=== PATIENT | male | born 1965 | race Caucasian/White ===

== ENCOUNTER 2021-01-17 17:21 | Inpatient (IN) | payer MEDICARE, MEDICAID, SELFPAY ==
[2021-01-17] VITALS (7 sets, daily range): BP systolic 121–146; BP diastolic 64–72; PULSE 90–121; RESP 14–19; TEMP 36.3–38.4; O2SAT 94–97; BMI 28.1; BMI 28.3
--- NOTE | 2021-01-17 17:27 | ED.RN ---
PT PARKED HIS CAR IN THE ER PARKING LOT AND THEN CALLED 911, [facility] WENT LOOKING FOR PT WHICH WAS MADE MORE DIFFICULT BECAUSE HE HAD HUNG UP WITH DISPATCH. PT WAS FOUND AND PUSHED UP TO THE ENTRANCE IN A WC. WHEN ASKED WHY PT CALLED 911 HE STATED HE COULDN'T WALK UP THE RAMP. IT WAS THEN EXPLAINED TO THE PT THAT SECURITY CAN MOVE HIS VEHICLE IF HE STOPS AT THE ENTRANCE NEXT TIME. USE OF 911 WAS ALSO EXPLAINED TO THE PT.
--- NOTE | 2021-01-17 17:35 | EKG12_ITS ---
Test Reason : Blood Pressure : / mmHG Vent. Rate : 114 BPM Atrial Rate : 114 BPM P-R Int : 158 ms QRS Dur : 098 ms QT Int : 344 ms P-R-T Axes : 047 027 056 degrees QTc Int : 474 ms Sinus tachycardia Cannot rule out Inferior infarct , age undetermined Abnormal ECG Confirmed by RIVKA JACQUES, MICHAEL ([id number]), assistant production editor ANABELA VALDES ([id number]) on 01/22/2021 10:05:36 A M Referred By: DAVINA/WILLIAM Confirmed By:ELISABET TINEO MD
--- NOTE | 2021-01-17 17:38 | EDS_ITS ---
HPI History of Present Illness Chief Complaint: Abn Labs Informant: patient Onset/Context/Timing Onset: Days Context: Gradual Onset Timing: Continuous Current Severity: Moderate Maximum Severity: Moderate Narrative Narrative: The patient is a 56-year-old male with medical history significant for diabetes, coronary vascular disease, prior TIA, history of GI bleed who presents to the emergency department with right foot and ankle pain. The patient has been following with podiatry. Initially, he has been treated as a Charcot foot. About a month ago, he had labs done which showed that he was anemic. He was scheduled follow-up with his primary care but never did. He states he has been taking his omeprazole. He followed up again today with podiatry. He had significant redness and erythema of the ankle. There was concern for osteomyelitis. The patient was sent in for further evaluation. He has been on amoxicillin. He does admit to some mild chills but denies any fevers. Prior similar symptoms: Yes Recent Illness/Hospitalization: No PFSH PFSH Medical History (Updated 01/17/21 @ 19:56 by Mera Torres) Anemia Chronic pain Coronary artery disease Diabetes Former smoker GERD (gastroesophageal reflux disease) GI bleed Myocardial infarct Osteoarthritis Sleep apnea TIA (transient ischemic attack) Home Medications aspirin 325 mg PO DAILY@0800 tab 07/14/17 [Rx Last Taken 01/16/21] alprazolam 0.5 mg PO TID PRN 01/17/21 [History Last Taken Unknown] amoxicillin 500 mg PO TID 01/17/21 [History Last Taken 01/17/21] famotidine 40 mg PO DAILY 01/17/21 [History Last Taken 01/16/21] ferrous sulfate 65 mg PO TIDCM 01/17/21 [History Last Taken 01/16/21] gabapentin 100 mg PO TID 01/17/21 [History Last Taken 01/17/21] insulin aspart U-100 [Novolog Flexpen U-100 Insulin] unit SUBCUT TIDCM 01/17/21 [History Last Taken 01/17/21 12:00 7 units] insulin detemir U-100 [Levemir FlexTouch U-100 Insuln] 60 unit SUBCUT BID 01/17/21 [History Last Taken 01/17/21 12:00 60 units] meloxicam 15 mg PO DAILY PRN 01/17/21 [History Last Taken Unknown] metoprolol succinate 50 mg PO DAILY 01/17/21 [History Last Taken 01/16/21] nitroglycerin 0.4 mg SUBLINGUAL PRN PRN 01/17/21 [History Last Taken Unknown] pantoprazole 40 mg PO BID 01/17/21 [History Last Taken 01/16/21] rosuvastatin 40 mg PO QHS 01/17/21 [History Last Taken Unknown] sildenafil 100 mg PO PRN PRN 01/17/21 [History Last Taken Unknown] tamsulosin 0.4 mg PO QHS 01/17/21 [History Last Taken 01/16/21] tramadol 50 mg PO Q8H PRN 01/17/21 [History Last Taken Unknown] Allergy/AdvReac Type Severity Reaction Status Date / Time No Known Allergies Allergy Verified 01/17/21 17:25 Surgical History (Updated 01/17/21 @ 19:47 by Mera Torres) Hx of CABG (~2013) Social History Smoking Status: Former smoker ROS ROS ED Constitutional Constitutional ED: Reports chills Eyes Eyes: Denies blurry vision or change in vision ENT ENT ED: Denies ear pain or sore throat Cardiovascular Cardiovascular: Denies chest pain or palpitations Respiratory/Chest Respiratory/Chest: Denies cough, dyspnea or dyspnea on exertion Gastrointestinal Gastrointestinal: Reports nausea Genitourinary Genitourinary ED: Denies dysuria or urinary frequency Musculoskeletal Musculoskeletal: Denies arthralgias or myalgias Integumentary Denies rash Neurologic Neurologic: Denies headache(s) or paresthesias Psychiatric Psychiatric: Denies anxiety or depression Endocrine Endocrinology: Denies polydipsia or polyuria Allergic/Immunologic Allergic/Immunologic ED: Denies urticaria EXAM Physical Exam Const Vital Signs: 01/17/21 17:23 01/17/21 18:11 01/17/21 18:13 Temperature 99 F 97.3 F L Temperature Source Temporal Temporal Pulse Rate 114 H 120 H Respiratory Rate 16 19 H Respiratory Effort Normal Non-Labored Blood Pressure 137/72 H 143/64 H Blood Pressure Mean 93 90 Pulse Ox 97 94 Oxygen Delivery Method Room Air Room Air 01/17/21 19:09 Temperature 100.0 F H Temperature Source Oral Pulse Rate 121 H Respiratory Rate 14 Respiratory Effort Blood Pressure 144/68 H Blood Pressure Mean 93 Pulse Ox 95 Oxygen Delivery Method Room Air Positive well nourished and well developed General Appearance ED: well developed HEENT Reports normocephalic, head/scalp atraumatic and moist mucous membranes Eyes PERRL and EOMs intact bilaterally Neck no lymphadenopathy and supple General: Negative for tenderness Chest Wall inspection of chest normal Resp normal respiratory effort and clear to auscultation bilaterally Cardio regular rate, regular rhythm and no murmurs GI normal to inspection, nondistended, normoactive bowel sounds Palpation: Negative for tender, guarding or rebound tenderness present Back/Spine no CVA tenderness Cervical Spine: Negative for cervical spine tenderness Thoracic Spine / Upper Back: Negative for thoracic spinal tenderness Extremity normal to inspection Extremity Narrative: Patient has what appears to be abscess over the medial malleolus. There is significant cellulitis. His pulses are normal. General Extremety ED: Yes tenderness Neuro oriented x3 and CN's II-XII intact bilaterally Neuro Narrative: No focal deficits appreciated. Sensorium / Orientation: alert Psych mental status grossly normal Skin no rashes or lesions noted, no wounds and skin turgor normal MDM MDM MDM Narrative Medical decision making narrative: The patient is a 56-year-old male who presents to the emergency department with infectious symptoms. He has a nonhealing wound of his right lower extremity and was sent in by podiatry. It is erythematous but there is no active drainage. Patient underwent metabolic work-up. He does have leukocytosis. His x-ray is consistent with osteomyelitis that is erosive through the joint. The patient is anemic. His inflammatory ma rkers are markedly elevated. I did discuss his case with podiatry who will see the patient in consultation. He is started on broad-spectrum antibiotics. At this point, the patient will be admitted to hospitalist service for medical stabilization and podiatry consult. Impression 1. Osteomyelitis right ankle 2. Anemia 3. Sepsis Lab Data Attestation: I reviewed the patient's lab results. Labs: Laboratory Results - last 24 hr 01/17/21 01/17/21 01/17/21 18:00 18:00 18:00 WBC 13.5 H RBC 3.28 L Hgb 7.5 L Hct 25.0 L MCV 76.2 L MCH 22.9 L MCHC 30.0 L RDW Std Deviation 48.1 H RDW Coeff of Cl 17.2 H Plt Count 720 H MPV 8.5 Immature Gran % (Auto) 2.000 H Neut % (Auto) 85.4 H Lymph % (Auto) 4.5 L [place] % (Auto) 6.8 Eos % (Auto) 0.7 Baso % (Auto) 0.6 Absolute Neuts (auto) 11.5 H Absolute Lymphs (auto) 0.60 L Nucleated RBC % 0 Differential Comment SEE COMMENT Platelet Estimate MKD INC RBC Morphology N CHROM Hypochromasia 1+ Anisocytosis 1+ Microcytosis 1+ Ovalocytes RARE ESR 116 H PT 14.4 INR 1.2 APTT 31.4 Sodium 131 L Potassium 4.3 Chloride 98 Carbon Dioxide 23.0 Anion Gap 10 BUN 20 H Creatinine 1.33 H Estim Creat Clear Calc 56.60 Est GFR (MDRD) Af Amer 71 Est GFR (MDRD) Non-Af 59 L BUN/Creatinine Ratio 15.0 Glucose 225 H Lactic Acid Calcium 9.5 Total Bilirubin 0.50 AST 12 L ALT 17 Alkaline Phosphatase 296 H C-React Prot Ext Range 187.00 H Total Protein 8.8 H Albumin 2.2 L Globulin 6.6 H Albumin/Globulin Ratio 0.3 L Blood Type Antibody Screen 01/17/21 01/17/21 18:00 18:00 WBC RBC Hgb Hct MCV MCH MCHC RDW Std Deviation RDW Coeff of Cl Plt Count MPV Immature Gran % (Auto) Neut % (Auto) Lymph % (Auto) [place] % (Auto) Eos % (Auto) Baso % (Auto) Absolute Neuts (auto) Absolute Lymphs (auto) Nucleated RBC % Differential Comment Platelet Estimate RBC Morphology Hypochromasia Anisocytosis Microcytosis Ovalocytes ESR PT INR APTT Sodium Potassium Chloride Carbon Dioxide Anion Gap BUN Creatinine Estim Creat Clear Calc Est GFR (MDRD) Af Amer Est GFR (MDRD) Non-Af BUN/Creatinine Ratio Glucose Lactic Acid 1.6 Calcium Total Bilirubin AST ALT Alkaline Phosphatase C-React Prot Ext Range Total Protein Albumin Globulin Albumin/Globulin Ratio Blood Type A POSITIVE Antibody Screen NEGATIVE Radiography Chest X-Ray - ED: 1 View, Read by ED Physician, Read by Radiologist, Heart, Lungs, Mediastinum and Bony Structures Diagnostic Testing: Radiology Impression Ankle X-Ray 01/17/21 18:12 IMPRESSION: Post surgical changes of the ankle and foot with findings suspicious for osteomyelitis and septic arthritis Electronically Signed: Doug Dyer MD at 18:55 EDT , Service support , Chest X-Ray 01/17/21 18:12 IMPRESSION: Streaky opacities in the left lung base could represent atelectasis versus infection. Electronically Signed: Brian Marquez MD at 19:21 EDT Tel , Service support , Discharge Plan Triage Chief Complaint: Abn Labs ED Provider: Russell Virgen Dx/Rx/DC Orders Primary Care Provider: Aaliyah Russ
--- NOTE | 2021-01-17 17:40 | NURSING ---
NO OLD EKGS
[2021-01-17 18:12] LABS: Absolute Neutrophil Count 11.5 X10^3/uL (2.0-7.7); Basophil# 0.08 X10^3/uL; Basophil% 0.6 % (0-1); Eosinophils% 0.7 % (0-5); Hemoglobin 7.5 g/dL (13.0-16.5); Lymphocyte % 4.5 % (19-41); Mean Corpuscular Hgb 22.9 pg (27.0-32.0); Mean Corpuscular Volume 76.2 fL (80-94); Mean Platelet Vol. 8.5 fl (6.2-12.0); Monocyte# 0.91 X10^3/uL; Monocyte% 6.8 % (0-10); NRBC Flagged by Analyzer 0 % (0-5); Neutrophil % 85.4 % (47-70); POSITIVE DIFFERENTIAL YES; Platelet Count 720 K/mm3 (150-450); RBC Distribution Width CV 17.2 % (11.6-14.6); RBC Distribution Width SD 48.1 fl (35.1-43.9); Red Blood Count 3.28 M/mm3 (4.6-6.2); White Blood Count 13.5 K/mm3 (4.4-11.0)
--- NOTE | 2021-01-17 18:12 | RAD_ITS ---
STUDY: X-RAY - RIGHT ANKLE REASON FOR EXAM: Male, 56 years old. pain TECHNIQUE: 3 view(s) of the ankle. COMPARISON: None. FINDINGS: There are old fractures of the distal tibial and fibular shafts. There are postsurgical changes with indwelling orthopedic hardware in the distal tibia calcaneus and talus. There is extensive lytic bony destructive change of the distal tibia and fibula as well as talus and possibly calcaneus with extensive soft tissue swelling suggesting acute osteomyelitis and septic arthritis. Clinical correlation recommended RAD/Ankle min 3 Views IMPRESSION: Post surgical changes of the ankle and foot with findings suspicious for osteomyelitis and septic arthritis Electronically Signed: Doug Dyer MD at 18:55 EDT , Service support ,
--- NOTE | 2021-01-17 18:12 | RAD_ITS ---
INDICATION: sob EXAMINATION/TECHNIQUE: X-RAY - XR Chest 1 View COMPARISON: None. FINDINGS: Streaky opacities in the left lung base. The cardiomediastinal silhouette is unremarkable. Median sternotomy wires and mediastinal clips are present. No pleural effusion or pneumothorax. Degenerative changes of the thoracic spine and shoulders. RAD/Chest 1 View (Portable) IMPRESSION: Streaky opacities in the left lung base could represent atelectasis versus infection. Electronically Signed: Brian Marquez MD at 19:21 EDT Tel , Service support ,
[2021-01-17 18:18] LABS: Differential Indicated SCAN CRITERIA MET
[2021-01-17 18:20] LABS: Erythrocyte Sedimentation Rate 116 mm/hr (0-20)
[2021-01-17 18:23] LABS: International Normalized Ratio 1.2; Prothrombin Time (Protime)PT. 14.4 SECONDS (11.7-14.9)
[2021-01-17 18:24] LABS: Partial Thromboplast Time 31.4 Seconds (24.1-36.2)
[2021-01-17 18:29] LABS: ALB/GLOB Ratio 0.3 RATIO (0.9-2.4); AST(SGOT) 12 U/L (15-37); Alanine Aminotransfer ALT/SGPT 17 U/L (16-61); Albumin, Serum 2.2 g/dL (3.2-5.0); Alkaline Phosphatase 296 U/L (45-117); Anion Gap 10 (5-15); BUN 20 mg/dL (7-18); Calcium,Total 9.5 mg/dL (8.5-10.1); Chloride 98 mmol/L (98-107); Creatinine, Serum 1.33 mg/dL (0.70-1.30); EST Glomerular Filtration Rate 59 mL/min (>60); Est Glom Filt Rate - Afr Amer 71 mL/min (>60); Globulin 6.6 g/dL (2.2-4.2); Glucose 225 mg/dL (74-106); Potassium 4.3 mmol/L (3.5-5.1); Protein, Total 8.8 g/dL (6.4-8.2); Sodium Level 131 mmol/L (136-145)
[2021-01-17 18:38] LABS: Lactic Acid 1.6 mmol/L (0.4-1.9)
[2021-01-17 18:40] LABS: Platelet Estimate MKD INC (ADEQ); Red Cell Morphology N CHROM NORMAL (NORM C&C)
[2021-01-17 18:41] LABS: Anisocytosis 1+; Hypochromasia 1+; Microcytosis 1+; Ovalocyte RARE
--- NOTE | 2021-01-17 19:12 | PCM.HP.STD ---
HPI - General General Date of Admission: 01/17/21 Chief Complaint: R ankle redness, swelling, pain. HPI Narrative The patient is a 56 y/o M w/ PMHx: CAD s/p CABG, Hx TIA, HTN, HLD, GE, Diabetes mellitus type II, Hx GI bleed, R Charcot foot following with Podiatry outpatient who presents to the [facility] ED on 01/17/21 with history of Charcot foot with ongoing outpatient podiatry evaluation and treatment with onset redness and erythema of the ankle over the last several days, worsening with podiatry evaluation today with referral to the ED for evaluation for osteomyelitis for which she has been on amoxicillin with some mild chills but no recent fevers but no improvement in worsening status. He notes that he has had ongoing issues since October. He follows w/ Podiatry in [facility] but was referred to Dr. Salas per his discussion secondary to his physician being out of town. Patient does chronically use iron therefore stools are always darker in appearance and unchanged. Work-up in the ED included T100, heart rate 121, BP 144/68, respiratory rate 14, 94 to 97% on room air, CBC with WBC 13.5, hemoglobin 7.5, MCV 76.2, platelets 720 with notable left shift and lymphopenia, ESR 116, unremarkable coags, CMP with sodium 131, BUN/creatinine 20/1.33, glucose 225, lactic acid 1.6, total bilirubin 0.50, AST/ALT 12/17, alk phos 296, CRP 187, blood type a positive antibody screen negative, right ankle with postsurgical changes of the ankle and foot with findings suspicious for osteomyelitis and septic arthritis, chest x-ray with streaky opacites L lung base possibly atelectasis with no recent cough or dyspnea complaints. In the ED patient administered vanc and zosyn. Discussed case with Dr. Salas upon presentation, agreed with imaging MRI, BSA, planned OR and she requested 1 u PRBC given possible OR blood loss and anemia presentation. [facility] Medical History (Updated 01/17/21 @ 21:[address] Lyndsey Salas, DPM) Anemia Chronic pain Coronary artery disease Diabetes Former smoker GERD (gastroesophageal reflux disease) GI bleed Myocardial infarct Osteoarthritis Sleep apnea TIA (transient ischemic attack) Home Medications aspirin 325 mg PO DAILY@0800 tab 07/14/17 [Rx Last Taken 01/16/21] alprazolam 0.5 mg PO TID PRN 01/17/21 [History Last Taken Unknown] amoxicillin 500 mg PO TID 01/17/21 [History Last Taken 01/17/21] famotidine 40 mg PO DAILY 01/17/21 [History Last Taken 01/16/21] ferrous sulfate 65 mg PO TIDCM 01/17/21 [History Last Taken 01/16/21] gabapentin 100 mg PO TID 01/17/21 [History Last Taken 01/17/21] insulin aspart U-100 [Novolog Flexpen U-100 Insulin] unit SUBCUT TIDCM 01/17/21 [History Last Taken 01/17/21 12:00 7 units] insulin detemir U-100 [Levemir FlexTouch U-100 Insuln] 60 unit SUBCUT BID 01/17/21 [History Last Taken 01/17/21 12:00 60 units] meloxicam 15 mg PO DAILY PRN 01/17/21 [History Last Taken Unknown] metoprolol succinate 50 mg PO DAILY 01/17/21 [History Last Taken 01/16/21] nitroglycerin 0.4 mg SUBLINGUAL PRN PRN 01/17/21 [History Last Taken Unknown] pantoprazole 40 mg PO BID 01/17/21 [History Last Taken 01/16/21] rosuvastatin 40 mg PO QHS 01/17/21 [History Last Taken Unknown] sildenafil 100 mg PO PRN PRN 01/17/21 [History Last Taken Unknown] tamsulosin 0.4 mg PO QHS 01/17/21 [History Last Taken 01/16/21] tramadol 50 mg PO Q8H PRN 01/17/21 [History Last Taken Unknown] Allergy/AdvReac Type Severity Reaction Status Date / Time No Known Allergies Allergy Verified 01/17/21 17:25 Family History (Updated 01/17/21 @ 21:[address] Monica Swenson MD) Mother Cancer Mother w/ Lung CA, tobacco use concurrent history. Father Heart disease Surgical History (Updated 01/17/21 @ 21:[address] Monica Swenson MD) Hx of CABG (~2013) Social History (Updated 01/17/21 @ 21:[address] Monica Swenson MD) household members: none Smoking Status: Never smoker alcohol intake: never ROS ROS Narrative Admission Review of Systems: CONSTITUTIONAL: No weight loss, fever, + chills, weakness or fatigue. HEENT: Eyes: No visual loss, blurred vision, double vision or yellow sclerae. Ears, Nose, Throat: No hearing loss, sneezing, congestion, runny nose or sore throat. SKIN: + wounds, redness. CARDIOVASCULAR: No chest pain, chest pressure or chest discomfort, palpitations, edema, orthopnea, syncopal events. RESPIRATORY: No shortness of breath, cough or sputum, wheezing, hemoptysis. GASTROINTESTINAL: No anorexia, nausea, vomiting, diarrhea, abdominal pain, melena, BRBPR. GENITOURINARY: No dysuria, frequency, urgency or retention. NEUROLOGICAL: No headache, dizziness, syncope, paralysis, ataxia, numbness or tingling in the extremities, focal weakness, change in bowel or bladder control, seizure. MUSCULOSKELETAL: + muscle, back pain, joint pain or stiffness. HEMATOLOGIC: + anemia, bleeding or bruising. LYMPHATICS: No enlarged nodes. No history of splenectomy. PSYCHIATRIC: No history of depression or anxiety. ENDOCRINOLOGIC: No reports of sweating, cold or heat intolerance. No polyuria or polydipsia. ALLERGIES: No history of asthma, hives, eczema or rhinitis. Vital Signs Vital Signs Vital Signs: 01/17/21 17:23 01/17/21 18:11 01/17/21 18:13 Temperature 99 F 97.3 F L Temperature Source Temporal Temporal Pulse Rate 114 H 120 H Respiratory Rate 16 19 H Respiratory Effort Normal Non-Labored Blood Pressure 137/72 H 143/64 H Blood Pressure Mean 93 90 Pulse Ox 97 94 Oxygen Delivery Method Room Air Room Air 01/17/21 19:09 Temperature 100.0 F H Temperature Source Oral Pulse Rate 121 H Respiratory Rate 14 Respiratory Effort Blood Pressure 144/68 H Blood Pressure Mean 93 Pulse Ox 95 Oxygen Delivery Method Room Air Physical Exam Narrative Physical Examination: General: awake, alert, oriented x 3 and cooperative, seated upright in the ED bed in no apparent distress. Skin: normal color, normal turgor, no icterus, no cyanosis except R ankle w/ notable edema, fluctuance especially to the R medial malleous region, TTP, erythematous, warm to touch. HEENT: AT/NC, EOMI, PERRLA, mildly dry MM, no carotid bruits or JVD noted. Lungs: Diminished bases, appropriate effort, no rales, ronchi or wheezing. Heart: Mildly tachycardic with regular rhythm; no gallop, rub audible. Abdomen: soft, overweight, NTTP, ND, normal BS, no HSM. Extremities: no cyanosis, see skin, R charcot foot. Neurological: patient awake, alert, oriented x 3, cognitive function intact; pupils equally reactive to light and accommodation, cranial nerves II-XII grossly normal, moving all 4 extremities, no focal deficits, strength moderately globally decreased secondary to acute presentation and complaints. Psychiatric: affect appears fatigued, no acute evidence of depressive or anxiety feelings. Lab / Micro Data Result Diagrams: 01/17/21 18:00 01/17/21 18:00 Labs: Laboratory Results - last 24 hr 01/17/21 01/17/21 01/17/21 18:00 18:00 18:00 WBC 13.5 H RBC 3.28 L Hgb 7.5 L Hct 25.0 L MCV 76.2 L MCH 22.9 L MCHC 30.0 L RDW Std Deviation 48.1 H RDW Coeff of Cl 17.2 H Plt Count 720 H MPV 8.5 Immature Gran % (Auto) 2.000 H Neut % (Auto) 85.4 H Lymph % (Auto) 4.5 L [place] % (Auto) 6.8 Eos % (Auto) 0.7 Baso % (Auto) 0.6 Absolute Neuts (auto) 11.5 H Absolute Lymphs (auto) 0.60 L Nucleated RBC % 0 Differential Comment SEE COMMENT Platelet Estimate MKD INC RBC Morphology N CHROM Hypochromasia 1+ Anisocytosis 1+ Microcytosis 1+ Ovalocytes RARE ESR 116 H PT 14.4 INR 1.2 APTT 31.4 Sodium 131 L Potassium 4.3 Chloride 98 Carbon Dioxide 23.0 Anion Gap 10 BUN 20 H Creatinine 1.33 H Estim Creat Clear Calc 56.60 Est GFR (MDRD) Af Amer 71 Est GFR (MDRD) Non-Af 59 L BUN/Creatinine Ratio 15.0 Glucose 225 H Lactic Acid Calcium 9.5 Total Bilirubin 0.50 AST 12 L ALT 17 Alkaline Phosphatase 296 H C-React Prot Ext Range 187.00 H Total Protein 8.8 H Albumin 2.2 L Globulin 6.6 H Albumin/Globulin Ratio 0.3 L Blood Type Antibody Screen 01/17/21 01/17/21 18:00 18:00 WBC RBC Hgb Hct MCV MCH MCHC RDW Std Deviation RDW Coeff of Cl Plt Count MPV Immature Gran % (Auto) Neut % (Auto) Lymph % (Auto) [place] % (Auto) Eos % (Auto) Baso % (Auto) Absolute Neuts (auto) Absolute Lymphs (auto) Nucleated RBC % Differential Comment Platelet Estimate RBC Morphology Hypochromasia Anisocytosis Microcytosis Ovalocytes ESR PT INR APTT Sodium Potassium Chloride Carbon Dioxide Anion Gap BUN Creatinine Estim Creat Clear Calc Est GFR (MDRD) Af Amer Est GFR (MDRD) Non-Af BUN/Creatinine Ratio Glucose Lactic Acid 1.6 Calcium Total Bilirubin AST ALT Alkaline Phosphatase C-React Prot Ext Range Total Protein Albumin Globulin Albumin/Globulin Ratio Blood Type A POSITIVE Antibody Screen NEGATIVE Micro: Microbiology 01/17/21 18:00 SARS-CoV-2 Antigen (Rapid) - Final Interface Orders Radiology Impression Ankle X-Ray 01/17/21 18:12 IMPRESSION: Post surgical changes of the ankle and foot with findings suspicious for osteomyelitis and septic arthritis Electronically Signed: Doug Dyer MD at 18:55 EDT , Service support , Assessment & Plan Assessment/Plan (1) Osteomyelitis, ankle and foot: PLAN: The patient is a 56 y/o M w/ PMHx: CAD s/p CABG, Hx TIA, HTN, HLD, GE, Diabetes mellitus type II, Hx GI bleed, R Charcot foot following with Podiatry outpatient who presents to the [facility] ED on 01/17/21 with history of Charcot foot with ongoing outpatient podiatry evaluation and treatment with onset redness and erythema of the ankle over the last several days, worsening with podiatry evaluation today with referral to the ED for evaluation for osteomyelitis for which she has been on amoxicillin with some mild chills but no recent fevers but no improvement in worsening status. 1. Acute sepsis secondary to acute right ankle medial malleolus abscess, cellulitis and septic arthritis: We will admit to medical surgical floor, maintain on fall precautions, will continue broad-spectrum antibiotic therapy with IV Zosyn and vancomycin pending cultures, will obtain wound culture as well as wound MRSA PCR per Dr. Salas on who is evaluating patient with plan to unroofed a small section if able, as needed oral and IV pain regimen, as needed antiemetics, weight parameters per podiatry, requested MRI of the ankle/foot. Infectious disease as well as wound RN consultation is also requested. Blood culture x2 pending per ED. 2. ? Acute on Chronic anemia, iron deficiency w/ Hx GI bleed: Admission hemoglobin 7.5, prior last lab noted 06/30/2017 9.3, will request stool guaiac/Fe panel/vitamin B12/Folic acid and hold oral omeprazole with Protonix high-dose transition. Given planned OR per discussion with podiatry will administer 1 unit PRBC. 3. Hypertension: Continue home regimen including metoprolol with hold parameters, PRN hydralazine. 4. Hyperlipidemia: Not on statin therapy. 5. CAD: Status post CABG x 5 2013, we will continue aspirin, not on statin, continue metoprolol, not on TRES inhibitor. 6. Chronic Kidney Disease Stage III w/ suspected mild insufficiency: Admission BUN/Cr 20/1.33, baseline renal function 0.8 prior however last value 2017, repeat BMP in AM. 7. Diabetes mellitus type II: Will continue home insulin regimen, ADA diet until NPO status, HgbA1c requested, nutrition for education and teaching, accu checks w/ ISS. 8. BPH: We will continue patient home Flomax regimen. 9. GE: CPAP q HS if amenable but states not using. 10. DVT prophylaxis: SCDs, hold chemoprophylaxis given planned OR. 11. CODE status: Patient does not have healthcare per senior attorney nor living will set up. Encourage discussions with case management/social work for more information. Discussed CODE status at length including difference between FULL code, DNR-CCA and DNR-CC status. Following discussions about the differences in these status, requested Full Code statu. Advanced Care Planning Face to Face Time: 16 minutes. Visit Charges Inpatient E&M: 66909 Init Hosp L3 Procedures Hospitalists Procedures: [id number] Advncd Care Plan 30 Min
--- NOTE | 2021-01-17 19:54 | NURSING ---
Dr Swenson aware that home med list updated.
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
[2021-01-17 20:20] LABS: Ferritin 300 ng/mL (26-388); Iron 15 ug/dL (65-175); Iron Binding Capacity,Total 220 ug/dL (250-450); PERCENT IRON SATURATION 6.8 % (15.0-55.0)
[2021-01-17] MEDS: 0.9% Normal Saline 1,000 ML 100 ML IV (21:22)
[2021-01-17] MEDS: Morphine 2 MG/ML Syringe IV (21:30)
[2021-01-17 21:32] LABS: Vitamin B12 653 pg/mL (211-911)
[2021-01-17] MEDS: 0.9% Saline Lock 10 ML Syringe IV (21:38)
[2021-01-17] MEDS: Acetaminophen 325 MG Tablet 650 MG PO (21:38)
[2021-01-17] MEDS: Pregabalin 75 MG Capsule 150 MG PO (22:34)
[2021-01-17] MEDS: Pantoprazole Sodium 40 MG Tablet PO (22:34)
[2021-01-17] MEDS: Atorvastatin Calcium 80 MG Tablet PO (22:35)
[2021-01-17] MEDS: Insulin Lispro 100 UNIT/ML INSULN.PEN SC (22:35)
[2021-01-17 22:41] LABS: Bedside Glucose 179 mg/dL (70-110)
--- NOTE | 2021-01-17 23:18 | PCM.RX.CS ---
Consult Pharmacy has been consulted to manage selected antiobiotic: Vancomycin Type of Consult: New start Suspected Infection: Sepsis Labs: Sodium 131 mmol/L (136-145) L 01/17/21 18:00 Potassium 4.3 mmol/L (3.5-5.1) 01/17/21 18:00 Chloride 98 mmol/L (98-107) 01/17/21 18:00 Carbon Dioxide 23.0 mmol/L (21.0-32.0) 01/17/21 18:00 Anion Gap 10 (5-15) 01/17/21 18:00 BUN 20 mg/dL (7-18) H 01/17/21 18:00 Creatinine 1.33 mg/dL (0.70-1.30) H 01/17/21 18:00 Est GFR (MDRD) Af Amer 71 mL/min (>60) 01/17/21 18:00 Est GFR (MDRD) Non-Af 59 mL/min (>60) L 01/17/21 18:00 BUN/Creatinine Ratio 15.0 RATIO (10-20) 01/17/21 18:00 Glucose 225 mg/dL (74-106) H 01/17/21 18:00 Microbiology: Microbiology 01/17/21 18:00 Interface Orders SARS-CoV-2 Antigen (Rapid) - Final Weight used for dosin kg Estimated Creatinine Clearance: 61.9 Goal Trough: 15-20 mcg/mL Pharmacy Plan for Drug Dosing: Pharmacy Service will continue to monitor and adjust dosing as required. Medications Vancomycin HCl (Vancomycin) 1,000 mg in 200 mls @ 200 mls/hr IV Q12H KEYSHA Discontinued Medications Vancomycin HCl 1,250 mg/ (Dextrose) 275 mls @ 250 mls/hr IV X1 ONE Stop: 01/17/21 19:37 Last Admin: 01/17/21 22:30 Dose: Infused Documented by: Follow-Up Labs: Trough Vancomycin Labs to be done on [date and time ordered]: 01/19 @ 0900
[2021-01-18] VITALS (23 sets, daily range): BP systolic 86–126; BP diastolic 36–69; PULSE 73–94; RESP 13–18; TEMP 36.4–37.3; O2SAT 93–99; BMI 28.3
--- NOTE | 2021-01-18 | BON_PTH ---
PATIENT: CARLOS EDUARDO JULES LOC: MS3 U#:[id number] AGE/SX: 56/M ROOM: [facility] [place]17/[address]: Dr. Tod Judge MD : [id number] BED: 1 DIS: 01/21/2021 SPEC #: [id number] RECD: 01/21/21 07:03 STATUS: ELISE REQ #: [id number] JOEL: 01/18/21 00:[address]: Lyndsey Salas DEPT: SURGICAL PATHOLOGY RECD BY: Rufino Silva ENTERED: 01/21/21 08:01 SP TYPE: Bone OTHR DR: MD Dr. Aaliyah Phillips MD Dr. Jeanna Fascione, DPM MD Dr. Festus Carter MD Tissues: A - Bone of foot, NOS B - Bone of lower extremity, NOS Procedures: Decalcification bone/plaque Surgery Specimen Level V Comments: @ Ordering doctor for DEC edited from to @ cathy CRAIG at 01/21/21906 @ Ordering doctor for SUIII edited from to @ cathy CRAIG at 01/21/21 09 @ Submitting doctor edited from to DR.[email or web address] Krissy CRAIG at 01/21/21906 HEADER OPERATION: I & D ankle with bone biopsies PRE-OP DIAGNOSIS: Osteomyelitis ankle and foot TISSUE SUBMITTED: A ? Talus right foot, B ? Right tibia MICROSCOPIC DIAGNOSIS A. Talus right foot, biopsy: A piece of bone with acute osteomyelitis. See comment. B. Right tibia bone, biopsy: A piece of bone with acute osteomyelitis. See comment. SJ:rg 01/24/2021 COMMENT A & B. Both specimens also show reactive changes, chronic inflammation and fibrosis. Case has been reviewed in consultation with Dr. Bangura who concurs with the above diagnosis. IDC:AM MICROSCOPIC DESCRIPTION Slides are reviewed. GROSS DESCRIPTION A - Received in fixative is one container labeled with the patient's name and designated talus right foot. The specimen consists of a piece of brownish-black measuring 0.5 x 0.5 x 0.1 cm. The entire specimen is submitted in one cassette after decalcification. B - Received in fixative is one container labeled with the patient's name and designated right tibia. The specimen consists of one irregular fragment of light pineda soft tissue that measures 0.8 x 0.2 x 0.2 cm. The specimen is totally submitted in one cassette after decalcification. / VIKTOR:dandre 01/21/21 TC:2 CPT: 94116 x2, 20397 x2
[2021-01-18 01:25] LABS: M R Staph aureus DNA By PCR Negative (Negative); Probe Check PASS; Specimen Processing Control PASS; Staph aureus DNA By PCR NEGATIVE (Negative)
[2021-01-18 05:41] LABS: Absolute Lymphocyte Count 1.64 X10^3/uL (0.83-4.51); Basophil# 0.06 X10^3/uL; Basophil% 0.6 % (0-1); Eosinophil# 0.15 X10^3/uL; Eosinophils% 1.5 % (0-5); Hematocrit 25.8 % (40-54); Hemoglobin 7.7 g/dL (13.0-16.5); Lymphocyte # 1.64 X10^3/ul (0.83-4.51); Lymphocyte % 16.2 % (19-41); Mean Corp Hgb Conc 29.8 g/dL (32-36); Mean Corpuscular Hgb 23.4 pg (27.0-32.0); Mean Corpuscular Volume 78.4 fL (80-94); Mean Platelet Vol. 8.4 fl (6.2-12.0); Monocyte# 1.15 X10^3/uL; Monocyte% 11.3 % (0-10); NRBC Flagged by Analyzer 0 % (0-5); Neutrophil # 7.01 X10^3/uL (2.7-7.7); Platelet Count 634 K/mm3 (150-450); RBC Distribution Width CV 17.1 % (11.6-14.6); RBC Distribution Width SD 49.1 fl (35.1-43.9); Red Blood Count 3.29 M/mm3 (4.6-6.2); White Blood Count 10.2 K/mm3 (4.4-11.0)
[2021-01-18] MEDS: Morphine 2 MG/ML Syringe IV (06:04)
[2021-01-18 06:14] LABS: ALB/GLOB Ratio 0.3 RATIO (0.9-2.4); AST(SGOT) 12 U/L (15-37); Alanine Aminotransfer ALT/SGPT 13 U/L (16-61); Albumin, Serum 1.9 g/dL (3.2-5.0); Alkaline Phosphatase 254 U/L (45-117); Anion Gap 8 (5-15); BUN 20 mg/dL (7-18); BUN/Creat Ratio 16.7 RATIO (10-20); Chloride 103 mmol/L (98-107); EST Glomerular Filtration Rate 66 mL/min (>60); Est Glom Filt Rate - Afr Amer 80 mL/min (>60); Estimated Creatinine Clearance 60.55 ml/min; Globulin 5.8 g/dL (2.2-4.2); Glucose 86 mg/dL (74-106); Potassium 3.9 mmol/L (3.5-5.1); Protein, Total 7.7 g/dL (6.4-8.2); Sodium Level 137 mmol/L (136-145)
[2021-01-18 07:05] LABS: Bedside Glucose 72 mg/dL (70-110)
--- NOTE | 2021-01-18 08:11 | NURSING ---
Wound photo: right medial ankle
--- NOTE | 2021-01-18 08:12 | NURSING ---
skin photo: right lateral ankle
[2021-01-18] MEDS: 0.9% Saline Lock 10 ML Syringe IV ×5 (08:43→21:41)
[2021-01-18] MEDS: Dextrose 50%-Water 25 GM/50 ML DISP.SYRIN IV (08:53)
[2021-01-18 08:54] LABS: Hemoglobin A1c 8.4 % (3.8-5.6)
[2021-01-18] MEDS: Vancomycin IV 1,000 MG/200 ML BAG 200 MG IV ×2 (09:07→21:07)
[2021-01-18 09:26] LABS: Bedside Glucose 116 mg/dL (70-110)
[2021-01-18 09:26] LABS: Bedside Glucose 56 mg/dL (70-110)
--- NOTE | 2021-01-18 10:00 | CASEMGMT ---
RN CM attempted to complete assessment at this time. Patient is out of room at this time. RN CM will attempt to complete assessment at later time.
--- NOTE | 2021-01-18 10:05 | CASEMGMT ---
RN CM Face to Face with patient for initial transition planning/care coordination assessment. RN CM introduced self and role at [facility]. Patient lying in bed, alert and oriented. Patient willing to participate in assessment and is able to answer all questions appropriately. Care providers, pharmacy, and demographics verified. Patient wishes to discharge home, denies need for home health at this time. Patient states he has no further needs or concerns at this time. CM to follow for discharge planning needs that may arise. 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 Patient is independent at home. Transportation: self/son DME/HHC: [place] states he has glucometer and testing supplies at home. Patient denies further DME or HHC. Disposition Plan: Patient to discharge home with family support and follow-up plans in place. Mera LAGUNAS, RN, CM
[2021-01-18 11:00] LABS: Bedside Glucose 110 mg/dL (70-110)
[2021-01-18] MEDS: Dext 5%-0.45% NS 1,000 ML 75 ML IV ×2 (12:16→18:54)
[2021-01-18 13:11] LABS: Bedside Glucose 110 mg/dL (70-110)
--- NOTE | 2021-01-18 13:29 | CON.PCM.ID_ITS ---
Assessment & Plan Assessment/Plan (1) Osteomyelitis, ankle and foot: PLAN: R ankle osteo. OR today. On empiric vanc/zosyn. Recommended he get covid shot after discharge. Will follow, thank you (2) Diabetes mellitus with neuropathy: HPI Consult Data Date of Consult: 01/18/21 HPI Narrative HPI Narrative: CARLOS EDUARDO JULES, is a 56 M with h/o COPD, DM, CAD. Presented with about 2 months of progressive lower RLE pain. Minimal swelling/redness/drainage. Was on amoxicillin for past week due to dental infection. Came to ED due to worsening pain. Started on vanc/zosyn, seen by Dr. Salas, OR planned for today. No fever, no n/v/d. Has not gotten covid vaccine. Full ROS performed and neg except as noted above. [facility] Medical History Anemia Anxiety Chronic pain COPD (chronic obstructive pulmonary disease) Coronary artery disease Current use of insulin Depression Diabetes Former smoker GERD (gastroesophageal reflux disease) GI bleed High cholesterol History of stress test Myocardial infarct Osteoarthritis Sleep apnea TIA (transient ischemic attack) Home Medications aspirin 325 mg PO DAILY@0800 tab 07/14/17 [Rx Last Taken 01/16/21] alprazolam 0.5 mg PO TID PRN 01/17/21 [History Last Taken Unknown] amoxicillin 500 mg PO TID 01/17/21 [History Last Taken 01/17/21] famotidine 40 mg PO DAILY 01/17/21 [History Last Taken 01/16/21] ferrous sulfate 65 mg PO TIDCM 01/17/21 [History Last Taken 01/16/21] gabapentin 100 mg PO TID 01/17/21 [History Last Taken 01/17/21] insulin aspart U-100 [Novolog Flexpen U-100 Insulin] unit SUBCUT TIDCM 01/17/21 [History Last Taken 01/17/21 12:00 7 units] insulin detemir U-100 [Levemir FlexTouch U-100 Insuln] 60 unit SUBCUT BID 01/17/21 [History Last Taken 01/17/21 12:00 60 units] meloxicam 15 mg PO DAILY PRN 01/17/21 [History Last Taken Unknown] metoprolol succinate 50 mg PO DAILY 01/17/21 [History Last Taken 01/16/21] nitroglycerin 0.4 mg SUBLINGUAL PRN PRN 01/17/21 [History Last Taken Unknown] pantoprazole 40 mg PO BID 01/17/21 [History Last Taken 01/16/21] rosuvastatin 40 mg PO QHS 01/17/21 [History Last Taken Unknown] sildenafil 100 mg PO PRN PRN 01/17/21 [History Last Taken Unknown] tamsulosin 0.4 mg PO QHS 01/17/21 [History Last Taken 01/16/21] tramadol 50 mg PO Q8H PRN 01/17/21 [History Last Taken Unknown] Allergy/AdvReac Type Severity Reaction Status Date / Time No Known Allergies Allergy Verified 01/17/21 17:25 Family History (Updated 01/17/21 @ 21:[address] Monica Swenson MD) Mother Cancer Mother w/ Lung CA, tobacco use concurrent history. Father Heart disease Surgical History H/O cardiac catheterization Hx of CABG (~2013) Social History (Updated 01/17/21 @ 21:[address] Monica Swenson MD) household members: none Smoking Status: Never smoker alcohol intake: never Physical Exam Const alert and no apparent distress General Appearance: cooperative Exam Limitations: no limitations HEENT normocephalic and head/scalp atraumatic Eyes PERRL and EOMs intact bilaterally Neck supple and No nodes Resp normal air movement and clear to auscultation bilaterally Cardio regular rate and regular rhythm GI normal to inspection, nondistended, normoactive bowel sounds Extremity General Extremity: edema Skin Skin Narrative: reviewed photos R ankle Neuro CN's II-XII intact bilaterally Lab / Micro Data Result Diagrams: 01/18/21 05:20 01/18/21 05:20 Labs: Laboratory Results - last 24 hr 01/17/21 01/17/21 01/17/21 18:00 18:00 18:00 WBC 13.5 H RBC 3.28 L Hgb 7.5 L Hct 25.0 L MCV 76.2 L MCH 22.9 L MCHC 30.0 L RDW Std Deviation 48.1 H RDW Coeff of Cl 17.2 H Plt Count 720 H MPV 8.5 Immature Gran % (Auto) 2.000 H Neut % (Auto) 85.4 H Lymph % (Auto) 4.5 L Henderson % (Auto) 6.8 Eos % (Auto) 0.7 Baso % (Auto) 0.6 Absolute Neuts (auto) 11.5 H Absolute Lymphs (auto) 0.60 L Nucleated RBC % 0 Differential Comment SEE COMMENT Platelet Estimate MKD INC RBC Morphology N CHROM Hypochromasia 1+ Anisocytosis 1+ Microcytosis 1+ Ovalocytes RARE ESR 116 H PT 14.4 INR 1.2 APTT 31.4 Sodium 131 L Potassium 4.3 Chloride 98 Carbon Dioxide 23.0 Anion Gap 10 BUN 20 H Creatinine 1.33 H Estim Creat Clear Calc 56.60 Est GFR (MDRD) Af Amer 71 Est GFR (MDRD) Non-Af 59 L BUN/Creatinine Ratio 15.0 Glucose 225 H Hemoglobin A1c Lactic Acid Calcium 9.5 Magnesium Iron TIBC Iron Saturation Ferritin Total Bilirubin 0.50 AST 12 L ALT 17 Alkaline Phosphatase 296 H C-React Prot Ext Range 187.00 H Total Protein 8.8 H Albumin 2.2 L Globulin 6.6 H Albumin/Globulin Ratio 0.3 L Vitamin B12 Folate S.aureus Protein A PCR MRSA (PCR) POC Glucose Blood Type Antibody Screen Crossmatch 01/17/21 01/17/21 01/17/21 18:00 18:00 18:00 WBC RBC Hgb Hct MCV MCH MCHC RDW Std Deviation RDW Coeff of Cl Plt Count MPV Immature Gran % (Auto) Neut % (Auto) Lymph % (Auto) Henderson % (Auto) Eos % (Auto) Baso % (Auto) Absolute Neuts (auto) Absolute Lymphs (auto) Nucleated RBC % Differential Comment Platelet Estimate RBC Morphology Hypochromasia Anisocytosis Microcytosis Ovalocytes ESR PT INR APTT Sodium Potassium Chloride Carbon Dioxide Anion Gap BUN Creatinine Estim Creat Clear Calc Est GFR (MDRD) Af Amer Est GFR (MDRD) Non-Af BUN/Creatinine Ratio Glucose Hemoglobin A1c Lactic Acid 1.6 Calcium Magnesium 2.0 Iron 15 L TIBC 220 L Iron Saturation 6.8 L Ferritin 300 Total Bilirubin AST ALT Alkaline Phosphatase C-React Prot Ext Range Total Protein Albumin Globulin Albumin/Globulin Ratio Vitamin B12 Folate S.aureus Protein A PCR MRSA (PCR) POC Glucose Blood Type A POSITIVE Antibody Screen NEGATIVE Crossmatch 01/17/21 01/17/21 01/17/21 18:00 18:00 18:00 WBC RBC Hgb Hct MCV MCH MCHC RDW Std Deviation RDW Coeff of Cl Plt Count MPV Immature Gran % (Auto) Neut % (Auto) Lymph % (Auto) Henderson % (Auto) Eos % (Auto) Baso % (Auto) Absolute Neuts (auto) Absolute Lymphs (auto) Nucleated RBC % Differential Comment Platelet Estimate RBC Morphology Hypochromasia Anisocytosis Microcytosis Ovalocytes ESR PT INR APTT Sodium Potassium Chloride Carbon Dioxide Anion Gap BUN Creatinine Estim Creat Clear Calc Est GFR (MDRD) Af Amer Est GFR (MDRD) Non-Af BUN/Creatinine Ratio Glucose Hemoglobin A1c Lactic Acid Calcium Magnesium Iron TIBC Iron Saturation Ferritin Total Bilirubin AST ALT Alkaline Phosphatase C-React Prot Ext Range Total Protein Albumin Globulin Albumin/Globulin Ratio Vitamin B12 653 Folate 23.30 S.aureus Protein A PCR MRSA (PCR) POC Glucose Blood Type Antibody Screen Crossmatch See Detail 01/17/21 01/17/21 01/17/21 18:00 21:15 22:31 WBC RBC Hgb Hct MCV MCH MCHC RDW Std Deviation RDW Coeff of Cl Plt Count MPV Immature Gran % (Auto) Neut % (Auto) Lymph % (Auto) Henderson % (Auto) Eos % (Auto) Baso % (Auto) Absolute Neuts (auto) Absolute Lymphs (auto) Nucleated RBC % Differential Comment Platelet Estimate RBC Morphology Hypochromasia Anisocytosis Microcytosis Ovalocytes ESR PT INR APTT Sodium Potassium Chloride Carbon Dioxide Anion Gap BUN Creatinine Estim Creat Clear Calc Est GFR (MDRD) Af Amer Est GFR (MDRD) Non-Af BUN/Creatinine Ratio Glucose Hemoglobin A1c Lactic Acid Calcium Magnesium Iron TIBC Iron Saturation Ferritin Total Bilirubin AST ALT Alkaline Phosphatase C-React Prot Ext Range Total Protein Albumin Globulin Albumin/Globulin Ratio Vitamin B12 Folate S.aureus Protein A PCR NEGATIVE MRSA (PCR) Negative POC Glucose 179 H Blood Type Antibody Screen Crossmatch See Detail 01/18/21 01/18/21 01/18/21 05:20 05:20 05:20 WBC 10.2 RBC 3.29 L Hgb 7.7 L Hct 25.8 L MCV 78.4 L MCH 23.4 L MCHC 29.8 L RDW Std Deviation 49.1 H RDW Coeff of Cl 17.1 H Plt Count 634 H MPV 8.4 Immature Gran % (Auto) 1.400 H Neut % (Auto) 69.0 Lymph % (Auto) 16.2 L Henderson % (Auto) 11.3 H Eos % (Auto) 1.5 Baso % (Auto) 0.6 Absolute Neuts (auto) 7.0 Absolute Lymphs (auto) 1.64 Nucleated RBC % 0 Differential Comment Platelet Estimate RBC Morphology Hypochromasia Anisocytosis Microcytosis Ovalocytes ESR PT INR APTT Sodium 137 Potassium 3.9 Chloride 103 Carbon Dioxide 26.0 Anion Gap 8 BUN 20 H Creatinine 1.20 Estim Creat Clear Calc 60.55 Est GFR (MDRD) Af Amer 80 Est GFR (MDRD) Non-Af 66 BUN/Creatinine Ratio 16.7 Glucose 86 Hemoglobin A1c 8.4 H Lactic Acid Calcium 9.0 Magnesium Iron TIBC Iron Saturation Ferritin Total Bilirubin 0.40 AST 12 L ALT 13 L Alkaline Phosphatase 254 H C-React Prot Ext Range Total Protein 7.7 Albumin 1.9 L Globulin 5.8 H Albumin/Globulin Ratio 0.3 L Vitamin B12 Folate S.aureus Protein A PCR MRSA (PCR) POC Glucose Blood Type Antibody Screen Crossmatch 01/18/21 01/18/21 01/18/21 06:53 08:45 09:13 WBC RBC Hgb Hct MCV MCH MCHC RDW Std Deviation RDW Coeff of Cl Plt Count MPV Immature Gran % (Auto) Neut % (Auto) Lymph % (Auto) Henderson % (Auto) Eos % (Auto) Baso % (Auto) Absolute Neuts (auto) Absolute Lymphs (auto) Nucleated RBC % Differential Comment Platelet Estimate RBC Morphology Hypochromasia Anisocytosis Microcytosis Ovalocytes ESR PT INR APTT Sodium Potassium Chloride Carbon Dioxide Anion Gap BUN Creatinine Estim Creat Clear Calc Est GFR (MDRD) Af Amer Est GFR (MDRD) Non-Af BUN/Creatinine Ratio Glucose Hemoglobin A1c Lactic Acid Calcium Magnesium Iron TIBC Iron Saturation Ferritin Total Bilirubin AST ALT Alkaline Phosphatase C-React Prot Ext Range Total Protein Albumin Globulin Albumin/Globulin Ratio Vitamin B12 Folate S.aureus Protein A PCR MRSA (PCR) POC Glucose 72 56 L 116 H Blood Type Antibody Screen Crossmatch 01/18/21 01/18/21 10:53 13:02 WBC RBC Hgb Hct MCV MCH MCHC RDW Std Deviation RDW Coeff of Cl Plt Count MPV Immature Gran % (Auto) Neut % (Auto) Lymph % (Auto) Henderson % (Auto) Eos % (Auto) Baso % (Auto) Absolute Neuts (auto) Absolute Lymphs (auto) Nucleated RBC % Differential Comment Platelet Estimate RBC Morphology Hypochromasia Anisocytosis Microcytosis Ovalocytes ESR PT INR APTT Sodium Potassium Chloride Carbon Dioxide Anion Gap BUN Creatinine Estim Creat Clear Calc Est GFR (MDRD) Af Amer Est GFR (MDRD) Non-Af BUN/Creatinine Ratio Glucose Hemoglobin A1c Lactic Acid Calcium Magnesium Iron TIBC Iron Saturation Ferritin Total Bilirubin AST ALT Alkaline Phosphatase C-React Prot Ext Range Total Protein Albumin Globulin Albumin/Globulin Ratio Vitamin B12 Folate S.aureus Protein A PCR MRSA (PCR) POC Glucose 110 110 Blood Type Antibody Screen Crossmatch Micro: Microbiology 01/17/21 21:15 Gram Stain - Final Wound - Ankle Wound Culture - Preliminary No growth-Final to follow 01/18/21 06:10 Stool Occult Blood (KRISTAN) - Final Stool 01/17/21 18:00 SARS-CoV-2 Antigen (Rapid) - Final Interface Orders Radiology Impression Ankle X-Ray 01/17/21 18:12 IMPRESSION: Post surgical changes of the ankle and foot with findings suspicious for osteomyelitis and septic arthritis Electronically Signed: Doug Dyer MD at 18:55 EDT , Service support , Chest X-Ray 01/17/21 18:12 IMPRESSION: Streaky opacities in the left lung base could represent atelectasis versus infection. 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
--- NOTE | 2021-01-18 13:53 | CASEMGMT ---
RN NILSA Face to Face with patient for initial transition planning/care coordination assessment. RN NILSA introduced self and role at [facility]. Patient lying in bed, alert and oriented. Patient willing to participate in assessment and is able to answer all questions appropriately. Care providers, pharmacy, and demographics verified. Patient unsure of disposition at discharge. Patient states he has no further needs or concerns at this time. CM to follow for discharge planning needs that may arise. PCP: Petrona Specialists: none Preferred [facility]acy: [facility]: [facility] Prescription Benefit: yes Living Will/HPOA: none LNOK: daughter Living Arrangements: Patient lives alone in a second floor apartment with flight of stairs and railing to enter the apartment. Patient states he was independent at home. Transportation: self/daughter DME/HHC: Patient states he has cane, walker, shower chair, at home. No previous HHC or SNF. Disposition Plan: TBD by course of treatment and progress with therapy. Mera LAGUNAS, RN, CM
--- NOTE | 2021-01-18 13:56 | PN.HOSP_ITS ---
Subjective Subjective Patient has a hypoglycemic episode, glucose 56. 25 of D50 was given. Patient is n.p.o. therefore started on D5 half NS. Glucose is 110. Patient admitted with right ankle chronic bone pain, erythema and redness for several days suggestive of sepsis. Patient also complained of chills at home. Objective Data Objective Data Vital Signs: Vital Signs Temp Pulse Resp BP Pulse Ox 98.5 F 87 18 126/67 H 97 01/18/21 13:03 01/18/21 13:48 01/18/21 13:48 01/18/21 13:48 01/18/21 13:48 Oxygen Delivery Method Room Air Weight: 180 lb 12.465 oz Body Mass Index (BMI) 28.3 Intake & Output: Intake and Output for Last 24 Hours 01/16/21 01/17/21 01/18/21 23:59 23:59 23:59 Intake Total 875 / 875 1950.00 / 1950.00 Output Total 100 / 100 Balance 875 / 875 1850.00 / 1850.00 Lab / Micro Data Result Diagrams: 01/18/21 05:20 01/18/21 05:20 Labs: Laboratory Results - last 24 hr 01/17/21 01/17/21 01/17/21 18:00 18:00 18:00 WBC 13.5 H RBC 3.28 L Hgb 7.5 L Hct 25.0 L MCV 76.2 L MCH 22.9 L MCHC 30.0 L RDW Std Deviation 48.1 H RDW Coeff of Cl 17.2 H Plt Count 720 H MPV 8.5 Immature Gran % (Auto) 2.000 H Neut % (Auto) 85.4 H Lymph % (Auto) 4.5 L Anderson % (Auto) 6.8 Eos % (Auto) 0.7 Baso % (Auto) 0.6 Absolute Neuts (auto) 11.5 H Absolute Lymphs (auto) 0.60 L Nucleated RBC % 0 Differential Comment SEE COMMENT Platelet Estimate MKD INC RBC Morphology N CHROM Hypochromasia 1+ Anisocytosis 1+ Microcytosis 1+ Ovalocytes RARE ESR 116 H PT 14.4 INR 1.2 APTT 31.4 Sodium 131 L Potassium 4.3 Chloride 98 Carbon Dioxide 23.0 Anion Gap 10 BUN 20 H Creatinine 1.33 H Estim Creat Clear Calc 56.60 Est GFR (MDRD) Af Amer 71 Est GFR (MDRD) Non-Af 59 L BUN/Creatinine Ratio 15.0 Glucose 225 H Hemoglobin A1c Lactic Acid Calcium 9.5 Magnesium Iron TIBC Iron Saturation Ferritin Total Bilirubin 0.50 AST 12 L ALT 17 Alkaline Phosphatase 296 H C-React Prot Ext Range 187.00 H Total Protein 8.8 H Albumin 2.2 L Globulin 6.6 H Albumin/Globulin Ratio 0.3 L Vitamin B12 Folate S.aureus Protein A PCR MRSA (PCR) POC Glucose Blood Type Antibody Screen Crossmatch 01/17/21 01/17/21 01/17/21 18:00 18:00 18:00 WBC RBC Hgb Hct MCV MCH MCHC RDW Std Deviation RDW Coeff of Cl Plt Count MPV Immature Gran % (Auto) Neut % (Auto) Lymph % (Auto) Anderson % (Auto) Eos % (Auto) Baso % (Auto) Absolute Neuts (auto) Absolute Lymphs (auto) Nucleated RBC % Differential Comment Platelet Estimate RBC Morphology Hypochromasia Anisocytosis Microcytosis Ovalocytes ESR PT INR APTT Sodium Potassium Chloride Carbon Dioxide Anion Gap BUN Creatinine Estim Creat Clear Calc Est GFR (MDRD) Af Amer Est GFR (MDRD) Non-Af BUN/Creatinine Ratio Glucose Hemoglobin A1c Lactic Acid 1.6 Calcium Magnesium 2.0 Iron 15 L TIBC 220 L Iron Saturation 6.8 L Ferritin 300 Total Bilirubin AST ALT Alkaline Phosphatase C-React Prot Ext Range Total Protein Albumin Globulin Albumin/Globulin Ratio Vitamin B12 Folate S.aureus Protein A PCR MRSA (PCR) POC Glucose Blood Type A POSITIVE Antibody Screen NEGATIVE Crossmatch 01/17/21 01/17/21 01/17/21 18:00 18:00 18:00 WBC RBC Hgb Hct MCV MCH MCHC RDW Std Deviation RDW Coeff of Cl Plt Count MPV Immature Gran % (Auto) Neut % (Auto) Lymph % (Auto) Anderson % (Auto) Eos % (Auto) Baso % (Auto) Absolute Neuts (auto) Absolute Lymphs (auto) Nucleated RBC % Differential Comment Platelet Estimate RBC Morphology Hypochromasia Anisocytosis Microcytosis Ovalocytes ESR PT INR APTT Sodium Potassium Chloride Carbon Dioxide Anion Gap BUN Creatinine Estim Creat Clear Calc Est GFR (MDRD) Af Amer Est GFR (MDRD) Non-Af BUN/Creatinine Ratio Glucose Hemoglobin A1c Lactic Acid Calcium Magnesium Iron TIBC Iron Saturation Ferritin Total Bilirubin AST ALT Alkaline Phosphatase C-React Prot Ext Range Total Protein Albumin Globulin Albumin/Globulin Ratio Vitamin B12 653 Folate 23.30 S.aureus Protein A PCR MRSA (PCR) POC Glucose Blood Type Antibody Screen Crossmatch See Detail 01/17/21 01/17/21 01/17/21 18:00 21:15 22:31 WBC RBC Hgb Hct MCV MCH MCHC RDW Std Deviation RDW Coeff of Cl Plt Count MPV Immature Gran % (Auto) Neut % (Auto) Lymph % (Auto) Anderson % (Auto) Eos % (Auto) Baso % (Auto) Absolute Neuts (auto) Absolute Lymphs (auto) Nucleated RBC % Differential Comment Platelet Estimate RBC Morphology Hypochromasia Anisocytosis Microcytosis Ovalocytes ESR PT INR APTT Sodium Potassium Chloride Carbon Dioxide Anion Gap BUN Creatinine Estim Creat Clear Calc Est GFR (MDRD) Af Amer Est GFR (MDRD) Non-Af BUN/Creatinine Ratio Glucose Hemoglobin A1c Lactic Acid Calcium Magnesium Iron TIBC Iron Saturation Ferritin Total Bilirubin AST ALT Alkaline Phosphatase C-React Prot Ext Range Total Protein Albumin Globulin Albumin/Globulin Ratio Vitamin B12 Folate S.aureus Protein A PCR NEGATIVE MRSA (PCR) Negative POC Glucose 179 H Blood Type Antibody Screen Crossmatch See Detail 01/18/21 01/18/21 01/18/21 05:20 05:20 05:20 WBC 10.2 RBC 3.29 L Hgb 7.7 L Hct 25.8 L MCV 78.4 L MCH 23.4 L MCHC 29.8 L RDW Std Deviation 49.1 H RDW Coeff of Cl 17.1 H Plt Count 634 H MPV 8.4 Immature Gran % (Auto) 1.400 H Neut % (Auto) 69.0 Lymph % (Auto) 16.2 L Anderson % (Auto) 11.3 H Eos % (Auto) 1.5 Baso % (Auto) 0.6 Absolute Neuts (auto) 7.0 Absolute Lymphs (auto) 1.64 Nucleated RBC % 0 Differential Comment Platelet Estimate RBC Morphology Hypochromasia Anisocytosis Microcytosis Ovalocytes ESR PT INR APTT Sodium 137 Potassium 3.9 Chloride 103 Carbon Dioxide 26.0 Anion Gap 8 BUN 20 H Creatinine 1.20 Estim Creat Clear Calc 60.55 Est GFR (MDRD) Af Amer 80 Est GFR (MDRD) Non-Af 66 BUN/Creatinine Ratio 16.7 Glucose 86 Hemoglobin A1c 8.4 H Lactic Acid Calcium 9.0 Magnesium Iron TIBC Iron Saturation Ferritin Total Bilirubin 0.40 AST 12 L ALT 13 L Alkaline Phosphatase 254 H C-React Prot Ext Range Total Protein 7.7 Albumin 1.9 L Globulin 5.8 H Albumin/Globulin Ratio 0.3 L Vitamin B12 Folate S.aureus Protein A PCR MRSA (PCR) POC Glucose Blood Type Antibody Screen Crossmatch 01/18/21 01/18/21 01/18/21 06:53 08:45 09:13 WBC RBC Hgb Hct MCV MCH MCHC RDW Std Deviation RDW Coeff of Cl Plt Count MPV Immature Gran % (Auto) Neut % (Auto) Lymph % (Auto) Anderson % (Auto) Eos % (Auto) Baso % (Auto) Absolute Neuts (auto) Absolute Lymphs (auto) Nucleated RBC % Differential Comment Platelet Estimate RBC Morphology Hypochromasia Anisocytosis Microcytosis Ovalocytes ESR PT INR APTT Sodium Potassium Chloride Carbon Dioxide Anion Gap BUN Creatinine Estim Creat Clear Calc Est GFR (MDRD) Af Amer Est GFR (MDRD) Non-Af BUN/Creatinine Ratio Glucose Hemoglobin A1c Lactic Acid Calcium Magnesium Iron TIBC Iron Saturation Ferritin Total Bilirubin AST ALT Alkaline Phosphatase C-React Prot Ext Range Total Protein Albumin Globulin Albumin/Globulin Ratio Vitamin B12 Folate S.aureus Protein A PCR MRSA (PCR) POC Glucose 72 56 L 116 H Blood Type Antibody Screen Crossmatch 01/18/21 01/18/21 10:53 13:02 WBC RBC Hgb Hct MCV MCH MCHC RDW Std Deviation RDW Coeff of Cl Plt Count MPV Immature Gran % (Auto) Neut % (Auto) Lymph % (Auto) Anderson % (Auto) Eos % (Auto) Baso % (Auto) Absolute Neuts (auto) Absolute Lymphs (auto) Nucleated RBC % Differential Comment Platelet Estimate RBC Morphology Hypochromasia Anisocytosis Microcytosis Ovalocytes ESR PT INR APTT Sodium Potassium Chloride Carbon Dioxide Anion Gap BUN Creatinine Estim Creat Clear Calc Est GFR (MDRD) Af Amer Est GFR (MDRD) Non-Af BUN/Creatinine Ratio Glucose Hemoglobin A1c Lactic Acid Calcium Magnesium Iron TIBC Iron Saturation Ferritin Total Bilirubin AST ALT Alkaline Phosphatase C-React Prot Ext Range Total Protein Albumin Globulin Albumin/Globulin Ratio Vitamin B12 Folate S.aureus Protein A PCR MRSA (PCR) POC Glucose 110 110 Blood Type Antibody Screen Crossmatch Micro: Microbiology 01/17/21 21:15 Wound - Ankle Gram Stain - Final 01/17/21 21:15 Wound - Ankle Wound Culture - Preliminary No growth-Final to follow 01/18/21 06:10 Stool Stool Occult Blood (KRISTAN) - Final 01/17/21 18:00 Interface Orders SARS-CoV-2 Antigen (Rapid) - Final Radiography Diagnostic Testing: Radiology Impression Ankle X-Ray 01/17/21 18:12 IMPRESSION: Post surgical changes of the ankle and foot with findings suspicious for osteomyelitis and septic arthritis Electronically Signed: Doug Dyer MD at 18:55 EDT , Service support , Chest X-Ray 01/17/21 18:12 IMPRESSION: Streaky opacities in the left lung base could represent atelectasis versus infection. 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 No crepitation/rhonchi Cardiovascular: Regular rate, Regular Rhythm, Normal S1, Normal S2, No murmurs Abdomen: Bowel Sounds Present, Soft, Non Tender, Non-Distended : No renal angle tenderness. No suprapubic tenderness. Extremities: Bilateral ankle edema, Capillary Refill Less than 3 Seconds Skin: No rashes, No breakdown Musculoskeletal: Tenderness present on the right ankle with swelling and redness. Neurological: Cranial nerves II-XII grossly intact, Deep Tendon Reflexes 2+/4 and Symmetrical, Neuro grossly intact Psych/Mental Status: Normal Affect, Appropriate. Assessment & Plan Assessment/Plan (1) Diabetes mellitus type 1: QUALIFIERS: Diabetes mellitus complication status: with neurologic complications Diabetes mellitus complication detail: with polyneuropathy Qualified Code(s): E10.42 - Type 1 diabetes mellitus with diabetic yusuf yneuropathy (2) Charcot's joint of right ankle: (3) Cellulitis of right lower extremity: PLAN: This 56-year-old patient with multiple comorbidities admitted with right ankle cellulitis and pain for few weeks. 1.? Sepsis secondary to acute right ankle medial malleolus abscess, cellulitis and septic arthritis: Patient is admitted on Med[facility] floor on IV vancomycin and Zosyn. Seen by ID. Scheduled for bone biopsy by compressor mechanic bus. MRSA PCR negative. Follow-up blood cultures. 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 Individually x-ray reviewed and shows tarsal bones destruction, osteomyelitis and septic arthritis. Wound nurse consulted. 2. Acute on Chronic anemia, anemia of chronic disease: Admission hemoglobin 7.5, with baseline 9.3 in May 2017. Stool for occult blood negative. RDW elevated. Thrombocythemia. Iron study shows low iron, TIBC with low iron saturation. Ferritin 300 suggestive of anemia of chronic disease. CRP elevated. B12 and folate normal. 1 unit of PRBC transfused. 3.? Hypertension: Continue home regimen including metoprolol with hold parameters, PRN hydralazine. 4.? Hyperlipidemia: Not on statin therapy. 5.? CAD: Status post CABG x 5 2013, we will continue aspirin, not on statin, continue metoprolol, not on TRES inhibitor. 6.? Chronic Kidney Disease Stage IIIa probably diabetic nephropathy.: Admission BUN/Cr 20/1.33, baseline renal function 0.8 prior however last value 2016, repeat BMP in AM. 7.? Diabetes mellitus type II: Will continue home insulin regimen, ADA diet until NPO status, HgbA1c requested, nutrition for education and teaching, accu checks w/ ISS. 8.? BPH: We will continue patient home Flomax regimen. 9.? GE: CPAP q HS if amenable but states not using. 10.? DVT prophylaxis: SCDs, hold chemoprophylaxis given planned OR. 11.? CODE status full code. Visit Charges Inpatient E&M: 42429 Subs Hosp L2
--- NOTE | 2021-01-18 15:20 | RAD_ITS ---
STUDY: X-RAY - RIGHT ANKLE REASON FOR EXAM: Male, 56 years old. I and amp;D ANKLE W/BONE BX TECHNIQUE: 2 view(s) of the ankle. COMPARISON: None. FINDINGS: 2 fluoroscopic guided views were obtained during bone biopsy as per clinical history. For more complete information recommend correlation with surgical notes. RAD/Ankle min 3 Views IMPRESSION: Fluoroscopic guided bone biopsy. Electronically Signed: Doug Dyer MD at 16:12 EDT , Service support ,
--- NOTE | 2021-01-18 15:55 | PCM.OPRPT ---
Problems Associated Problem List Diagnoses (1) Cellulitis of right lower extremity: (2) Charcot's joint of right ankle: (3) Osteomyelitis, ankle and foot: Report of Operation Date of Procedure: 01/18/21 Pre-Operative Diagnosis: 1. Right ankle Charcot suspected 2. Osteomyelitis suspected right ankle 3. Right ankle pain Post-Operative Diagnosis: 1. Right ankle Charcot suspected 2. Osteomyelitis suspected right ankle 3. Right ankle pain Surgery/Procedure Performed:: 1. incision and drainage right ankle 2. bone biopsy of tibia and talus Description of Surgical Findings:: Hemostasis: Well-padded pneumatic right mid the leg tourniquet 250 mmHg was inflated for 4 minutes. It was deflated due to apparent venous tourniquet affect in which hemostasis was much better controlled after deactivation of the tourniquet. Anatomic dissection was performed with minimal electrocauterization. Materials: 4-0 nylon Findings: no purulence or odor. very soft bone. Surgeon: Maritza,Lyndsey workers compensation coordinator: None (Rea Good DPM, PGY1) Type of Anesthesia: General (LMA) Specimen's removed: 1. right talus bone sent to microbiology for aerobic, anaerobic, acid-fast, fungal 2. right talus bone sent to pathology 3. right tibia bone sent to microbiology for aerobic, anaerobic, acid-fast, fungal 4. right tibia bone sent to pathology Drains: none Estimated Blood Loss (mL): <50 mL Description of Procedure: Indications: This is a 56-year-old male with significant past medical history of diabetes with neuropathy (hemoglobin A1c 8.4%), coronary artery disease, sleep apnea, anemia, history of transient ischemic attack, hyperlipidemia had prior ankle fractures and was also previously diagnosed with Charcot. He was referred from the [facility] in [place] where Dr. Bassett has been managing his case recently. The patient was unable to maintain a compliant status and place weight on his foot excessively this past week. He fell recently and reports his ankle became loose and collapsed. He had increased pain the past 2 to 3 weeks. He suffers from severe fatigue and reports he did not follow up for his GI bleed work up as advised in the outpatient setting. He presented to the clinical setting with increased redness and swelling. He has also not been feeling well and was advised to go to the hospital for further work-up and treatment. Preoperative x-rays demonstrate osseous destruction with fragmentation of the tibiotalar and hindfoot. There is also retained hardware including 2 screws and a staple. There is no soft tissue emphysema or other foreign bodies. MRI also demonstrate increased bone edema in the tibia, talus, calcaneus and fibula with fragmentation destruction of these adjacent articular surfaces. The aforementioned hardware was noted. There is fluid collection to the tibiotalar joint extends anteriorly and also localized medially. This is consistent with potential osteomyelitis, Charcot, or both. He was started on IV antibiotics, broad-spectrum, and was also seen by infectious disease physician, Dr. Gandara. His noninvasive vascular studies will be requested from outside facility. Preoperative H&P were reviewed including his diagnostic data. There is no gross abnormalities noted with labs. Medical management and preoperative optimization per hospitalist service is greatly appreciated. He had a preoperative blood transfusion. Preoperative indications, planned procedure, benefits, risk, anticipated healing time and management were reviewed. The patient understands and elects proceed with surgery at this time. No guarantees were made. The patient understands risk and complications include but are not limited to following: pain, swelling, scarring, need for further surgery, tendon contracture, transfer lesion, hardware failure, arthritis, need for further surgery, delayed or nonhealing, infection, blood clot, allergic reaction, loss of limb, function, or life. The informed surgical limb and consent were signed. I answered all the patient's questions. Procedure in detail: The patient was transported to the operating room via cart and placed on the operating room table in supine position. Final verification of the patient, limb, and designated surgery was performed. LMA was initiated by the anesthesia team. I did not apply preoperative local anesthetic due to the concern of concurrent cellulitis and streaking at this ankle site. The patient is already receiving IV antibiotics on the floor that are broad-spectrum. Final verification of the patient, surgery, designated limb was confirmed via the timeout procedure. A well-padded pneumatic mid leg tourniquet was placed. The right lower extremity was prepped and draped in the usual aseptic manner. An Esmarch bandage was used to exsanguinate the limb and surgery began the following manner. A 1 cm incision was made to the medial aspect of the ankle slightly anteriorly positioned over the palpable area of bogginess just proximal to the prior eschar site. This was made through the skin and blunt dissection was performed down to the tibiotalar joint that has extreme laxity. Proper positioning was confirmed with intraoperative fluoroscopy and it was noted the hemostat was advanced directly to the lateral ankle without any resistance. Copious hematogenous drainage was noted at this time the decision was made to deflate the tourniquet because it was acting more as a venous tourniquet. After deflation, there was no pulsatile bleeding noted. Capillary fill time remain brisk to all digits at this time and at the completion of the procedure. Instrumentation was extended through the tibiotalar joint centrally and anteriorly and there was no noted purulence, odor, or necrosis. This is consistent with Charcot neuroarthropathy. Copious saline irrigation was performed. Next, a Toney needle biopsy trocar was entered into the talus and the bone was very soft. This was sent to both microbiology and pathology for osteomyelitis work-up. Next the bone biopsy was obtained from the distal tibia and proper placement was confirmed with intraoperative fluoroscopy also. Saline irrigation was performed. Horizontal mattress technique was used to suture the skin with nylon. Postoperative dressing was applied with Betadine soaked gauze, abdominal pad, Kerlix and David wrap. Additional well-padded posterior mold splint was applied with the lower extremity in a rectus position. After procedure: The patient tolerated the procedure and anesthesia well. The patient was transported to the PACU with vital signs stable and vascular status intact to the surgical limb. To ice and elevate for pain and inflammation management. Postoperative x-rays were reviewed prior to leaving the operating room as noted. He was advised to maintain a nonweightbearing status and to keep dressing and splint clean, dry, and intact. Medical management per hospitalist service is appreciated. Infectious disease physician is also on consultation and appreciated. The prior wound culture and intraoperative bone biopsy cultures, and blood cultures are all still pending without any bacterial growth so far. So far his case seems most consistent with Charcot neuroarthropathy. His multiple comorbidities including anemia and poorly managed glucose levels makes him currently an inappropriate candidate for Charcot reconstructive surgery which would consist of debridement and application of an compressive external fixation device with potential additional internal fixation. At this time I recommend completion of infection work-up. Upon stabilization reconstructive surgery will be considered or a below-knee amputation may be more functional and appropriate for this candidate. Postoperative orders were entered electronically. Lyndsey Salas DPM, [facility] [place] Grafts/Implants Used: none Complications none Admit VTE Documentation VTE Present on Admission: No VTE Mechan Device Prophylaxis: SCD's VTE Pharm Prophylaxis ordered?: Yes
[2021-01-18 16:16] LABS: Bedside Glucose 110 mg/dL (70-110)
[2021-01-18 17:31] LABS: Bedside Glucose 99 mg/dL (70-110)
[2021-01-18] MEDS: Ferrous Sulfate 325 MG Tablet PO (17:32)
[2021-01-18] MEDS: Gabapentin 100 MG Capsule PO (17:32)
[2021-01-18] MEDS: Tamsulosin HCl 0.4 MG Capsule PO (17:32)
--- NOTE | 2021-01-18 20:49 | MRI_ITS ---
STUDY: MRI RIGHT ANKLE WITHOUT CONTRAST REASON FOR EXAM: Male, 56 years old. R septic ankle, abscess TECHNIQUE: Standardized fat and water weighted pulse sequences were obtained in all 3 orthogonal planes. COMPARISON: None. FINDINGS: Normal subcutis adipose space. Normal posterior tibialis tendon. Normal flexor digitorum longus tendon. Normal flexor hallucis longus tendon. There is a tenosynovitis of the peroneal tendons without a demonstrated tendon tear. Normal tibialis anterior tendon. Normal extensor hallucis longus tendon. Normal extensor digitorum longus tendons. Normal Achilles tendon and teno-osseous insertion. Normal plantar fascia. Normal plantar calcaneal tubercles. Normal intrinsic muscles of the rearfoot. The patient is status post surgery about the ankle joint with the 2 screws and a staple as seen on radiographs. Healed fractures of the distal tibia and fibula are noted. At the expected location of the tibiotalar joint there is fluid and inflammation with destruction of the distal tibia, distal fibula, talus, most of the navicular bone and the superior aspect of the calcaneus consistent with septic arthritis and osteomyelitis. The remainder the calcaneus demonstrates severe marrow edema consistent with cortical osteitis. The cuboid, cuneiforms and proximal metatarsals appear spared.. 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
[2021-01-18] MEDS: Glucerna Shake 120 ML LIQUID PO (21:41)
[2021-01-18] MEDS: Pantoprazole Sodium 40 MG Tablet PO (21:54)
[2021-01-18] MEDS: Atorvastatin Calcium 80 MG Tablet PO (21:54)
[2021-01-18] MEDS: Insulin Lispro 100 UNIT/ML INSULN.PEN SC (21:54)
[2021-01-18] MEDS: Pregabalin 75 MG Capsule 150 MG PO (21:57)
[2021-01-18 22:10] LABS: Bedside Glucose 240 mg/dL (70-110)
[2021-01-18] MEDS: Acetaminophen 325 MG Tablet 650 MG PO (23:37)
[2021-01-18] MEDS: oxyCODONE 5 MG Tablet PO (23:38)
[2021-01-18] MEDS: Senna/Docusate Sodium 1 Tablet 2 TABLET PO (23:38)
[2021-01-18] MEDS: Temazepam 15 MG Capsule PO (23:43)
[2021-01-19] VITALS (8 sets, daily range): BP systolic 110–124; BP diastolic 48–65; PULSE 70–93; RESP 16–24; TEMP 36.6–36.7; O2SAT 93–98
[2021-01-19] MEDS: Insulin Lispro 100 UNIT/ML INSULN.PEN SC ×4 (06:30→21:45)
[2021-01-19 06:45] LABS: Bedside Glucose 370 mg/dL (70-110)
[2021-01-19] MEDS: Ferrous Sulfate 325 MG Tablet PO ×3 (09:29→17:11)
[2021-01-19] MEDS: Vancomycin IV 1,000 MG/200 ML BAG 200 MG IV (09:29)
[2021-01-19] MEDS: Gabapentin 100 MG Capsule PO ×3 (09:29→17:13)
[2021-01-19] MEDS: Aspirin 81 MG TAB.CHEW PO (09:29)
[2021-01-19 09:30] LABS: Vancomycin, Trough Level 22.2 ug/mL (5.0-15.0)
[2021-01-19] MEDS: Pantoprazole Sodium 40 MG Tablet PO ×2 (09:31→21:43)
[2021-01-19] MEDS: Metoprolol(XL)Succ 50 MG Tablet PO (09:32)
[2021-01-19] MEDS: Pregabalin 75 MG Capsule 150 MG PO ×2 (09:36→21:45)
--- NOTE | 2021-01-19 09:40 | PN_ITS ---
Subjective Subjective This 56-year-old male was seen bedside postoperative day #1 right ankle bone biopsy and drainage. He relates his lower extremity pain has resolved. He feels more energized today. He denies fever, chill, nausea, vomiting. Objective Data Objective Data Vital Signs: Vital Signs Temp Pulse Resp BP Pulse Ox 98.0 F 70 18 112/54 L 98 01/19/21 08:45 01/19/21 09:32 01/19/21 08:45 01/19/21 08:45 01/19/21 08:45 Oxygen Flow Rate (L/min) 6 Oxygen Delivery Method Room Air Weight: 85 kg Body Mass Index (BMI) 28.3 Intake & Output: Intake and Output for Last 24 Hours 01/17/21 01/18/21 01/19/21 23:59 23:59 23:59 Intake Total 875 / 875 3048.00 / 3048.00 1150 / 1150 Output Total 850 / 850 1200 / 1200 Balance 875 / 875 2198.00 / 2198.00 -50 / -50 Lab / Micro Data Result Diagrams: 01/18/21 05:20 01/18/21 05:20 Labs: Laboratory Results - last 24 hr 01/17/21 01/17/21 01/18/21 18:00 18:00 10:53 Vancomycin Trough POC Glucose 110 Crossmatch See Detail See Detail 01/18/21 01/18/21 01/18/21 13:02 16:08 17:22 Vancomycin Trough POC Glucose 110 110 99 Crossmatch 01/18/21 01/19/21 01/19/21 21:40 06:29 08:50 Vancomycin Trough 22.2 H POC Glucose 240 H 370 H Crossmatch Micro: Microbiology 01/17/21 21:15 Wound - Ankle Gram Stain - Final 01/17/21 21:15 Wound - Ankle Wound Culture - Preliminary No growth-Final to follow 01/18/21 06:10 Stool Stool Occult Blood (KRISTAN) - Final 01/17/21 18:00 Interface Orders SARS-CoV-2 Antigen (Rapid) - Final Radiography Diagnostic Testing: Radiology Impression Ankle X-Ray 01/18/21 15:20 IMPRESSION: Fluoroscopic guided bone biopsy. 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 and destruction of the distal tibia, distal fibula, talus, navicular bone, and superior aspect of the calcaneus Electronically Signed: Billy Meadows MD at 12:19 EDT Tel , Service support , Physical Exam Const alert and oriented x3 General Appearance: cooperative HEENT normocephalic Extremity Extremity Narrative: No calf tenderness Diminished pulses Muscle wasting noted Compartments right lower extremity remain soft Laxity at ankle joint in sagittal and frontal plane with reduced pain no midfoot laxity General Extremity: edema; Negative for cyanosis Skin Skin Narrative: no purulence, no streaking, no odor. There is resolved erythema to the medial and lateral ankle; no warmth noted with palpation. Incision to medial ankle is well aligned with nylon suture and there is minimal with hematogenous drainage noted on inner dressing. There is no necrosis. There is an open skin discontinuity distal to the incision site that has a healthy granular base. General Skin Exam: Negative for erythema Neuro Neuro Narrative: lack of normal epicritic sensation via light touch is consistent with neuropathy status Psych cooperative and affect normal Assessment & Plan Assessment/Plan (1) Cellulitis of right lower extremity: (2) Charcot's joint of right ankle: (3) Osteomyelitis, ankle and foot: PLAN: I reviewed and discussed his care plan including his diagnostic data. He is postoperative day #1. He is afebrile and his vital signs are stable. His CBC results this morning are pending. Hemoglobin A1c was 8.4. There was not any purulence or odor noted in surgery yesterday when the incision and drainage including arthrotomy was performed. The bone of the talus and distal tibia were extremely soft. Bone biopsies were obtained and sent to both microbiology and pathology in which these results are pending. There is no ba cterial growth so far from the prior wound culture, blood culture, or intraoperative bone cultures. He was admitted and placed on empiric antibiotics. Infectious disease is on consultation. MRI preoperative was reviewed with destruction of the tibia talus and hindfoot with widespread edema. This is consistent with osteomyelitis, Charcot, or both. There is also maintained hardware. Betadine gauze dressing was reapplied and his well-padded posterior mold splint was also applied with the extremity in a rectus position. To maintain a nonweightbearing status to the right lower extremity. To work with physical and occupational therapy. To use assistive device. We discussed his potential diagnoses and recommended work-up. I recommend focusing on his infection work-up at this time. If his work-up does not support the diagnosis of osteomyelitis, his options include Charcot ankle reconstruction likely with application of a compressive external fixation device or a below-knee amputation. The patient understands if he is not able to regain better control over his anemia and diabetes status a limb salvage surgery will not be completed. He relates that he did not follow- up with his prior medical appointments earlier this year and will need to get back on track with this. Medical management per hospitalist services is appreciated. I will continue to follow closely while in house. Please do not hesitate to call if you have any questions. Lyndsey Salas DPM, FACF[facility] [phone]
[2021-01-19 10:33] LABS: Absolute Lymphocyte Count 1.16 X10^3/uL (0.83-4.51); Basophil% 1.2 % (0-1); Eosinophil# 0.35 X10^3/uL; Eosinophils% 4.1 % (0-5); Hematocrit 27.7 % (40-54); Hemoglobin 8.4 g/dL (13.0-16.5); Lymphocyte # 1.16 X10^3/ul (0.83-4.51); Lymphocyte % 13.7 % (19-41); Mean Corp Hgb Conc 30.3 g/dL (32-36); Mean Corpuscular Hgb 24.3 pg (27.0-32.0); Mean Corpuscular Volume 80.3 fL (80-94); Mean Platelet Vol. 8.7 fl (6.2-12.0); Monocyte# 0.83 X10^3/uL; Monocyte% 9.8 % (0-10); NRBC Flagged by Analyzer 0 % (0-5); Neutrophil # 5.95 X10^3/uL (2.7-7.7); Neutrophil % 70.1 % (47-70); Platelet Count 626 K/mm3 (150-450); RBC Distribution Width CV 17.2 % (11.6-14.6); Red Blood Count 3.45 M/mm3 (4.6-6.2); White Blood Count 8.5 K/mm3 (4.4-11.0)
--- NOTE | 2021-01-19 11:50 | CASEMGMT ---
Addendum entered by Cj Tapia 01/19/21 18:12: Pt made aware, if he would not need IV atb's and is insistent on going home prior to HHC being set up by [facility] [place], that he would need to contact his PCP to discuss HHC. He states he feels it may be difficult to reach his PCP to do this and states, I think it would be better to wait until at least Thursday to get help with that. Original Note: ERIN ASH NOTE: Vicki KHAN, states pt is insistent on wanting to d/c home on Thursday, if IV atb's are not needed @ discharge. Blood cx's are pending. NWB status. ERIN ASH to room to talk w/pt. Pt states he is getting anxious/antsy about going home and states he wants to go home as soon as possible. He is aware cx's are pending and course of tx is dependent upon the results. He states, even if he does need IV atb's he feels he can manage those @ home. Also discussed NWB status and possible need of dressing changes/wound care. Pt states he feels he can manage those as well. Pt lives in a 2nd-floor apt and states, I learned how to slide up and down them in the past and I can do that again. Pt made aware that further discussion about discharge plans and possible HHC can occur, once course of tx is determined. Pt was provided with list of? HHC providers including quality and resource use data and consistent with the patient's preferred geographic region, medical needs, and insurance network for pt to review. Ramakrishna LAGUNAS RN, CM ?
[2021-01-19 11:51] LABS: Bedside Glucose 377 mg/dL (70-110)
--- NOTE | 2021-01-19 11:54 | PCM.RX.CS ---
Consult Pharmacy has been consulted to manage selected antiobiotic: Vancomycin Type of Consult: Follow-up Suspected Infection: Skin/Soft tissue, Osteomyelitis Labs: Sodium 137 mmol/L (136-145) 01/18/21 05:20 Potassium 3.9 mmol/L (3.5-5.1) 01/18/21 05:20 Chloride 103 mmol/L (98-107) 01/18/21 05:20 Carbon Dioxide 26.0 mmol/L (21.0-32.0) 01/18/21 05:20 Anion Gap 8 (5-15) 01/18/21 05:20 BUN 20 mg/dL (7-18) H 01/18/21 05:20 Creatinine 1.20 mg/dL (0.70-1.30) 01/18/21 05:20 Est GFR (MDRD) Af Amer 80 mL/min (>60) 01/18/21 05:20 Est GFR (MDRD) Non-Af 66 mL/min (>60) 01/18/21 05:20 BUN/Creatinine Ratio 16.7 RATIO (10-20) 01/18/21 05:20 Glucose 86 mg/dL (74-106) 01/18/21 05:20 Vancomycin Trough 22.2 ug/mL (5.0-15.0) H 01/19/21 08:50 Microbiology: Microbiology 01/18/21 Unknown Bone - Right Foot Gram Stain - Final 01/18/21 Unknown Bone - Right Foot Gram Stain - Final 01/17/21 21:15 Wound - Ankle Gram Stain - Final 01/17/21 21:15 Wound - Ankle Wound Culture - Preliminary No growth-Final to follow 01/18/21 06:10 Stool Stool Occult Blood (KRISTAN) - Final 01/17/21 18:00 Interface Orders SARS-CoV-2 Antigen (Rapid) - Final Goal Trough: 15-20 mcg/mL Pharmacy Plan for Drug Dosing: VANCOMYCIN LEVEL RECEIVED Current Vancomycin Dose: 1000MG IV Q12HR Number of Doses Received: 4 (3 prior to trough draw) Vancomycin Level: 22.2 Hours Since Last Dose: ~11.5hr Renal Function: 1.2 Renal Function Trend: stable Lab/Micro: Bone/Wound Cx pending Vancomycin Plan/Comments: Trough elevated, goal 15-20. Will DISCONTINUE current vancomycin order and get a random trough draw tomorrow morning, as pt already had 0930 dose this morning. Will re-dose vancomycin based on trough at that time. Pending Level: 01/20/21 @0900 *RANDOM level* Pharmacy Service will continue to monitor and adjust dosing as required.
[2021-01-19] MEDS: Insulin Lispro 100 UNIT/ML INSULN.PEN 10 UNIT SC ×2 (12:53→17:12)
[2021-01-19 15:31] LABS: Bedside Glucose 203 mg/dL (70-110)
[2021-01-19] MEDS: ALPRAZolam 0.5 MG Tablet PO (15:34)
[2021-01-19] MEDS: Tamsulosin HCl 0.4 MG Capsule PO (17:13)
[2021-01-19] MEDS: oxyCODONE 5 MG Tablet PO (19:58)
[2021-01-19] MEDS: Glucerna Shake 120 ML LIQUID PO (21:42)
[2021-01-19] MEDS: Atorvastatin Calcium 80 MG Tablet PO (21:43)
[2021-01-19] MEDS: Temazepam 15 MG Capsule PO (21:43)
[2021-01-19 21:56] LABS: Bedside Glucose 155 mg/dL (70-110)
[2021-01-20] VITALS (10 sets, daily range): BP systolic 112–141; BP diastolic 56–76; PULSE 73–96; RESP 11–22; TEMP 36.6–37.2; O2SAT 94–97
--- NOTE | 2021-01-20 08:44 | PCM.PROGNOTE ---
Subjective Subjective This 56-year-old male was seen bedside postoperative day #2 right ankle bone biopsy and drainage. He relates his lower extremity pain has resolved. He feels more energized today. He denies fever, chill, nausea, vomiting. Objective Data Objective Data Vital Signs: Vital Signs Temp Pulse Resp BP Pulse Ox 97.9 F 79 21 H 112/56 L 94 01/20/21 02:00 01/20/21 04:41 01/20/21 04:41 01/20/21 02:00 01/20/21 04:41 Oxygen Flow Rate (L/min) 6 Oxygen Delivery Method CPAP Weight: 83.7 kg Body Mass Index (BMI) 28.3 Intake & Output: Intake and Output for Last 24 Hours 01/18/21 01/19/21 01/20/21 23:59 23:59 23:59 Intake Total 3048.00 / 3048.00 4003 / 4003 50 / 50 Output Total 850 / 850 1200 / 1400 450 / 450 Balance 2198.00 / 2198.00 2803 / 2603 -400 / -400 Lab / Micro Data Result Diagrams: 01/19/21 09:40 01/18/21 05:20 Labs: Laboratory Results - last 24 hr 01/19/21 01/19/21 01/19/21 08:50 09:40 11:33 WBC 8.5 RBC 3.45 L Hgb 8.4 L Hct 27.7 L MCV 80.3 MCH 24.3 L MCHC 30.3 L RDW Std Deviation 51.0 H RDW Coeff of Cl 17.2 H Plt Count 626 H MPV 8.7 Immature Gran % (Auto) 1.100 H Neut % (Auto) 70.1 H Lymph % (Auto) 13.7 L Dickey % (Auto) 9.8 Eos % (Auto) 4.1 Baso % (Auto) 1.2 H Absolute Neuts (auto) 6.0 Absolute Lymphs (auto) 1.16 Nucleated RBC % 0 Vancomycin Trough 22.2 H POC Glucose 377 H 01/19/21 01/19/21 15:25 21:42 WBC RBC Hgb Hct MCV MCH MCHC RDW Std Deviation RDW Coeff of Cl Plt Count MPV Immature Gran % (Auto) Neut % (Auto) Lymph % (Auto) Dickey % (Auto) Eos % (Auto) Baso % (Auto) Absolute Neuts (auto) Absolute Lymphs (auto) Nucleated RBC % Vancomycin Trough POC Glucose 203 H 155 H Micro: Microbiology 01/17/21 18:45 Blood Culture (Wb) - Anticubital Left Blood Culture - Preliminary No growth in 48 hours. 01/17/21 18:00 Blood Culture (Wb) - Right Wrist Blood Culture - Preliminary No growth in 48 hours. 01/17/21 21:15 Wound - Ankle Gram Stain - Final 01/17/21 21:15 Wound - Ankle Wound Culture - Preliminary No growth-Final to follow 01/17/21 21:15 Wound - Ankle Anaerobic Culture - Preliminary No growth in 48 hours. 01/18/21 Unknown Bone - Right Foot Gram Stain - Final 01/18/21 Unknown Bone - Right Foot Wound Culture - Preliminary No growth-Final to follow 01/18/21 Unknown Bone - Right Foot Gram Stain - Final 01/18/21 Unknown Bone - Right Foot Wound Culture - Preliminary No growth-Final to follow 01/18/21 06:10 Stool Stool Occult Blood (KRISTAN) - Final 01/17/21 18:00 Interface Orders SARS-CoV-2 Antigen (Rapid) - Final Physical Exam Const alert and oriented x3 General Appearance: cooperative HEENT normocephalic Extremity Extremity Narrative: No calf tenderness Diminished pulses Muscle wasting noted Compartments right lower extremity remain soft Laxity at ankle joint in sagittal and frontal plane with reduced pain no midfoot laxity General Extremity: edema; Negative for cyanosis Skin Skin Narrative: no purulence, no streaking, no odor. There is resolved erythema to the medial and lateral ankle; no warmth noted with palpation. Incision to medial ankle is well aligned with nylon suture and there is minimal with hematogenous drainage noted on inner dressing. There is no necrosis. There is an open skin discontinuity distal to the incision site that has a healthy granular base and peripheral epithelialization noted. General Skin Exam: Negative for erythema Neuro Neuro Narrative: lack of normal epicritic sensation via light touch is consistent with neuropathy status Psych cooperative and affect normal Assessment & Plan Assessment/Plan (1) Cellulitis of right lower extremity: (2) Charcot's joint of right ankle: (3) Osteomyelitis, ankle and foot: PLAN: I reviewed and discussed his care plan including his diagnostic data. He is postoperative day #2. He is afebrile and his vital signs are stable. His CBC results yesterday morning was 8.5. Hemoglobin A1c was 8.4. There was not any purulence or odor noted in surgery when the incision and drainage including arthrotomy was performed. The bone of the talus and distal tibia were extremely soft. Bone biopsies were obtained and sent to both microbiology and pathology in which these results are pending. There is no bacterial growth so far from the prior wound culture, blood culture, or intraoperative bone cultures. He was admitted and placed on empiric antibiotics; vanc/zosyn. Infectious disease is on consultation. MRI preoperative was reviewed with destruction of the tibia talus and hindfoot with widespread edema. This is consistent with osteomyelitis, Charcot, or both. There is also maintained hardware. Betadine gauze dressing was reapplied to incision and hydrogel to open ulcer site. Then his well-padded posterior mold splint was also applied with the extremity in a rectus position. To maintain a nonweightbearing status to the right lower extremity. To work with physical and occupational therapy. To use assistive device. We discussed his potential diagnoses and recommended work-up. I recommend focusing on his infection work-up at this time. If his work-up does not support the diagnosis of osteomyelitis, his options include Charcot ankle reconstruction likely with application of a compressive external fixation device or a below-knee amputation. The patient understands if he is not able to regain better control over his anemia and diabetes status a limb salvage surgery will not be completed. He relates that he did not follow-up with his prior medical appointments earlier this year and will need to get back on track with this. He requests a referral for the outpatient setting for anemia work up and treatment here in [place]. To follow up w/ Dr. Salas within one week of discharge. Non invasive vascular studies ordered for completion if he is still in house for tomorrow. Otherwise, he can also get these completed on an outpatient basis. Medical management per hospitalist services is appreciated. The podiatry team will continue to follow closely while in house. Please do not hesitate to call if you have any questions. Lyndsey Salas DPM, [facility] [phone]
[2021-01-20] MEDS: Aspirin 81 MG TAB.CHEW PO (09:19)
[2021-01-20 09:20] LABS: Bedside Glucose 48 mg/dL (70-110)
[2021-01-20] MEDS: Gabapentin 100 MG Capsule PO ×3 (09:20→17:28)
[2021-01-20] MEDS: Ferrous Sulfate 325 MG Tablet PO (09:20)
[2021-01-20] MEDS: Metoprolol(XL)Succ 50 MG Tablet PO (09:21)
[2021-01-20] MEDS: Pantoprazole Sodium 40 MG Tablet PO ×2 (09:21→21:42)
[2021-01-20] MEDS: Pregabalin 75 MG Capsule 150 MG PO ×2 (09:23→21:40)
[2021-01-20 09:31] LABS: Bedside Glucose 46 mg/dL (70-110)
[2021-01-20 10:03] LABS: Glucose 76 mg/dL (74-106)
--- NOTE | 2021-01-20 10:55 | PN.HOSP_ITS ---
Subjective Subjective Late entry note for 01/19 Seen and examined on 01/19/2021. Problem wound cultures shows no organism. Objective Data Objective Data Vital Signs: Vital Signs Temp Pulse Resp BP Pulse Ox 98.4 F 80 18 127/65 H 97 01/20/21 09:00 01/20/21 09:21 01/20/21 09:00 01/20/21 09:00 01/20/21 09:00 Oxygen Flow Rate (L/min) 6 Oxygen Delivery Method Room Air Weight: 184 lb 8.43 oz Body Mass Index (BMI) 28.3 Intake & Output: Intake and Output for Last 24 Hours 01/18/21 01/19/21 01/20/21 23:59 23:59 23:59 Intake Total 3048.00 / 3048.00 4003 / 4003 100 / 100 Output Total 850 / 850 1200 / 1400 450 / 450 Balance 2198.00 / 2198.00 2803 / 2603 -350 / -350 Lab / Micro Data Result Diagrams: 01/19/21 09:40 01/20/21 09:47 Labs: Laboratory Results - last 24 hr 01/19/21 01/19/21 01/19/21 11:33 15:25 21:42 Glucose POC Glucose 377 H 203 H 155 H 01/20/21 01/20/21 01/20/21 09:14 09:24 09:47 Glucose 76 POC Glucose 48 L 46 L Micro: Microbiology 01/17/21 21:15 Wound - Ankle Gram Stain - Final 01/17/21 21:15 Wound - Ankle Wound Culture - Final No growth aerobically. 01/17/21 21:15 Wound - Ankle Anaerobic Culture - Preliminary No growth in 48 hours. 01/17/21 18:45 Blood Culture (Wb) - Anticubital Left Blood Culture - Preliminary No growth in 48 hours. 01/17/21 18:00 Blood Culture (Wb) - Right Wrist Blood Culture - Preliminary No growth in 48 hours. 01/18/21 Unknown Bone - Right Foot Gram Stain - Final 01/18/21 Unknown Bone - Right Foot Wound Culture - Preliminary No growth-Final to follow 01/18/21 Unknown Bone - Right Foot Gram Stain - Final 01/18/21 Unknown Bone - Right Foot Wound Culture - Preliminary No growth-Final to follow 01/18/21 06:10 Stool Stool Occult Blood (KRISTAN) - Final 01/17/21 18:00 Interface Orders SARS-CoV-2 Antigen (Rapid) - Final Physical Exam Narrative General: Alert, Oriented x3, Cooperative HEENT: Atraumatic, PERRLA, EOMI, Normocephalic Oral: No Gingival or Mucosal Lesions/ Ulcerations Neck: Supple, No JVD, Negative Carotid Bruits Lungs: Air entry diminished in bilateral lung bases. No crepitation/rhonchi Cardiovascular: Regular rate, Regular Rhythm, Normal S1, Normal S2, No murmurs Abdomen: Bowel Sounds Present, Soft, Non Tender, Non-Distended : No renal angle tenderness. No suprapubic tenderness. Extremities: Bilateral ankle edema, Capillary Refill Less than 3 Seconds Skin: Warm dressing on right foot. Had bone biopsy Musculoskeletal: Tenderness present on the right ankle with swelling and redness. Neurological: Cranial nerves II-XII grossly intact, Deep Tendon Reflexes 2+/4 and Symmetrical, Neuro grossly intact Psych/Mental Status: Normal Affect, Appropriate. Assessment & Plan Assessment/Plan (1) Diabetes mellitus type 1: QUALIFIERS: Diabetes mellitus complication detail: with polyneuropathy Diabetes mellitus complication status: with neurologic complications Qualified Code(s): E10.42 - Type 1 diabetes mellitus with diabetic polyneuropathy (2) Charcot's joint of right ankle: (3) Cellulitis of right lower extremity: PLAN: This 56-year-old patient with multiple comorbidities admitted with right ankle cellulitis and pain for few weeks. 1.? Sepsis secondary to acute right ankle medial malleolus abscess, cellulitis and septic arthritis: Patient is admitted on MedSur floor on IV vancomycin and Zosyn. Seen by ID. Scheduled for bone biopsy by honey producer. MRSA PCR negative. Follow-up blood cultures. 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 Individually x-ray reviewed and shows tarsal bones destruction, osteomyelitis and septic arthritis. Wound nurse consulted. 01/19: On empiric antibiotic vancomycin and Zosyn. Follow-up wound/bone biopsy. 2. Acute on Chronic anemia, anemia of chronic disease: Admission hemoglobin 7.5, with baseline 9.3 in May 2017. Stool for occult blood negative. RDW elevated. Thrombocythemia. Iron study shows low iron, TIBC with low iron saturation. Ferritin 300 suggestive of anemia of chronic disease. CRP elevated. B12 and folate normal. 1 unit of PRBC transfused. 3.? Hypertension: Continue home regimen including metoprolol with hold parameters, PRN hydralazine. 4.? Hyperlipidemia: Not on statin therapy. 5.? CAD: Status post CABG x 5 2013, we will continue aspirin, not on statin, continue metoprolol, not on TRES inhibitor. 6.? Chronic Kidney Disease Stage IIIa probably diabetic nephropathy.: Admission BUN/Cr 20/1.33, baseline renal function 0.8 prior however last value 2016, repeat BMP in AM. 7.? Diabetes mellitus type II with hypoglycemia: Will continue home insulin regimen, ADA diet until NPO status, HgbA1c requested, nutrition for education and teaching, accu checks w/ ISS. Patient blood sugar has recovered. Higher side 370, 377. Insulin dose titrated up. 8.? BPH: We will continue patient home Flomax regimen. 9.? GE: CPAP q HS if amenable but states not using. 10.? DVT prophylaxis: SCDs, hold chemoprophylaxis given planned OR. 11.? CODE status full code. Addendum Addendum: Billing note for 01/19/2021. Visit Charges Inpatient E&M: 65696 Subs Hosp L2
--- NOTE | 2021-01-20 11:00 | PN.HOSP_ITS ---
Subjective Subjective Seen and examined on 01/20 Patient wants to go home but wound culture is still pending. Patient also has other needs of dressing and durable medical equipment. Agreed to stay. On BiPAP at night. Objective Data Objective Data Vital Signs: Vital Signs Temp Pulse Resp BP Pulse Ox 98.4 F 80 18 127/65 H 97 01/20/21 09:00 01/20/21 09:21 01/20/21 09:00 01/20/21 09:00 01/20/21 09:00 Oxygen Flow Rate (L/min) 6 Oxygen Delivery Method Room Air Weight: 184 lb 8.43 oz Body Mass Index (BMI) 28.3 Intake & Output: Intake and Output for Last 24 Hours 01/18/21 01/19/21 01/20/21 23:59 23:59 23:59 Intake Total 3048.00 / 3048.00 4003 / 4003 100 / 100 Output Total 850 / 850 1200 / 1400 450 / 450 Balance 2198.00 / 2198.00 2803 / 2603 -350 / -350 Lab / Micro Data Result Diagrams: 01/19/21 09:40 01/20/21 09:47 Labs: Laboratory Results - last 24 hr 01/19/21 01/19/21 01/19/21 11:33 15:25 21:42 Glucose POC Glucose 377 H 203 H 155 H 01/20/21 01/20/21 01/20/21 09:14 09:24 09:47 Glucose 76 POC Glucose 48 L 46 L Micro: Microbiology 01/17/21 21:15 Wound - Ankle Gram Stain - Final 01/17/21 21:15 Wound - Ankle Wound Culture - Final No growth aerobically. 01/17/21 21:15 Wound - Ankle Anaerobic Culture - Preliminary No growth in 48 hours. 01/17/21 18:45 Blood Culture (Wb) - Anticubital Left Blood Culture - Preliminary No growth in 48 hours. 01/17/21 18:00 Blood Culture (Wb) - Right Wrist Blood Culture - Preliminary No growth in 48 hours. 01/18/21 Unknown Bone - Right Foot Gram Stain - Final 01/18/21 Unknown Bone - Right Foot Wound Culture - Preliminary No growth-Final to follow 01/18/21 Unknown Bone - Right Foot Gram Stain - Final 01/18/21 Unknown Bone - Right Foot Wound Culture - Preliminary No growth-Final to follow 01/18/21 06:10 Stool Stool Occult Blood (KRISTAN) - Final 01/17/21 18:00 Interface Orders SARS-CoV-2 Antigen (Rapid) - Final Physical Exam Narrative General: Alert, Oriented x3, Cooperative on BiPAP HEENT: Atraumatic, PERRLA, EOMI, Normocephalic Oral: No Gingival or Mucosal Lesions/ Ulcerations Neck: Supple, No JVD, Negative Carotid Bruits Lungs: Air entry diminished in bilateral lung bases. No crepitation/rhonchi Cardiovascular: Regular rate, Regular Rhythm, Normal S1, Normal S2, No murmurs Abdomen: Bowel Sounds Present, Soft, Non Tender, Non-Distended : No renal angle tenderness. No suprapubic tenderness. Extremities: Bilateral ankle improved, Capillary Refill Less than 3 Seconds Skin: Dressing is dry. Had bone biopsy Musculoskeletal: Tenderness present on the right ankle with swelling and redness. Neurological: Cranial nerves II-XII grossly intact, Deep Tendon Reflexes 2+/4 and Symmetrical, Neuro grossly intact Psych/Mental Status: Normal Affect, Appropriate. Assessment & Plan Assessment/Plan (1) Diabetes mellitus type 1: QUALIFIERS: Diabetes mellitus complication status: with neurologic complications Diabetes mellitus complication detail: with polyneuropathy Qualified Code(s): E10.42 - Type 1 diabetes mellitus with diabetic polyneuropathy (2) Charcot's joint of right ankle: (3) Cellulitis of right lower extremity: PLAN: This 56-year-old patient with multiple comorbidities admitted with right ankle cellulitis and pain for few weeks. 1.? Sepsis secondary to acute right ankle medial malleolus abscess, cellulitis and septic arthritis: [facility]osyn. Seen by ID. Scheduled for bone biopsy by beaver trapper. MRSA PCR negative. Follow-up blood cultures. 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 Individually x-ray reviewed and shows tarsal bones destruction, osteomyelitis and septic arthritis. Wound nurse consulted. 01/19: On empiric antibiotic vancomycin and Zosyn. Follow-up wound/bone biopsy. 01/20: Preliminary tissue culture shows no organisms. Follow full culture report. 2. Acute on Chronic anemia, anemia of chronic disease: Admission hemoglobin 7.5, with baseline 9.3 in May 2017. Stool for occult blood negative. RDW el evated. Thrombocythemia. Iron study shows low iron, TIBC with low iron saturation. Ferritin 300 suggestive of anemia of chronic disease. CRP elevated. B12 and folate normal. 1 unit of PRBC transfused. 3.? Hypertension: Continue home regimen including metoprolol with hold parameters, PRN hydralazine. 4.? Hyperlipidemia: Not on statin therapy. 5.? CAD: Status post CABG x 5 2013, we will continue aspirin, not on statin, continue metoprolol, not on TRES inhibitor. 6.? Chronic Kidney Disease Stage IIIa probably diabetic nephropathy.: Admission BUN/Cr 20/1.33, baseline renal function 0.8 prior however last value 2016, repeat BMP in AM. 7.? Diabetes mellitus type II with hypoglycemia: Will continue home insulin regimen, ADA diet until NPO status, HgbA1c requested, nutrition for education and teaching, accu checks w/ ISS. Patient blood sugar has recovered. Higher side 370, 377. Insulin dose titrated up. 01/20: Blood sugar is low. Hold scheduled insulin. Hypoglycemia protocol with D50. 8.? BPH: We will continue patient home Flomax regimen. 9.? GE: Patient never had sleep study done. BiPAP at night while in the hospital. 10.? DVT prophylaxis: SCDs, severe anemia. 11.? CODE status full code. Visit Charges Inpatient E&M: 94249 Subs Hosp L2
[2021-01-20 11:11] LABS: Bedside Glucose 131 mg/dL (70-110)
[2021-01-20 12:21] LABS: Bedside Glucose 162 mg/dL (70-110)
[2021-01-20] MEDS: Tamsulosin HCl 0.4 MG Capsule PO (13:30)
[2021-01-20 13:44] LABS: Vancomycin, Random Level 14.8 ug/mL (0.0-15.0)
[2021-01-20 13:55] LABS: Anion Gap 8 (5-15); BUN 16 mg/dL (7-18); BUN/Creat Ratio 10.3 RATIO (10-20); Calcium,Total 8.3 mg/dL (8.5-10.1); Chloride 107 mmol/L (98-107); Creatinine, Serum 1.55 mg/dL (0.70-1.30); EST Glomerular Filtration Rate 49 mL/min (>60); Est Glom Filt Rate - Afr Amer 60 mL/min (>60); Estimated Creatinine Clearance 46.88 ml/min; Glucose 157 mg/dL (74-106); Magnesium 2.1 mg/dL (1.6-2.6); Potassium 4.7 mmol/L (3.5-5.1); Sodium Level 139 mmol/L (136-145)
--- NOTE | 2021-01-20 14:18 | PCM.RX.CS ---
Consult Pharmacy has been consulted to manage selected antiobiotic: Vancomycin Type of Consult: Follow-up Suspected Infection: Skin/Soft tissue Labs: Sodium 139 mmol/L (136-145) 01/20/21 12:40 Potassium 4.7 mmol/L (3.5-5.1) 01/20/21 12:40 Chloride 107 mmol/L (98-107) 01/20/21 12:40 Carbon Dioxide 24.0 mmol/L (21.0-32.0) 01/20/21 12:40 Anion Gap 8 (5-15) 01/20/21 12:40 BUN 16 mg/dL (7-18) 01/20/21 12:40 Creatinine 1.55 mg/dL (0.70-1.30) H 01/20/21 12:40 Est GFR (MDRD) Af Amer 60 mL/min (>60) 01/20/21 12:40 Est GFR (MDRD) Non-Af 49 mL/min (>60) L 01/20/21 12:40 BUN/Creatinine Ratio 10.3 RATIO (10-20) 01/20/21 12:40 Glucose 157 mg/dL (74-106) H 01/20/21 12:40 Vancomycin Trough 22.2 ug/mL (5.0-15.0) H 01/19/21 08:50 Random Vancomycin 14.8 ug/mL (0.0-15.0) 01/20/21 12:40 Microbiology: Microbiology 01/17/21 21:15 Wound - Ankle Gram Stain - Final 01/17/21 21:15 Wound - Ankle Wound Culture - Final No growth aerobically. 01/17/21 21:15 Wound - Ankle Anaerobic Culture - Preliminary No growth in 48 hours. 01/17/21 18:45 Blood Culture (Wb) - Anticubital Left Blood Culture - Preliminary No growth in 48 hours. 01/17/21 18:00 Blood Culture (Wb) - Right Wrist Blood Culture - Preliminary No growth in 48 hours. 01/18/21 Unknown Bone - Right Foot Gram Stain - Final 01/18/21 Unknown Bone - Right Foot Wound Culture - Preliminary No growth-Final to follow 01/18/21 Unknown Bone - Right Foot Gram Stain - Final 01/18/21 Unknown Bone - Right Foot Wound Culture - Preliminary No growth-Final to follow 01/18/21 06:10 Stool Stool Occult Blood (KRISTAN) - Final 01/17/21 18:00 Interface Orders SARS-CoV-2 Antigen (Rapid) - Final Goal Trough: 15-20 mcg/mL Pharmacy Plan for Drug Dosing: VANCOMYCIN LEVEL RECEIVED Current Vancomycin Dose: ON HOLD - LAST DOSE OF 1G VANCO ADMIN 01/19 @0929 Number of Doses Received: ON HOLD (PREVIOUSLY 4 GIVEN) Vancomycin Level: 14.8 Hours Since Last Dose: 27HR Renal Function: 1.55 Renal Function Trend: SLIGHT INCREASE FROM BASELINE 1.33 Lab/Micro: BCx/WCx pending Vancomycin Plan/Comments: Vancomycin trough now back within normal limits. Will resume vancomycin at a dose of 1g IV Q24hr to start 01/20/21 @1500 Pending Level: 01/22/21 @1430 (prior to 3rd dose of new regimen) Service will continue to monitor and adjust dosing as required.
[2021-01-20] MEDS: Vancomycin IV 1,000 MG/200 ML BAG 200 MG IV (14:53)
[2021-01-20] MEDS: 0.9% Saline Lock 10 ML Syringe IV (14:53)
[2021-01-20 16:20] LABS: Bedside Glucose 288 mg/dL (70-110)
[2021-01-20] MEDS: Insulin Lispro 100 UNIT/ML INSULN.PEN SC ×2 (17:28→21:41)
[2021-01-20] MEDS: Temazepam 15 MG Capsule PO (21:40)
[2021-01-20] MEDS: Glucerna Shake 120 ML LIQUID PO (21:40)
[2021-01-20] MEDS: Atorvastatin Calcium 80 MG Tablet PO (21:42)
[2021-01-20 22:15] LABS: Bedside Glucose 305 mg/dL (70-110)
[2021-01-21] VITALS (9 sets, daily range): BP systolic 132–141; BP diastolic 58–78; PULSE 86–94; RESP 11–18; TEMP 36.6–37.3; O2SAT 93–98
--- NOTE | 2021-01-21 05:46 | CPS ---
SHREDDED FILLER CUTTER OPERATOR observed patient waking up gasping for air while on CPAP of 5. For this reason, CPAP was increased to 8. RN aware of change.
[2021-01-21 05:48] LABS: Absolute Lymphocyte Count 1.28 X10^3/uL (0.83-4.51); Absolute Neutrophil Count 5.3 X10^3/uL (2.0-7.7); Basophil# 0.06 X10^3/uL; Basophil% 0.8 % (0-1); Eosinophil# 0.47 X10^3/uL; Hematocrit 26.7 % (40-54); Lymphocyte # 1.28 X10^3/ul (0.83-4.51); Lymphocyte % 16.4 % (19-41); Mean Corpuscular Volume 80.2 fL (80-94); Mean Platelet Vol. 8.7 fl (6.2-12.0); Monocyte# 0.63 X10^3/uL; Monocyte% 8.1 % (0-10); NRBC Flagged by Analyzer 0 % (0-5); Neutrophil # 5.31 X10^3/uL (2.7-7.7); Neutrophil % 67.8 % (47-70); Platelet Count 570 K/mm3 (150-450); RBC Distribution Width CV 17.6 % (11.6-14.6); RBC Distribution Width SD 51.8 fl (35.1-43.9); Red Blood Count 3.33 M/mm3 (4.6-6.2); White Blood Count 7.8 K/mm3 (4.4-11.0)
[2021-01-21 06:02] LABS: Anion Gap 7 (5-15); BUN 16 mg/dL (7-18); BUN/Creat Ratio 10.5 RATIO (10-20); Calcium,Total 8.5 mg/dL (8.5-10.1); Chloride 104 mmol/L (98-107); Creatinine, Serum 1.53 mg/dL (0.70-1.30); EST Glomerular Filtration Rate 50 mL/min (>60); Est Glom Filt Rate - Afr Amer 60 mL/min (>60); Estimated Creatinine Clearance 47.49 ml/min; Glucose 240 mg/dL (74-106); Potassium 4.3 mmol/L (3.5-5.1); Sodium Level 138 mmol/L (136-145)
[2021-01-21] MEDS: Insulin Lispro 100 UNIT/ML INSULN.PEN SC (06:55)
[2021-01-21 07:05] LABS: Bedside Glucose 215 mg/dL (70-110)
[2021-01-21] MEDS: Gabapentin 100 MG Capsule PO ×2 (07:51→11:07)
[2021-01-21] MEDS: Aspirin 81 MG TAB.CHEW PO (07:51)
[2021-01-21] MEDS: Pantoprazole Sodium 40 MG Tablet PO (07:51)
[2021-01-21] MEDS: Metoprolol(XL)Succ 50 MG Tablet PO (07:51)
--- NOTE | 2021-01-21 07:58 | PN_ITS ---
Subjective Subjective Patient seen resting comfortably in bed. Patient denies any new pedal complaints. He relates pain is well controlled. Patient denies n/v/f/c/cp/SOB/calf pain. Objective Data Objective Data Vital Signs: Vital Signs Temp Pulse Resp BP Pulse Ox 99.1 F 92 18 141/78 H 93 01/21/21 07:42 01/21/21 07:51 01/21/21 07:42 01/21/21 07:42 01/21/21 07:42 Oxygen Flow Rate (L/min) 6 Oxygen Delivery Method Room Air Weight: 83.3 kg Body Mass Index (BMI) 28.3 Intake & Output: Intake and Output for Last 24 Hours 01/19/21 01/20/21 01/21/21 23:59 23:59 23:59 Intake Total 4003 / 4003 1200 / 1200 130 / 130 Output Total 1200 / 1400 450 / 450 Balance 2803 / 2603 750 / 750 130 / 130 Lab / Micro Data Result Diagrams: 01/21/21 05:32 01/21/21 05:32 Labs: Laboratory Results - last 24 hr 01/20/21 01/20/21 01/20/21 09:14 09:24 09:47 WBC RBC Hgb Hct MCV MCH MCHC RDW Std Deviation RDW Coeff of Cl Plt Count MPV Immature Gran % (Auto) Neut % (Auto) Lymph % (Auto) [place] % (Auto) Eos % (Auto) Baso % (Auto) Absolute Neuts (auto) Absolute Lymphs (auto) Nucleated RBC % Sodium Potassium Chloride Carbon Dioxide Anion Gap BUN Creatinine Estim Creat Clear Calc Est GFR (MDRD) Af Amer Est GFR (MDRD) Non-Af BUN/Creatinine Ratio Glucose 76 Calcium Magnesium Random Vancomycin POC Glucose 48 L 46 L 01/20/21 01/20/21 01/20/21 11:03 12:17 12:40 WBC RBC Hgb Hct MCV MCH MCHC RDW Std Deviation RDW Coeff of Cl Plt Count MPV Immature Gran % (Auto) Neut % (Auto) Lymph % (Auto) [place] % (Auto) Eos % (Auto) Baso % (Auto) Absolute Neuts (auto) Absolute Lymphs (auto) Nucleated RBC % Sodium Potassium Chloride Carbon Dioxide Anion Gap BUN Creatinine Estim Creat Clear Calc Est GFR (MDRD) Af Amer Est GFR (MDRD) Non-Af BUN/Creatinine Ratio Glucose Calcium Magnesium Random Vancomycin 14.8 POC Glucose 131 H 162 H 01/20/21 01/20/21 01/20/21 12:40 16:15 21:37 WBC RBC Hgb Hct MCV MCH MCHC RDW Std Deviation RDW Coeff of Cl Plt Count MPV Immature Gran % (Auto) Neut % (Auto) Lymph % (Auto) [place] % (Auto) Eos % (Auto) Baso % (Auto) Absolute Neuts (auto) Absolute Lymphs (auto) Nucleated RBC % Sodium 139 Potassium 4.7 Chloride 107 Carbon Dioxide 24.0 Anion Gap 8 BUN 16 Creatinine 1.55 H Estim Creat Clear Calc 46.88 Est GFR (MDRD) Af Amer 60 Est GFR (MDRD) Non-Af 49 L BUN/Creatinine Ratio 10.3 Glucose 157 H Calcium 8.3 L Magnesium 2.1 Random Vancomycin POC Glucose 288 H 305 H 01/21/21 01/21/21 01/21/21 05:32 05:32 06:54 WBC 7.8 RBC 3.33 L Hgb 8.0 L Hct 26.7 L MCV 80.2 MCH 24.0 L MCHC 30.0 L RDW Std Deviation 51.8 H RDW Coeff of Cl 17.6 H Plt Count 570 H MPV 8.7 Immature Gran % (Auto) 0.900 Neut % (Auto) 67.8 Lymph % (Auto) 16.4 L [place] % (Auto) 8.1 Eos % (Auto) 6.0 H Baso % (Auto) 0.8 Absolute Neuts (auto) 5.3 Absolute Lymphs (auto) 1.28 Nucleated RBC % 0 Sodium 138 Potassium 4.3 Chloride 104 Carbon Dioxide 27.0 Anion Gap 7 BUN 16 Creatinine 1.53 H Estim Creat Clear Calc 47.49 Est GFR (MDRD) Af Amer 60 Est GFR (MDRD) Non-Af 50 L BUN/Creatinine Ratio 10.5 Glucose 240 H Calcium 8.5 Magnesium Random Vancomycin POC Glucose 215 H Micro: Microbiology 01/18/21 Unknown Bone - Right Foot Gram Stain - Final 01/18/21 Unknown Bone - Right Foot Wound Culture - Preliminary No growth-Final to follow 01/18/21 Unknown Bone - Right Foot Anaerobic Culture - Preliminary No growth in 48 hours. 01/18/21 Unknown Bone - Right Foot Gram Stain - Final 01/18/21 Unknown Bone - Right Foot Wound Culture - Preliminary No growth-Final to follow 01/18/21 Unknown Bone - Right Foot Anaerobic Culture - Preliminary No growth in 48 hours. 01/17/21 21:15 Wound - Ankle Gram Stain - Final 01/17/21 21:15 Wound - Ankle Wound Culture - Final No growth aerobically. 01/17/21 21:15 Wound - Ankle Anaerobic Culture - Preliminary No growth in 48 hours. 01/17/21 18:45 Blood Culture (Wb) - Anticubital Left Blood Culture - Preliminary No growth in 48 hours. 01/17/21 18:00 Blood Culture (Wb) - Right Wrist Blood Culture - Preliminary No growth in 48 hours. 01/18/21 06:10 Stool Stool Occult Blood (KRISTAN) - Final 01/17/21 18:00 Interface Orders SARS-CoV-2 Antigen (Rapid) - Final Physical Exam Const alert and oriented x3 General Appearance: cooperative HEENT normocephalic Extremity Extremity Narrative: No calf tenderness Diminished pulses Muscle wasting noted Compartments right lower extremity remain soft Laxity at ankle joint in sagittal and frontal plane with reduced pain no midfoot laxity General Extremity: edema; Negative for cyanosis Skin Skin Narrative: no purulence, no streaking, no odor. There is resolved erythema to the medial and lateral ankle; no warmth noted with palpation. Incision to me dial ankle is well aligned with nylon suture and there is minimal with hematogenous drainage noted on inner dressing. There is no necrosis. There is an open skin discontinuity to medial ankle distal to the incision site that has a healthy granular base and peripheral epithelialization noted. General Skin Exam: Negative for erythema Neuro Neuro Narrative: lack of normal epicritic sensation via light touch is consistent with neuropathy status Psych cooperative and affect normal Assessment & Plan Assessment/Plan (1) Cellulitis of right lower extremity: (2) Charcot's joint of right ankle: (3) Osteomyelitis, ankle and foot: PLAN: Patient seen and examined. I reviewed and discussed his care plan including his diagnostic data. He is postoperative day #3. He is afebrile and his vital signs are stable. There was not any purulence or odor noted in surgery when the incision and drainage including arthrotomy was performed. The bone of the talus and distal tibia were extremely soft. Bone biopsies were obtained and sent to both microbiology and pathology in which these results are pending. There is no bacterial growth so far from the prior wound culture, blood culture, or intraoperative bone cultures. He was admitted and placed on empiric antibiotics; vanc/zosyn. Infectious disease is on consultation. MRI preoperative was reviewed with destruction of the tibia talus and hindfoot with widespread edema. This is consistent with osteomyelitis, Charcot, or both. There is also maintained hardware. Betadine gauze dressing was reapplied to incision and hydrogel to open ulcer site. Then his well-padded posterior mold splint was also applied with the extremity in a rectus position. To maintain a nonweightbearing status to the right lower extremity. To work with physical and occupational therapy. To use assistive device. We discussed his potential diagnoses and recommended work-up. I recommend focusing on his infection work-up at this time. If his work-up does not support the diagnosis of osteomyelitis, his options include Charcot ankle reconstruction likely with application of a compressive external fixation device or a below-knee amputation. The patient understands if he is not able to regain better control over his anemia and diabetes status a limb salvage surgery will not be completed. He relates that he did not follow- up with his prior medical appointments earlier this year and will need to get back on track with this. He requests a referral for the outpatient setting for anemia work up and treatment here in [place]. To follow up w/ Dr. Salas within one week of discharge. Non invasive vascular studies ordered for completion today. If this can not be completed today he can also get these completed on an outpatient basis to avoid holding up discharge. Medical management per hospitalist services is appreciated. The podiatry team will continue to follow closely while in house. Please do not hesitate to call if you have any questions.
--- NOTE | 2021-01-21 07:58 | NURSING ---
wound photo: right foot/ankle
--- NOTE | 2021-01-21 07:58 | NURSING ---
skin photo: right lateral ankle
[2021-01-21] MEDS: Glucerna Shake 120 ML LIQUID PO (08:34)
[2021-01-21] MEDS: Pregabalin 75 MG Capsule 150 MG PO (08:35)
[2021-01-21] MEDS: Insulin Lispro 100 UNIT/ML INSULN.PEN 15 UNIT SC (08:49)
[2021-01-21 08:56] LABS: Bedside Glucose 189 mg/dL (70-110)
--- NOTE | 2021-01-21 10:44 | PCM.DC ---
Discharge Instructions Diet Discharge Diet: Low fat / Low cholesterol and 1800 Calorie Control Diet Activity Discharge Activity: May Not Drive and - Weight Bearing Status: No weight bearing and - Dressing / Incision Call your doctor if you observe: Fever of 101 or Higher, Coldness, Increased Pain, Numbness or Tingling, Change in Color, Inability to urinate, Inability to have a bowel movement, Shortness of breath, Dizziness, Fainting spells, Swelling in the ankles, Chest pain, Prolonged hiccupping, Increased palpitations (irregular heartbeat), Calf discomfort and Uncontrolled pain Follow Up Care Test Results: Test results from this visit will be discussed in further detail at your follow-up appointment, if applicable. Discharge Plan Admission Admit Date/Time: 01/17/21 19:29 Primary Reason for Your Visit: Charcot joint of right ankle Attending Provider: Tod Judge Primary Care Provider: Aaliyah Russ Consulting Providers: Lyndsey Salas ; Festus Gandara Instructions Patient Instructions: Diabetes: Inspecting Your Feet, What Is Charcot Foot?, Treating Charcot Foot Additional Instructions / Restrictions: Maintain a non weightbearing status to right lower extremity with assistive device. Change dressing daily with betadine gauze to incision site and hydrogel to small ulcer site. Do not soak. Wash with soap and water. Elevate limb at rest. Discharge Orders/Prescriptions Prescriptions: New sennosides-docusate sodium [Stool Softener-Stimulant Laxat] 8.6-50 mg Tablet 2 tab PO BID PRN PRN (Reason: Constipation) Qty: 0 RF: 0 Continued aspirin 325 MG tablet 325 mg PO DAILY@0800 RF: 0 famotidine 20 mg tablet 40 mg PO DAILY RF: 0 gabapentin 100 mg capsule 100 mg PO TID RF: 0 metoprolol succinate 50 mg tablet extended release 24 hr 50 mg PO DAILY RF: 0 tramadol 50 mg tablet 50 mg PO Q8H PRN (Reason: Pain) RF: 0 alprazolam 0.5 mg tablet 0.5 mg PO TID PRN (Reason: Anxiety) RF: 0 nitroglycerin 0.4 mg tablet, sublingual 0.4 mg sublingual PRN PRN (Reason: Chest Pain) RF: 0 insulin aspart U-100 [Novolog Flexpen U-100 Insulin] 100 unit/mL (3 mL) insulin pen SUBCUT TIDCM RF: 0 rosuvastatin 40 mg tablet 40 mg PO QHS RF: 0 tamsulosin 0.4 mg capsule 0.4 mg PO QHS RF: 0 sildenafil 100 mg tablet 100 mg PO PRN PRN (Reason: Erectile Dysfunction) RF: 0 ferrous sulfate 325 mg (65 mg iron) tablet 65 mg PO TIDCM RF: 0 pantoprazole 40 mg tablet,delayed release (DR/EC) 40 mg PO BID RF: 0 Changed Levemir FlexTouch U-100 Insuln 100 unit/mL (3 mL) insulin pen 50 unit SUBCUT BID Qty: 0 RF: 0 Discontinued amoxicillin 500 mg capsule 500 mg PO TID RF: 0 meloxicam 15 mg tablet 15 mg PO DAILY PRN (Reason: Pain) RF: 0 Referrals / Follow Up: Aaliyah Russ MD [Primary Care Provider] - Lyndsey Salas DPM [STAFF PHYSICIAN] - In 1 Week Festus Gandara MD [STAFF PHYSICIAN] - Within 2 Weeks Disposition Disposition (needs filled in before D/C Order can be placed): Home, self care
--- NOTE | 2021-01-21 10:45 | DS.PCM_ITS ---
Providers Date of Admission: 01/17/21 Primary Care Physician: Dr. Aaliyah Russ MD Consultations 01/17/21 19:37 Consult: Podiatry Routine Consulting Provider: Lyndsey Salas Reason for Consult: Osteomyelitis EMERGENT Consult: No Notified: Yes Date Notified:: 01/17/21 Time Notified: 19:38 Method of Notification: Verbal 01/17/21 20:49 Consult: Infectious Disease Routine Consulting Provider: Festus Gandara Reason for Consult: Septic R ankle EMERGENT Consult: No Notified: Yes Date Notified:: 01/18/21 Time Notified: 04:36 Method of Notification: Answering Service Consult: Onc/Wound/content manager Routine Comment: Consult: Podiatry Routine Consulting Provider: Lyndsey Salas Reason for Consult: R septic ankle EMERGENT Consult: No Notified: Yes Date Notified:: 01/17/21 Time Notified: 19:33 Method of Notification: Verbal Reason For Visit: SEPSIS, SEPTIC R ANKLE Diagnosis Discharge Diagnosis (1) Cellulitis of right lower extremity: Status: Acute Code(s): L03.115 - Cellulitis of right lower limb (2) Charcot's joint of right ankle: Status: Acute Code(s): M14.671 - Charcot's joint, right ankle and foot (3) Osteomyelitis, ankle and foot: Status: Acute Code(s): M86.9 - Osteomyelitis, unspecified Medications at Discharge Home Medications aspirin 325 mg PO DAILY@0800 tab 07/14/17 alprazolam 0.5 mg PO TID PRN 01/17/21 famotidine 40 mg PO DAILY 01/17/21 ferrous sulfate 65 mg PO TIDCM 01/17/21 gabapentin 100 mg PO TID 01/17/21 insulin aspart U-100 [Novolog Flexpen U-100 Insulin] unit SUBCUT TIDCM 01/17/21 metoprolol succinate 50 mg PO DAILY 01/17/21 nitroglycerin 0.4 mg SUBLINGUAL PRN PRN 01/17/21 pantoprazole 40 mg PO BID 01/17/21 rosuvastatin 40 mg PO QHS 01/17/21 sildenafil 100 mg PO PRN PRN 01/17/21 tamsulosin 0.4 mg PO QHS 01/17/21 tramadol 50 mg PO Q8H PRN 01/17/21 Levemir FlexTouch U-100 Insuln 50 unit SUBCUT BID #0 ml 01/21/21 amoxicillin-pot clavulanate [Augmentin] 1 tab PO Q12H #76 tab 01/21/21 doxycycline monohydrate 100 mg PO BID #76 capsule 01/21/21 sennosides-docusate sodium [Stool Softener-Stimulant Laxat] 2 tab PO BID PRN PRN #0 tab 01/21/21 Hospital Course Summary of Care Provided Hospital Course: ?This 56-year-old patient with multiple comorbidities admitted with right ankle cellulitis and pain for few weeks. 1.? Sepsis secondary to acute right ankle medial malleolus abscess, cellulitis and septic arthritis: [facility]com[facility] and Zosyn.? Seen by ID.? Scheduled for bone biopsy by excavation laborer.? MRSA PCR negative.? Follow-up blood cultures.? 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 Individually x-ray reviewed and shows tarsal bones destruction, osteomyelitis and septic arthritis.? Wound nurse consulted. Patient empirically on vancomycin and Zosyn while inpatient. Preliminary wound culture/tissue bone biopsy negative for more than 48 hours. Discussed with ID and he sent the prescription of Augmentin for 6 weeks. 2. Acute on Chronic anemia, anemia of chronic disease: Admission hemoglobin 7.5, with baseline 9.3 in May 2017.? Stool for occult blood negative.? RDW elevated.? Thrombocythemia.? Iron study shows low iron, TIBC with low iron saturation.? Ferritin 300 suggestive of anemia of chronic disease.? CRP elevated.? B12 and folate normal.? 1 unit of PRBC transfused. H&H is stable about 04/25. Continue iron. 3.? Hypertension: Continue home regimen including metoprolol with hold parameters, PRN hydralazine. 4.? Hyperlipidemia: Not on statin therapy. 5.? CAD: Status post CABG x 5 2013, we will continue aspirin, not on statin, continue metoprolol, not on TRES inhibitor. 6.? Chronic Kidney Disease Stage IIIa probably diabetic nephropathy.: Admission BUN/Cr 20/1.33, baseline renal function 0.8 prior however last value 2017, creatinine is stable at 1.53. Meloxicam discontinued. 7.? Diabetes mellitus type II with hypoglycemia: Will continue home insulin regimen, ADA diet until NPO status, HgbA1c requested, nutrition for education and teaching, accu checks w/ ISS. Patient had fluctuating blood sugar with hyperglycemia and hypoglycemia. Insulin dose was accordingly titrated. Patient Lantus dose was decreased to 50 units twice daily and short-acting insulin as per sliding scale prior to meals. 8.? BPH: continue patient home Flomax regimen. 9.? GE: Patient never had sleep study done.? BiPAP at night while in the hospital. 10.? DVT prophylaxis: SCDs, 11.? CODE status full code. Physical Exam Narrative Seen and examined. Patient blood sugar is controlled. Patient takes insulin just before meals as per sliding scale. General: Alert, Oriented x3, Cooperative on BiPAP HEENT: Atraumatic, PERRLA, EOMI, Normocephalic Oral: No Gingival or Mucosal Lesions/ Ulcerations Neck: Supple, No JVD, Negative Carotid Bruits Lungs: Air entry diminished in bilateral lung bases. No crepitation/rhonchi Cardiovascular: Regular rate, Regular Rhythm, Normal S1, Normal S2, No murmurs Abdomen: Bowel Sounds Present, Soft, Non Tender, Non-Distended : No renal angle tenderness. No suprapubic tenderness. Extremities: Bilateral ankle edema improved, Capillary Refill Less than 3 Seconds Skin: Dressing is dry. Had bone biopsy Musculoskeletal: Improvement in tenderness present on the right ankle with swelling and redness. Neurological: Cranial nerves II-XII grossly intact, Deep Tendon Reflexes 2+/4 and Symmetrical, Neuro grossly intact Psych/Mental Status: Normal Affect, Appropriate. ABG / Lab / Microbiology Data Result Diagrams: 01/21/21 05:32 01/21/21 05:32 Laboratory: Laboratory Results - last 24 hr 01/20/21 01/20/21 01/20/21 11:03 12:17 12:40 WBC RBC Hgb Hct MCV MCH MCHC RDW Std Deviation RDW Coeff of Cl Plt Count MPV Immature Gran % (Auto) Neut % (Auto) Lymph % (Auto) [place] % (Auto) Eos % (Auto) Baso % (Auto) Absolute Neuts (auto) Absolute Lymphs (auto) Nucleated RBC % Sodium Potassium Chloride Carbon Dioxide Anion Gap BUN Creatinine Estim Creat Clear Calc Est GFR (MDRD) Af Amer Est GFR (MDRD) Non-Af BUN/Creatinine Ratio Glucose Calcium Magnesium Random Vancomycin 14.8 POC Glucose 131 H 162 H 01/20/21 01/20/21 01/20/21 12:40 16:15 21:37 WBC RBC Hgb Hct MCV MCH MCHC RDW Std Deviation RDW Coeff of Cl Plt Count MPV Immature Gran % (Auto) Neut % (Auto) Lymph % (Auto) [place] % (Auto) Eos % (Auto) Baso % (Auto) Absolute Neuts (auto) Absolute Lymphs (auto) Nucleated RBC % Sodium 139 Potassium 4.7 Chloride 107 Carbon Dioxide 24.0 Anion Gap 8 BUN 16 Creatinine 1.55 H Estim Creat Clear Calc 46.88 Est GFR (MDRD) Af Amer 60 Est GFR (MDRD) Non-Af 49 L BUN/Creatinine Ratio 10.3 Glucose 157 H Calcium 8.3 L Magnesium 2.1 Random Vancomycin POC Glucose 288 H 305 H 01/21/21 01/21/21 01/21/21 05:32 05:32 06:54 WBC 7.8 RBC 3.33 L Hgb 8.0 L Hct 26.7 L MCV 80.2 MCH 24.0 L MCHC 30.0 L RDW Std Deviation 51.8 H RDW Coeff of Cl 17.6 H Plt Count 570 H MPV 8.7 Immature Gran % (Auto) 0.900 Neut % (Auto) 67.8 Lymph % (Auto) 16.4 L [place] % (Auto) 8.1 Eos % (Auto) 6.0 H Baso % (Auto) 0.8 Absolute Neuts (auto) 5.3 Absolute Lymphs (auto) 1.28 Nucleated RBC % 0 Sodium 138 Potassium 4.3 Chloride 104 Carbon Dioxide 27.0 Anion Gap 7 BUN 16 Creatinine 1.53 H Estim Creat Clear Calc 47.49 Est GFR (MDRD) Af Amer 60 Est GFR (MDRD) Non-Af 50 L BUN/Creatinine Ratio 10.5 Glucose 240 H Calcium 8.5 Magnesium Random Vancomycin POC Glucose 215 H 01/21/21 08:43 WBC RBC Hgb Hct MCV MCH MCHC RDW Std Deviation RDW Coeff of Cl Plt Count MPV Immature Gran % (Auto) Neut % (Auto) Lymph % (Auto) [place] % (Auto) Eos % (Auto) Baso % (Auto) Absolute Neuts (auto) Absolute Lymphs (auto) Nucleated RBC % Sodium Potassium Chloride Carbon Dioxide Anion Gap BUN Creatinine Estim Creat Clear Calc Est GFR (MDRD) Af Amer Est GFR (MDRD) Non-Af BUN/Creatinine Ratio Glucose Calcium Magnesium Random Vancomycin POC Glucose 189 H Microbiology: Microbiology 01/18/21 Unknown Gram Stain - Final Bone - Right Foot Wound Culture - Preliminary No growth-Final to follow Anaerobic Culture - Preliminary No growth in 48 hours. 01/18/21 Unknown Gram Stain - Final Bone - Right Foot Wound Culture - Final No growth aerobically. Anaerobic Culture - Preliminary No growth in 48 hours. 01/17/21 21:15 Gram Stain - Final Wound - Ankle Wound Culture - Final No growth aerobically. Anaerobic Culture - Preliminary No growth in 48 hours. 01/17/21 18:45 Blood Culture - Preliminary Blood Culture (Wb) - Anticubital Left No growth in 48 hours. 01/17/21 18:00 Blood Culture - Preliminary Blood Culture (Wb) - Right Wrist No growth in 48 hours. Microbiology 01/18/21 Unknown Bone - Right Foot Gram Stain - Final 01/18/21 Unknown Bone - Right Foot Wound Culture - Preliminary No growth-Final to follow 01/18/21 Unknown Bone - Right Foot Anaerobic Culture - Preliminary No growth in 48 hours. 01/18/21 Unknown Bone - Right Foot Gram Stain - Final 01/18/21 Unknown Bone - Right Foot Wound Culture - Final No growth aerobically. 01/18/21 Unknown Bone - Right Foot Anaerobic Culture - Preliminary No growth in 48 hours. 01/17/21 21:15 Wound - Ankle Gram Stain - Final 01/17/21 21:15 Wound - Ankle Wound Culture - Final No growth aerobically. 01/17/21 21:15 Wound - Ankle Anaerobic Culture - Preliminary No growth in 48 hours. 01/17/21 18:45 Blood Culture (Wb) - Anticubital Left Blood Culture - Preliminary No growth in 48 hours. 01/17/21 18:00 Blood Culture (Wb) - Right Wrist Blood Culture - Preliminary No growth in 48 hours. 01/18/21 06:10 Stool Stool Occult Blood (KRISTAN) - Final 01/17/21 18:00 Interface Orders SARS-CoV-2 Antigen (Rapid) - Final Meaningful Use Info Meaningful Use Diagnoses (Choose all that apply): None applicable Discharge Plan Admission Admit Date/Time: 01/17/21 19:29 Primary Reason for Your Visit: Acute on chronic osteomyelitis Charcot joint of right ankle Attending Provider: Tod Judge Primary Care Provider: Aaliyah Russ Consulting Providers: Lyndsey Salas ; Festus Gandara Instructions Patient Instructions: Diabetes: Inspecting Your Feet, What Is Charcot Foot?, Treating Charcot Foot Additional Instructions / Restrictions: Maintain a non weightbearing status to right lower extremity with assistive device. Change dressing daily with betadine gauze to incision site and hydrogel to small ulcer site. Do not soak. Wash with soap and water. Elevate limb at rest. Discharge Orders/Prescriptions Prescriptions: New sennosides-docusate sodium [Stool Softener-Stimulant Laxat] 8.6-50 mg Tablet 2 tab PO BID PRN PRN (Reason: Constipation) Qty: 0 RF: 0 doxycycline monohydrate 100 mg capsule 100 mg PO BID Qty: 76 RF: 0 amoxicillin-pot clavulanate [Augmentin] 875-125 mg tablet 1 tab PO Q12H Qty: 76 RF: 0 Continued aspirin 325 MG tablet 325 mg PO DAILY@0800 RF: 0 famotidine 20 mg tablet 40 mg PO DAILY RF: 0 gabapentin 100 mg capsule 100 mg PO TID RF: 0 metoprolol succinate 50 mg tablet extended release 24 hr 50 mg PO DAILY RF: 0 tramadol 50 mg tablet 50 mg PO Q8H PRN (Reason: Pain) RF: 0 alprazolam 0.5 mg tablet 0.5 mg PO TID PRN (Reason: Anxiety) RF: 0 nitroglycerin 0.4 mg tablet, sublingual 0.4 mg sublingual PRN PRN (Reason: Chest Pain) RF: 0 insulin aspart U-100 [Novolog Flexpen U-100 Insulin] 100 unit/mL (3 mL) in sulin pen SUBCUT TIDCM RF: 0 rosuvastatin 40 mg tablet 40 mg PO QHS RF: 0 tamsulosin 0.4 mg capsule 0.4 mg PO QHS RF: 0 sildenafil 100 mg tablet 100 mg PO PRN PRN (Reason: Erectile Dysfunction) RF: 0 ferrous sulfate 325 mg (65 mg iron) tablet 65 mg PO TIDCM RF: 0 pantoprazole 40 mg tablet,delayed release (DR/EC) 40 mg PO BID RF: 0 Changed Levemir FlexTouch U-100 Insuln 100 unit/mL (3 mL) insulin pen 50 unit SUBCUT BID Qty: 0 RF: 0 Discontinued amoxicillin 500 mg capsule 500 mg PO TID RF: 0 meloxicam 15 mg tablet 15 mg PO DAILY PRN (Reason: Pain) RF: 0 Referrals / Follow Up: Aaliyah Russ MD [Primary Care Provider] - Lyndsey Salas DPM [STAFF PHYSICIAN] - In 1 Week Festus Gandara MD [STAFF PHYSICIAN] - Within 2 Weeks Disposition Disposition (needs filled in before D/C Order can be placed): Home Health Service Visit Charges Inpatient E&M: 35257 Disch Hosp
--- NOTE | 2021-01-21 10:50 | CASEMGMT ---
ERIN ASH in to discuss discharge planning. Patient states he would like to go home with [facility]. Patient has reviewed list and would like [facility]. Patient states he would like nursing only, as he has done therapy in the past and knows how to navigate with his walker. Patient states his friend and daughter can assist with dressing changes. Patient asked regarding housing resources for handicap accessible apartments or jail. ERIN ASH told patient that we may be able to provided resources for alternative housing. ERIN ASH will add [place] to [facility]. [place] Morrissey updated regarding housing resources. ERIN ASH made referral to [facility] and awaiting call back.
[2021-01-21] MEDS: Ferrous Sulfate 325 MG Tablet PO (11:07)
[2021-01-21 11:15] LABS: Bedside Glucose 118 mg/dL (70-110)
--- NOTE | 2021-01-21 11:30 | CASEMGMT ---
Palliative screening tool completed for [facility]. Patient does not meet criteria for palliative referral.
--- NOTE | 2021-01-21 11:46 | CASEMGMT ---
Social Work Note SW received referral for housing resources. Pt was informed that this worker could help him find a new apartment. SW in to speak with pt. SW introduced self and role at [facility]. SW provided pt with housing resources for both [place] and [facility] as pt is listed as currently living in [place], [place]. [facility] and application process for both [place] and [facility] and also provided pt with shelter and Handicapped accessible apartments. Pt denied additional needs or concerns at this time. Mera Morrissey INTERIOR DESIGN PROFESSOR, AUTOMATIC WASHER MECHANIC
--- NOTE | 2021-01-21 13:46 | CASEMGMT ---
ERIN ASH received call from [facility] and they are able to accept the patient. ERIN ASH updated the patient regarding acceptance, patient states that [facility] as been in touch with him. Patient inquired about information regarding transfortation to appts. ERIN ASH provided patient information regarding [facility] Transport Van and [place]. Patient had no further questions or concerns at this time.
--- NOTE | 2021-01-21 15:04 | PCM.PN.ID ---
Physical Exam Narrative Feeling well, happy to be leaving, no fever Const alert General Appearance: cooperative Resp normal air movement and clear to auscultation bilaterally Cardio regular rate and regular rhythm GI normal to inspection, nondistended, normoactive bowel sounds Skin Skin Narrative: leg wrapped ID ID: Route of nutrition/ use of supplements: [] Nutritional Intake: [] IV Site: [] Chiang Catheter: [] Assessment & Plan Assessment/Plan (1) Osteomyelitis, ankle and foot: PLAN: R ankle suspected osteo. OR 01/18, but all wound cx and surg cx neg so far. Path pending. On empiric vanc/zosyn. Recommended he get covid shot after discharge. Ok for discharge on 6 weeks total, empiric doxy/augmentin with podiatry followup. Will follow (2) Diabetes mellitus with neuropathy:
[2021-01-21] MEDS: 0.9% Saline Lock 10 ML Syringe IV (15:26)
--- NOTE | 2021-01-22 13:59 | CASEMGMT ---
RN CM Discharge Follow-up Phone Call: [place]: [facility]in [facility]: 3 Call Date: 01/22/21 Discharge Date: 01/21/21 Time of Call: 1357 Duration: 1 min Admitting Diagnosis: Septic right ankle RN CM attempted to complete follow-up phone call after recent hospitalization. No answer, voice message left with return contact information. Patient was setup with [facility] at discharge.
== END 2021-01-21 15:47 | disposition home health service (06) | DRG 854 ==
LOC: ED 19:36 → MS3 19:45
PROVIDERS: Podiatrist; Admitting Provider Family Medicine; Emergency Provider Emergency Medicine; PCP Internal Medicine; Visit Provider Internal Medicine
PROC: 0QBL0ZX Excision of Right Tarsal, Open Approach, Diagnostic (ICD-10-PCS; principal; 2021-01-18 14:45)
DX: A41.9 Sepsis, unspecified organism (principal); L03.115 Cellulitis of right lower limb; M86.9 Osteomyelitis, unspecified; L02.415 Cutaneous abscess of right lower limb; M00.9 Pyogenic arthritis, unspecified; M14.671 Charcot's joint, right ankle and foot; E10.42 Type 1 diabetes mellitus with diabetic polyneuropathy; E78.00 Pure hypercholesterolemia, unspecified; D63.8 Anemia in other chronic diseases classified elsewhere; E10.649 Type 1 diabetes mellitus with hypoglycemia without coma; E78.5 Hyperlipidemia, unspecified; F32.9 Major depressive disorder, single episode, unspecified; D47.3 Essential (hemorrhagic) thrombocythemia; F41.9 Anxiety disorder, unspecified; G47.33 Obstructive sleep apnea (adult) (pediatric); G89.29 Other chronic pain; I12.9 Hypertensive chronic kidney disease with stage 1 through stage 4 chronic kidney disease, or unspecified chronic kidney disease; E10.22 Type 1 diabetes mellitus with diabetic chronic kidney disease; N18.31 Chronic kidney disease, stage 3a; I25.10 Atherosclerotic heart disease of native coronary artery without angina pectoris; J44.9 Chronic obstructive pulmonary disease, unspecified; K21.9 Gastro-esophageal reflux disease without esophagitis; I25.2 Old myocardial infarction; M19.90 Unspecified osteoarthritis, unspecified site; N40.0 Benign prostatic hyperplasia without lower urinary tract symptoms; Z79.4 Long term (current) use of insulin; Z86.73 Personal history of transient ischemic attack (TIA), and cerebral infarction without residual deficits; Z95.1 Presence of aortocoronary bypass graft; Z87.19 Personal history of other diseases of the digestive system; Z79.82 Long term (current) use of aspirin; Z79.899 Other long term (current) drug therapy; Z87.891 Personal history of nicotine dependence
CPT/HCPCS: 36415; 71045; 73610; 73721; 76000; 80048; 80053; 80202; 82274; 82607; 82728; 82746; 82947; 82962; 83036; 83540; 83550; 83605; 83735; 85025; 85610; 85652; 85730; 86140; 86850; 86900; 86901; 86920; 86922; 87015; 87040; 87070; 87075; 87077; 87102; 87116; 87176; 87186; 87205; 87206; 87426; 87640; 88304; 88307; 88311; 93005; 94660; 97110; 97162; 97166; 97530; 97802; 99251; 99285; J7030; J7040; J7050; P9016; A4216; G0463; J2405; J7799

== ENCOUNTER 2021-09-05 07:53 | Outpatient (CLI) | payer MEDICARE, MEDICAID, SELFPAY ==
[2021-09-05 21:03] LABS: M R Staph aureus DNA By PCR Negative (Negative); Probe Check PASS; Specimen Processing Control PASS; Staph aureus DNA By PCR NEGATIVE (Negative)
== END 2021-09-05 23:59 | disposition short-term general hospital (02) ==
LOC: LABSPEC 09-06 07:53
PROVIDERS: PCP Internal Medicine; Referring Provider Podiatrist; Visit Provider Podiatrist
DX: L02.91 Cutaneous abscess, unspecified (principal)
CPT/HCPCS: 87070; 87075; 87186; 87205; 87640

== ENCOUNTER 2021-09-05 09:01 | Outpatient (CLI) | payer MEDICARE, MEDICAID, SELFPAY ==
[2021-09-05 09:16] LABS: Absolute Lymphocyte Count 1.89 X10^3/uL (0.83-4.51); Absolute Neutrophil Count 6.9 X10^3/uL (2.0-7.7); Basophil# 0.08 X10^3/uL; Basophil% 0.8 % (0-1); Eosinophil# 0.13 X10^3/uL; Eosinophils% 1.3 % (0-5); Hematocrit 33.9 % (40-54); Hemoglobin 10.6 g/dL (13.0-16.5); Lymphocyte # 1.89 X10^3/ul (0.83-4.51); Lymphocyte % 18.6 % (19-41); Mean Corp Hgb Conc 31.3 g/dL (32-36); Mean Platelet Vol. 9.1 fl (6.2-12.0); Monocyte# 1.03 X10^3/uL; Monocyte% 10.1 % (0-10); NRBC Flagged by Analyzer 0 % (0-5); Neutrophil # 6.93 X10^3/uL (2.7-7.7); Neutrophil % 68.3 % (47-70); Platelet Count 472 K/mm3 (150-450); RBC Distribution Width CV 15.5 % (11.6-14.6); RBC Distribution Width SD 44.6 fl (35.1-43.9); Red Blood Count 4.24 M/mm3 (4.6-6.2); White Blood Count 10.2 K/mm3 (4.4-11.0)
[2021-09-05 09:39] LABS: ALB/GLOB Ratio 0.3 RATIO (0.9-2.4); AST(SGOT) 14 U/L (15-37); Alanine Aminotransfer ALT/SGPT 15 U/L (16-61); Albumin, Serum 2.3 g/dL (3.2-5.0); Alkaline Phosphatase 204 U/L (45-117); Anion Gap 9 (5-15); BUN 26 mg/dL (7-18); BUN/Creat Ratio 20.8 RATIO (10-20); Calcium,Total 9.3 mg/dL (8.5-10.1); Chloride 101 mmol/L (98-107); Creatinine, Serum 1.25 mg/dL (0.70-1.30); EST Glomerular Filtration Rate 63 mL/min (>60); Est Glom Filt Rate - Afr Amer 76 mL/min (>60); Globulin 6.6 g/dL (2.2-4.2); Glucose 309 mg/dL (74-106); Potassium 4.5 mmol/L (3.5-5.1); Protein, Total 8.9 g/dL (6.4-8.2); Sodium Level 134 mmol/L (136-145)
[2021-09-05 09:40] LABS: Erythrocyte Sedimentation Rate 91 mm/hr (0-20)
== END 2021-09-05 23:59 | disposition short-term general hospital (02) ==
LOC: LAB 09:04
PROVIDERS: PCP Internal Medicine; Referring Provider Podiatrist; Visit Provider Podiatrist
DX: L02.91 Cutaneous abscess, unspecified (principal)
CPT/HCPCS: 36415; 80053; 85025; 85652; 86140; 87070; 87075; 87186; 87205; 87640

== ENCOUNTER 2022-10-30 08:44 | Inpatient (IN) | payer MEDICARE, MEDICAID, SELFPAY ==
[2022-10-29 20:53] VITALS: BMI 29.9
[2022-10-29 20:55] VITALS: BP 129/64; PULSE 104; RESP 18; TEMP 37.1; O2SAT 95
--- NOTE | 2022-10-29 22:54 | HP.PCM.HOS_ITS ---
HPI - General General Date of Admission: 10/29/22 Date of Service: 10/29/22 Chief Complaint: heartburn HPI Narrative CARLOS EDUARDO JULES, is a 57 M with a significant history of CAD status post 5 vessel CABG about 10 years ago; CKD; type 1 diabetes with right Charcot foot; and who had a cardiac cath about 10 days ago at [facility] who presented to [facility] with heartburn that started few hours before presentation. Associated with symptoms is nausea and vomiting. Because of nausea and vomiting patient is unable to eat. CT done at outside hospital showed esophageal fluid to the T3 level. Of note in 2019 the patient had an esophagram that showed slowing of motility. The patient was transferred to the hospital because of need for EGD. Patient complains of chronic lower back pain for which he takes tramadol at home. [facility] Medical History Anemia Anxiety Chronic pain COPD (chronic obstructive pulmonary disease) Coronary artery disease Current use of insulin Depression Diabetes Former smoker GERD (gastroesophageal reflux disease) GI bleed High cholesterol History of stress test Myocardial infarct Osteoarthritis Sleep apnea TIA (transient ischemic attack) Home Medications aspirin 325 mg tablet 325 mg PO DAILY@0800 07/14/17 [Rx Last Taken 01/16/21] alprazolam 0.5 mg tablet 0.5 mg PO TID PRN Anxiety 01/17/21 [History Last Taken Unknown] ferrous sulfate 325 mg (65 mg iron) tablet 65 mg PO TIDCM anemia 01/17/21 [History Last Taken 01/16/21] gabapentin 100 mg capsule 100 mg PO DAILY nerve pain 01/17/21 [History Last Taken 01/17/21] insulin aspart U-100 100 unit/mL (3 mL) subcutaneous pen (Novolog FlexPen U-100 Insulin aspart) See Rx Instructions .Route .COMPLEX 01/17/21 [History Last Taken 01/17/21 12:00 7 units] metoprolol succinate 50 mg tablet,extended release 24 hr 50 mg PO DAILY heart 01/17/21 [History Last Taken 01/16/21] nitroglycerin 0.4 mg sublingual tablet 0.4 mg sublingual PRN PRN Chest Pain 01/17/21 [History Last Taken Unknown] pantoprazole 40 mg tablet,delayed release 40 mg PO BID gerd 01/17/21 [History Last Taken 01/16/21] rosuvastatin 40 mg tablet 40 mg PO QHS cholesterol 01/17/21 [History Last Taken Unknown] tamsulosin 0.4 mg capsule 0.4 mg PO QHS urine flow 01/17/21 [History Last Taken 01/16/21] tramadol 50 mg tablet 50 mg PO Q8H PRN PRN Pain 01/17/21 [History Last Taken Unknown] gabapentin 300 mg capsule 300 mg PO QHS 10/29/22 [History Last Taken Unknown] insulin detemir U-100 100 unit/mL (3 mL) subcutaneous pen (Levemir FlexTouch U- 100 Insulin) See Rx Instructions .Route .COMPLEX diabetes 10/29/22 [History Last Taken Unknown] losartan 25 mg tablet 25 mg PO QHS 10/29/22 [History Last Taken Unknown] Allergy/AdvReac Type Severity Reaction Status Date / Time No Known Allergies Allergy Verified 01/17/21 17:25 Family History Mother Cancer Mother w/ Lung CA, tobacco use concurrent history. Father Heart disease Surgical History H/O cardiac catheterization Hx of CABG (~2013) Social History household members: none Smoking Status: Never smoker alcohol intake: never ROS ROS Narrative Pertinent positives and pertinent negatives as noted in HPI. All other systems were reviewed and are negative Vital Signs Vital Signs Vital Signs: 10/29/22 21:16 10/29/22 20:55 Temperature 98.8 F Temperature Source Oral Pulse Rate 104 H Respiratory Rate 18 Respiratory Effort Normal Non-Labored Respiratory Depth Normal Respiratory Pattern Normal Blood Pressure 129/64 H Blood Pressure Mean 85 Blood Pressure Source Monitor Blood Pressure Position Semi-Fowlers Blood Pressure Location Left Arm Pulse Ox 95 Oxygen Delivery Method Room Air Room Air Weight Weight: 86.6 kg Body Mass Index (BMI) 29.9 Physical Exam Narrative Physical exam: General: Well-nourished, well-developed. Head: Normocephalic, atraumatic, no tenderness Eyes: Vision is grossly intact. EOMI ENT, no trauma, moist mucous membranes, no rhinorrhea Neck: Nontender, No thyromegaly. CVS: Regular rate and rhythm. S1-S2 present. No murmur, gallop or rub. Respiratory : clear to auscultation bilaterally, chest wall nontender, no wheezing Abdomen: Soft, nontender, nondistended, normal bowel sounds, no masses : Deferred Back: Nontender, no CVA tenderness, no midline spinal tenderness, deformities, step-offs Extremities: Right foot deformation. Nontender full range of motion, no trauma Skin: Normal color, no trauma, abrasions Neuro: Alert, oriented, cranial nerves II through XII grossly intact. Psychiatry: Normal mood. Normal affect. Not depressed. Not anxious. Results Lab / Micro Data Result Diagrams: 10/30/22 05:32 10/30/22 05:32 Assessment & Plan Assessment/Plan (1) Esophageal disease: (2) Diabetes mellitus type 1: QUALIFIERS: Diabetes mellitus complication status: with neurologic complications Diabetes mellitus complication detail: with polyneuropathy Qualified Code(s): E10.42 - Type 1 diabetes mellitus with diabetic polyneuropathy PLAN: Plan Esophageal disease/GERD CT at outside hospital showed sonographically 2-3 level. Of note in 2019 esophagram reportedly showed slow motility. Patient kept NPO. GI consult. Protonix 40 mg IV push twice daily ordered. Diabetes mellitus with hyperglycemia Basal insulin ordered. Accu-Cheks with correction scale insulin ordered. Elevated troponin Likely aftermath effects of heart cath. trend troponin. CKD stage IIIa Cyclic second diabetes Stable. DVT prophylaxis: SCDs ordered. Charges/Coding Visit Charges Inpatient E&M: 65983 Init Hosp L2
--- NOTE | 2022-10-29 23:25 | EX.PCM.CON.G ---
HPI Consult Data Date of Consult: 10/29/22 HPI Narrative Reason for Consultation: Nausea ,vomiting and dysphagia HPI Narrative: CARLOS EDUARDO JULES, is a 57 M who presents from outside hospital with worsening nausea, vomiting and dysphagia. He has a past medical history of CAD status post 5 vessel CABG about 10 years ago; CKD; type 1 diabetes with right Charcot foot; and who had a cardiac cath about 10 days ago at [facility] who presented to [facility] with heartburn that started few hours before presentation.? Associated with symptoms is nausea and vomiting.? Because of nausea and vomiting patient is unable to eat. CT scanning of the chest done at outside hospital showed esophageal fluid to the T3 level.? Of note in 2019 the patient had an esophagram that showed slowing of motility. The patient was transferred to the hospital because of need for EGD. I was consulted for management. FORMERLY [facility], [facility] Medical History Anemia Anxiety Chronic pain COPD (chronic obstructive pulmonary disease) Coronary artery disease Current use of insulin Depression Diabetes Former smoker GERD (gastroesophageal reflux disease) GI bleed High cholesterol History of stress test Myocardial infarct Osteoarthritis Sleep apnea TIA (transient ischemic attack) Home Medications aspirin 325 mg tablet 325 mg PO DAILY@0800 07/14/17 [Rx Last Taken 01/16/21] alprazolam 0.5 mg tablet 0.5 mg PO TID PRN Anxiety 01/17/21 [History Last Taken Unknown] ferrous sulfate 325 mg (65 mg iron) tablet 65 mg PO TIDCM anemia 01/17/21 [History Last Taken 01/16/21] gabapentin 100 mg capsule 100 mg PO DAILY nerve pain 01/17/21 [History Last Taken 01/17/21] insulin aspart U-100 100 unit/mL (3 mL) subcutaneous pen (Novolog FlexPen U-100 Insulin aspart) See Rx Instructions .Route .COMPLEX 01/17/21 [History Last Taken 01/17/21 12:00 7 units] metoprolol succinate 50 mg tablet,extended release 24 hr 50 mg PO DAILY heart 01/17/21 [History Last Taken 01/16/21] nitroglycerin 0.4 mg sublingual tablet 0.4 mg sublingual PRN PRN Chest Pain 01/17/21 [History Last Taken Unknown] pantoprazole 40 mg tablet,delayed release 40 mg PO BID gerd 01/17/21 [History Last Taken 01/16/21] rosuvastatin 40 mg tablet 40 mg PO QHS cholesterol 01/17/21 [History Last Taken Unknown] tamsulosin 0.4 mg capsule 0.4 mg PO QHS urine flow 01/17/21 [History Last Taken 01/16/21] tramadol 50 mg tablet 50 mg PO Q8H PRN PRN Pain 01/17/21 [History Last Taken Unknown] gabapentin 300 mg capsule 300 mg PO QHS 10/29/22 [History Last Taken Unknown] insulin detemir U-100 100 unit/mL (3 mL) subcutaneous pen (Levemir FlexTouch U-100 Insulin) See Rx Instructions .Route .COMPLEX diabetes 10/29/22 [History Last Taken Unknown] losartan 25 mg tablet 25 mg PO QHS 10/29/22 [History Last Taken Unknown] Allergy/AdvReac Type Severity Reaction Status Date / Time No Known Allergies Allergy Verified 01/17/21 17:25 Family History Mother Cancer Mother w/ Lung CA, tobacco use concurrent history. Father Heart disease Surgical History H/O cardiac catheterization Hx of CABG (~2013) Social History household members: none Smoking Status: Never smoker alcohol intake: never ROS ROS Narrative Pertinent positives and pertinent negatives as noted in HPI. All other systems were reviewed and are negative Physical Exam Narrative Physical exam: General: Well-nourished, well-developed. Head: Normocephalic, atraumatic, no tenderness Eyes: Vision is grossly intact. EOMI ENT, no trauma, moist mucous membranes, no rhinorrhea Neck: Nontender, No thyromegaly. CVS: Regular rate and rhythm. S1-S2 present. No murmur, gallop or rub. Respiratory : clear to auscultation bilaterally, chest wall nontender, no wheezing Abdomen: Soft, nontender, nondistended, normal bowel sounds, no masses : Deferred Back: Nontender, no CVA tenderness, no midline spinal tenderness, deformities, step-offs Extremities: Right foot deformation. Nontender full range of motion, no trauma Skin: Normal color, no trauma, abrasions Neuro: Alert, oriented, cranial nerves II through XII grossly intact. Psychiatry: Normal mood. Normal affect. Not depressed. Not anxious. Lab / Micro Data Result Diagrams: 10/30/22 05:32 10/30/22 08:03 Labs: Laboratory Results - last 24 hr 10/29/22 23:12: POC Glucose 367 H 10/29/22 23:51: Troponin I High Sens 121 H* 10/30/22 01:38: Troponin I High Sens 134 H* 10/30/22 05:32: WBC 10.7, RBC 3.86 L, Hgb 10.9 L, Hct 35.4 L, MCV 91.7, MCH 28.2, MCHC 30.8 L, RDW Std Deviation 47.0 H, RDW Coeff of Cl 13.9, Plt Count 293, MPV 10.1, Immature Gran % (Auto) 0.800, Neut % (Auto) 74.2 H, Lymph % (Auto) 15.2 L, Atkinson % (Auto) 8.8, Eos % (Auto) 0.2, Baso % (Auto) 0.8, Absolute Neuts (auto) 7.9 H, Absolute Lymphs (auto) 1.62, Nucleated RBC % 0 10/30/22 05:32: Sodium 137, Potassium 4.9, Chloride 103, Carbon Dioxide 16.0 L, Anion Gap 18 H, BUN 24 H, Creatinine 1.38 H, Estim Creat Clear Calc 53.89, Est GFR (MDRD) Af Amer 68, Est GFR (MDRD) Non-Af 56 L, BUN/Creatinine Ratio 17.4, Glucose 471 H*, Calcium 9.0, Troponin I High Sens 116 H 10/30/22 05:58: POC Glucose 431 H 10/30/22 06:00: POC Glucose 477 H* 10/30/22 06:23: Glucose 526 H* 10/30/22 08:03: Sodium 139, Potassium 4.3, Chloride 107, Carbon Dioxide 14.0 L, Anion Gap 18 H, BUN 24 H, Creatinine 1.43 H, Estim Creat Clear Calc 52.00, Est GFR (MDRD) Af Amer 65, Est GFR (MDRD) Non-Af 54 L, BUN/Creatinine Ratio 16.8, Glucose 389 H, Calcium 8.2 L 10/30/22 08:03: Acetone Level MODERATE H 10/30/22 08:03: Lactic Acid 1.2 10/30/22 09:29: POC Glucose 248 H 10/30/22 09:48: Urine Color Yellow, Urine Clarity Clear, Urine pH 5.0, Ur Specific [place] 1.020, Urine Protein 15 H, Urine Glucose (UA) 1000 H, Urine Ketones 150 A*, Urine Occult Blood Negative, Urine Nitrite Negative, Urine Bilirubin Negative, Urine Urobilinogen Normal, Ur Leukocyte Esterase Negative, Urine RBC 0 SEEN, Urine WBC 0 SEEN, Ur Squamous Epith Cells 0 SEEN, Urine Bacteria 0 SEEN, Urine Mucus 0 SEEN ABG Data ABG results: ABG 10/30/22 08:17 Specimen Type RACH VBG pH 7.26 L VBG pO2 136 H VBG HCO3 13 L VBG Total CO2 14 L VBG O2 Sat (Calc) 99 H VBG Base Excess -14 L POC Mix VBG pCO2 Pt Tmp 28.2 L O2 Delivery Device Room Air Assessment & Plan Assessment/Plan (1) Esophageal disease: (2) Diabetes mellitus type 1: QUALIFIERS: Diabetes mellitus complication status: with neurologic complications Diabetes mellitus complication detail: with polyneuropathy Qualified Code(s): E10.42 - Type 1 diabetes mellitus with diabetic polyneuropathy PLAN: Plan Esophageal disease/GERD CT at outside hospital showed sonographically 2-3 level. Of note in 2019 esophagram reportedly showed slow motility. Patient kept NPO. EGD in the a.m. Protonix 40 mg IV push twice daily ordered. Charges/Coding Visit Charges Inpatient E&M: 90253 Init Hosp L2
[2022-10-29] MEDS: Insulin Lispro 100 UNIT/ML INSULN.PEN SC (23:34)
[2022-10-29 23:37] LABS: Bedside Glucose 367 mg/dL (74-106)
[2022-10-30] VITALS (12 sets, daily range): BP systolic 97–134; BP diastolic 39–64; PULSE 81–106; RESP 15–18; TEMP 36.4–37.2; O2SAT 93–98
[2022-10-30] MEDS: Gabapentin 300 MG Capsule PO ×2 (00:05→21:53)
[2022-10-30] MEDS: Losartan Potassium 25 MG Tablet PO (00:06)
[2022-10-30 00:22] LABS: Troponin-I HS 121 pg/mL (3.0-78.0)
[2022-10-30] MEDS: 0.9% Saline Lock 10 ML Syringe IV (01:13)
[2022-10-30] MEDS: Ondansetron 4 MG/2 ML Vial IV (01:13)
[2022-10-30 02:34] LABS: Troponin-I HS 134 pg/mL (3.0-78.0)
[2022-10-30 05:40] LABS: Absolute Lymphocyte Count 1.62 X10^3/uL (0.83-4.51); Absolute Neutrophil Count 7.9 X10^3/uL (2.0-7.7); Basophil# 0.08 X10^3/uL; Basophil% 0.8 % (0-1); Eosinophil# 0.02 X10^3/uL; Eosinophils% 0.2 % (0-5); Hematocrit 35.4 % (40-54); Hemoglobin 10.9 g/dL (13.0-16.5); Lymphocyte # 1.62 X10^3/ul (0.83-4.51); Lymphocyte % 15.2 % (19-41); Mean Corp Hgb Conc 30.8 g/dL (32-36); Mean Corpuscular Hgb 28.2 pg (27.0-32.0); Mean Corpuscular Volume 91.7 fL (80-94); Mean Platelet Vol. 10.1 fl (6.2-12.0); Monocyte# 0.94 X10^3/uL; Monocyte% 8.8 % (0-10); NRBC Flagged by Analyzer 0 % (0-5); Neutrophil # 7.91 X10^3/uL (2.7-7.7); Neutrophil % 74.2 % (47-70); Platelet Count 293 K/mm3 (150-450); RBC Distribution Width CV 13.9 % (11.6-14.6); Red Blood Count 3.86 M/mm3 (4.6-6.2); White Blood Count 10.7 K/mm3 (4.4-11.0)
[2022-10-30] MEDS: 0.9% Normal Saline 1,000 ML 150 ML IV ×4 (06:38→18:34)
[2022-10-30] MEDS: Insulin Lispro 100 UNIT/ML INSULN.PEN 10 UNIT SC (06:41)
[2022-10-30 06:48] LABS: Anion Gap 18 (5-15); BUN 24 mg/dL (7-18); BUN/Creat Ratio 17.4 RATIO (10-20); Chloride 103 mmol/L (98-107); Creatinine, Serum 1.38 mg/dL (0.70-1.30); EST Glomerular Filtration Rate 56 mL/min (>60); Est Glom Filt Rate - Afr Amer 68 mL/min (>60); Estimated Creatinine Clearance 53.89 ml/min; Glucose 471 mg/dL (74-106); Potassium 4.9 mmol/L (3.5-5.1); Sodium Level 137 mmol/L (136-145); Troponin-I HS 116 pg/mL (3.0-78.0)
[2022-10-30 06:50] LABS: Glucose 526 mg/dL (74-106)
[2022-10-30] MEDS: Insulin Glargine-YFGN 100 UNIT/ML Pen 30 UNIT SC ×2 (07:26→22:00)
[2022-10-30 08:20] LABS: Blood Gas Specimen Type VEN; O2 Delivery Device Room Air; VBG BASE EXCESS -14 mmol/L (-1.0-3.5); VBG Bicarbonate 13 mmol/L (22-26); VBG PO2 136 mmHg (25-40); VBG SO2 99 % (50-70); VBG TCO2 14 mmol/L (23-33); VBG pCO2 28.2 mmHg (41-51); VBG pH 7.26 (7.32-7.42)
[2022-10-30 08:35] LABS: Bedside Glucose 477 mg/dL (74-106)
[2022-10-30 08:35] LABS: Bedside Glucose 431 mg/dL (74-106)
[2022-10-30 08:40] LABS: Lactic Acid 1.2 mmol/L (0.4-1.9)
[2022-10-30 08:49] LABS: Anion Gap 18 (5-15); BUN 24 mg/dL (7-18); BUN/Creat Ratio 16.8 RATIO (10-20); Calcium,Total 8.2 mg/dL (8.5-10.1); Chloride 107 mmol/L (98-107); Creatinine, Serum 1.43 mg/dL (0.70-1.30); EST Glomerular Filtration Rate 54 mL/min (>60); Est Glom Filt Rate - Afr Amer 65 mL/min (>60); Glucose 389 mg/dL (74-106); Potassium 4.3 mmol/L (3.5-5.1); Sodium Level 139 mmol/L (136-145)
--- NOTE | 2022-10-30 09:17 | PN.HOSP_ITS ---
Reason for Visit Reason for Visit: Diagnoses Type 1 diabetes mellitus with diabetic polyneuropathy (10/29/22) Disease of esophagus, unspecified (10/29/22) Subjective Subjective Feeling fair at this time, no chest pain or shortness of breath Objective Data Objective Data Vital Signs: Vital Signs Temp Pulse Resp BP Pulse Ox O2 Del Method 97.9 F 101 H 18 109/59 L 98 Room Air 10/30/22 07:30 10/30/22 07:30 10/30/22 07:30 10/30/22 07:30 10/30/22 07:46 10/30/22 07:46 Oxygen Delivery Method Room Air Weight: 86.6 kg Body Mass Index (BMI) 29.9 Intake & Output: Intake and Output for Last 24 Hours 10/28/22 10/29/22 10/30/22 23:59 23:59 23:59 Intake Total 1570 / 1570 Output Total 475 / 475 Balance 1095 / 1095 Lab / Micro Data Result Diagrams: 10/30/22 05:32 10/30/22 15:01 Labs: Laboratory Results - last 24 hr 10/29/22 23:12: POC Glucose 367 H 10/29/22 23:51: Troponin I High Sens 121 H* 10/30/22 01:38: Troponin I High Sens 134 H* 10/30/22 05:32: WBC 10.7, RBC 3.86 L, Hgb 10.9 L, Hct 35.4 L, MCV 91.7, MCH 28.2, MCHC 30.8 L, RDW Std Deviation 47.0 H, RDW Coeff of Cl 13.9, Plt Count 293, MPV 10.1, Immature Gran % (Auto) 0.800, Neut % (Auto) 74.2 H, Lymph % (Auto) 15.2 L, Garfield % (Auto) 8.8, Eos % (Auto) 0.2, Baso % (Auto) 0.8, Absolute Neuts (auto) 7.9 H, Absolute Lymphs (auto) 1.62, Nucleated RBC % 0 10/30/22 05:32: Sodium 137, Potassium 4.9, Chloride 103, Carbon Dioxide 16.0 L, Anion Gap 18 H, BUN 24 H, Creatinine 1.38 H, Estim Creat Clear Calc 53.89, Est GFR (MDRD) Af Amer 68, Est GFR (MDRD) Non-Af 56 L, BUN/Creatinine Ratio 17.4, Glucose 471 H*, Calcium 9.0, Troponin I High Sens 116 H 10/30/22 05:58: POC Glucose 431 H 10/30/22 06:00: POC Glucose 477 H* 10/30/22 06:23: Glucose 526 H* 10/30/22 08:03: Sodium 139, Potassium 4.3, Chloride 107, Carbon Dioxide 14.0 L, Anion Gap 18 H, BUN 24 H, Creatinine 1.43 H, Estim Creat Clear Calc 52.00, Est GFR (MDRD) Af Amer 65, Est GFR (MDRD) Non-Af 54 L, BUN/Creatinine Ratio 16.8, Glucose 389 H, Calcium 8.2 L 10/30/22 08:03: Acetone Level MODERATE H 10/30/22 08:03: Lactic Acid 1.2 ABG Data ABG results: ABG 10/30/22 08:17 Specimen Type RACH VBG pH 7.26 L VBG pO2 136 H VBG HCO3 13 L VBG Total CO2 14 L VBG O2 Sat (Calc) 99 H VBG Base Excess -14 L POC Mix VBG pCO2 Pt Tmp 28.2 L O2 Delivery Device Room Air Physical Exam Narrative General: Alert, oriented, no apparent distress HEENT: Atraumatic, normocephalic Eyes: Anicteric, normal conjunctiva, extraocular movements grossly intact Neck: Supple Respiratory: Clear to auscultation bilaterally, normal respiratory effort Cardiovascular: Regular rate and rhythm GI: Soft, nontender, nondistended Extremities: No edema Musculoskeletal: Moving all extremities Neuro: No overt focal neurological deficits Skin: No rashes appreciated Psych: Cooperative Assessment & Plan Assessment/Plan (1) Esophageal disease: (2) Diabetes mellitus type 1: QUALIFIERS: Diabetes mellitus complication detail: with polyneuropathy Diabetes mellitus complication status: with neurologic complications Qualified Code(s): E10.42 - Type 1 diabetes mellitus with diabetic polyneuropathy PLAN: Plan #Severe esophagitis -CT at outside hospital showed sonographically 2-3 level.? Of note in 2019 esophagram reportedly showed slow motility -Had EGD 10/30 that showed severe reflux esophagitis was what was biopsied but there is also concern for pill induced esophagitis secondary to tramadol -Tramadol held -Protonix 40 mg twice daily for 8 weeks -Sucralfate 1 g p.o. 4 times daily for 6 weeks -Full liquid diet today #DKA in the setting of type 1 diabetes mellitus -This a.m. did have a gap of 18 with acetone in blood and ketones in urine, he was treated quickly with long-acting and subcu insulin x2 with fluids and serial BMPs and gap closed, patient was never symptomatic. Was acidotic during that time but was compensating well -Continue to trend BMP -Continue long-acting 30 units twice daily as well and sliding scale #Coronary artery disease status post 5 vessel CABG 10 years ago with elevated troponin -Cardiac cath 10 days ago at [place] which recommended medical management -aspirin, statin -Elevated troponin suspected to be type II, no chest pain or suspicion for acute coronary event #DVT ppx: SCD Sharmin Baker MD Time spent in the patient's overall evaluation,decision-making process, review of diagnostic data, adjustment of management, discussion with other providers, nursing nursing and ancillary staff involved in patient's care documentation, 30 Minutes Charges/Coding Visit Charges Inpatient E&M: 13947 Subs Hosp L2
[2022-10-30] MEDS: 0.9% Normal Saline 1,000 ML 999 ML IV (09:35)
[2022-10-30 10:06] LABS: Bedside Glucose 248 mg/dL (74-106)
[2022-10-30 10:11] LABS: Bacteria 0 SEEN /hpf (None Seen); Mucous, Urine 0 SEEN /hpf (<or=2+); Red Blood Cells-Urine 0 SEEN /hpf (0-5); Squamous Epithelial Cells - UA 0 SEEN /hpf (0-5); White Blood Cells 0 SEEN /hpf (0-5)
[2022-10-30 10:25] LABS: Color, Urine Yellow (Yellow); Glucose, Dipstick 1000 mg/dl (Normal); Leukocyte Esterase-Dipstick Negative /ul (Negative); Nitrite-Dipstick Negative (Negative); Occult Blood-Urine Negative /ul (Negative); Protein-Dipstick 15 mg/dl (Negative); Urine Bilirubin Dipstick Negative (Negative); Urine Clarity Clear (Clear); Urine Urobilinogen Normal (Normal)
[2022-10-30 10:27] LABS: Ketone-Dipstick 150 mg/dl (Negative)
[2022-10-30] MEDS: Lactated Ringers 1,000 ML 15 ML IV (11:10)
--- NOTE | 2022-10-30 11:45 | EGD_PTH ---
PATIENT: CARLOS EDUARDO JULES LOC: [facility] U#:[id number] AGE/SX: 57/M ROOM: [facility] RE10/30/[address]: Dr. Sharmin Baker MD : 1965 BED: 1 DIS: 10/31/2022 SPEC #: [id number] RECD: 10/30/22 13:47 STATUS: ELISE REQ #: [id number] JOEL: 10/30/22 11:[address]: Martín Lehman DEPT: SURGICAL PATHOLOGY RECD BY: Marcie Cespedes ENTERED: 10/30/22 14:02 SP TYPE: EGD BIOPSY OTHR DR: MD Dr. Jackson Ingram MD Dr. Paige Pierce, MD Dr. Rahsaan Friend, Tissues: Esophagus, NOS Procedures: Special Stain Group II Special Stain Group I Surgery Specimen Level IV GMS Stain (control) Alcian Blue/PAS (control) Comments: @ Ordering doctor for SUIV edited from to @ by RAFA at 10/30/22 1505 @ Submitting doctor edited from to @ by RGOOD at 10/30/22 1504 HEADER OPERATION: EGD ([facility]) PRE-OP DIAGNOSIS: Nausea and vomiting TISSUE SUBMITTED: Distal esophagus MICROSCOPIC DIAGNOSIS Distal esophagus, biopsy: Gastroesophageal junctional mucosa with chronic inflammation. Fibrinopurulent material consistent with ulcer. No evidence of goblet cell metaplasia. No evidence of fungal organisms. See comment. AM:dandre 10/31/2022 COMMENT Alcian blue/PAS stain with matched control supports the above diagnosis. GMS stain with matched control was used in the evaluation of this case. MICROSCOPIC DESCRIPTION Slides are reviewed. GROSS DESCRIPTION Received in fixative is one container labeled with the patient's name and designated distal esophagus. The specimen consists of multiple irregular fragments of light pineda soft tissue that in aggregate measure 1.0 x 0.5 x 0.1 cm. The specimen is totally submitted in one cassette. / SJ:dandre 10/30/2022 TC:2 CPT: 77741, 81511, 37718
--- NOTE | 2022-10-30 12:11 | OP.EGD_ITS ---
Patient Name: Billy Weldon Procedure Date: 10/30/2022 11:45 AM Date of : 1965 Age: 57 Procedure: Upper GI endoscopy Indications: Dysphagia, Heartburn Providers: Martín Lehman DO Medicines: Monitored Anesthesia Care Patient Profile: This is a 57 year old male. Refer to note in patient chart for documentation of history and physical. Patient has symptoms of acute chest pain, dysphagia with both liquids and solids and acute heartburn. Complications: No immediate complications. Procedure: Pre-Anesthesia Assessment: - Prior to the procedure, a History and Physical was performed, and patient medications and allergies were reviewed. The patient is competent. The risks and benefits of the procedure and the sedation options and risks were discussed with the patient. All questions were answered and informed consent was obtained. Patient identification and proposed procedure were verified. Mental Status Examination: alert and oriented. Respiratory Examination: clear to auscultation. CV Examination: normal. Prophylactic Antibiotics: The patient does not require prophylactic antibiotics. Prior Anticoagulants: The patient has taken no previous anticoagulant or antiplatelet agents. After reviewing the risks and benefits, the patient was deemed in satisfactory condition to undergo the procedure. The anesthesia plan was to use monitored anesthesia care (MAC). Immediately prior to administration of medications, the patient was re-assessed for adequacy to receive sedatives. The heart rate, respiratory rate, oxygen saturations, blood pressure, adequacy of pulmonary ventilation, and response to care were monitored throughout the procedure. The physical status of the patient was re-assessed after the procedure. After obtaining informed consent, the endoscope was passed under direct vision. Throughout the procedure, the patient's blood pressure, pulse, and oxygen saturations were monitored continuously. The gastroscope was introduced through the mouth, and advanced to the second part of duodenum. The upper GI endoscopy was accomplished without difficulty. The patient tolerated the procedure well. Scope In: 11:59:09 AM Scope Out: 12:03:00 PM Total Procedure Duration Time 0 hours 3 minutes 51 seconds Findings: Severe esophagitis with bleeding was found 34 to 40 cm from the incisors. Biopsies were taken with a cold forceps for histology. Verification of patient identification for the specimen was done. Estimated blood loss was minimal. A small hiatal hernia was present. No other significant abnormalities were identified in a careful examination of the stomach. The first portion of the duodenum was normal. Impression: - Severe reflux esophagitis. Biopsied. - Small hiatal hernia. - Normal first portion of the duodenum. Recommendation: - Discharge patient to home. - Full liquid diet today. - Use Protonix (pantoprazole) 40 mg PO BID for 8 weeks. - Use sucralfate tablets 1 gram PO QID for 6 weeks. - Continue present medications. - No aspirin, ibuprofen, naproxen, or other non-steroidal anti-inflammatory drugs for 2 days. Procedure Code(s): --- Professional --- 01633, Esophagogastroduodenoscopy, flexible, transoral; with biopsy, single or multiple CPT copyright 2017 [employer]. All rights reserved. The codes documented in this report are preliminary and upon medical biller coder review may be revised to meet current compliance requirements. Martín Lehman DO 10/30/2022 12:11:26 PM This report has been signed electronically. Number of Addenda: 0 Note Initiated On: 10/30/2022 11:45 AM
--- NOTE | 2022-10-30 12:12 | OP.CCLET_ITS ---
10/30/2022 Aaliyah Russ [address] [id number] Re : Upper GI endoscopy procedure for Billy Weldon Dear Dr. Russ This procedure was performed on October. My impressions and recommendations are as follows: Impressions : - Severe reflux esophagitis. Biopsied. - Small hiatal hernia. - Normal first portion of the duodenum. Recommendations : - Discharge patient to home. - Full liquid diet today. - Use Protonix (pantoprazole) 40 mg PO BID for 8 weeks. - Use sucralfate tablets 1 gram PO QID for 6 weeks. - Continue present medications. - No aspirin, ibuprofen, naproxen, or other non-steroidal anti-inflammatory drugs for 2 days. My findings are described in the full procedure note, which is enclosed. If I can be of further assistance, please feel free to contact me at . Sincerely, Martín Friend, 10/30/2022 12:11:26 PM This report has been signed electronically.
[2022-10-30] MEDS: Metoprolol(XL)Succ 50 MG Tablet PO (12:50)
[2022-10-30] MEDS: Ferrous Sulfate 325 MG Tablet PO ×2 (12:50→17:33)
[2022-10-30 13:15] LABS: Bedside Glucose 118 mg/dL (74-106)
[2022-10-30 13:59] LABS: Anion Gap 7 (5-15); BUN 20 mg/dL (7-18); BUN/Creat Ratio 16.3 RATIO (10-20); Calcium,Total 8.1 mg/dL (8.5-10.1); Chloride 114 mmol/L (98-107); Creatinine, Serum 1.23 mg/dL (0.70-1.30); EST Glomerular Filtration Rate 64 mL/min (>60); Est Glom Filt Rate - Afr Amer 77 mL/min (>60); Estimated Creatinine Clearance 60.46 ml/min; Glucose 113 mg/dL (74-106); Potassium 3.9 mmol/L (3.5-5.1); Sodium Level 145 mmol/L (136-145)
--- NOTE | 2022-10-30 15:53 | CASEMGMT ---
RN NILSA Face to Face with patient for initial transition planning/care coordination assessment. RN CM introduced self and role at [facility]. Patient lying in bed, alert and oriented. Patient willing to participate in assessment and is able to answer all questions appropriately. Care providers, pharmacy, and demographics verified. Patient wishes to discharge home, denies need for home health at this time. Patient states he has no further needs or concerns at this time. CM to follow for discharge planning needs that may arise. PCP: Petrona Specialists: none [facility]erred [facility] Prescription Benefit: yes Living Will/HPOA: none LNOK: daughter Living Arrangements: Patient lives alone in a 2nd floor apartment, patient states he is independent and able to ambulate stairs. Transportation: self, daughter DME/HHC: Patient states he has walker at home. Patient denies previous HHC or SNF. Disposition Plan: Patient to discharge home with family support and follow-up plans in place. Mera LAGUNAS, RN, CM
[2022-10-30 16:07] LABS: Anion Gap 8 (5-15); BUN 17 mg/dL (7-18); BUN/Creat Ratio 15.5 RATIO (10-20); Calcium,Total 8.4 mg/dL (8.5-10.1); Chloride 113 mmol/L (98-107); EST Glomerular Filtration Rate 73 mL/min (>60); Est Glom Filt Rate - Afr Amer 88 mL/min (>60); Glucose 87 mg/dL (74-106); Potassium 3.8 mmol/L (3.5-5.1); Sodium Level 143 mmol/L (136-145)
[2022-10-30] MEDS: Insulin Lispro 100 UNIT/ML INSULN.PEN SC ×2 (17:33→22:01)
[2022-10-30 17:55] LABS: Bedside Glucose 228 mg/dL (74-106)
[2022-10-30] MEDS: Simethicone 40MG/0.6ML Bottle 80 MG PO ×2 (18:35→21:56)
[2022-10-30 19:45] LABS: Anion Gap 7 (5-15); BUN 14 mg/dL (7-18); BUN/Creat Ratio 10.1 RATIO (10-20); Calcium,Total 8.1 mg/dL (8.5-10.1); Chloride 111 mmol/L (98-107); Creatinine, Serum 1.38 mg/dL (0.70-1.30); EST Glomerular Filtration Rate 56 mL/min (>60); Est Glom Filt Rate - Afr Amer 68 mL/min (>60); Estimated Creatinine Clearance 53.89 ml/min; Glucose 347 mg/dL (74-106); Potassium 4.5 mmol/L (3.5-5.1); Sodium Level 138 mmol/L (136-145)
[2022-10-30] MEDS: Tamsulosin HCl 0.4 MG Capsule PO (21:53)
[2022-10-30] MEDS: Atorvastatin Calcium 80 MG Tablet PO (21:54)
[2022-10-30] MEDS: Pantoprazole Sodium 40 MG Tablet PO (21:54)
[2022-10-30] MEDS: Acetaminophen 325 MG Tablet 650 MG PO (21:54)
[2022-10-31] MEDS: 0.9% Normal Saline 1,000 ML 150 ML IV ×2 (01:25→08:18)
[2022-10-31 01:46] LABS: Bedside Glucose 336 mg/dL (74-106)
[2022-10-31 03:21] LABS: Bedside Glucose 132 mg/dL (74-106)
[2022-10-31 03:58] VITALS: BP 110/54; PULSE 61; RESP 18; TEMP 36.6; O2SAT 94
[2022-10-31 05:06] LABS: Absolute Neutrophil Count 3.1 X10^3/uL (2.0-7.7); Basophil# 0.06 X10^3/uL; Basophil% 0.9 % (0-1); Eosinophil# 0.25 X10^3/uL; Eosinophils% 3.9 % (0-5); Hematocrit 29.4 % (40-54); Hemoglobin 9.4 g/dL (13.0-16.5); Lymphocyte % 34.8 % (19-41); Mean Corpuscular Hgb 28.2 pg (27.0-32.0); Mean Corpuscular Volume 88.3 fL (80-94); Mean Platelet Vol. 10.3 fl (6.2-12.0); Monocyte# 0.68 X10^3/uL; Monocyte% 10.7 % (0-10); NRBC Flagged by Analyzer 0 % (0-5); Neutrophil # 3.12 X10^3/uL (2.7-7.7); Neutrophil % 49.4 % (47-70); Platelet Count 255 K/mm3 (150-450); RBC Distribution Width SD 45.1 fl (35.1-43.9); Red Blood Count 3.33 M/mm3 (4.6-6.2); White Blood Count 6.3 K/mm3 (4.4-11.0)
[2022-10-31 05:38] LABS: ALB/GLOB Ratio 0.6 RATIO (0.9-2.4); AST(SGOT) 9 U/L (15-37); Alanine Aminotransfer ALT/SGPT 11 U/L (16-61); Albumin, Serum 2.1 g/dL (3.2-5.0); Alkaline Phosphatase 81 U/L (45-117); Anion Gap 6 (5-15); BUN 10 mg/dL (7-18); BUN/Creat Ratio 10.6 RATIO (10-20); Calcium,Total 8.2 mg/dL (8.5-10.1); Chloride 113 mmol/L (98-107); Creatinine, Serum 0.94 mg/dL (0.70-1.30); EST Glomerular Filtration Rate 87 mL/min (>60); Est Glom Filt Rate - Afr Amer 105 mL/min (>60); Estimated Creatinine Clearance 79.11 ml/min; Globulin 3.3 g/dL (2.2-4.2); Glucose 77 mg/dL (74-106); Magnesium 2.1 mg/dL (1.6-2.6); Potassium 3.4 mmol/L (3.5-5.1); Protein, Total 5.4 g/dL (6.4-8.2); Sodium Level 142 mmol/L (136-145)
[2022-10-31] MEDS: Simethicone 40MG/0.6ML Bottle 80 MG PO ×3 (05:59→14:50)
[2022-10-31] MEDS: Dextrose 50%-Water 25 GM/50 ML DISP.SYRIN IV (06:07)
[2022-10-31 06:50] LABS: Bedside Glucose 130 mg/dL (74-106)
[2022-10-31] MEDS: Sucralfate 1 GM Tablet PO ×3 (07:03→15:57)
[2022-10-31 07:15] LABS: Bedside Glucose 60 mg/dL (74-106)
[2022-10-31 07:38] VITALS: O2SAT 95
[2022-10-31] MEDS: Potassium Chloride Oral Tablet 20 MEQ 60 MEQ PO (08:20)
[2022-10-31] MEDS: Gabapentin 100 MG Capsule PO (08:20)
[2022-10-31] MEDS: Ferrous Sulfate 325 MG Tablet PO ×2 (08:20→13:44)
[2022-10-31 09:43] VITALS: BP 104/56; PULSE 71; RESP 16; TEMP 36.8; O2SAT 96
[2022-10-31 09:48] VITALS: PULSE 71
[2022-10-31] MEDS: Metoprolol(XL)Succ 50 MG Tablet PO (09:48)
[2022-10-31] MEDS: Pantoprazole Sodium 40 MG Tablet PO (09:48)
[2022-10-31] MEDS: Insulin Glargine-YFGN 100 UNIT/ML Pen 30 UNIT SC (09:51)
[2022-10-31 11:30] LABS: Bedside Glucose 251 mg/dL (74-106)
--- NOTE | 2022-10-31 13:38 | DS.PCM_ITS ---
Providers Date of Admission: 10/30/22 Date of Discharge: 10/31/22 Primary Care Physician: Dr. Aaliyah Russ MD Consultations 10/29/22 22:49 Consult: Gastroenterology Routine Consulting Provider: Martín Lehman Reason for Consult: Esophageal fluid EMERGENT Consult: No MD Notified: Yes Date Notified: 10/30/22 Time Notified: 06:23 Method of Notification: Text Reason For Visit: CHEST PAIN Diagnosis Discharge Diagnosis (1) Esophageal disease: Status: Acute Code(s): K22.9 - Disease of esophagus, unspecified (2) Diabetes mellitus type 1: Status: Chronic Qualifiers: Diabetes mellitus complication detail: with polyneuropathy Diabetes mellitus complication status: with neurologic complications Qualified Code(s): E10.42 - Type 1 diabetes mellitus with diabetic polyneuropathy Plan #Severe reflux esophagitis #DKA in the setting of type 1 diabetes mellitus (dka resolved) #Coronary artery disease status post 5 vessel CABG 10 years ago with elevated troponin Medications at Discharge Home Medications aspirin 325 mg tablet 325 mg PO DAILY@0800 07/14/17 alprazolam 0.5 mg tablet 0.5 mg PO TID PRN Anxiety 01/17/21 ferrous sulfate 325 mg (65 mg iron) tablet 65 mg PO TIDCM anemia 01/17/21 gabapentin 100 mg capsule 100 mg PO DAILY nerve pain 01/17/21 insulin aspart U-100 100 unit/mL (3 mL) subcutaneous pen (Novolog FlexPen U-100 Insulin aspart) See Rx Instructions .Route .COMPLEX diabetes 01/17/21 metoprolol succinate 50 mg tablet,extended release 24 hr 50 mg PO DAILY heart 01/17/21 nitroglycerin 0.4 mg sublingual tablet 0.4 mg sublingual PRN PRN Chest Pain 01/17/21 rosuvastatin 40 mg tablet 40 mg PO QHS cholesterol 01/17/21 tamsulosin 0.4 mg capsule 0.4 mg PO QHS urine flow 01/17/21 tramadol 50 mg tablet 50 mg PO Q8H PRN PRN Pain 01/17/21 gabapentin 300 mg capsule 300 mg PO QHS nerve pain 10/29/22 insulin detemir U-100 100 unit/mL (3 mL) subcutaneous pen (Levemir FlexTouch U- 100 Insulin) See Rx Instructions .Route .COMPLEX diabetes 10/29/22 losartan 25 mg tablet 25 mg PO QHS blood pressure 10/29/22 pantoprazole 40 mg tablet,delayed release 40 mg PO BID gerd 60 days #120 tabs 10/31/22 sucralfate 100 mg/mL oral suspension (Carafate) 10 ml PO .QID 30 days #1,000 mL 10/31/22 Hospital Course Procedures - (EGD) Summary of Care Provided Hospital Course: CARLOS EDUARDO JULES, is a 57 M with a significant history of CAD status post 5 vessel CABG about 10 years ago; CKD; type 1 diabetes with right Charcot foot; and who had a cardiac cath about 10 days ago at [facility] who presented to [facility] with heartburn that started few hours before presentation.? Associated with symptoms is nausea and vomiting. CT of the outlying facility showed esophageal fluid to the T3 level. In 2019 he did have esophagram that showed slowing motility. He was transferred to [facility] for an EGD need. The morning after transfer he did have an elevated glucose with a gap that opened and mild ketones in his urine and moderate acetone in his blood and was treated aggressively with fluids and subcu insulin and this resolved. Also had EGD 10/30/2022 which showed severe reflux esophagitis which was biopsied. He was transferred back to the floor and tolerated diet and remained stable. On the day of discharge no new complaints. Spoke with Dr. Lehman and patient was okay for her to with PPI twice daily and sucralfate. Discharge instructions as followed: -You were found to have irritation in your esophagus and you will need to take p antoprazole 40 mg twice daily for 8 weeks followed by once daily -You will take sucralfate 4 times daily for 6 weeks -Would advise taking medications with plenty of water and sitting upright for 90 minutes after taking her medications -Avoid NSAIDs until otherwise instructed by your primary provider or your hospice community liaison -You will need to follow-up with Dr. Lehman with GI in his office upon d ischarge.? Please call his office to schedule your hospital follow-up appointment (ph. [phone]) -Continue home insulin and glucose checks -Your losartan has been held due to your blood pressures being on the low side and you order somewhat dehydrated on admission.? This will likely be restarted but would defer to your outpatient provider after monitoring your blood pressure -Please call your primary care provider's office upon discharge to schedule a hospital follow up within 1 week. -For any concerning signs or symptoms please call 911 or proceed to the nearest emergency department Physical Exam Narrative General: Alert, oriented, no apparent distress HEENT: Atraumatic, normocephalic Eyes: Anicteric, normal conjunctiva, extraocular movements grossly intact Neck: Supple Respiratory: Clear to auscultation bilaterally, normal respiratory effort Cardiovascular: Regular rate and rhythm GI: Soft, nontender, nondistended Extremities: No edema Musculoskeletal: Moving all extremities Neuro: No overt focal neurological deficits Skin: No rashes appreciated Psych: Cooperative Weight / BMI Weight Weight: 86.6 kg Body Mass Index (BMI) 29.9 ABG / Lab / Microbiology Data Result Diagrams: 10/31/22 04:12 10/31/22 04:12 Laboratory: Laboratory Results - last 24 hr 10/30/22 13:00: Sodium 145, Potassium 3.9, Chloride 114 H, Carbon Dioxide 24.0, Anion Gap 7, BUN 20 H, Creatinine 1.23, Estim Creat Clear Calc 60.46, Est GFR (MDRD) Af Amer 77, Est GFR (MDRD) Non-Af 64, BUN/Creatinine Ratio 16.3, Glucose 113 H, Calcium 8.1 L 10/30/22 15:01: Sodium 143, Potassium 3.8, Chloride 113 H, Carbon Dioxide 22.0, Anion Gap 8, BUN 17, Creatinine 1.10, Estim Creat Clear Calc 67.60, Est GFR (MDRD) Af Amer 88, Est GFR (MDRD) Non-Af 73, BUN/Creatinine Ratio 15.5, Glucose 87, Calcium 8.4 L 10/30/22 17:31: POC Glucose 228 H 10/30/22 19:09: Sodium 138, Potassium 4.5, Chloride 111 H, Carbon Dioxide 20.0 L , Anion Gap 7, BUN 14, Creatinine 1.38 H, Estim Creat Clear Calc 53.89, Est GFR (MDRD) Af Amer 68, Est GFR (MDRD) Non-Af 56 L, BUN/Creatinine Ratio 10.1, Glucose 347 H, Calcium 8.1 L 10/30/22 21:46: POC Glucose 336 H 10/31/22 01:31: POC Glucose 132 H 10/31/22 04:12: WBC 6.3, RBC 3.33 L, Hgb 9.4 L, Hct 29.4 L, MCV 88.3, MCH 28.2, MCHC 32.0, RDW Std Deviation 45.1 H, RDW Coeff of Cl 14.0, Plt Count 255, MPV 10.3, Immature Gran % (Auto) 0.300, Neut % (Auto) 49.4, Lymph % (Auto) 34.8, [place] % (Auto) 10.7 H, Eos % (Auto) 3.9, Baso % (Auto) 0.9, Absolute Neuts (auto) 3.1, Absolute Lymphs (auto) 2.20, Nucleated RBC % 0 10/31/22 04:12: Sodium 142, Potassium 3.4 L, Chloride 113 H, Carbon Dioxide 23.0, Anion Gap 6, BUN 10, Creatinine 0.94, Estim Creat Clear Calc 79.11, Est GFR (MDRD) Af Amer 105, Est GFR (MDRD) Non-Af 87, BUN/Creatinine Ratio 10.6, Glucose 77, Calcium 8.2 L, Magnesium 2.1, Total Bilirubin 0.30, AST 9 L, ALT 11 L, Alkaline Phosphatase 81, Total Protein 5.4 L, Albumin 2.1 L, Globulin 3.3, Albumin/Globulin Ratio 0.6 L 10/31/22 05:57: POC Glucose 60 L 10/31/22 06:32: POC Glucose 130 H 10/31/22 11:12: POC Glucose 251 H D/C Instructions Discharge Diet: - (Carb controlled for diabetes) Meaningful Use Info Meaningful Use Diagnoses (Choose all that apply): None applicable Discharge Plan Admission Admit Date/Time: 10/30/22 15:11 Primary Reason for Your Visit: Heartburn Attending Provider: Sharmin Baker Primary Care Provider: Aaliyah Russ Consulting Providers: Martín Lehman ; Jackson eWeks Instructions Patient Instructions: GERD Dc Additional Instructions / Restrictions: DISCHARGE INSTRUCTIONS PLEASE READ *Please take this with you to your next doctors appointment* -You were found to have irritation in your esophagus and you will need to take pantoprazole 40 mg twice daily for 8 weeks followed by once daily -You will take sucralfate 4 times daily for 6 weeks -Would advise taking medications with plenty of water and sitting upright for 90 minutes after taking her medications -Avoid NSAIDs until otherwise instructed by your primary provider or your hospice community liaison -You will need to follow-up with Dr. Lehman with GI in his office upon discharge. Please call his office to schedule your hospital follow-up appointment (ph. [phone]) -Continue home insulin and glucose checks -Your losartan has been held due to your blood pressures being on the low side and you order somewhat dehydrated on admission. This will likely be restarted but would defer to your outpatient provider after monitoring your blood pressure -Please call your primary care provider's office upon discharge to schedule a h ospital follow up within 1 week. -For any concerning signs or symptoms please call 911 or proceed to the nearest emergency department Discharge Orders/Prescriptions Prescriptions: New sucralfate [Carafate] 100 mg/mL suspension 10 ml PO .QID 30 Days Qty: 1000 0RF Continued aspirin 325 MG tablet 325 mg PO DAILY@0800 0RF gabapentin 100 mg capsule 100 mg PO DAILY Label Comments: TAKE 1 CAPSULE BY MOUTH THREE TIMES DAILY metoprolol succinate 50 mg tablet extended release 24 hr 50 mg PO DAILY tramadol 50 mg tablet 50 mg PO Q8H PRN PRN (Reason: Pain) Hold Instructions: Resume on 11/12/22. This may have contributed to the irritation in your esophagus, would recommend avoiding a possible Label Comments: TAKE 1 TABLET BY MOUTH EVERY 8 HOURS NEEDED. (MAX OF 2 TABLETS PER DAY FOR UP TO 90 DAYS) alprazolam 0.5 mg tablet 0.5 mg PO TID PRN (Reason: Anxiety) Label Comments: TAKE 1 TABLET BY MOUTH THREE TIMES DAILY NEEDED FOR UP TO 30 DAYS nitroglycerin 0.4 mg tablet, sublingual 0.4 mg sublingual PRN PRN (Reason: Chest Pain) Label Comments: DISSOLVE ONE TABLET UNDER THE TONGUE EVERY 5 MINUTES NEEDED FOR CHEST PAIN. insulin aspart U-100 [Novolog FlexPen U-100 Insulin] 100 unit/mL (3 mL) ins ulin pen See Rx Instructions .ROUTE .COMPLEX Rx Instructions: Sliding scale rosuvastatin 40 mg tablet 40 mg PO QHS Label Comments: TAKE 1 TABLET BY MOUTH ONCE DAILY tamsulosin 0.4 mg capsule 0.4 mg PO QHS Label Comments: TAKE 1 CAPSULE BY MOUTH ONCE DAILY AT BEDTIME ferrous sulfate 325 mg (65 mg iron) tablet 65 mg PO TIDCM Label Comments: TAKE 1 TABLET BY MOUTH THREE TIMES DAILY WITH MEALS gabapentin 300 mg capsule 300 mg PO QHS Label Comments: TAKE 1 CAPSULE BY MOUTH ONCE DAILY AT NIGHT TIME ALONG WITH GABAPENTIN 100 MG Levemir FlexTouch U-100 Insuln 100 unit/mL (3 mL) insulin pen See Rx Instructions .ROUTE .COMPLEX Rx Instructions: Hold if glucose less than 130 mg/dl pantoprazole 40 mg tablet,delayed release (DR/EC) 40 mg PO BID 60 Days Qty: 120 0RF Held losartan 25 mg tablet 25 mg PO QHS Hold Instructions: Resume on 11/12/22. Your losartan has been held due to your blood pressures being on the low side and you order somewhat dehydrated on admission. This will likely be restarted but would defer to your outpatient provider after monitoring your blood pressure Label Comments: TAKE 1 TABLET BY MOUTH ONCE DAILY Referrals / Follow Up: Aaliyah Russ MD [Primary Care Provider] - Within 1 Week Martín Lehman DO [Med Staff - Active Staff] - See Referral Note (You will need to follow-up with Dr. Lehman with GI in his office upon discharge. Please call his office to schedule your hospital follow-up appointment (ph. [phone])) Disposition Disposition (needs filled in before D/C Order can be placed): Home, Self Care Charges/Coding Visit Charges Inpatient E&M: 54992 Disch Hosp >30min
[2022-10-31] MEDS: Insulin Lispro 100 UNIT/ML INSULN.PEN SC (13:44)
--- NOTE | 2022-10-31 13:58 | CASEMGMT ---
RN CM NOTE: Pt being discharged. RN CM to room. Pt denies wantinbg C and denies having any discharge needs or concerns. Ramakrishna GOYALN RN CM
[2022-10-31 14:55] VITALS: BP 121/68; PULSE 74; RESP 17; TEMP 36.7; O2SAT 97
--- NOTE | 2022-10-31 15:14 | PHA.DC.MC ---
Pharmacy Service has performed discharge medication reconciliation and counseling for this patient. The patient was counseled on the following discharge medications and changes in medications for homegoing were reviewed. 1. CARAFATE The Reason for Use, instructions for use, and potential side effects were reviewed for all new medications. The patient's questions regarding all of their medications were answered. The patient was able to verbally demonstrate an understanding of their discharge medications. Home Medications aspirin 325 mg tablet 325 mg PO DAILY@0800 07/14/17 alprazolam 0.5 mg tablet 0.5 mg PO TID PRN Anxiety 01/17/21 ferrous sulfate 325 mg (65 mg iron) tablet 65 mg PO TIDCM anemia 01/17/21 gabapentin 100 mg capsule 100 mg PO DAILY nerve pain 01/17/21 insulin aspart U-100 100 unit/mL (3 mL) subcutaneous pen (Novolog FlexPen U-100 Insulin aspart) See Rx Instructions .Route .COMPLEX diabetes 01/17/21 metoprolol succinate 50 mg tablet,extended release 24 hr 50 mg PO DAILY heart 01/17/21 nitroglycerin 0.4 mg sublingual tablet 0.4 mg sublingual PRN PRN Chest Pain 01/17/21 rosuvastatin 40 mg tablet 40 mg PO QHS cholesterol 01/17/21 tamsulosin 0.4 mg capsule 0.4 mg PO QHS urine flow 01/17/21 tramadol 50 mg tablet 50 mg PO Q8H PRN PRN Pain 01/17/21 gabapentin 300 mg capsule 300 mg PO QHS nerve pain 10/29/22 insulin detemir U-100 100 unit/mL (3 mL) subcutaneous pen (Levemir FlexTouch U-100 Insulin) See Rx Instructions .Route .COMPLEX diabetes 10/29/22 losartan 25 mg tablet 25 mg PO QHS blood pressure 10/29/22 pantoprazole 40 mg tablet,delayed release 40 mg PO BID gerd 60 days #120 tabs 10/31/22 sucralfate 100 mg/mL oral suspension (Carafate) 10 ml PO .QID 30 days #1,000 mL 10/31/22 The patient's discharge medication list was reviewed for discrepancies and discrepancies were resolved.
== END 2022-10-31 16:46 | disposition home or self-care (01) | DRG 391 ==
PROVIDERS: Internal Medicine Gastroenterology; Admitting Provider Hospitalist; PCP Internal Medicine; Visit Provider Internal Medicine
PROC: 0DJ08ZZ Inspection of Upper Intestinal Tract, Via Natural or Artificial Opening Endoscopic (ICD-10-PCS; CPT 43235; principal; 2022-10-30 11:40)
DX: K21.00 Gastro-esophageal reflux disease with esophagitis, without bleeding (principal); E10.10 Type 1 diabetes mellitus with ketoacidosis without coma; E10.42 Type 1 diabetes mellitus with diabetic polyneuropathy; E10.22 Type 1 diabetes mellitus with diabetic chronic kidney disease; N18.31 Chronic kidney disease, stage 3a; J44.9 Chronic obstructive pulmonary disease, unspecified; K44.9 Diaphragmatic hernia without obstruction or gangrene; E78.00 Pure hypercholesterolemia, unspecified; I25.10 Atherosclerotic heart disease of native coronary artery without angina pectoris; R13.10 Dysphagia, unspecified; Z79.82 Long term (current) use of aspirin; G89.29 Other chronic pain; Z95.1 Presence of aortocoronary bypass graft; M54.50 Low back pain, unspecified
CPT/HCPCS: 36415; 80048; 80053; 81001; 82009; 82803; 82947; 82962; 83605; 83735; 84484; 85025; 88305; 88312; 88313; J7030; J7120; A4216; J2405

== ENCOUNTER 2023-10-19 12:41 | Inpatient (IN) | payer MEDICARE, MEDICAID, SELFPAY ==
[2023-10-19 12:41] VITALS: BP 128/71; PULSE 126; RESP 18; TEMP 36.6; O2SAT 100
--- NOTE | 2023-10-19 12:58 | EDS_ITS ---
HPI History of Present Illness Chief Complaint: Lower Extremity Injury Detail of Chief Complaint: Pain to right foot and ankle Informant: patient Narrative Narrative: Patient presents with pain to the right foot and ankle that started 3 days ago. He denies any injury. He does have a Charcot foot and wears a brace on that ankle. Patient states that last time he had this happen he had an infection and required all the antibiotics that could give him. Patient denies any fevers but has had some chills. He is a diabetic. [facility] Medical History (Updated 10/19/23 @ 14:[address] Patrice Koo, ) Anemia Anxiety Chronic pain COPD (chronic obstructive pulmonary disease) Coronary artery disease Current use of insulin Depression Diabetes Former smoker GERD (gastroesophageal reflux disease) GI bleed High cholesterol History of stress test Myocardial infarct Osteoarthritis Sleep apnea TIA (transient ischemic attack) Home Medications aspirin 325 mg tablet 325 mg PO DAILY@0800 07/14/17 [Rx Last Taken 01/16/21] alprazolam 0.5 mg tablet 0.5 mg PO TID PRN Anxiety 01/17/21 [History Last Taken Unknown] ferrous sulfate 325 mg (65 mg iron) tablet 65 mg PO TIDCM anemia 01/17/21 [History Last Taken 01/16/21] gabapentin 100 mg capsule 100 mg PO DAILY nerve pain 01/17/21 [History Last Taken 01/17/21] insulin aspart U-100 100 unit/mL (3 mL) subcutaneous pen (Novolog FlexPen U-100 Insulin aspart) See Rx Instructions .Route .COMPLEX diabetes 01/17/21 [History Last Taken 01/17/21 12:00 7 units] metoprolol succinate 50 mg tablet,extended release 24 hr 50 mg PO DAILY heart 01/17/21 [History Last Taken 01/16/21] nitroglycerin 0.4 mg sublingual tablet 0.4 mg sublingual PRN PRN Chest Pain 01/17/21 [History Last Taken Unknown] rosuvastatin 40 mg tablet 40 mg PO QHS cholesterol 01/17/21 [History Last Taken Unknown] tamsulosin 0.4 mg capsule 0.4 mg PO QHS urine flow 01/17/21 [History Last Taken 01/16/21] tramadol 50 mg tablet 50 mg PO Q8H PRN PRN Pain 01/17/21 [History Last Taken Unknown] gabapentin 300 mg capsule 300 mg PO QHS nerve pain 10/29/22 [History Last Taken Unknown] insulin detemir U-100 100 unit/mL (3 mL) subcutaneous pen (Levemir FlexTouch U- 100 Insulin) See Rx Instructions .Route .COMPLEX diabetes 10/29/22 [History Last Taken Unknown] losartan 25 mg tablet 25 mg PO QHS blood pressure 10/29/22 [History Last Taken Unknown] pantoprazole 40 mg tablet,delayed release 40 mg PO BID gerd 60 days #120 tabs 10/31/22 [Rx Last Taken Unknown] Allergy/AdvReac Type Severity Reaction Status Date / Time No Known Allergies Allergy Verified 10/19/23 12:41 Family History Mother Cancer Mother w/ Lung CA, tobacco use concurrent history. Father Heart disease Surgical History H/O cardiac catheterization Hx of CABG (~2013) Social History household members: none Smoking Status: Never smoker alcohol intake: never ROS ROS ED Review of Systems ROS Unobtainable: other Constitutional Constitutional ED: Reports lethargy; Denies chills, fever(s), sweats or weight loss Eyes Eyes: Denies blurry vision, change in vision or diplopia ENT ENT ED: Denies rhinorrhea or sore throat Cardiovascular Cardiovascular: Denies chest pain, orthopnea or racing heartbeat Respiratory/Chest Respiratory/Chest: Denies cough, dyspnea, dyspnea on exertion, orthopnea or sputum Gastrointestinal Gastrointestinal: Denies abdominal pain, diarrhea, nausea or vomiting Genitourinary Genitourinary ED: Denies dysuria, hematuria or urinary frequency Musculoskeletal Musculoskeletal: Reports other Details: Right foot and ankle pain ; Denies arthralgias, back pain, myalgias or neck pain Integumentary Denies abscess, Abrasions or rash Neurologic Neurologic: Denies headache(s) or weakness Psychiatric Psychiatric: Denies anxiety, depression or suicidal thoughts Endocrine Endocrinology: Denies polydipsia, polyphagia or polyuria Hematologic/Lymphatic Hematologic/Lymphatic: Denies easy bleeding, easy bruising or lymphadenopathy Allergic/Immunologic Allergic/Immunologic ED: Denies mouth swelling, tongue swelling or urticaria EXAM Physical Exam Const Vital Signs: 10/19/23 12:41 Temperature 98 F Temperature Source Temporal Pulse Rate 126 H Respiratory Rate 18 Blood Pressure 128/71 H Blood Pressure Mean 90 Pulse Ox 100 Positive well nourished and well developed General Appearance ED: well developed and NAD HEENT Reports TM's clear and moist mucous membranes normocephalic and atraumatic; Negative for trauma or tenderness Tympanic Membrane ED: Yes TM's clear Eyes PERRL and EOMs intact bilaterally General Eye ED: Negative for pale conjunctiva or scleral icterus Neck no lymphadenopathy, supple and no JVD General: Negative for tenderness Chest Wall inspection of chest normal and palpation of chest normal Chest: Negative for tenderness Resp normal respiratory effort and clear to auscultation bilaterally Effort and Inspection: Negative for respiratory distress or pain with movement Auscultation: Negative for rhonchi, wheezes or diminished lung sounds Cardio regular rate, regular rhythm, S1 normal heart sound, S2 normal heart sound and no murmurs Peripheral Pulses: pulses 2+ throughout GI normal to inspection, nondistended, normoactive bowel sounds, soft to palpation, non-tender, non-distended and no masses Back/Spine no CVA tenderness and no thoracic nor lumbar tenderness Extremity Extremity Narrative: Right lower extremity-patient has obvious deformity of Charcot foot on the right. The foot and ankle are warm to the touch compared to the left side. Does have some faint erythema to the lateral aspect of the ankle. Neurovascularly intact. Diffuse tenderness to palpation of the midfoot. General Extremety ED: Negative for edema General Extremity: Negative for edema Neuro oriented x3, CN's II-XII intact bilaterally, no sensory deficits noted and gait normal Sensorium / Orientation: awake, alert, oriented to person, oriented to place and oriented to time Motor Exam: strength 5/5 throughout and strength abnormal Psych mental status grossly normal Skin no rashes or lesions noted and no wounds MDM MDM MDM Narrative Medical decision making narrative: Patient presents with pain in his right foot with history of Charcot foot and ankle. Foot warm to the touch and he has had some chills. White count is elevated 11.6 with hemoglobin 9.9 and platelet count of 307. Chemistries unremarkable. BUN was 16 and creatinine was elevated 1.64. Glucose was elevat ed 317. Lactate normal at 1.9. Case discussed with podiatry. Will admit for IV antibiotics and they will consult on the case. Will discuss case with hospitalist to evaluate patient. I did start patient on Zosyn and Vanco. Lab Data Attestation: I reviewed the patient's lab results. Labs: Laboratory Results - last 24 hr 10/19/23 13:10 WBC 11.6 H RBC 3.85 L Hgb 9.9 L Hct 32.3 L MCV 83.9 MCH 25.7 L MCHC 30.7 L RDW Std Deviation 46.8 H RDW Coeff of Cl 15.3 H Plt Count 307 MPV 10.3 Immature Gran % (Auto) 0.600 Neut % (Auto) 82.7 H Lymph % (Auto) 4.0 L [place] % (Auto) 12.2 H Eos % (Auto) 0.1 Baso % (Auto) 0.4 Absolute Neuts (auto) 9.6 H Absolute Lymphs (auto) 0.47 L Nucleated RBC % 0 ESR 78 H Sodium 134 L Potassium 3.8 Chloride 104 Carbon Dioxide 22.0 Anion Gap 8 BUN 16 Creatinine 1.64 H Est GFR (MDRD) Af Amer 55 L Est GFR (MDRD) Non-Af 46 L BUN/Creatinine Ratio 9.8 L Glucose 317 H Lactic Acid 1.9 Calcium 8.9 Radiography Diagnostic Testing: Clinical Impression(s) from Imaging Studies Foot X-Ray 10/19/23 13:18 IMPRESSION: Charcot deformity of the tarsal bones with evidence of postoperative changes and severe osteoarthritis of the hindfoot. Soft tissue swelling. Electronically Signed: Arnie Mays MD at 14:07 EST , Three-view x-rays of the right foot obtained interpreted by myself as degenerative changes related to Charcot foot with evidence of postop screws. No obvious gas in the tissues. There was soft tissue swelling. Radiology in agreement. Discharge Plan Dx/Rx/DC Orders Clinical Impression: MK (acute kidney injury), Acute hyperglycemia, Cellulitis of foot, right Disposition Disposition: [facility]
--- NOTE | 2023-10-19 13:18 | RAD_ITS ---
STUDY: X-RAY - RIGHT FOOT CLINICAL: Male, 58 years old. Chronic foot pain. TECHNIQUE: 3 view(s) of the foot. COMPARISON: Comparison is made with prior study January 17, 2021. FINDINGS: There is evidence of a marked degree of degenerative changes with abnormal appearance of the tibial talar joint with screw fixation and fibular fixation. There is evidence of a Charcot deformity of the tarsal bones. There is fusion of the mid tarsal bones. There is evidence of healed fractures with deformity of the third fourth and fifth metatarsals. Soft tissue swelling. RAD/Foot min 3 Views IMPRESSION: Charcot deformity of the tarsal bones with evidence of postoperative changes and severe osteoarthritis of the hindfoot. Soft tissue swelling. Electronically Signed: Arnie Mays MD at 14:07 EST ,
[2023-10-19 13:22] LABS: Absolute Lymphocyte Count 0.47 X10^3/uL (0.83-4.51); Absolute Neutrophil Count 9.6 X10^3/uL (2.0-7.7); Basophil# 0.05 X10^3/uL; Basophil% 0.4 % (0-1); Eosinophil# 0.01 X10^3/uL; Eosinophils% 0.1 % (0-5); Hematocrit 32.3 % (40-54); Hemoglobin 9.9 g/dL (13.0-16.5); Lymphocyte # 0.47 X10^3/ul (0.83-4.51); Mean Corp Hgb Conc 30.7 g/dL (32-36); Mean Corpuscular Hgb 25.7 pg (27.0-32.0); Mean Corpuscular Volume 83.9 fL (80-94); Mean Platelet Vol. 10.3 fl (6.2-12.0); Monocyte# 1.42 X10^3/uL; Monocyte% 12.2 % (0-10); NRBC Flagged by Analyzer 0 % (0-5); Neutrophil % 82.7 % (47-70); POSITIVE DIFFERENTIAL YES; Platelet Count 307 K/mm3 (150-450); RBC Distribution Width CV 15.3 % (11.6-14.6); RBC Distribution Width SD 46.8 fl (35.1-43.9); Red Blood Count 3.85 M/mm3 (4.6-6.2); White Blood Count 11.6 K/mm3 (4.4-11.0)
[2023-10-19 13:34] LABS: Anion Gap 8 (5-15); BUN 16 mg/dL (7-18); BUN/Creat Ratio 9.8 RATIO (10-20); Calcium,Total 8.9 mg/dL (8.5-10.1); Chloride 104 mmol/L (98-107); Creatinine, Serum 1.64 mg/dL (0.70-1.30); EST Glomerular Filtration Rate 46 mL/min (>60); Est Glom Filt Rate - Afr Amer 55 mL/min (>60); Glucose 317 mg/dL (74-106); Potassium 3.8 mmol/L (3.5-5.1); Sodium Level 134 mmol/L (136-145)
[2023-10-19 13:47] LABS: Lactic Acid 1.9 mmol/L (0.4-1.9)
[2023-10-19 14:24] VITALS: BMI 31.4
[2023-10-19] MEDS: Piperacil/Tazobactam 4.5 GM in 0.9% Normal Saline (100mL MB+) 100 ML IV (14:37)
[2023-10-19 14:43] LABS: Erythrocyte Sedimentation Rate 78 mm/hr (0-20)
[2023-10-19] MEDS: 0.9% Normal Saline (1000mL) 1,000 ML 999 ML IV ×3 (14:54→18:21)
[2023-10-19] MEDS: Vancomycin HCl 1,250 MG in 0.9% Normal Saline (250mL Bag) 250 ML 167 MG IV (14:56)
--- NOTE | 2023-10-19 15:12 | HP.PCM.HOS_ITS ---
HPI - General General Date of Admission: 10/19/23 Date of Service: 10/19/23 Chief Complaint: R ankle pain HPI Narrative CARLOS EDUARDO JULES, is a 58-year-old male history of GERD, diabetes, CAD s/p CABG, BPH, anxiety, COPD presented to [facility] ED 10/19/2023 for increasing right foot and ankle pain for 3 days, denies any injury but does have history of Charcot foot and wears an ankle brace. Reportedly last time he had pain like this he had an infection and required antibiotics. Denies any fevers but does endorse some chills. In the ED heart rate 126 and blood pressure 128/71 with a temp of 98. WBC 11.6 in ED w/ left shift and Cr 1.64 with variable baseline and elevated ESR and CRP. Foot xr with Charcot deformity of tarsal bones with evidence of postop changes and severe OA of hindfoot with soft tissue swelling. Podiatry was contacted in the ED and they advised to admit for IV antibiotics and they will be consulted on the case. Patient started on vancomycin and Zosyn in the ED and hospitalist contacted for admission. Patient seen at bedside and endorses history as above, right ankle pain over the past couple of days with chills but no fever, was supposed to establish with podiatry and clean clinic on Thursday but is yet to do so. Denies any other pain or erythema. Endorses compliance with his insulin. Patient noted that he was supposed to have stress test tomorrow but will cancel this since he is being admitted to the hospital. Denied any cardiac complaints at time of exam and only queried when he could eat if he would get pain medication. [facility] Medical History (Updated 10/19/23 @ 14:[address] Patrice Koo, ) Anemia Anxiety Chronic pain COPD (chronic obstructive pulmonary disease) Coronary artery disease Current use of insulin Depression Diabetes Former smoker GERD (gastroesophageal reflux disease) GI bleed High cholesterol History of stress test Myocardial infarct Osteoarthritis Sleep apnea TIA (transient ischemic attack) Home Medications aspirin 325 mg tablet 325 mg PO DAILY@0800 07/14/17 [Rx Last Taken 01/16/21] alprazolam 0.5 mg tablet 0.5 mg PO TID PRN Anxiety 01/17/21 [History Last Taken Unknown] ferrous sulfate 325 mg (65 mg iron) tablet 65 mg PO TIDCM anemia 01/17/21 [History Last Taken 01/16/21] insulin aspart U-100 100 unit/mL (3 mL) subcutaneous pen (Novolog FlexPen U-100 Insulin aspart) See Rx Instructions .Route .COMPLEX diabetes 01/17/21 [History Last Taken 01/17/21 12:00 7 units] metoprolol succinate 50 mg tablet,extended release 24 hr 50 mg PO DAILY heart 01/17/21 [History Last Taken 01/16/21] nitroglycerin 0.4 mg sublingual tablet 0.4 mg sublingual PRN PRN Chest Pain 01/17/21 [History Last Taken Unknown] rosuvastatin 40 mg tablet 40 mg PO QHS cholesterol 01/17/21 [History Last Taken Unknown] tamsulosin 0.4 mg capsule 0.4 mg PO QHS urine flow 01/17/21 [History Last Taken 01/16/21] insulin detemir U-100 100 unit/mL (3 mL) subcutaneous pen (Levemir FlexTouch U- 100 Insulin) See Rx Instructions .Route .COMPLEX diabetes 10/29/22 [History Last Taken Unknown] losartan 25 mg tablet 25 mg PO QHS blood pressure 10/29/22 [History Last Taken Unknown] famotidine 20 mg tablet 20 mg PO BID GERD 10/19/23 [History Last Taken Unknown] gabapentin 800 mg tablet 800 mg PO TID nerve pain 10/19/23 [History Last Taken Unknown] pantoprazole 40 mg tablet,delayed release 20 mg PO BID gerd 10/19/23 [History Last Taken Unknown] Allergy/AdvReac Type Severity Reaction Status Date / Time No Known Allergies Allergy Verified 10/19/23 12:41 Family History Mother Cancer Mother w/ Lung CA, tobacco use concurrent history. Father Heart disease Surgical History H/O cardiac catheterization Hx of CABG (~2013) Social History household members: none Smoking Status: Never smoker alcohol intake: never ROS ROS Narrative General: Denies fever but has noted some chills HENT: Denies headache, denies stuffy nose, denies sore throat EYES: Denies changes in vision Resp: Denies cough, denies shortness of breath Cardiac: Denies chest pain GI: Denies abdominal pain, denies changes in bowel, denies nausea/vomiting : Denies changes in urination Extremity: R ankle swelling MSK: Denies weakness, r ankle pain Neuro: Denies any numbness/tingling Heme: Denies any bleeding or bruising Skin: Denies rashes Psychiatric: No complaints voiced Vital Signs Vital Signs Vital Signs: 10/19/23 12:41 Temperature 98 F Temperature Source Temporal Pulse Rate 126 H Respiratory Rate 18 Blood Pressure 128/71 H Blood Pressure Mean 90 Pulse Ox 100 Weight Weight: 90.9 kg Body Mass Index (BMI) 31.4 Physical Exam Narrative General: Alert, oriented, no apparent distress HEENT: Atraumatic, normocephalic Eyes: Anicteric, normal conjunctiva, extraocular movements grossly intact Neck: Supple Respiratory: Clear to auscultation bilaterally, normal respiratory effort Cardiovascular: Slightly tachycardic GI: Soft, nontender, nondistended Extremities: Right ankle with what appears to be chronic deformity but also some warmth, little bit of erythema over medial malleolus, tender more so over heel Musculoskeletal: Moving all extremities Neuro: No overt focal neurological deficits Skin: As above Psych: Cooperative Results Lab / Micro Data 10/19/23 13:10 10/19/23 13:10 Labs: Laboratory Results - last 24 hr 10/19/23 13:10: WBC 11.6 H, RBC 3.85 L, Hgb 9.9 L, Hct 32.3 L, MCV 83.9, MCH 25.7 L, MCHC 30.7 L, RDW Std Deviation 46.8 H, RDW Coeff of Cl 15.3 H, Plt Count 307, MPV 10.3, Immature Gran % (Auto) 0.600, Neut % (Auto) 82.7 H, Lymph % (Auto) 4.0 L, [place] % (Auto) 12.2 H, Eos % (Auto) 0.1, Baso % (Auto) 0.4, Abso lute Neuts (auto) 9.6 H, Absolute Lymphs (auto) 0.47 L, Nucleated RBC % 0, ESR 78 H, Sodium 134 L, Potassium 3.8, Chloride 104, Carbon Dioxide 22.0, Anion Gap 8, BUN 16, Creatinine 1.64 H, Est GFR (MDRD) Af Amer 55 L, Est GFR (MDRD) Non-Af 46 L, BUN/Creatinine Ratio 9.8 L, Glucose 317 H, Lactic Acid 1.9, Calcium 8.9, C-React Prot Ext Range 257.00 H Imaging Radiology Impression Foot X-Ray 10/19/23 13:18 IMPRESSION: Charcot deformity of the tarsal bones with evidence of postoperative changes and severe osteoarthritis of the hindfoot. Soft tissue swelling. Electronically Signed: Arnie Mays MD at 14:07 EST , Assessment & Plan Assessment/Plan (1) Charcot's joint of right ankle: (2) Cellulitis of foot, right: (3) CAD (coronary artery disease): QUALIFIERS: Coronary Disease-Associated Artery/Lesion type: bypass graft [place] vs. transplanted heart: [place] heart Associated angina: without angina Qualified Code(s): I25.810 - Atherosclerosis of coronary artery bypass graft(s) without angina pectoris (4) MK (acute kidney injury): (5) Acute hyperglycemia: (6) GERD (gastroesophageal reflux disease): (7) Diabetes mellitus type 1: QUALIFIERS: Diabetes mellitus complication status: with neurologic complications Diabetes mellitus complication detail: with polyneuropathy Qualified Code(s): E10.42 - Type 1 diabetes mellitus with diabetic polyneuropathy PLAN: Plan #R ankle pain in setting of diabetes and charcot foot- concern for diabetic foot infxn -WBC slightly elevated at 11.6 w/ left shift -CRP 257 with ESR 75 -Foot XR Charcot deformity of tarsal bones with evidence of postop changes and severe OA of hindfoot with soft tissue swelling -Blood culture sent -Cont IV antibiotics -Will recheck ESR and CRP in a.m. -IV fluids -Podiatry consult -Pain control w/ scheduled tylenol and prn medications -PT/OT #Suspect MK -Cr 1.64 in ED with variable baseline, last value 0.94 10/31/22 but prior to that was as high as 1.55 and in between -May have MK w/ underlying infection though cannot r/o component of CKD especially given last check was a year ago and pt has diabetes -IVF -If not improving can consider further workup and/or imaging -Hold home losartan #Hx CAD -s/p 5 vessel cabg around 10 years ago -Continue home medications #Type 1 diabetes mellitus -Glucose checks and sliding scale insulin -Continue long acting insulin- advises he uses 50u long acting at bedtime and SSI #Chronic BPH with obstruction -Continue home medications #Chronic normocytic anemia -Likely 2/2 chronic disease -Appears to be at baseline -Continue to monitor #GERD -Continue PPI #DVT ppx: SCDs Sharmin Baker MD Time spent in the patient's overall evaluation,decision-making process, review of diagnostic data, adjustment of management, discussion with other providers, nursing nursing and ancillary staff involved in patient's care documentation, 58 Minutes Charges/Coding Visit Charges Inpatient E&M: 93672 Init Hosp L2
[2023-10-19] MEDS: Morphine 4 MG/ML Syringe IV (15:20)
[2023-10-19] MEDS: Ondansetron 4 MG/2 ML Vial IV (15:20)
[2023-10-19 15:30] VITALS: BP 115/49; PULSE 110; RESP 18; TEMP 39.1; O2SAT 92
[2023-10-19 15:55] VITALS: BMI 30.7
[2023-10-19] MEDS: Acetaminophen 500 MG Tablet 1000 MG PO (16:20)
[2023-10-19] MEDS: 0.9% Normal Saline (1000mL) 1,000 ML 75 ML IV (16:20)
[2023-10-19 16:27] VITALS: BP 112/61; PULSE 105; RESP 20; TEMP 39.4; O2SAT 95
[2023-10-19] MEDS: Vancomycin HCl 750 MG in 0.9% Normal Saline (250mL Bag) 250 ML 250 MG IV (16:59)
[2023-10-19] MEDS: Insulin Lispro 100 UNIT/ML INSULN.PEN SC ×2 (17:06→22:03)
[2023-10-19 17:20] LABS: Bedside Glucose 358 mg/dL (74-106)
--- NOTE | 2023-10-19 17:28 | PCM.HOSP.N ---
Hospitalist Note Patient's med list updated and included Eliquis that was filled 10/08 with instructions for 6 more days of 2 tablets twice daily then 1 twice daily, patient reports diagnosis of PE for which she was started on the Eliquis. Still unclear if patient may need intervention so we will transition to heparin drip, if no intervention planned moving forward can go back on Eliquis but given recent nature of PE hesitant to hold blood thinners entirely
[2023-10-19] MEDS: Insulin Lispro 100 UNIT/ML INSULN.PEN 13 UNIT SC (17:46)
[2023-10-19 18:07] VITALS: TEMP 37.2
--- NOTE | 2023-10-19 18:21 | PCM.RX.CS ---
Consult Antibiotic Management Pharmacy has been consulted to manage selected antibiotic: Vancomycin Type of Intervention Type of Consult: New start Suspected Infection Suspected Infection: Skin/Soft tissue Prior Doses of Antibiotics Prior Doses of Antibiotics Received/Current Regimen: Patient received loading dose of 1250mg 2.19 @1456 and additional dose of 750mg iv @1659 for combined total of 2000mg. Labs Labs: Sodium 134 mmol/L (136-145) L 10/19/23 13:10 Potassium 3.8 mmol/L (3.5-5.1) 10/19/23 13:10 Chloride 104 mmol/L (98-107) 10/19/23 13:10 Carbon Dioxide 22.0 mmol/L (21.0-32.0) 10/19/23 13:10 Anion Gap 8 (5-15) 10/19/23 13:10 BUN 16 mg/dL (7-18) 10/19/23 13:10 Creatinine 1.64 mg/dL (0.70-1.30) H 10/19/23 13:10 Est GFR (MDRD) Af Amer 55 mL/min (>60) L 10/19/23 13:10 Est GFR (MDRD) Non-Af 46 mL/min (>60) L 10/19/23 13:10 BUN/Creatinine Ratio 9.8 RATIO (10-20) L 10/19/23 13:10 Glucose 317 mg/dL (74-106) H 10/19/23 13:10 Dosing Weight Weight used for dosin.1 kg Estimated Creatinine Clearance Estimated Creatinine Clearance: ~52ml/min Goal Trough Goal Trough: 15-20 mcg/mL Pharmacy Plan for Drug Dosing Pharmacy Plan for Drug Dosing: Recommend maintenance dose of 750mg iv q12h with trough level on 10.21.23. Pharmacy Service will continue to monitor and adjust dosing as required. Follow-Up Labs Follow-Up Labs: Trough: Vancomycin (10.21.23 @0630)
[2023-10-19 18:31] LABS: International Normalized Ratio 1.2; Prothrombin Time (Protime)PT. 14.7 SECONDS (11.7-14.9)
[2023-10-19 18:32] LABS: Partial Thromboplast Time 35.2 Seconds (24.1-36.2)
[2023-10-19] MEDS: HEPARIN/D5w 25,000 UNITS 25,000 UNITS/250 ML IV.SOLN. 12 UNITS CONT INF (18:48)
[2023-10-19 19:55] VITALS: BP 95/45; PULSE 73; RESP 18; TEMP 36.6; O2SAT 97
[2023-10-19 21:39] VITALS: BP 98/50; PULSE 70; RESP 18; TEMP 36.6; O2SAT 96
[2023-10-19] MEDS: Atorvastatin Calcium 80 MG Tablet PO (21:41)
[2023-10-19] MEDS: Gabapentin 800 MG Tablet PO (21:41)
[2023-10-19] MEDS: Tamsulosin HCl 0.4 MG Capsule PO (21:41)
[2023-10-19] MEDS: Pantoprazole Sodium 20 MG Tablet PO (21:41)
[2023-10-19] MEDS: traZODone 50 MG Tablet PO (21:41)
[2023-10-19] MEDS: Piperacil/Tazobactam 3.375 GM in 0.9% Normal Saline (50mL MB+) 50 ML IV (21:42)
[2023-10-19] MEDS: Famotidine 20 MG Tablet PO (21:42)
[2023-10-19] MEDS: Insulin Glargine-YFGN 100 UNIT/ML Pen 40 UNIT SC (22:03)
[2023-10-19 22:26] LABS: Bedside Glucose 299 mg/dL (74-106)
[2023-10-20] VITALS (10 sets, daily range): BP systolic 101–130; BP diastolic 43–68; PULSE 85–125; RESP 16–18; TEMP 36.6–39.4; O2SAT 81–97
[2023-10-20] MEDS: oxyCODONE 5 MG Tablet PO ×2 (00:37→16:53)
[2023-10-20] MEDS: Acetaminophen 500 MG Tablet 1000 MG PO ×4 (00:37→23:44)
[2023-10-20 00:55] LABS: Partial Thromboplast Time 88.1 Seconds (24.1-36.2)
[2023-10-20 01:03] LABS: Bedside Glucose 296 mg/dL (74-106)
[2023-10-20] MEDS: Vancomycin HCl 750 MG in 0.9% Normal Saline (250mL Bag) 250 ML 250 MG IV ×2 (05:18→17:01)
[2023-10-20] MEDS: Morphine 2 MG/ML Syringe IV ×3 (05:33→13:40)
[2023-10-20] MEDS: Insulin Lispro 100 UNIT/ML INSULN.PEN SC ×3 (06:27→17:06)
[2023-10-20] MEDS: 0.9% Normal Saline (1000mL) 1,000 ML 75 ML IV (06:28)
[2023-10-20] MEDS: Piperacil/Tazobactam 3.375 GM in 0.9% Normal Saline (50mL MB+) 50 ML IV ×2 (06:28→13:55)
[2023-10-20 06:59] LABS: Bedside Glucose 296 mg/dL (74-106)
--- NOTE | 2023-10-20 07:00 | EKG12_ITS ---
Test Reason : ROUTINE Blood Pressure : / mmHG Vent. Rate : 102 BPM Atrial Rate : 102 BPM P-R Int : 166 ms QRS Dur : 092 ms QT Int : 340 ms P-R-T Axes : 045 014 048 degrees QTc Int : 443 ms Sinus tachycardia Inferior infarct (cited on or before 17-JAN-2021) Abnormal ECG Confirmed by ADAN JACQUES, PAULA ([id number]), news copy editor KRANTHI ADRIAN ([id number]) on 10/21/2023 9:03:10 AM Referred By: EMA Confirmed By:PAULA ARELLANO MD
--- NOTE | 2023-10-20 07:13 | PCM.CONS.GEN ---
Assessment & Plan Assessment/Plan (1) Charcot's joint of right ankle: PLAN: Patient was examined evaluated. All findings were discussed with the patient. All questions were answered to the patient satisfaction. Weightbearing status: No weightbearing to the right lower extremity. Full weightbearing with assistance of walker to left lower extremity. Will plan for right lower extremity CT imaging with 3D rendering for future surgical planning and to rule out osteomyelitis. During this admission we will plan for operative partial excision of bone to the tibia and talus for deep cultures to rule out osteomyelitis, 10/22/23 at 330PM. Please clear the patient medically with all recommendations. If the patient does show evidence of osteomyelitis we will recommend a PICC line for 4 to 6 weeks with infectious disease recommendations. The overall plan for the patient will be to reconstruct his right lower extremity with 3D printing cage and intramedullary valgus nail at a later date. If unable to procure 3D printed cage at the hospital we will plan for possible reconstructed using a Alison spatial frame with intramedullary nail fixation. WBC: 11.6 ESR: 78 CRP:257.00 HbA1c: pending Glu: 296 LA: 1.9 Please continue to provide strict blood sugar control and optimize patient during this visit. Medicine: On board, medical management, IV antibiotics vancomycin, Zosyn Podiatry will continue to follow while patient is in house. Please reach out to Dr. Cabrales with any questions or concerns. Thank you for the consultation! (2) Osteomyelitis, ankle and foot: (3) Diabetes mellitus with neuropathy: HPI Consult Data Date of Consult: 10/20/23 HPI Narrative Reason for Consultation: Right lower extremity Charcot HPI Narrative: CARLOS EDUARDO JULES, is a 58 M who presents past medical history of GERD, diabetes, CAD s/p CABG, BPH, anxiety, COPD presented to [facility] ED 10/19/2023 for increasing right foot and ankle pain for 3 days, denies any injury but does have history of Charcot foot and wears an ankle brace. Reportedly last time he had pain like this he had an infection and required antibiotics. Denies any fevers but does endorse some chills. In the ED heart rate 126 and blood pressure 128/71 with a temp of 98. WBC 11.6 in ED w/ left shift and Cr 1.64 with variable baseline and elevated ESR and CRP. 3 view radiographs show evidence of Charcot foot deformity with coalescence of the ankle area. Radiographs also show that the patient is in a rigid contracture in valgus tilt. Patient states that he noted the increasing pain, swelling and redness after walking on his foot and his [place] walker. Patient is a diabetic and loosely controlled, but endorses compliance with his insulin. Patient was ultimately admitted for increased tachycardia and MK with podiatry consulted for possible surgical intervention to the right lower extremity. Patient [place] trauma. Denies constitutional symptoms. No other pedal complaints at this time. [facility] Medical History (Updated 10/19/23 @ 16:08 by Jolly Thomas) Anemia Anxiety Chronic pain Congestive heart failure (CHF) COPD (chronic obstructive pulmonary disease) Coronary artery disease Current use of insulin Depression Diabetes Former smoker GERD (gastroesophageal reflux disease) GI bleed High cholesterol History of stress test Hypertension Myocardial infarct Osteoarthritis Pulmonary embolism Sleep apnea TIA (transient ischemic attack) Home Medications alprazolam 0.5 mg tablet 0.5 mg PO TID PRN Anxiety 01/17/21 [History Last Taken Unknown] insulin aspart U-100 100 unit/mL (3 mL) subcutaneous pen (Novolog FlexPen U-100 Insulin aspart) See Rx Instructions .Route .COMPLEX diabetes 01/17/21 [History Last Taken 01/17/21 12:00 7 units] nitroglycerin 0.4 mg sublingual tablet 0.4 mg sublingual PRN PRN Chest Pain 01/17/21 [History Last Taken Unknown] rosuvastatin 40 mg tablet 40 mg PO QHS cholesterol 01/17/21 [History Last Taken Unknown] tamsulosin 0.4 mg capsule 0.4 mg PO QHS urine flow 01/17/21 [History Last Taken 01/16/21] insulin detemir U-100 100 unit/mL (3 mL) subcutaneous pen (Levemir FlexTouch U-100 Insulin) See Rx Instructions .Route .COMPLEX diabetes 10/29/22 [History Last Taken Unknown] losartan 25 mg tablet 25 mg PO QHS blood pressure 10/29/22 [History Last Taken Unknown] apixaban 5 mg tablet (Eliquis) 5 mg PO BID blood thinn 10/19/23 [History Last Taken Unknown] famotidine 20 mg tablet 20 mg PO BID GERD 10/19/23 [History Last Taken Unknown] gabapentin 800 mg tablet 800 mg PO TID nerve pain 10/19/23 [History Last Taken Unknown] hydrocodone-acetaminophen 5-325mg 5mg-325mg 1 tab PO TID pain 10/19/23 [History Last Taken Unknown] pantoprazole 40 mg tablet,delayed release 20 mg PO BID gerd 10/19/23 [History Last Taken Unknown] trazodone 50 mg tablet 50 mg PO QHS sleep 10/19/23 [History Last Taken Unknown] Allergy/AdvReac Type Severity Reaction Status Date / Time No Known Allergies Allergy Verified 10/19/23 12:41 Family History Mother Cancer Mother w/ Lung CA, tobacco use concurrent history. Father Heart disease Surgical History H/O cardiac catheterization Hx of CABG (~2013) Social History household members: none Smoking Status: Never smoker alcohol intake: never Physical Exam Narrative Vascular: DP and PT pulses are bounding to the right lower extremity. CFT is within normal limits. Skin temperature is warm to warm from proximal ankle to distal digits with focal increase appreciated to the right ankle. Nonpitting edema appreciated to the right lower extremity. Neurological: Light touch is intact. Protective sensation is absent. Dermatological: No ulcerations or abrasions are appreciated to the right lower extremity. Nonpitting edema appreciated to the right lower extremity. Toenails 1 through 5 are thickened elongated discolored with evidence of subungual debris's. Skin is supple and well-hydrated. Musculoskeletal: Muscle strength deferred. Patient is unable to dorsiflex, plantarflex, invert or britt secondary to rigid contracture and valgus tilt to the right lower extremity ankle. No pain with calf compression. Const alert, oriented x3 and no apparent distress Lab / Micro Data 10/20/23 07:32 10/20/23 07:32 Labs: Laboratory Results - last 24 hr 10/19/23 13:10: WBC 11.6 H, RBC 3.85 L, Hgb 9.9 L, Hct 32.3 L, MCV 83.9, MCH 25.7 L, MCHC 30.7 L, RDW Std Deviation 46.8 H, RDW Coeff of Cl 15.3 H, Plt Count 307, MPV 10.3, Immature Gran % (Auto) 0.600, Neut % (Auto) 82.7 H, Lymph % (Auto) 4.0 L, [place] % (Auto) 12.2 H, Eos % (Auto) 0.1, Baso % (Auto) 0.4, Absolute Neuts (auto) 9.6 H, Absolute Lymphs (auto) 0.47 L, Nucleated RBC % 0, ESR 78 H, Sodium 134 L, Potassium 3.8, Chloride 104, Carbon Dioxide 22.0, Anion Gap 8, BUN 16, Creatinine 1.64 H, Est GFR (MDRD) Af Amer 55 L, Est GFR (MDRD) Non-Af 46 L, BUN/Creatinine Ratio 9.8 L, Glucose 317 H, Lactic Acid 1.9, Calcium 8.9, C-React Prot Ext Range 257.00 H 10/19/23 16:56: POC Glucose 358 H 10/19/23 18:12: PT 14.7, INR 1.2, APTT 35.2 10/19/23 22:01: POC Glucose 299 H 10/20/23 00:36: APTT 88.1 H 10/20/23 00:44: POC Glucose 296 H 10/20/23 06:26: POC Glucose 296 H Imaging Radiology Impression Foot X-Ray 10/19/23 13:18 IMPRESSION: Charcot deformity of the tarsal bones with evidence of postoperative changes and severe osteoarthritis of the hindfoot. Soft tissue swelling. Electronically Signed: Arnie Mays MD at 14:07 EST ,
--- NOTE | 2023-10-20 07:40 | CT_ITS ---
CT RIGHT LOWER EXTREMITY WITH 3-D IMAGING CLINICAL INDICATION: r/o osteomyelitis. History of a Charcot foot. TECHNIQUE: Axial CT images of the RIGHT lower extremity was performed without IV contrast material. Coronal and sagittal reformats were provided. RADIATION DOSAGE (If Supplied By Facility): CTDIvol = ( 15.35 ) mGy, DLP = ( 458.6 ) mGycm COMPARISON: Prior study dated: X-rays of the foot dated October 19, 2023. FINDINGS: Bones: There is evidence of marked deformity of the distal tibia and fibula as well as the calcaneus and the tarsal navicular bone. There is evidence of sclerosis and findings in keeping with a Charcot''s foot. Prior fusion of the hindfoot. There is evidence of irregularities along the superior aspect of the calcaneus and the talar bones. Soft tissue swelling. Osteomyelitis should be ruled out. Screws are seen overlying the distal tibia and fibula as well as metallic clip fusing the first cuneiform and the navicular bones. There is evidence of deformity and healed fractures of the third fourth and fifth metatarsals. Soft Tissues: Soft tissue swelling. CT/Extremity Lower without Contra IMPRESSION: Charcot foot as described with findings suggestive of possible osteomyelitis as described Electronically Signed: Arnie Mays MD at 9:29 EST ,
[2023-10-20 08:05] LABS: Absolute Lymphocyte Count 0.46 X10^3/uL (0.83-4.51); Absolute Neutrophil Count 5.1 X10^3/uL (2.0-7.7); Basophil# 0.05 X10^3/uL; Basophil% 0.8 % (0-1); Eosinophil# 0.03 X10^3/uL; Eosinophils% 0.5 % (0-5); Hematocrit 27.9 % (40-54); Hemoglobin 8.9 g/dL (13.0-16.5); Lymphocyte # 0.46 X10^3/ul (0.83-4.51); Lymphocyte % 7.2 % (19-41); Mean Corp Hgb Conc 31.9 g/dL (32-36); Mean Corpuscular Hgb 27.1 pg (27.0-32.0); Mean Corpuscular Volume 84.8 fL (80-94); Mean Platelet Vol. 10.5 fl (6.2-12.0); Monocyte# 0.64 X10^3/uL; Monocyte% 10.1 % (0-10); NRBC Flagged by Analyzer 0 % (0-5); Neutrophil # 5.14 X10^3/uL (2.7-7.7); Neutrophil % 80.9 % (47-70); POSITIVE DIFFERENTIAL YES; Platelet Count 261 K/mm3 (150-450); RBC Distribution Width CV 15.6 % (11.6-14.6); RBC Distribution Width SD 48.7 fl (35.1-43.9); Red Blood Count 3.29 M/mm3 (4.6-6.2); White Blood Count 6.4 K/mm3 (4.4-11.0)
[2023-10-20 08:16] LABS: Erythrocyte Sedimentation Rate 73 mm/hr (0-20)
[2023-10-20 08:30] LABS: ALB/GLOB Ratio 0.5 RATIO (0.9-2.4); AST(SGOT) 15 U/L (15-37); Alanine Aminotransfer ALT/SGPT 12 U/L (16-61); Alkaline Phosphatase 106 U/L (45-117); Anion Gap 7 (5-15); BUN 19 mg/dL (7-18); BUN/Creat Ratio 13.5 RATIO (10-20); Calcium,Total 7.9 mg/dL (8.5-10.1); Chloride 110 mmol/L (98-107); Creatinine, Serum 1.41 mg/dL (0.70-1.30); EST Glomerular Filtration Rate 54 mL/min (>60); Est Glom Filt Rate - Afr Amer 66 mL/min (>60); Estimated Creatinine Clearance 59.34 ml/min; Globulin 4.3 g/dL (2.2-4.2); Glucose 312 mg/dL (74-106); Potassium 3.8 mmol/L (3.5-5.1); Protein, Total 6.3 g/dL (6.4-8.2); Sodium Level 136 mmol/L (136-145)
[2023-10-20] MEDS: Pantoprazole Sodium 20 MG Tablet PO ×2 (08:46→21:33)
[2023-10-20] MEDS: Famotidine 20 MG Tablet PO ×2 (08:46→21:34)
[2023-10-20] MEDS: Gabapentin 800 MG Tablet PO ×3 (08:47→21:33)
[2023-10-20 08:50] LABS: Hemoglobin A1c 8.9 % (3.8-5.6)
[2023-10-20] MEDS: Insulin Lispro 100 UNIT/ML INSULN.PEN 13 UNIT SC ×3 (09:06→17:06)
[2023-10-20 09:09] LABS: Partial Thromboplast Time 51.9 Seconds (24.1-36.2)
--- NOTE | 2023-10-20 09:50 | PCM.PN.HOSP ---
Reason for Visit Reason for Visit: Diagnoses Type 1 diabetes mellitus with diabetic polyneuropathy (10/19/23) Atherosclerosis of coronary artery bypass graft(s) without angina pectoris (10/19/23) Gastro-esophageal reflux disease without esophagitis (10/19/23) Cellulitis of right lower limb (10/19/23) Charcot's joint, right ankle and foot (10/19/23) Acute kidney failure, unspecified (10/19/23) Hyperglycemia, unspecified (10/19/23) Objective Data Objective Data Vital Signs: Vital Signs Temp Pulse Resp BP Pulse Ox O2 Del Method 99.8 F H 112 H 16 102/54 L 91 Room Air 10/20/23 09:00 10/20/23 09:00 10/20/23 09:00 10/20/23 09:00 10/20/23 09:00 10/20/23 09:00 Oxygen Delivery Method Room Air Weight: 196 lb 6.91 oz Body Mass Index (BMI) 30.7 Intake & Output: Intake and Output for Last 24 Hours 10/18/23 10/19/23 10/20/23 23:59 23:59 23:59 Intake Total 3641.25 / 4491.25 2262.20 / 2262.20 Output Total 1175 / 1175 Balance 3641.25 / 3991.25 1087.20 / 1087.20 Lab / Micro Data 10/20/23 07:32 10/20/23 07:32 Labs: Laboratory Results - last 24 hr 10/19/23 13:10: WBC 11.6 H, RBC 3.85 L, Hgb 9.9 L, Hct 32.3 L, MCV 83.9, MCH 25.7 L, MCHC 30.7 L, RDW Std Deviation 46.8 H, RDW Coeff of Cl 15.3 H, Plt Count 307, MPV 10.3, Immature Gran % (Auto) 0.600, Neut % (Auto) 82.7 H, Lymph % (Auto) 4.0 L, [place] % (Auto) 12.2 H, Eos % (Auto) 0.1, Baso % (Auto) 0.4, Absolute Neuts (auto) 9.6 H, Absolute Lymphs (auto) 0.47 L, Nucleated RBC % 0, ESR 78 H, Sodium 134 L, Potassium 3.8, Chloride 104, Carbon Dioxide 22.0, Anion Gap 8, BUN 16, Creatinine 1.64 H, Est GFR (MDRD) Af Amer 55 L, Est GFR (MDRD) Non-Af 46 L, BUN/Creatinine Ratio 9.8 L, Glucose 317 H, Lactic Acid 1.9, Calcium 8.9, C-React Prot Ext Range 257.00 H 10/19/23 16:56: POC Glucose 358 H 10/19/23 18:12: PT 14.7, INR 1.2, APTT 35.2 10/19/23 22:01: POC Glucose 299 H 10/20/23 00:36: APTT 88.1 H 10/20/23 00:44: POC Glucose 296 H 10/20/23 06:26: POC Glucose 296 H 10/20/23 07:32: WBC 6.4, RBC 3.29 L, Hgb 8.9 L, Hct 27.9 L, MCV 84.8, MCH 27.1, MCHC 31.9 L, RDW Std Deviation 48.7 H, RDW Coeff of Cl 15.6 H, Plt Count 261, MPV 10.5, Immature Gran % (Auto) 0.500, Neut % (Auto) 80.9 H, Lymph % (Auto) 7.2 L, [place] % (Auto) 10.1 H, Eos % (Auto) 0.5, Baso % (Auto) 0.8, Absolute Neuts (auto) 5.1, Absolute Lymphs (auto) 0.46 L, Nucleated RBC % 0, ESR 73 H, APTT 51.9 H, Sodium 136, Potassium 3.8, Chloride 110 H, Carbon Dioxide 19.0 L, Anion Gap 7, BUN 19 H, Creatinine 1.41 H, Estim Creat Clear Calc 59.34, Est GFR (MDRD) Af Amer 66, Est GFR (MDRD) Non-Af 54 L, BUN/Creatinine Ratio 13.5, Glucose 312 H, Hemoglobin A1c 8.9 H, Calcium 7.9 L, Total Bilirubin 0.40, AST 15, ALT 12 L, Alkaline Phosphatase 106, C-React Prot Ext Range 253.00 H, Total Protein 6.3 L, Albumin 2.0 L, Globulin 4.3 H, Albumin/Globulin Ratio 0.5 L Radiography Diagnostic Testing: Radiology Impression Foot X-Ray 10/19/23 13:18 IMPRESSION: Charcot deformity of the tarsal bones with evidence of postoperative changes and severe osteoarthritis of the hindfoot. Soft tissue swelling. Electronically Signed: Arnie Mays MD at 14:07 EST , Lower Extremity CT 10/20/23 07:40 IMPRESSION: Charcot foot as described with findings suggestive of possible osteomyelitis as described Electronically Signed: Arnie Mays MD at 9:29 EST , Physical Exam Narrative Seen and examined. Patient having high-grade fever temperature 101.2 ?F, 102.9 Fahrenheit. Patient on IV vancomycin and Zosyn. Yesterday also he had Tmax 102.9 Fahrenheit. Physical exam General: Alert, Oriented x3, Cooperative HEENT: Atraumatic, PERRLA, EOMI, Normocephalic Oral: No Gingival or Mucosal Lesions/ Ulcerations Neck: Supple, No JVD, Negative Carotid Bruits Chest wall/Lungs: Air entry diminished in bilateral lung bases. No crepitation/rhonchi Cardiovascular: Regular rate, Regular Rhythm, Normal S1, Normal S2, No M/G/R Abdomen: Bowel Sounds Present, Soft, Non Tender, Non-Distended : No dysuria. No renal angle tenderness. No suprapubic tenderness. Extremities: No edema, Capillary Refill Less than 3 Seconds Skin: Mild redness on the medial aspect. Musculoskeletal: Severe tenderness present on the right ankle and foot predominantly on medial aspect. Right ankle and right foot is deformed from previous surgery and Charcot's joint. Neurological: Cranial nerves II-XII grossly intact, DTR 2+/4. No acute focal neurological deficit. Psych/Mental Status: Flat affect. Assessment & Plan Assessment/Plan (1) Charcot's joint of right ankle: (2) Cellulitis of foot, right: (3) CAD (coronary artery disease): QUALIFIERS: Associated angina: without angina Coronary Disease-Associated Artery/Lesion type: bypass graft [place] vs. transplanted heart: [place] heart Qualified Code(s): I25.810 - Atherosclerosis of coronary artery bypass graft(s) without angina pectoris (4) MK (acute kidney injury): (5) Acute hyperglycemia: (6) GERD (gastroesophageal reflux disease): (7) Diabetes mellitus type 1: QUALIFIERS: Diabetes mellitus complication detail: with polyneuropathy Diabetes mellitus complication status: with neurologic complications Qualified Code(s): E10.42 - Type 1 diabetes mellitus with diabetic polyneuropathy PLAN: Plan 58-year-old gentleman is admitted with right foot and ankle pain that started 3 days ago without any obvious injury. Has history of Charcot right foot and wears a brace and had surgery and antibiotics in the past for sepsis secondary to acute right ankle medial malleolus abscess cellulitis and septic arthritis in December 2020. This time, no fever or chills. 1. R ankle pain in setting of diabetes and charcot foot with concern for deep infection/osteomyelitis -WBC slightly elevated at 11.6 w/ left shift, repeat 1 in normal but patient still having fever and chills. -CRP 257 with ESR 75. Repeat CRP also high. -Foot XR Charcot deformity of tarsal bones with evidence of postop changes and severe OA of hindfoot with soft tissue swelling -Blood culture from admission is pending. Repeat blood culture ordered -Cont IV antibiotics, vancomycin and Zosyn. Podiatry was consulted. ID consulted as patient is still having fever on IV vancomycin and Zosyn. -Pain control w/ scheduled tylenol and prn medications -PT/OT #Suspect MK probably CKD stage II from diabetic nephropathy. Patient baseline estimated creatinine 79 mm/min. -Cr 1.64 in ED with variable baseline, last value 0.94 10/31/2210/20: BUNs/creatinine better 19/1.41. -May have MK w/ underlying infection though cannot r/o component of CKD especially given last check was a year ago and pt has diabetes -Continue IV fluid -Hold home losartan #Hx CAD -s/p 5 vessel cabg around 10 years ago -Continue home medications #Type 1 diabetes mellitus -Glucose checks and sliding scale insulin -Continue long acting insulin- advises he uses 50u long acting at bedtime and SSI #Chronic BPH with obstruction -Continue home medications #Chronic normocytic anemia -Likely 2/2 chronic disease -Appears to be at baseline -Continue to monitor #GERD -Continue PPI Recent pulmonary embolism: Eliquis was filled on 10/08 #DVT ppx: SCDs Charges/Coding Visit Charges Inpatient E&M: 49186 Subs Hosp L2
--- NOTE | 2023-10-20 11:05 | CASEMGMT ---
ERIN ASH Assessment: Face to Face with pt for initial transition planning/care coordination assessment. ERIN ASH introduced self and role at [facility], pt voices understanding and consents to assessment. Pt is A&O x4 and answers all questions appropriately at this time. Pt sitting up in bed in no distress with student nurse at bedside. Care providers, pharmacy, and demographics verified/updated. Admitting Dx: cellulitis, foot pain, DM, MK PCP:Petrona Specialists:Holli, pod; Arthur, endo; cardio at [place]- could not recall the name [facility] Pres[facility] Benefit: yes LNOK: Nellie Weldon dtr Living Arrangements: Pt lives alone in a second story apt with approx 13-15 steps to enter with a rail. Pt reports he is typically I in ADL's and denies concerns at home. Transportation: Pt drives self and denies concerns with transportation. DME:shower chair, CGM with sufficient supply of sensors; BGM with sufficient supply of lancets and strips, insulin with needles, walker, w/c HHC/SNF: Pt has had HHC in the past, unsure of the name of the agency. Denies SNF stays. Pt states no concerns with going home at time of dc. Discussed with pt the possibility of IV antibiotics and what this would entail. Pt expressed interest in learning himself if this should be needed. Therapy to eval pt. Pt states no further concerns/needs. CM to follow. Advised pt to ask CM if any further question/concerns/needs arise, voices understanding. Pt Goal: Home Plan: TBD, pending course of hospitalization; surgery and therapy evals
[2023-10-20 11:53] LABS: Bedside Glucose 213 mg/dL (74-106)
[2023-10-20] MEDS: Acetaminophen 500 MG Tablet PO (13:59)
[2023-10-20 15:54] LABS: Bedside Glucose 225 mg/dL (74-106)
[2023-10-20] MEDS: HEPARIN/D5w 25,000 UNITS 25,000 UNITS/250 ML IV.SOLN. 12 UNITS CONT INF (16:21)
[2023-10-20] MEDS: KCL 20MEQ in 0.45%NS 20 MEQ/1,000 ML IV.SOLN. 100 MEQ IV (16:53)
[2023-10-20] MEDS: Meropenem 1 GM in 0.9% Normal Saline (100mL MB+) 100 ML IV (18:20)
[2023-10-20] MEDS: ALPRAZolam 0.25 MG Tablet PO (18:45)
[2023-10-20] MEDS: Atorvastatin Calcium 80 MG Tablet PO (21:33)
[2023-10-20] MEDS: traZODone 50 MG Tablet PO (21:33)
[2023-10-20] MEDS: Tamsulosin HCl 0.4 MG Capsule PO (21:33)
[2023-10-20 21:56] LABS: Bedside Glucose 103 mg/dL (74-106)
[2023-10-20] MEDS: Ketorolac 30 MG/ML Syringe 15 MG IV (22:26)
[2023-10-20] MEDS: Ondansetron 4 MG/2 ML Vial IV (22:34)
[2023-10-20 23:29] LABS: Partial Thromboplast Time 135.4 Seconds (24.1-36.2)
[2023-10-21] VITALS (14 sets, daily range): BP systolic 106–126; BP diastolic 38–74; PULSE 73–116; RESP 18–22; TEMP 36.4–38.4; O2SAT 89–100
[2023-10-21] MEDS: Albuterol 2.5 MG/3 ML VIAL.NEB. INHALATION ×2 (02:26→07:33)
--- NOTE | 2023-10-21 02:32 | NURSING ---
Pt has required an increase in 02 throughout the shift and is now on 4 L NC. Called respiratory for breathing tx and evaluation. will notify
--- NOTE | 2023-10-21 04:05 | PCM.HOSP.N ---
Hospitalist Note Patient with wheezing and oxygen requirement increase. Will add scheduled ATC budeonside, requested the PRN albuterol be administered and will cautiously request AM CXR.
[2023-10-21 04:54] LABS: Absolute Lymphocyte Count 0.61 X10^3/uL (0.83-4.51); Absolute Neutrophil Count 7.3 X10^3/uL (2.0-7.7); Basophil# 0.05 X10^3/uL; Basophil% 0.6 % (0-1); Eosinophil# 0.03 X10^3/uL; Eosinophils% 0.3 % (0-5); Hematocrit 27.1 % (40-54); Hemoglobin 8.1 g/dL (13.0-16.5); Lymphocyte # 0.61 X10^3/ul (0.83-4.51); Lymphocyte % 6.9 % (19-41); Mean Corp Hgb Conc 29.9 g/dL (32-36); Mean Corpuscular Volume 87.1 fL (80-94); Mean Platelet Vol. 10.3 fl (6.2-12.0); Monocyte# 0.78 X10^3/uL; Monocyte% 8.8 % (0-10); NRBC Flagged by Analyzer 0 % (0-5); Neutrophil # 7.31 X10^3/uL (2.7-7.7); Neutrophil % 82.8 % (47-70); Platelet Count 268 K/mm3 (150-450); RBC Distribution Width CV 15.9 % (11.6-14.6); RBC Distribution Width SD 50.6 fl (35.1-43.9); Red Blood Count 3.11 M/mm3 (4.6-6.2); White Blood Count 8.8 K/mm3 (4.4-11.0)
[2023-10-21 04:56] LABS: Differential Indicated SCAN CRITERIA MET
[2023-10-21 05:05] LABS: Bedside Glucose 347 mg/dL (74-106)
[2023-10-21 05:18] LABS: Anion Gap 9 (5-15); BUN 22 mg/dL (7-18); BUN/Creat Ratio 13.8 RATIO (10-20); Calcium,Total 7.7 mg/dL (8.5-10.1); Chloride 103 mmol/L (98-107); Creatinine, Serum 1.59 mg/dL (0.70-1.30); EST Glomerular Filtration Rate 47 mL/min (>60); Est Glom Filt Rate - Afr Amer 57 mL/min (>60); Estimated Creatinine Clearance 52.62 ml/min; Glucose 351 mg/dL (74-106); Potassium 4.7 mmol/L (3.5-5.1); Sodium Level 131 mmol/L (136-145)
--- NOTE | 2023-10-21 05:31 | PCM.RX.CS ---
Consult Antibiotic Management Pharmacy has been consulted to manage selected antibiotic: Vancomycin Type of Intervention Type of Consult: Follow-up Suspected Infection Suspected Infection: Osteomyelitis Labs Labs: Sodium 131 mmol/L (136-145) L 10/21/23 04:32 Potassium 4.7 mmol/L (3.5-5.1) 10/21/23 04:32 Chloride 103 mmol/L (98-107) 10/21/23 04:32 Carbon Dioxide 19.0 mmol/L (21.0-32.0) L 10/21/23 04:32 Anion Gap 9 (5-15) 10/21/23 04:32 BUN 22 mg/dL (7-18) H 10/21/23 04:32 Creatinine 1.59 mg/dL (0.70-1.30) H 10/21/23 04:32 Est GFR (MDRD) Af Amer 57 mL/min (>60) L 10/21/23 04:32 Est GFR (MDRD) Non-Af 47 mL/min (>60) L 10/21/23 04:32 BUN/Creatinine Ratio 13.8 RATIO (10-20) 10/21/23 04:32 Glucose 351 mg/dL (74-106) H 10/21/23 04:32 Vancomycin Trough 15.0 ug/mL (5.0-15.0) 10/21/23 04:32 Goal Trough Goal Trough: 15-20 mcg/mL Pharmacy Plan for Drug Dosing Pharmacy Plan for Drug Dosing: VANCOMYCIN LEVEL RECEIVED Current Vancomycin Dose: 750mg Q12H Number of Doses Received: 750mg x3, 2000mg x1 Vancomycin Level: 15.0 Hours Since Last Dose: 11.75 Renal Function: sCr 1.59 Renal Function Trend: stable Lab/Micro: pending Vancomycin Plan/Comments: Continue Vancomycin 750mg Q12H Pending Level: Vancomycin trough @ 1630 10/22/23 Pharmacy Service will continue to monitor and adjust dosing as required. Follow-Up Labs Follow-Up Labs: Trough: Vancomycin (16:30 10/22/23)
[2023-10-21 05:35] LABS: Differential Comment SCANNED
[2023-10-21] MEDS: KCL 20MEQ in 0.45%NS 20 MEQ/1,000 ML IV.SOLN. 100 MEQ IV (05:35)
[2023-10-21] MEDS: Meropenem 1 GM in 0.9% Normal Saline (100mL MB+) 100 ML IV ×3 (05:35→22:02)
[2023-10-21] MEDS: Vancomycin Trough/Random Due 1 LAB MC (05:39)
[2023-10-21] MEDS: Vancomycin HCl 750 MG in 0.9% Normal Saline (250mL Bag) 250 ML 250 MG IV ×2 (05:41→16:34)
[2023-10-21] MEDS: Morphine 2 MG/ML Syringe IV ×3 (05:48→23:38)
[2023-10-21] MEDS: 0.9% Saline Lock 10 ML Syringe IV (05:48)
--- NOTE | 2023-10-21 05:55 | RAD_ITS ---
INDICATION: Dyspnea EXAMINATION/TECHNIQUE: X-RAY - XR Chest 2 Views COMPARISON: October 29, 2022. FINDINGS: LINES/DEVICES: None. LUNGS: Mild diffuse interstitial edema. Right lower lung airspace consolidation with underlying layering right pleural effusion. Mild left basilar atelectasis. Trace left costophrenic angle effusion. No pneumothorax. MEDIASTINUM AND CARDIOVASCULAR STRUCTURES: Cardiac silhouette not enlarged. BONES AND SOFT TISSUES: Sternotomy wires are midline and intact.. RAD/Chest PA and Lateral IMPRESSION: Large right lower lung consolidation with layering effusion concerning for pneumonia. Mild diffuse interstitial edema. Trace left effusion. Electronically Signed: Sahil Johns MD at 7:44 EST ,
[2023-10-21] MEDS: Gabapentin 800 MG Tablet PO ×3 (06:04→22:02)
[2023-10-21] MEDS: Ketorolac 15 MG/ML Vial IV (06:43)
[2023-10-21] MEDS: Insulin Lispro 100 UNIT/ML INSULN.PEN SC ×4 (06:48→22:01)
[2023-10-21 07:21] LABS: Bedside Glucose 341 mg/dL (74-106)
--- NOTE | 2023-10-21 07:30 | PCM.PN.HOSP ---
Reason for Visit Reason for Visit: Diagnoses Type 1 diabetes mellitus with diabetic polyneuropathy (10/19/23) Type 2 diabetes mellitus with diabetic neuropathy, unspecified (10/19/23) Atherosclerosis of coronary artery bypass graft(s) without angina pectoris (10/19/23) Gastro-esophageal reflux disease without esophagitis (10/19/23) Cellulitis of right lower limb (10/19/23) Charcot's joint, right ankle and foot (10/19/23) Osteomyelitis, unspecified (10/19/23) Acute kidney failure, unspecified (10/19/23) Hyperglycemia, unspecified (10/19/23) Objective Data Objective Data Vital Signs: Vital Signs Temp Pulse Resp BP Pulse Ox O2 Del Method O2 Flow Rate 100 F H 111 H 22 H 109/38 L 91 High Flow 10 10/21/23 06:51 10/21/23 06:51 10/21/23 06:51 10/21/23 06:51 10/21/23 06:51 10/21/23 06:51 10/21/23 06:51 Oxygen Flow Rate (L/min) 10 Oxygen Delivery Method High Flow Weight: 196 lb 6.91 oz Body Mass Index (BMI) 30.7 Intake & Output: Intake and Output for Last 24 Hours 10/19/23 10/20/23 10/21/23 23:59 23:59 23:59 Intake Total 3641.25 / 4491.25 4131.01 / 4631.01 1979 Output Total 1175 / 1675 800 / 800 Balance 3641.25 / 3991.25 2956.01 / 2956.01 1180 / 1180 Lab / Micro Data 10/21/23 04:32 10/21/23 04:32 Labs: Laboratory Results - last 24 hr 10/20/23 07:32: WBC 6.4, RBC 3.29 L, Hgb 8.9 L, Hct 27.9 L, MCV 84.8, MCH 27.1, MCHC 31.9 L, RDW Std Deviation 48.7 H, RDW Coeff of Cl 15.6 H, Plt Count 261, MPV 10.5, Immature Gran % (Auto) 0.500, Neut % (Auto) 80.9 H, Lymph % (Auto) 7.2 L, [place] % (Auto) 10.1 H, Eos % (Auto) 0.5, Baso % (Auto) 0.8, Absolute Neuts (auto) 5.1, Absolute Lymphs (auto) 0.46 L, Nucleated RBC % 0, ESR 73 H, APTT 51.9 H, Sodium 136, Potassium 3.8, Chloride 110 H, Carbon Dioxide 19.0 L, Anion Gap 7, BUN 19 H, Creatinine 1.41 H, Estim Creat Clear Calc 59.34, Est GFR (MDRD) Af Amer 66, Est GFR (MDRD) Non-Af 54 L, BUN/Creatinine Ratio 13.5, Glucose 312 H, Hemoglobin A1c 8.9 H, Calcium 7.9 L, Total Bilirubin 0.40, AST 15, ALT 12 L, Alkaline Phosphatase 106, C-React Prot Ext Range 253.00 H, Total Protein 6.3 L, Albumin 2.0 L, Globulin 4.3 H, Albumin/Globulin Ratio 0.5 L 10/20/23 11:35: POC Glucose 213 H 10/20/23 15:30: APTT 68.0 H 10/20/23 15:33: POC Glucose 225 H 10/20/23 21:29: POC Glucose 103 10/20/23 22:29: APTT 135.4 H* 10/21/23 04:32: WBC 8.8, RBC 3.11 L, Hgb 8.1 L, Hct 27.1 L, MCV 87.1, MCH 26.0 L, MCHC 29.9 L D, RDW Std Deviation 50.6 H, RDW Coeff of Cl 15.9 H, Plt Count 268, MPV 10.3, Immature Gran % (Auto) 0.600, Neut % (Auto) 82.8 H, Lymph % (Auto) 6.9 L, [place] % (Auto) 8.8, Eos % (Auto) 0.3, Baso % (Auto) 0.6, Absolute Neuts (auto) 7.3, Absolute Lymphs (auto) 0.61 L, Nucleated RBC % 0, Differential Comment SCANNED, Sodium 131 L, Potassium 4.7, Chloride 103, Carbon Dioxide 19.0 L, Anion Gap 9, BUN 22 H, Creatinine 1.59 H, Estim Creat Clear Calc 52.62, Est GFR (MDRD) Af Amer 57 L, Est GFR (MDRD) Non-Af 47 L, BUN/Creatinine Ratio 13.8, Glucose 351 H, Calcium 7.7 L, Vancomycin Trough 15.0 10/21/23 04:46: POC Glucose 347 H 10/21/23 06:48: POC Glucose 341 H Radiography Diagnostic Testing: Radiology Impression Lower Extremity CT 10/20/23 07:40 IMPRESSION: Charcot foot as described with findings suggestive of possible osteomyelitis as described Electronically Signed: Arnie Mays MD at 9:29 EST , Physical Exam Narrative Seen and examined. 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 Chest x-ray was done. Requiring 10 L of high flow oxygen Physical exam General: Alert, Oriented x3, Cooperative HEENT: Atraumatic, PERRLA, EOMI, Normocephalic Oral: No Gingival or Mucosal Lesions/ Ulcerations Neck: Supple, No JVD, Negative Carotid Bruits Chest wall/Lungs: Air entry diminished in bilateral lung bases. Bilateral wheezing. No dyspnea at rest. Cardiovascular: Regular rate, Regular Rhythm, Normal S1, Normal S2, No M/G/R Abdomen: Bowel Sounds Present, Soft, Non Tender, Non-Distended : No dysuria. No renal angle tenderness. No suprapubic tenderness. Extremities: No edema, Capillary Refill Less than 3 Seconds Skin: Mild redness on the medial aspect. Musculoskeletal: Mild tenderness present on the right ankle and foot predominantly on medial aspect. Right ankle and right foot is deformed from previous surgery and Charcot's joint. Neurological: Cranial nerves II-XII grossly intact, DTR 2+/4. No acute focal neurological deficit. Psych/Mental Status: Flat affect. Assessment & Plan Assessment/Plan (1) Charcot's joint of right ankle: (2) Cellulitis of foot, right: (3) CAD (coronary artery disease): QUALIFIERS: Associated angina: without angina Coronary Disease-Associated Artery/Lesion type: bypass graft [place] vs. transplanted heart: [place] heart Qualified Code(s): I25.810 - Atherosclerosis of coronary artery bypass graft(s) without angina pectoris (4) MK (acute kidney injury): (5) Acute hyperglycemia: (6) GERD (gastroesophageal reflux disease): (7) Diabetes mellitus type 1: QUALIFIERS: Diabetes mellitus complication detail: with polyneuropathy Diabetes mellitus complication status: with neurologic complications Qualified Code(s): E10.42 - Type 1 diabetes mellitus with diabetic polyneuropathy PLAN: Plan 58-year-old gentleman is admitted with right foot and ankle pain that started 3 days ago without any obvious injury. Has history of Charcot right foot and wears a brace and had surgery and antibiotics in the past for sepsis secondary to acute right ankle medial malleolus abscess cellulitis and septic arthritis in December 2020. This time, no fever or chills. 1. R ankle pain in setting of diabetes and charcot foot with concern for deep infection/osteomyelitis -WBC slightly elevated at 11.6 w/ left shift, repeat 1 in normal but patient still having fever and chills. -CRP 257 with ESR 75. Repeat CRP also high. -Foot XR Charcot deformity of tarsal bones with evidence of postop changes and severe OA of hindfoot with soft tissue swelling -Blood culture from admission is pending. Repeat blood culture ordered -Cont IV antibiotics, vancomycin and Zosyn. Podiatry was consulted. ID consulted as patient is still having fever on IV vancomycin and Zosyn. -Pain control w/ scheduled tylenol and prn medications -PT/OT 10/21: On 10/20, I discussed with Dr. Gandara the antibiotic was changed from IV Zosyn to meropenem. afebrile in the morning since 9 AM. Heart rate also 88/min most tachycardia last night. Patient was evaluated by ID. Prior wound culture showed Pseudomonas. Plan for or tomorrow with Dr. Webster. #Suspect KM probably CKD stage II from diabetic nephropathy. Patient baseline estimated creatinine 79 mm/min. -Cr 1.64 in ED with variable baseline, last value 0.94 10/31/2210/20: BUNs/creatinine better 19/1.41. -May have MK w/ underlying infection though cannot r/o component of CKD especially given last check was a year ago and pt has diabetes -Continue IV fluid -Hold home losartan 10/21: Creatinine is elevated 1.59. BUN 22. Anion gap 9 #Hx CAD -s/p 5 vessel cabg around 10 years ago -Continue home medications #Type 1 diabetes mellitus -Glucose checks and sliding scale insulin -Continue long acting insulin- advises he uses 50u long acting at bedtime and SSI #Chronic BPH with obstruction -Continue home medications #Chronic normocytic anemia -Likely 2/2 chronic disease -Appears to be at baseline -Continue to monitor #GERD -Continue PPI Recent pulmonary embolism: Eliquis was filled on 10/08. Patient on IV heparin drip. Most likely COPD with COPD exacerbation, probably due to pneumonia:Patient is stated that he was smoking a pack per day since teenage quit in 2009. About 30 pack years of smoking. Started on DuoNeb. Add IV Solu-Medrol. Chest x-ray initially reviewed and shows patchy infiltrate on right middle and lower lobe suggestive of pneumonia. Chest x-ray officially reported large right lower lung consolidation with layering effusion and I agree with that. Pneumonia workup ordered. SARS-CoV-2, influenza and RSV negative. #DVT ppx: SCDs Clinical Impression(s) from Imaging Studies Foot X-Ray 10/19/23 13:18 IMPRESSION: Charcot deformity of the tarsal bones with evidence of postoperative changes and severe osteoarthritis of the hindfoot. Soft tissue swelling. Lower Extremity CT 10/20/23 07:40 IMPRESSION: Charcot foot as described with findings suggestive of possible osteomyelitis as described Chest X-Ray 10/21/23 05:55 IMPRESSION: Large right lower lung consolidation with layering effusion concerning for pneumonia. Mild diffuse interstitial edema. Trace left effusion. Officially reported as Microbiology Past 72 Hours 10/21/23 11:00 Mucosa - Nose SARS-CoV-2, Influenza & RSV (PCR) - Final 10/19/23 13:00 Blood Culture (Wb) - Anticubital Left Blood Culture - Preliminary No growth in 48 hours. 10/19/23 13:10 Blood Culture (Wb) - Anticubital Right Blood Culture - Preliminary No growth in 48 hours. Laboratory Results 10/20/23 15:30: APTT 68.0 H 10/20/23 15:33: POC Glucose 225 H 10/20/23 21:29: POC Glucose 103 10/20/23 22:29: APTT 135.4 H* 10/21/23 04:32: WBC 8.8, RBC 3.11 L, Hgb 8.1 L, Hct 27.1 L, MCV 87.1, MCH 26.0 L, MCHC 29.9 L D, RDW Std Deviation 50.6 H, RDW Coeff of Cl 15.9 H, Plt Count 268, MPV 10.3, Immature Gran % (Auto) 0.600, Neut % (Auto) 82.8 H, Lymph % (Auto) 6.9 L, [place] % (Auto) 8.8, Eos % (Auto) 0.3, Baso % (Auto) 0.6, Absolute Neuts (auto) 7.3, Absolute Lymphs (auto) 0.61 L, Nucleated RBC % 0, Differential Comment SCANNED, Sodium 131 L, Potassium 4.7, Chloride 103, Carbon Dioxide 19.0 L, Anion Gap 9, BUN 22 H, Creatinine 1.59 H, Estim Creat Clear Calc 52.62, Est GFR (MDRD) Af Amer 57 L, Est GFR (MDRD) Non-Af 47 L, BUN/Creatinine Ratio 13.8, Glucose 351 H, Calcium 7.7 L, Vancomycin Trough 15.0 10/21/23 04:46: POC Glucose 347 H 10/21/23 06:48: POC Glucose 341 H 10/21/23 08:02: APTT 56.8 H 10/21/23 11:50: POC Glucose 431 H Charges/Coding Visit Charges Inpatient E&M: 43019 Subs Hosp L3
[2023-10-21] MEDS: Budesonide Respules 0.5 MG/2 ML AMPUL.NEB. INHALATION (07:33)
[2023-10-21 08:51] LABS: Partial Thromboplast Time 56.8 Seconds (24.1-36.2)
--- NOTE | 2023-10-21 09:38 | PN_ITS ---
Subjective Subjective Mr. George is a 58-year-old diabetic male seen at bedside today for follow-up and evaluation of Charcot foot deformity to the right lower extremity. Patient has completed his CT scan.Patient is currently on high flow oxygen. He continues get IV antibiotics through the IV. He also admitted that he was short of breath and wheezing last night. He did have a chest x-ray done and states that he has pneumonia. He denies trauma. Denies constitutional symptoms. No other pedal complaints at this time. Objective Data Objective Data Vital Signs: Vital Signs Temp Pulse Resp BP Pulse Ox O2 Del Method O2 Flow Rate 100 F H 89 19 H 109/38 L 90 High Flow 10 10/21/23 06:51 10/21/23 07:18 10/21/23 07:18 10/21/23 06:51 10/21/23 08:18 10/21/23 08:18 10/21/23 08:18 Oxygen Flow Rate (L/min) 10 Oxygen Delivery Method High Flow Weight: 89.1 kg Body Mass Index (BMI) 30.7 Intake & Output: Intake and Output for Last 24 Hours 10/19/23 10/20/23 10/21/23 23:59 23:59 23:59 Intake Total 3641.25 / 4491.25 4131.01 / 4631.01 2245 / 2245 Output Total 1175 / 1675 800 / 800 Balance 3641.25 / 3991.25 2956.01 / 2956.01 1445 / 1445 Lab / Micro Data 10/21/23 04:32 10/21/23 04:32 Labs: Laboratory Results - last 24 hr 10/20/23 11:35: POC Glucose 213 H 10/20/23 15:30: APTT 68.0 H 10/20/23 15:33: POC Glucose 225 H 10/20/23 21:29: POC Glucose 103 10/20/23 22:29: APTT 135.4 H* 10/21/23 04:32: WBC 8.8, RBC 3.11 L, Hgb 8.1 L, Hct 27.1 L, MCV 87.1, MCH 26.0 L , MCHC 29.9 L D, RDW Std Deviation 50.6 H, RDW Coeff of Cl 15.9 H, Plt Count 268, MPV 10.3, Immature Gran % (Auto) 0.600, Neut % (Auto) 82.8 H, Lymph % (Auto) 6.9 L, [place] % (Auto) 8.8, Eos % (Auto) 0.3, Baso % (Auto) 0.6, Absolute Neuts (auto) 7.3, Absolute Lymphs (auto) 0.61 L, Nucleated RBC % 0, Differential Comment SCANNED, Sodium 131 L, Potassium 4.7, Chloride 103, Carbon Dioxide 19.0 L, Anion Gap 9, BUN 22 H, Creatinine 1.59 H, Estim Creat Clear Calc 52.62, Est GFR (MDRD) Af Amer 57 L, Est GFR (MDRD) Non-Af 47 L, BUN/Creatinine Ratio 13.8, Glucose 351 H, Calcium 7.7 L, Vancomycin Trough 15.0 10/21/23 04:46: POC Glucose 347 H 10/21/23 06:48: POC Glucose 341 H 10/21/23 08:02: APTT 56.8 H Micro: Microbiology 10/19/23 13:00 Blood Culture (Wb) - Anticubital Left Blood Culture - Preliminary No growth in 48 hours. 10/19/23 13:10 Blood Culture (Wb) - Anticubital Right Blood Culture - Preliminary No growth in 48 hours. Radiography Diagnostic Testing: Radiology Impression Chest X-Ray 10/21/23 05:55 IMPRESSION: Large right lower lung consolidation with layering effusion concerning for pneumonia. Mild diffuse interstitial edema. Trace left effusion. Electronically Signed: Sahil Johns MD at 7:44 EST Reading Location ID and State: [facility] / [place] Tel , Service support , Physical Exam Narrative Vascular: DP and PT pulses are bounding to the right lower extremity. CFT is within normal limits. Skin temperature is warm to warm from proximal ankle to distal digits with focal increase appreciated to the right ankle. Nonpitting edema appreciated to the right lower extremity. Neurological: Light touch is intact. Protective sensation is absent. Dermatological: No ulcerations or abrasions are appreciated to the right lower extremity. Nonpitting edema appreciated to the right lower extremity. Toenails 1 through 5 are thickened elongated discolored with evidence of subungual debris's. Skin is supple and well-hydrated. Musculoskeletal: Muscle strength deferred. Patient is unable to dorsiflex, plantarflex, invert or britt secondary to rigid contracture and valgus tilt to the right lower extremity ankle. No pain with calf compression. Assessment & Plan Assessment/Plan (1) Charcot's joint of right ankle: PLAN: Patient was examined and evaluated. All findings were discussed with the patient. All questions were answered to the patient's satisfaction. Weightbearing status: No weightbearing to the right lower extremity. Full weightbearing to the left lower extremity. After reviewing the CT scan there shows evidence of increased fracture deformity with dislocation of the right ankle, secondary to Charcot changes. Will plan for surgical intervention tomorrow, , 10/22/2023 at 330. Procedure will consist of partial excision of tibia, partial excision of talus to the right lower extremity, to rule out any osteomyelitis following staged surgical procedures. Patient is to be n.p.o. midnight tonight. This would all be part of a 3 staged surgical process. Tomorrow surgery will be stage I. Stage II will be application and realignment of the right lower extremity with external fixator application. Stage III will be intramedullary nail fixation after bone consolidation is seen approximately 6 to 8 weeks after stage II opera tion. This will all be done on a outpatient basis. WBC: 11.6 -> 6.4 -> 8.8 ESR: 78 CRP:257.00 HbA1c: 8.9 (10/20/23) Glu: 431, patient needs to continue strict blood sugar control. Please continue to provide strict blood sugar control and optimize patient during this visit. Medicine: On board, medical management, IV antibiotics vancomycin, meropenem Podiatry will continue to follow while patient is in house. Please reach out to Dr. Cabrales with any questions or concerns. Thank you for letting me be involved in the patient's care! (2) Osteomyelitis, ankle and foot: (3) Diabetes mellitus with neuropathy:
[2023-10-21] MEDS: Pantoprazole Sodium 20 MG Tablet PO ×2 (09:41→22:02)
[2023-10-21] MEDS: Famotidine 20 MG Tablet PO ×2 (09:41→22:02)
[2023-10-21] MEDS: Acetaminophen 500 MG Tablet 1000 MG PO ×3 (09:44→22:24)
[2023-10-21] MEDS: Insulin Lispro 100 UNIT/ML INSULN.PEN 13 UNIT SC ×3 (09:49→16:09)
[2023-10-21 12:19] LABS: Bedside Glucose 431 mg/dL (74-106)
--- NOTE | 2023-10-21 13:33 | PCM.CONS.GEN ---
Assessment & Plan Assessment/Plan (1) Osteomyelitis, ankle and foot: PLAN: CT done, suspected osteo. Prior wound cxs with pseudomonas. Fever improved. OR with Dr. Cabrales planned for tomorrow. Cont empiric vanc/vaibhav for now. Will follow, thank you (2) Diabetes mellitus with neuropathy: HPI Consult Data Date of Consult: 10/21/23 HPI Narrative Reason for Consultation: osteo HPI Narrative: CARLOS EDUARDO JULES, is a 58 M with h/o DM, CAD, COPD, presented 10/19 with 2-3 days of moderate R ankle pain, unable to bear weight on it, associated with fever and chills. Also with some new cough and sputum. No n/v/d. No recent abx. No drainage from foot. Admitted on vanc/zosyn, still with fever, so changed to vanc/vaibhav 10/20. Feeling better, OR planned with podiatry tomorrow. Full ROS performed and neg except as noted above. [facility] Medical History Anemia Anxiety Chronic pain Congestive heart failure (CHF) COPD (chronic obstructive pulmonary disease) Coronary artery disease Current use of insulin Depression Diabetes Former smoker GERD (gastroesophageal reflux disease) GI bleed High cholesterol History of stress test Hypertension Myocardial infarct Osteoarthritis Pulmonary embolism Sleep apnea TIA (transient ischemic attack) Home Medications alprazolam 0.5 mg tablet 0.5 mg PO TID PRN Anxiety 01/17/21 [History Last Taken Unknown] insulin aspart U-100 100 unit/mL (3 mL) subcutaneous pen (Novolog FlexPen U-100 Insulin aspart) See Rx Instructions .Route .COMPLEX diabetes 01/17/21 [History Last Taken 01/17/21 12:00 7 units] nitroglycerin 0.4 mg sublingual tablet 0.4 mg sublingual PRN PRN Chest Pain 01/17/21 [History Last Taken Unknown] rosuvastatin 40 mg tablet 40 mg PO QHS cholesterol 01/17/21 [History Last Taken Unknown] tamsulosin 0.4 mg capsule 0.4 mg PO QHS urine flow 01/17/21 [History Last Taken 01/16/21] insulin detemir U-100 100 unit/mL (3 mL) subcutaneous pen (Levemir FlexTouch U-100 Insulin) See Rx Instructions .Route .COMPLEX diabetes 10/29/22 [History Last Taken Unknown] losartan 25 mg tablet 25 mg PO QHS blood pressure 10/29/22 [History Last Taken Unknown] apixaban 5 mg tablet (Eliquis) 5 mg PO BID blood thinn 10/19/23 [History Last Taken Unknown] famotidine 20 mg tablet 20 mg PO BID GERD 10/19/23 [History Last Taken Unknown] gabapentin 800 mg tablet 800 mg PO TID nerve pain 10/19/23 [History Last Taken Unknown] hydrocodone-acetaminophen 5-325mg 5mg-325mg 1 tab PO TID pain 10/19/23 [History Last Taken Unknown] pantoprazole 40 mg tablet,delayed release 20 mg PO BID gerd 10/19/23 [History Last Taken Unknown] trazodone 50 mg tablet 50 mg PO QHS sleep 10/19/23 [History Last Taken Unknown] Allergy/AdvReac Type Severity Reaction Status Date / Time No Known Allergies Allergy Verified 10/19/23 12:41 Family History Mother Cancer Mother w/ Lung CA, tobacco use concurrent history. Father Heart disease Surgical History H/O cardiac catheterization Hx of CABG (~2013) Social History household members: none Smoking Status: Never smoker alcohol intake: never Physical Exam Const alert, oriented x3 and no apparent distress General Appearance: cooperative HEENT normocephalic and head/scalp atraumatic Neck supple and No nodes Resp clear to auscultation bilaterally Auscultation: diminished lung sounds Cardio regular rate and regular rhythm GI soft to palpation, non-tender and non-distended Extremity General Extremity: edema Skin no rashes or lesions noted Skin Narrative: R lower leg wrapped Neuro CN's II-XII intact bilaterally Lab / Micro Data Attestation: I reviewed the patient's lab results. 10/21/23 04:32 10/21/23 04:32 Labs: Laboratory Results - last 24 hr 10/20/23 15:30: APTT 68.0 H 10/20/23 15:33: POC Glucose 225 H 10/20/23 21:29: POC Glucose 103 10/20/23 22:29: APTT 135.4 H* 10/21/23 04:32: WBC 8.8, RBC 3.11 L, Hgb 8.1 L, Hct 27.1 L, MCV 87.1, MCH 26.0 L, MCHC 29.9 L D, RDW Std Deviation 50.6 H, RDW Coeff of Cl 15.9 H, Plt Count 268, MPV 10.3, Immature Gran % (Auto) 0.600, Neut % (Auto) 82.8 H, Lymph % (Auto) 6.9 L, [place] % (Auto) 8.8, Eos % (Auto) 0.3, Baso % (Auto) 0.6, Absolute Neuts (auto) 7.3, Absolute Lymphs (auto) 0.61 L, Nucleated RBC % 0, Differential Comment SCANNED, Sodium 131 L, Potassium 4.7, Chloride 103, Carbon Dioxide 19.0 L, Anion Gap 9, BUN 22 H, Creatinine 1.59 H, Estim Creat Clear Calc 52.62, Est GFR (MDRD) Af Amer 57 L, Est GFR (MDRD) Non-Af 47 L, BUN/Creatinine Ratio 13.8, Glucose 351 H, Calcium 7.7 L, Vancomycin Trough 15.0 10/21/23 04:46: POC Glucose 347 H 10/21/23 06:48: POC Glucose 341 H 10/21/23 08:02: APTT 56.8 H 10/21/23 11:50: POC Glucose 431 H Micro: Microbiology 10/21/23 11:00 Mucosa - Nose SARS-CoV-2, Influenza & RSV (PCR) - Final 10/19/23 13:00 Blood Culture (Wb) - Anticubital Left Blood Culture - Preliminary No growth in 48 hours. 10/19/23 13:10 Blood Culture (Wb) - Anticubital Right Blood Culture - Preliminary No growth in 48 hours. Imaging Radiology Impression Chest X-Ray 10/21/23 05:55 IMPRESSION: Large right lower lung consolidation with layering effusion concerning for pneumonia. Mild diffuse interstitial edema. Trace left effusion. Electronically Signed: Sahil Johns MD at 7:44 EST Reading Location ID and State: [facility] / [place] Tel , Service support ,
[2023-10-21] MEDS: guaiFENesin/D-Methorphan TAB.SR.12H 1 TABLET PO ×2 (15:02→22:02)
[2023-10-21 15:56] LABS: Partial Thromboplast Time 63.9 Seconds (24.1-36.2)
[2023-10-21 16:32] LABS: Bedside Glucose 391 mg/dL (74-106)
[2023-10-21] MEDS: HEPARIN/D5w 25,000 UNITS 25,000 UNITS/250 ML IV.SOLN. 9 UNITS CONT INF (20:29)
[2023-10-21] MEDS: Tamsulosin HCl 0.4 MG Capsule PO (22:01)
[2023-10-21] MEDS: traZODone 50 MG Tablet PO (22:01)
[2023-10-21] MEDS: Insulin Glargine-YFGN 100 UNIT/ML Pen 40 UNIT SC (22:02)
[2023-10-21] MEDS: Atorvastatin Calcium 80 MG Tablet PO (22:02)
[2023-10-21] MEDS: oxyCODONE 5 MG Tablet PO (22:24)
[2023-10-21 22:37] LABS: Bedside Glucose 304 mg/dL (74-106)
[2023-10-21 22:57] LABS: Partial Thromboplast Time 69.9 Seconds (24.1-36.2)
[2023-10-21] MEDS: ALPRAZolam 0.25 MG Tablet PO (23:38)
[2023-10-22] VITALS (14 sets, daily range): BP systolic 106–150; BP diastolic 55–79; PULSE 92–107; RESP 16–20; TEMP 36.3–36.7; O2SAT 90–96; BMI 30.7
[2023-10-22] MEDS: Vancomycin HCl 750 MG in 0.9% Normal Saline (250mL Bag) 250 ML 250 MG IV (05:08)
[2023-10-22 05:45] LABS: Absolute Lymphocyte Count 0.48 X10^3/uL (0.83-4.51); Basophil# 0.02 X10^3/uL; Basophil% 0.2 % (0-1); Hematocrit 24.5 % (40-54); Hemoglobin 7.6 g/dL (13.0-16.5); Lymphocyte # 0.48 X10^3/ul (0.83-4.51); Lymphocyte % 4.4 % (19-41); Mean Corpuscular Hgb 26.3 pg (27.0-32.0); Mean Corpuscular Volume 84.8 fL (80-94); Mean Platelet Vol. 10.3 fl (6.2-12.0); Monocyte# 0.33 X10^3/uL; NRBC Flagged by Analyzer 0 % (0-5); Neutrophil # 9.98 X10^3/uL (2.7-7.7); Neutrophil % 91.7 % (47-70); POSITIVE DIFFERENTIAL YES; Platelet Count 258 K/mm3 (150-450); RBC Distribution Width CV 15.6 % (11.6-14.6); RBC Distribution Width SD 48.6 fl (35.1-43.9); Red Blood Count 2.89 M/mm3 (4.6-6.2); White Blood Count 10.9 K/mm3 (4.4-11.0)
[2023-10-22 06:08] LABS: Partial Thromboplast Time 66.7 Seconds (24.1-36.2)
[2023-10-22 06:38] LABS: Anion Gap 6 (5-15); BUN 28 mg/dL (7-18); BUN/Creat Ratio 19.9 RATIO (10-20); Calcium,Total 8.4 mg/dL (8.5-10.1); Chloride 109 mmol/L (98-107); Creatinine, Serum 1.41 mg/dL (0.70-1.30); EST Glomerular Filtration Rate 54 mL/min (>60); Est Glom Filt Rate - Afr Amer 66 mL/min (>60); Estimated Creatinine Clearance 59.34 ml/min; Glucose 425 mg/dL (74-106); Potassium 5.1 mmol/L (3.5-5.1); Sodium Level 133 mmol/L (136-145)
[2023-10-22] MEDS: Meropenem 1 GM in 0.9% Normal Saline (100mL MB+) 100 ML IV ×3 (06:39→21:47)
[2023-10-22] MEDS: Insulin Lispro 100 UNIT/ML INSULN.PEN SC ×4 (06:44→21:45)
[2023-10-22] MEDS: Morphine 2 MG/ML Syringe IV ×2 (06:51→19:01)
[2023-10-22 07:04] LABS: Bedside Glucose 365 mg/dL (74-106)
[2023-10-22] MEDS: Ipratropium/Albuterol Sulfate 3 ML AMPUL.NEB INHALATION (07:31)
[2023-10-22] MEDS: Budesonide Respules 0.5 MG/2 ML AMPUL.NEB. INHALATION ×2 (07:32→19:12)
[2023-10-22] MEDS: Insulin Lispro 100 UNIT/ML INSULN.PEN 13 UNIT SC (08:49)
[2023-10-22] MEDS: Famotidine 20 MG Tablet PO ×2 (08:50→21:42)
[2023-10-22] MEDS: Pantoprazole Sodium 20 MG Tablet PO ×2 (08:50→21:42)
[2023-10-22] MEDS: oxyCODONE 5 MG Tablet PO ×2 (08:58→21:43)
[2023-10-22] MEDS: Acetaminophen 500 MG Tablet 1000 MG PO ×3 (08:58→22:41)
[2023-10-22 09:11] LABS: Bedside Glucose 381 mg/dL (74-106)
--- NOTE | 2023-10-22 09:13 | CPS ---
This RT talked to pt about coming off Airvo, Pt didnt want to because he states the Airvo was more comfortable This RT explained to him that the Airvo was not something he could take home and that his oxygen needs were not high enough to require it. Pt understood, RT placed pt on 3L NC at this time, Pt sat was 100%. Airvo on standby if needed again.
--- NOTE | 2023-10-22 10:10 | NURSING ---
Eileen KHAN logistics clerk gave pt scheduled insulin this morning for a blood sugar of 365. This RN rechecked blood sugar this morning and got 381. 13 units of Inuslin (see EMAR) were then given by this RN. Pt npo for procedure today but also had steroid.
--- NOTE | 2023-10-22 10:53 | PN.HOSP_ITS ---
Reason for Visit Reason for Visit: Diagnoses Type 1 diabetes mellitus with diabetic polyneuropathy (10/19/23) Type 2 diabetes mellitus with diabetic neuropathy, unspecified (10/19/23) Atherosclerosis of coronary artery bypass graft(s) without angina pectoris (10/19/23) Gastro-esophageal reflux disease without esophagitis (10/19/23) Cellulitis of right lower limb (10/19/23) Charcot's joint, right ankle and foot (10/19/23) Osteomyelitis, unspecified (10/19/23) Acute kidney failure, unspecified (10/19/23) Hyperglycemia, unspecified (10/19/23) Objective Data Objective Data Vital Signs: Vital Signs Temp Pulse Resp BP Pulse Ox O2 Del Method O2 Flow Rate 97.8 F 107 H 18 141/72 H 93 Nasal Cannula 3 10/22/23 08:45 10/22/23 08:45 10/22/23 08:45 10/22/23 08:45 10/22/23 08:45 10/22/23 09:00 10/22/23 09:00 FiO2 28 10/22/23 07:30 Oxygen Flow Rate (L/min) 3 Oxygen Delivery Method Nasal Cannula Weight: 196 lb 6.91 oz Body Mass Index (BMI) 30.7 Intake & Output: Intake and Output for Last 24 Hours 10/20/23 10/21/23 10/22/23 23:59 23:59 23:59 Intake Total 4131.01 / 4631.01 3255.87 / 3605.87 735 / 735 Output Total 1175 / 1675 800 / 1300 900 / 900 Balance 2956.01 / 2956.01 2455.87 / 2305.87 -165 / -165 Lab / Micro Data 10/22/23 05:35 10/22/23 05:35 Labs: Laboratory Results - last 24 hr 10/21/23 11:50: POC Glucose 431 H 10/21/23 15:20: APTT 63.9 H 10/21/23 16:06: POC Glucose 391 H 10/21/23 21:59: POC Glucose 304 H 10/21/23 22:20: APTT 69.9 H 10/22/23 05:35: WBC 10.9, RBC 2.89 L, Hgb 7.6 L, Hct 24.5 L, MCV 84.8, MCH 26.3 L, MCHC 31.0 L, RDW Std Deviation 48.6 H, RDW Coeff of Cl 15.6 H, Plt Count 258, MPV 10.3, Immature Gran % (Auto) 0.700, Neut % (Auto) 91.7 H, Lymph % (Auto) 4.4 L, [place] % (Auto) 3.0, Eos % (Auto) 0.0, Baso % (Auto) 0.2, Absolute Neuts (auto) 10.0 H, Absolute Lymphs (auto) 0.48 L, Nucleated RBC % 0, APTT 66.7 H, Sodium 133 L, Potassium 5.1, Chloride 109 H, Carbon Dioxide 18.0 L, Anion Gap 6, BUN 28 H, Creatinine 1.41 H, Estim Creat Clear Calc 59.34, Est GFR (MDRD) Af Amer 66, Est GFR (MDRD) Non-Af 54 L, BUN/Creatinine Ratio 19.9, Glucose 425 H, Calcium 8.4 L 10/22/23 06:43: POC Glucose 365 H 10/22/23 08:37: POC Glucose 381 H Micro: Microbiology 10/21/23 16:15 Sputum, Expectorated/Coughed Respiratory Culture - Pre liminary 10/21/23 17:13 Urine, Clean Catch Streptococcus pneumoniae Antigen (M - Final 10/21/23 17:13 Urine, Clean Catch Legionella Antigen - Final 10/21/23 11:00 Mucosa - Nose SARS-CoV-2, Influenza & RSV (PCR) - Final 10/19/23 13:00 Blood Culture (Wb) - Anticubital Left Blood Culture - Preliminary No growth in 48 hours. 10/19/23 13:10 Blood Culture (Wb) - Anticubital Right Blood Culture - Preliminary No growth in 48 hours. Physical Exam Narrative Seen and examined. Patient was afebrile last night, first time since admission.patient shortness of breath and wheezing also better. On 3 L of oxygen. Physical exam General: Alert, Oriented x3, Cooperative HEENT: Atraumatic, PERRLA, EOMI, Normocephalic Oral: No Gingival or Mucosal Lesions/ Ulcerations Neck: Supple, No JVD, Negative Carotid Bruits Chest wall/Lungs: Air entry diminished in bilateral lung bases. Bilateral wheezing better. No dyspnea at rest. Cardiovascular: Regular rate, Regular Rhythm, Normal S1, Normal S2, No M/G/R Abdomen: Bowel Sounds Present, Soft, Non Tender, Non-Distended : No dysuria. No renal angle tenderness. No suprapubic tenderness. Extremities: No edema, Capillary Refill Less than 3 Seconds Skin: Mild redness on the medial aspect. Musculoskeletal: Tenderness around right ankle and foot has improved. Patient stated he can put weight on it. Right ankle and right foot is deformed from previous surgery and Charcot's joint. Neurological: Cranial nerves II-XII grossly intact, DTR 2+/4. No acute focal neurological deficit. Psych/Mental Status: Flat affect. Assessment & Plan Assessment/Plan (1) Charcot's joint of right ankle: (2) Cellulitis of foot, right: (3) CAD (coronary artery disease): QUALIFIERS: Coronary Disease-Associated Artery/Lesion type: bypass graft [place] vs. transplanted heart: [place] heart Associated angina: without angina Qualified Code(s): I25.810 - Atherosclerosis of coronary artery bypass graft(s) without angina pectoris (4) MK (acute kidney injury): (5) Acute hyperglycemia: (6) GERD (gastroesophageal reflux disease): (7) Diabetes mellitus type 1: QUALIFIERS: Diabetes mellitus complication status: with neurologic complications Diabetes mellitus complication detail: with polyneuropathy Qualified Code(s): E10.42 - Type 1 diabetes mellitus with diabetic polyneuropathy PLAN: Plan 58-year-old gentleman is admitted with right foot and ankle pain that started 3 days ago without any obvious injury. Has history of Charcot right foot and wears a brace and had surgery and antibiotics in the past for sepsis secondary to acute right ankle medial malleolus abscess cellulitis and septic arthritis in December 2020. This time, no fever or chills. 1. R ankle pain in setting of diabetes and charcot foot with concern for deep infection/osteomyelitis -WBC slightly elevated at 11.6 w/ left shift, repeat 1 in normal but patient still having fever and chills. -CRP 257 with ESR 75. Repeat CRP also high. -Foot XR Charcot deformity of tarsal bones with evidence of postop changes and severe OA of hindfoot with soft tissue swelling -Blood culture from admission is pending. Repeat blood culture ordered -Cont IV antibiotics, vancomycin and Zosyn. Podiatry was consulted. ID consulted as patient is still having fever on IV vancomycin and Zosyn. -Pain control w/ scheduled tylenol and prn medications -PT/OT 10/21: On 10/20, I discussed with Dr. Gandara the antibiotic was changed from IV Zosyn to meropenem. afebrile in the morning since 9 AM. Heart rate also 88/min most tachycardia last night. Patient was evaluated by ID. Prior wound culture showed Pseudomonas. Plan for or tomorrow with Dr. Webster. 10/22: Patient responding well to IV antibiotics, and fluid. Plan for bone biopsy today. 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 Patient baseline estimated creatinine 79 mm/min. -Cr 1.64 in ED with variable baseline, last value 0.94 10/31/2210/20: BUNs/creatinine better 19/1.41. -May have MK w/ underlying infection though cannot r/o component of CKD especially given last check was a year ago and pt has diabetes -Continue IV fluid -Hold home losartan 10/21: Creatinine is elevated 1.59. BUN 22. Anion gap 9 10/22: Improvement in BUN/creatinine 28/1.41.Serum sodium 133 since patient baseline sodium is stays around 134-136 #Hx CAD -s/p 5 vessel cabg around 10 years ago -Continue home medications #Type 1 diabetes mellitus -Glucose checks and sliding scale insulin -Continue long acting insulin- advises he uses 50u long acting at bedtime and SSI 10/22: Glucoses are high because of IV Solu-Medrol. Lantus insulin and Humalog insulin doses increased accordingly #Chronic BPH with obstruction -Continue home medications #Chronic normocytic anemia -Likely 2/2 chronic disease -Appears to be at baseline -Continue to monitor #GERD -Continue PPI Recent pulmonary embolism: Eliquis was filled on 10/08. Patient on IV heparin drip. Most likely COPD with COPD exacerbation, probably due to pneumonia:Patient is stated that he was smoking a pack per day since teenage quit in 2009. About 30 pack years of smoking. Started on DuoNeb. Add IV Solu-Medrol. Chest x-ray initially reviewed and shows patchy infiltrate on right middle and lower lobe suggestive of pneumonia. Chest x-ray officially reported large right lower lung consolidation with layering effusion and I agree with that. Pneumonia workup ordered. SARS-CoV-2, influenza and RSV negative. #DVT ppx: SCDs Clinical Impression(s) from Imaging Studies Foot X-Ray 10/19/23 13:18 IMPRESSION: Charcot deformity of the tarsal bones with evidence of postoperative changes and severe osteoarthritis of the hindfoot. Soft tissue swelling. Lower Extremity CT 10/20/23 07:40 IMPRESSION: Charcot foot as described with findings suggestive of possible osteomyelitis as described Chest X-Ray 10/21/23 05:55 IMPRESSION: Large right lower lung consolidation with layering effusion concerning for pneumonia. Mild diffuse interstitial edema. Trace left effusion. Officially reported as Microbiology Past 72 Hours 10/21/23 11:00 Mucosa - Nose SARS-CoV-2, Influenza & RSV (PCR) - Final 10/19/23 13:00 Blood Culture (Wb) - Anticubital Left Blood Culture - Preliminary No growth in 48 hours. 10/19/23 13:10 Blood Culture (Wb) - Anticubital Right Blood Culture - Preliminary No growth in 48 hours. Laboratory Results 10/20/23 15:30: APTT 68.0 H 10/20/23 15:33: POC Glucose 225 H 10/20/23 21:29: POC Glucose 103 10/20/23 22:29: APTT 135.4 H* 10/21/23 04:32: WBC 8.8, RBC 3.11 L, Hgb 8.1 L, Hct 27.1 L, MCV 87.1, MCH 26.0 L , MCHC 29.9 L D, RDW Std Deviation 50.6 H, RDW Coeff of Cl 15.9 H, Plt Count 268, MPV 10.3, Immature Gran % (Auto) 0.600, Neut % (Auto) 82.8 H, Lymph % (Auto) 6.9 L, [place] % (Auto) 8.8, Eos % (Auto) 0.3, Baso % (Auto) 0.6, Absolute Neuts (auto) 7.3, Absolute Lymphs (auto) 0.61 L, Nucleated RBC % 0, Differential Comment SCANNED, Sodium 131 L, Potassium 4.7, Chloride 103, Carbon Dioxide 19.0 L, Anion Gap 9, BUN 22 H, Creatinine 1.59 H, Estim Creat Clear Calc 52.62, Est GFR (MDRD) Af Amer 57 L, Est GFR (MDRD) Non-Af 47 L, BUN/Creatinine Ratio 13.8, Glucose 351 H, Calcium 7.7 L, Vancomycin Trough 15.0 10/21/23 04:46: POC Glucose 347 H 10/21/23 06:48: POC Glucose 341 H 10/21/23 08:02: APTT 56.8 H 10/21/23 11:50: POC Glucose 431 H Charges/Coding Visit Charges Inpatient E&M: 52091 Subs Hosp L2
[2023-10-22] MEDS: Sodium Ferric Gluconat/Sucrose 250 MG in 0.9% Normal Saline (250mL Bag) 250 ML 135 MG IV (11:15)
[2023-10-22] MEDS: Insulin Glargine-YFGN 100 UNIT/ML Pen 20 UNIT SC (11:27)
[2023-10-22 12:09] LABS: Bedside Glucose 332 mg/dL (74-106)
--- NOTE | 2023-10-22 14:31 | NURSING ---
Down to surgery at this time via bed.
[2023-10-22] MEDS: Lactated Ringers 1,000 ML 15 ML IV (15:06)
--- NOTE | 2023-10-22 15:30 | BON_PTH ---
PATIENT: CARLOS EDUARDO JULES LOC: [facility] U#:[id number] AGE/SX: 58/M ROOM: CT314 RE10/19/[address]: Dr. Tod Judge MD : 1965 BED: 1 DIS: 10/26/2023 SPEC #: [id number] RECD: 10/23/23 10:12 STATUS: ELISE REMary #: [id number] JOEL: 10/22/23 15:[address]: Silvino Cabrales DEPT: SURGICAL PATHOLOGY RECD BY: Radha Mcbride ENTERED: 10/23/23 10:14 SP TYPE: Bone OTHR DR: MD Dr. Silvino Ingram, DPM MD Dr. Sharmin Carter MD Dr. Robert Leininger, MD Tissues: A - Tibia, NOS B - Bone of foot, NOS Procedures: Decalcification bone/plaque Surgery Specimen Level V Comments: @ Ordering doctor for DEC edited from to DR.JMOSS Krissy CRAIG at 10/23/23 1418 @ Ordering doctor for SUIII edited from to @ cathy CRAIG at 10/23/23 1418 @ Submitting doctor edited from to DR.JMOSS Krissy CRAIG at 10/23/23 1418 HEADER OPERATION: RLE partial excision of tibia and talus PRE-OP DIAGNOSIS: Charcot's joint of right ankle, osteomyelitis ankle and foot TISSUE SUBMITTED: A - Partial excision tibial right lower extremity, B - Partial excision talus right lower extremity MICROSCOPIC DIAGNOSIS A. Tibia right lower extremity bone, partial excision: Pieces of bone with reactive changes. Negative for acute osteomyelitis. B. Talus right lower extremity bone, partial excision: A piece of bone with adherent fibroconnective tissue with reactive changes and old hemorrhage. Negative for acute osteomyelitis. SJ:dandre 10/27/2023 COMMENT Clinical correlation and appropriate follow up are necessary. MICROSCOPIC DESCRIPTION Slides are reviewed. GROSS DESCRIPTION A - Received in fixative is one container labeled with the patient's name and designated partial excision tibial right lower extremity. The specimen consists of two pieces of bone measuring in aggregate 0.6 x 0.3 x 0.1 cm. The entire specimen is submitted in one cassette after decalcification. B - Received in fixative is one container labeled with the patient's name and designated partial excision talus right lower extremity. The specimen consists of a piece of bone measuring 0.4 x 0.4 x 0.1 cm. The entire specimen is submitted in one cassette after decalcification. / SJ:rg 10/23/2023 TC:5 CPT: 04077 x2, 40296 x2
--- NOTE | 2023-10-22 15:30 | RAD_ITS ---
STUDY: X-RAY - RIGHT ANKLE REASON FOR EXAM: Male, 58 years old. PAIN -- R TECHNIQUE: One fluoroscopic guided view(s) of the ankle. COMPARISON: None. FINDINGS: 17 views of the ankle were obtained utilizing fluoroscopic guidance 25 seconds of fluoroscopic time were utilized during the study.. . Single view was obtained following the exam. For more complete information recommend correlation with surgical notes RAD/Ankle 2 Views IMPRESSION: Fluoroscopic guided study of the right ankle. Electronically Signed: Doug Dyer MD at 17:45 EST ,
[2023-10-22 15:40] LABS: Bedside Glucose 314 mg/dL (74-106)
[2023-10-22] MEDS: Bupivacaine Mpf 0.5% 30 ML VIAL (16:58)
--- NOTE | 2023-10-22 17:02 | PCM.OPRPT ---
Problems Associated Problem List Diagnoses (1) Osteomyelitis, ankle and foot: (2) Charcot's joint of right ankle: (3) Diabetes mellitus with neuropathy: Report of Operation Date of Procedure: 10/22/23 Pre-Operative Diagnosis: 1. Charcot, right lower extremity 2. Osteomyelitis, right lower extremity 3. Diabetes mellitus type 2 with peripheral neuropathy Post-Operative Diagnosis: 1. Charcot, right lower extremity 2. Osteomyelitis, right lower extremity 3. Diabetes mellitus type 2 with peripheral neuropathy Surgery/Procedure Performed:: 1. Partial excision of tibia, right lower extremity 2. Partial excision of talus, right lower extremity Description of Surgical Findings:: Evidence of soft bone secondary to Charcot like changes to the right lower extremity Surgeon: Silvino Cabrales inserter operator: None Type of Anesthesia: Local and MAC Anesthesiologist: Logan Brown Special Medications: Per anesthesia Specimen's removed: 1. Partial excision of tibia, microbiology for culture and sensitivity 2. Partial excision of talus, microbiology for culture and sensitivity 3. Partial excision of tibia, pathology 4. Partial excision of talus, pathology Drains: None Estimated Blood Loss (mL): 5 mL Fluids Replaced: Per anesthesia Description of Procedure: Indications For Operation: Mr. George is a 58-year-old diabetic male who was admitted to [facility] for concern of right lower extremity infection secondary to Charcot foot deformity. Patient was ultimately admitted for medicine reasons consisting of shortness of breath and tachycardia. Patient was diagnosed with pneumonia and when he is on the floor. He is currently getting IV antibiotics for concerns of osteomyelitis of the right lower extremity. Patient has a past medical history of Charcot foot deformity to the right foot and ankle. He currently ambulates in a Nulato boot as tolerated. He had a past reconstruction by an outside provider which has collapsed creating a rigid valgus tilt to the right ankle. Due to the increased inflammatory markers, there is concern for osteomyelitis to the tibia and talus region. Due to deformity of the right lower extremity it has been deemed necessary at this time to take the patient to the operating room to perform the above procedure to help cure the patient from bone infection and prepare for stage reconstruction of the right lower extremity when able. The nature of the problem, anticipated procedures, postop recovery/convalences and risk/complications include but not limited to infection, wound healing complications, digital amputation, hypertrophic scarring, numbness, tingling, chronic pain, CRPS, over and under correction, recurrence of deformity, DVT and or PE and the need for further surgery have been discussed in great detail with the patient. All questions have been answered to the patient's satisfaction. There are no guarantees given as to the outcome of the procedure. Description of Procedure: Under mild sedation, the patient was brought into the operating room and placed on the operating table in supine position. Once the patient was under monitored anesthesia care anesthesia, the right lower extremity was blocked using approximately 20 cc 0.5% Marcaine plain. No tourniquet was used for this case. Next, the right lower extremity was prepped and draped in normal aseptic manner. Next, a timeout was then undertaken verifying the correct patient, extremity, visibility of preoperative markings, availability of the equipment. Procedure #1, partial excision of tibia, right lower extremity Next, attention was directed to the medial aspect of the tibia where the patient suffers from a valgus ankle secondary to Charcot deformity. The tibia was marked out using a mini C arm fluoroscopy and Payson. Using a #15 blade, a 1 cm incision was made down to bone. Using hemostats, continued blunt dissection was carried down to bone. Integrity of the bone, tibia was hard at the cortex. Using a Jamshidi needle, 2 samples of the tibia were taken and passed the back table, 1 to be sent off for microbiology culture and sensitivity and the other to be sent off for pathology for gross diagnosis. Procedure #2, partial excision of talus, right lower extremity Next, attention was directed to the talus where the patient suffers from a valgus ankle secondary to Charcot deformity. The talus was marked out using a mini C arm fluoroscopy and Payson. Using a #15 blade, a small separate incision was made. Using hemostats, continued blunt dissection was carried down to bone. Integrity of the bone, talus was soft at the cortex. The soft cortex could be from Charcot like changes versus osteomyelitis. Using a Jamshidi needle, 2 samples of the talus were taken and passed the back table, 1 to be sent off for microbiology culture and sensitivity and the other to be sent off for pathology for gross diagnosis. The patient tolerated the procedure and anesthesia well and apparent satisfactory condition and was transported to the PACU for further monitoring prior to discharge back to the floor. Vital signs stable and vascular status intact to all digits bilateral. Post Operative Plan: Weightbearing: Weightbearing as tolerated in the Nulato walker to the right lower extremity. Full weightbearing to left lower extremity. Antibiotics: IV antibiotics vancomycin and meropenem DVT Prophylaxis: Per medicine Chiang: None Dressing: Betadine soaked Adaptic, dry sterile dressing, single-layer Zhang bandage. X-Rays: Post-operative films taken on the operating room. Pain Medication: Tylenol 1000 mg p.o. every 8 hours Follow-up: Patient is cleared from a podiatry standpoint to be discharged after receiving microbiology cultures and sensitivity. If there is the delay in growth, I will personally follow the patient's cultures and will place the patient on oral antibiotics. If there is concern that oral antibiotics will not be covered I will make recommendations to have the patient follow-up as an outpatient with infectious disease for PICC line antibiotic care. Grafts/Implants Used: None Complications None Admit VTE Documentation VTE Present on Admission: No VTE Mechan Device Prophylaxis: SCD's VTE Pharm Prophylaxis ordered?: Yes
[2023-10-22 18:20] LABS: Vancomycin, Trough Level 19.9 ug/mL (5.0-15.0)
--- NOTE | 2023-10-22 18:31 | PHA.PHARE_ITS ---
Consult Antibiotic Management Pharmacy has been consulted to manage selected antibiotic: Vancomycin Type of Intervention Type of Consult: Follow-up Suspected Infection Suspected Infection: Skin/Soft tissue Prior Doses of Antibiotics Prior Doses of Antibiotics Received/Current Regimen: Currently on vancomycin 750 mg IV Q12H and meropenem 1 gram Q8H Labs Labs: Sodium 133 mmol/L (136-145) L 10/22/23 05:35 Potassium 5.1 mmol/L (3.5-5.1) 10/22/23 05:35 Chloride 109 mmol/L (98-107) H 10/22/23 05:35 Carbon Dioxide 18.0 mmol/L (21.0-32.0) L 10/22/23 05:35 Anion Gap 6 (5-15) 10/22/23 05:35 BUN 28 mg/dL (7-18) H 10/22/23 05:35 Creatinine 1.41 mg/dL (0.70-1.30) H 10/22/23 05:35 Est GFR (MDRD) Af Amer 66 mL/min (>60) 10/22/23 05:35 Est GFR (MDRD) Non-Af 54 mL/min (>60) L 10/22/23 05:35 BUN/Creatinine Ratio 19.9 RATIO (10-20) 10/22/23 05:35 Glucose 425 mg/dL (74-106) H 10/22/23 05:35 Vancomycin Trough 19.9 ug/mL (5.0-15.0) H 10/22/23 17:15 Microbiology Microbiology: Microbiology 10/20/23 15:30 Blood Culture (Wb) - Anticubital Right Blood Culture - Preliminary No growth in 48 hours. 10/21/23 16:15 Sputum, Expectorated/Coughed Gram Stain - Final 10/21/23 17:13 Urine, Clean Catch Streptococcus pneumoniae Antigen (M - Fin al 10/21/23 17:13 Urine, Clean Catch Legionella Antigen - Final 10/21/23 11:00 Mucosa - Nose SARS-CoV-2, Influenza & RSV (PCR) - Final 10/19/23 13:00 Blood Culture (Wb) - Anticubital Left Blood Culture - Preliminary No growth in 48 hours. 10/19/23 13:10 Blood Culture (Wb) - Anticubital Right Blood Culture - Preliminary No growth in 48 hours. Dosing Weight Weight used for dosin.1 kg Estimated Creatinine Clearance Estimated Creatinine Clearance: ~59 Goal Trough Goal Trough: 15-20 mcg/mL Pharmacy Plan for Drug Dosing Pharmacy Plan for Drug Dosing: Vancomycin trough = 19.9, was over 12 hours from last dose. Per calculator predicted actual trough = 20.5. Predicted trough by reducing to 500 mg Q12H = ~13. Will change dose to 1250 mg Q24H, slight decrease in overall daily dose d/t concern for continued accumulation and elevated trough (despite current trough in goal). Pharmacy Service will continue to monitor and adjust dosing as required. Follow-Up Labs Follow-Up Labs: Trough: Vancomycin Date/Time Labs Ordered Labs to be done on [date and time ordered]: 10/24/23 @ 4656
[2023-10-22 18:39] LABS: Bedside Glucose 306 mg/dL (74-106)
[2023-10-22] MEDS: Vancomycin Trough/Random Due 1 LAB MC (18:39)
[2023-10-22] MEDS: Insulin Lispro 100 UNIT/ML INSULN.PEN 20 UNIT SC (18:40)
[2023-10-22] MEDS: 0.9% Saline Lock 10 ML Syringe IV ×2 (19:01→20:20)
[2023-10-22] MEDS: Vancomycin HCl 1,250 MG in 0.9% Normal Saline (250mL Bag) 250 ML 167 MG IV (20:13)
[2023-10-22] MEDS: traZODone 50 MG Tablet PO (21:39)
[2023-10-22] MEDS: Tamsulosin HCl 0.4 MG Capsule PO (21:41)
[2023-10-22] MEDS: APIXABAN 5 MG TABLET PO (21:41)
[2023-10-22] MEDS: Atorvastatin Calcium 80 MG Tablet PO (21:42)
[2023-10-22] MEDS: guaiFENesin/D-Methorphan TAB.SR.12H 1 TABLET PO (21:42)
[2023-10-22] MEDS: Gabapentin 800 MG Tablet PO (21:42)
[2023-10-22] MEDS: Insulin Glargine-YFGN 100 UNIT/ML Pen 40 UNIT SC (21:46)
[2023-10-22 22:10] LABS: Bedside Glucose 188 mg/dL (74-106)
[2023-10-23] VITALS (10 sets, daily range): BP systolic 115–141; BP diastolic 61–76; PULSE 82–100; RESP 18–20; TEMP 36.4–36.9; O2SAT 91–95
[2023-10-23] MEDS: Senna/Docusate Sodium 1 Tablet 2 TABLET PO (00:58)
[2023-10-23] MEDS: Meropenem 1 GM in 0.9% Normal Saline (100mL MB+) 100 ML IV ×3 (06:18→21:29)
[2023-10-23] MEDS: Gabapentin 800 MG Tablet PO ×3 (06:18→21:28)
[2023-10-23] MEDS: Morphine 2 MG/ML Syringe IV (06:20)
[2023-10-23] MEDS: 0.9% Saline Lock 10 ML Syringe IV (06:21)
[2023-10-23] MEDS: Insulin Lispro 100 UNIT/ML INSULN.PEN SC ×4 (06:23→21:29)
[2023-10-23 06:36] LABS: Absolute Lymphocyte Count 0.44 X10^3/uL (0.83-4.51); Absolute Neutrophil Count 10.6 X10^3/uL (2.0-7.7); Basophil# 0.01 X10^3/uL; Basophil% 0.1 % (0-1); Hematocrit 23.7 % (40-54); Hemoglobin 7.2 g/dL (13.0-16.5); Lymphocyte # 0.44 X10^3/ul (0.83-4.51); Lymphocyte % 3.7 % (19-41); Mean Corp Hgb Conc 30.4 g/dL (32-36); Mean Corpuscular Hgb 25.7 pg (27.0-32.0); Mean Corpuscular Volume 84.6 fL (80-94); Mean Platelet Vol. 10.7 fl (6.2-12.0); Monocyte# 0.57 X10^3/uL; Monocyte% 4.8 % (0-10); NRBC Flagged by Analyzer 0.5 % (0-5); Neutrophil # 10.64 X10^3/uL (2.7-7.7); Neutrophil % 90.1 % (47-70); POSITIVE DIFFERENTIAL YES; Platelet Count 319 K/mm3 (150-450); RBC Distribution Width CV 16.1 % (11.6-14.6); RBC Distribution Width SD 50.2 fl (35.1-43.9); White Blood Count 11.8 K/mm3 (4.4-11.0)
[2023-10-23 06:45] LABS: Partial Thromboplast Time 43.6 Seconds (24.1-36.2)
[2023-10-23 06:57] LABS: Bedside Glucose 156 mg/dL (74-106)
[2023-10-23 07:23] LABS: Anion Gap 6 (5-15); BUN 37 mg/dL (7-18); BUN/Creat Ratio 26.4 RATIO (10-20); Calcium,Total 8.8 mg/dL (8.5-10.1); Chloride 108 mmol/L (98-107); EST Glomerular Filtration Rate 55 mL/min (>60); Est Glom Filt Rate - Afr Amer 66 mL/min (>60); Estimated Creatinine Clearance 59.76 ml/min; Glucose 182 mg/dL (74-106); Potassium 4.9 mmol/L (3.5-5.1); Sodium Level 136 mmol/L (136-145)
[2023-10-23] MEDS: Budesonide Respules 0.5 MG/2 ML AMPUL.NEB. INHALATION ×2 (07:49→19:19)
--- NOTE | 2023-10-23 08:19 | PN.HOSP_ITS ---
Reason for Visit Reason for Visit: Diagnoses Type 1 diabetes mellitus with diabetic polyneuropathy (10/19/23) Type 2 diabetes mellitus with diabetic neuropathy, unspecified (10/19/23) Atherosclerosis of coronary artery bypass graft(s) without angina pectoris (10/19/23) Gastro-esophageal reflux disease without esophagitis (10/19/23) Cellulitis of right lower limb (10/19/23) Charcot's joint, right ankle and foot (10/19/23) Osteomyelitis, unspecified (10/19/23) Acute kidney failure, unspecified (10/19/23) Hyperglycemia, unspecified (10/19/23) Objective Data Objective Data Vital Signs: Vital Signs Temp Pulse Resp BP Pulse Ox O2 Del Method O2 Flow Rate 97.8 F 90 18 115/67 91 Nasal Cannula 3 10/23/23 02:15 10/23/23 07:49 10/23/23 07:49 10/23/23 02:15 10/23/23 08:00 10/23/23 08:00 10/23/23 08:00 FiO2 28 10/22/23 07:30 Oxygen Flow Rate (L/min) 3 Oxygen Delivery Method Nasal Cannula Weight: 196 lb 6.91 oz Body Mass Index (BMI) 30.7 Intake & Output: Intake and Output for Last 24 Hours 10/21/23 10/22/23 10/23/23 23:59 23:59 23:59 Intake Total 3255.87 / 3605.87 2445.9 / 2445.9 120 / 120 Output Total 800 / 1300 2000 / 2125 125 / 125 Balance 2455.87 / 2305.87 445.9 / 320.9 -5 / -5 Lab / Micro Data 10/23/23 06:00 10/23/23 06:00 Labs: Laboratory Results - last 24 hr 10/22/23 08:37: POC Glucose 381 H 10/22/23 11:24: POC Glucose 332 H 10/22/23 15:23: POC Glucose 314 H 10/22/23 17:15: Vancomycin Trough 19.9 H 10/22/23 18:20: POC Glucose 306 H 10/22/23 21:45: POC Glucose 188 H 10/23/23 06:00: WBC 11.8 H, RBC 2.80 L, Hgb 7.2 L, Hct 23.7 L, MCV 84.6, MCH 25.7 L, MCHC 30.4 L, RDW Std Deviation 50.2 H, RDW Coeff of Cl 16.1 H, Plt Co unt 319, MPV 10.7, Immature Gran % (Auto) 1.300 H, Neut % (Auto) 90.1 H, Lymph % (Auto) 3.7 L, Chilton % (Auto) 4.8, Eos % (Auto) 0.0, Baso % (Auto) 0.1, Absolute Neuts (auto) 10.6 H, Absolute Lymphs (auto) 0.44 L, Nucleated RBC % 0.5, APTT 43.6 H, Sodium 136, Potassium 4.9, Chloride 108 H, Carbon Dioxide 22.0, Anion Gap 6, BUN 37 H, Creatinine 1.40 H, Estim Creat Clear Calc 59.76, Est GFR (MDRD) Af Amer 66, Est GFR (MDRD) Non-Af 55 L, BUN/Creatinine Ratio 26.4 H, Glucose 182 H, Calcium 8.8 10/23/23 06:23: POC Glucose 156 H Micro: Microbiology 10/20/23 15:30 Blood Culture (Wb) - Anticubital Right Blood Culture - Preliminary No growth in 48 hours. 10/21/23 16:15 Sputum, Expectorated/Coughed Gram Stain - Final 10/21/23 17:13 Urine, Clean Catch Streptococcus pneumoniae Antigen (M - Final 10/21/23 17:13 Urine, Clean Catch Legionella Antigen - Final 10/21/23 11:00 Mucosa - Nose SARS-CoV-2, Influenza & RSV (PCR) - Final 10/19/23 13:00 Blood Culture (Wb) - Anticubital Left Blood Culture - Preliminary No growth in 48 hours. 10/19/23 13:10 Blood Culture (Wb) - Anticubital Right Blood Culture - Preliminary No growth in 48 hours. Radiography Diagnostic Testing: Radiology Impression Ankle X-Ray 10/22/23 15:30 IMPRESSION: Fluoroscopic guided study of the right ankle. Electronically Signed: Doug Dyer MD at 17:45 EST Reading Location ID and State: [facility] / [place] Tel , Service support , Physical Exam Narrative Seen and examined. Patient was afebrile in the last 48 hours. On 3 L of oxygen. Shortness of breath wheezing better but patient states he gets short of breath when he walks to bathroom. On 2-3 L of oxygen. Ex-smoker. Physical exam General: Alert, Oriented x3, Cooperative HEENT: Atraumatic, PERRLA, EOMI, Normocephalic Oral: No Gingival or Mucosal Lesions/ Ulcerations Neck: Supple, No JVD, Negative Carotid Bruits Chest wall/Lungs: Air entry diminished in bilateral lung bases. Bilateral wheezing/rhonchi better. No dyspnea at rest. Cardiovascular: Regular rate, Regular Rhythm, Normal S1, Normal S2, No M/G/R Abdomen: Bowel Sounds Present, Soft, Non Tender, Non-Distended : No dysuria. No renal angle tenderness. No suprapubic tenderness. Extremities: No edema, Capillary Refill Less than 3 Seconds Skin: Mild redness on the medial aspect. Musculoskeletal: Tenderness around right ankle and foot has improved. Patient stated he can put weight on it. Right ankle and right foot is deformed from previous surgery and Charcot's joint. Neurological: Cranial nerves II-XII grossly intact, DTR 2+/4. No acute focal n eurological deficit. Psych/Mental Status: Flat affect. Assessment & Plan Assessment/Plan (1) Charcot's joint of right ankle: (2) Cellulitis of foot, right: (3) CAD (coronary artery disease): QUALIFIERS: Associated angina: without angina Coronary Disease- Associated Artery/Lesion type: bypass graft Tribe vs. transplanted heart: moapa heart Qualified Code(s): I25.810 - Atherosclerosis of coronary artery bypass graft(s) without angina pectoris (4) MK (acute kidney injury): (5) Acute hyperglycemia: (6) GERD (gastroesophageal reflux disease): (7) Diabetes mellitus type 1: QUALIFIERS: Diabetes mellitus complication detail: with polyneuropathy Diabetes mellitus complication status: with neurologic complications Qualified Code(s): E10.42 - Type 1 diabetes mellitus with diabetic polyneuropathy PLAN: Plan 58-year-old gentleman is admitted with right foot and ankle pain that started 3 days ago without any obvious injury. Has history of Charcot right foot and wears a brace and had surgery and antibiotics in the past for sepsis secondary to acute right ankle medial malleolus abscess cellulitis and septic arthritis in December 2020. This time, no fever or chills. 1. R ankle pain in setting of diabetes and charcot foot with concern for deep infection/osteomyelitis -WBC slightly elevated at 11.6 w/ left shift, repeat 1 in normal but patient still having fever and chills. -CRP 257 with ESR 75. Repeat CRP also high. -Foot XR Charcot deformity of tarsal bones with evidence of postop changes and severe OA of hindfoot with soft tissue swelling -Blood culture from admission is pending. Repeat blood culture ordered -Cont IV antibiotics, vancomycin and Zosyn. Podiatry was consulted. ID consulted as patient is still having fever on IV vancomycin and Zosyn. -Pain control w/ scheduled tylenol and prn medications -PT/OT 10/21: On 10/20, I discussed with Dr. Gandara the antibiotic was changed from IV Zosyn to meropenem. afebrile in the morning since 9 AM. Heart rate also 88/min most tachycardia last night. Patient was evaluated by ID. Prior wound culture showed Pseudomonas. Plan for or tomorrow with Dr. Webster. 10/22: Patient responding well to IV antibiotics, and fluid. Plan for bone biopsy today. 10/23: Patient had open bone biopsy of tibia, talus on 10/23 in OR. Cultures are pending. Afebrile for 48 hours. 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 Patient baseline estimated creatinine 79 mm/min. -Cr 1.64 in ED with variable baseline, last value 0.94 10/31/2210/20: BUNs/creatinine better 19/1.41. -May have MK w/ underlying infection though cannot r/o component of CKD especially given last check was a year ago and pt has diabetes -Continue IV fluid -Hold home losartan 10/21: Creatinine is elevated 1.59. BUN 22. Anion gap 9 10/22: Improvement in BUN/creatinine 28/1.41.Serum sodium 133 since patient baseline sodium is stays around 134-136 10/23: Creatinine similar 1.40 from yesterday. Electrolytes in normal range. #Hx CAD -s/p 5 vessel cabg around 10 years ago -Continue home medications #Type 1 diabetes mellitus -Glucose checks and sliding scale insulin -Continue long acting insulin- advises he uses 50u long acting at bedtime and SSI 10/22: Glucoses are high because of IV Solu-Medrol. Lantus insulin and Humalog insulin doses increased accordingly 10/23 glucose is controlled. IV Solu-Medrol discontinued. #Chronic BPH with obstruction -Continue home medications #Chronic normocytic anemia -Likely 2/2 chronic disease -Appears to be at baseline -Continue to monitor 10/23: Acute anemia on anemia of chronic disease, gradual decline most likely from antithrombotics: Baseline hemoglobin runs around 9 to 10 g. Hemoglobin dropped to 7.2. Hemoglobin was dropping even before the procedure it was 7.6 therefore unlikely postprocedure blood loss anemia and it was bone biopsy. Platelet count normal. On Eliquis 5 mg twice daily. Reticulocyte count shows 0.52% and immature reticulocyte fraction 4% normal. Serum iron low, iron saturation hide 91.6%. Ferritin 263 therefore it is anemia of chronic disease. Patient had iron infusion yesterday therefore it is not indicated because not iron versus anemia #GERD -Continue PPI Recent pulmonary embolism, subacute/chronic pulmonary embolism: Eliquis was filled on 10/08. Patient on IV heparin drip. 10/23: Confirmed with the pharmacy. Patient filled up Eliquis on October 08 from [facility] which he stated 6 more days of Eliquis 10 mg twice daily and then 5 mg twice daily therefore patient has completed 10 mg twice daily dose and started on 5 mg twice daily from yesterday night. Heparin drip was stopped before the procedure yesterday. Most likely COPD with COPD exacerbation, probably due to pneumonia:Patient is stated that he was smoking a pack per day since teenage quit in 2009. About 30 pack years of smoking. Started on DuoNeb. Add IV Solu-Medrol. Chest x-ray initially reviewed and shows patchy infiltrate on right middle and lower lobe suggestive of pneumonia. Chest x-ray officially reported large right lower lung consolidation with layering effusion and I agree with that. Pneumonia workup ordered. SARS-CoV-2, influenza and RSV negative. 10/23: IV Solu-Medrol discontinued. On prednisone. Scheduled DuoNeb. Continue incentive spirometry and Pep #DVT ppx: SCDs Clinical Impression(s) from Imaging Studies Foot X-Ray 10/19/23 13:18 IMPRESSION: Charcot deformity of the tarsal bones with evidence of postoperative changes and severe osteoarthritis of the hindfoot. Soft tissue swelling. Lower Extremity CT 10/20/23 07:40 IMPRESSION: Charcot foot as described with findings suggestive of possible osteomyelitis as described Chest X-Ray 10/21/23 05:55 IMPRESSION: Large right lower lung consolidation with layering effusion concerning for pneumonia. Mild diffuse interstitial edema. Trace left effusion. Officially reported as Microbiology Past 72 Hours 10/21/23 11:00 Mucosa - Nose SARS-CoV-2, Influenza & RSV (PCR) - Final 10/19/23 13:00 Blood Culture (Wb) - Anticubital Left Blood Culture - Preliminary No growth in 48 hours. 10/19/23 13:10 Blood Culture (Wb) - Anticubital Right Blood Culture - Pr eliminary No growth in 48 hours. Laboratory Results 10/20/23 15:30: APTT 68.0 H 10/20/23 15:33: POC Glucose 225 H 10/20/23 21:29: POC Glucose 103 10/20/23 22:29: APTT 135.4 H* 10/21/23 04:32: WBC 8.8, RBC 3.11 L, Hgb 8.1 L, Hct 27.1 L, MCV 87.1, MCH 26.0 L , MCHC 29.9 L D, RDW Std Deviation 50.6 H, RDW Coeff of Cl 15.9 H, Plt Count 268, MPV 10.3, Immature Gran % (Auto) 0.600, Neut % (Auto) 82.8 H, Lymph % (Auto) 6.9 L, Chilton % (Auto) 8.8, Eos % (Auto) 0.3, Baso % (Auto) 0.6, Absolute Neuts (auto) 7.3, Absolute Lymphs (auto) 0.61 L, Nucleated RBC % 0, Differential Comment SCANNED, Sodium 131 L, Potassium 4.7, Chloride 103, Carbon Dioxide 19.0 L, Anion Gap 9, BUN 22 H, Creatinine 1.59 H, Estim Creat Clear Calc 52.62, Est GFR (MDRD) Af Amer 57 L, Est GFR (MDRD) Non-Af 47 L, BUN/Creatinine Ratio 13.8, Glucose 351 H, Calcium 7.7 L, Vancomycin Trough 15.0 10/21/23 04:46: POC Glucose 347 H 10/21/23 06:48: POC Glucose 341 H 10/21/23 08:02: APTT 56.8 H 10/21/23 11:50: POC Glucose 431 H Charges/Coding Visit Charges Inpatient E&M: 69785 Subs Hosp L2
[2023-10-23 08:56] LABS: Platelet Count 330 K/mm3 (150-450); RET-HE 21.7 pg (30-35); Reticulocyte Count 0.52 % (0.5-1.5)
[2023-10-23 09:03] LABS: Ferritin 263 ng/mL (26-388); Iron 196 ug/dL (65-175); Iron Binding Capacity,Total 214 ug/dL (250-450); PERCENT IRON SATURATION 91.6 % (15.0-55.0)
[2023-10-23] MEDS: Acetaminophen 500 MG Tablet 1000 MG PO ×3 (09:20→23:15)
[2023-10-23] MEDS: guaiFENesin/D-Methorphan TAB.SR.12H 1 TABLET PO ×2 (09:21→21:27)
[2023-10-23] MEDS: Pantoprazole Sodium 40 MG Tablet PO ×2 (09:21→21:27)
[2023-10-23] MEDS: oxyCODONE 5 MG Tablet PO ×3 (09:21→21:28)
[2023-10-23] MEDS: APIXABAN 5 MG TABLET PO ×2 (09:22→21:27)
[2023-10-23] MEDS: Insulin Glargine-YFGN 100 UNIT/ML Pen 20 UNIT SC (10:18)
[2023-10-23] MEDS: Insulin Lispro 100 UNIT/ML INSULN.PEN 15 UNIT SC ×2 (10:25→16:50)
--- NOTE | 2023-10-23 10:33 | NURSING ---
This RN is aware of Vital Signs that were taken this morning by Jayshree [facility] Route Returner.
[2023-10-23 12:14] LABS: Bedside Glucose 272 mg/dL (74-106)
--- NOTE | 2023-10-23 12:52 | PCM.PN.ID ---
Physical Exam Narrative Feeling ok, no fever, no n/v/d, pain controlled. Const alert and no apparent distress General Appearance: cooperative Resp normal air movement and clear to auscultation bilaterally Cardio regular rate and regular rhythm GI soft to palpation, non-tender and non-distended Skin Skin Narrative: RLE wrapped ID ID: Route of nutrition/ use of supplements: [] Nutritional Intake: [] IV Site: [] Chiang Catheter: [] Assessment & Plan Assessment/Plan (1) Osteomyelitis, ankle and foot: PLAN: Taken to OR 10/22/[address] Cabrales for osteo; had partial excision of tibia. Prior wound cxs with pseudomonas. Fever resolved. Surg cx with gram pos and gram neg so far in bone. Cont empiric vanc/vaibhav for now. Plan on 6 weeks abx at discharge, will follow cx data. Will follow (2) Diabetes mellitus with neuropathy:
[2023-10-23] MEDS: Ipratropium/Albuterol Sulfate 3 ML AMPUL.NEB INHALATION ×2 (13:50→19:19)
--- NOTE | 2023-10-23 14:40 | NURSING ---
This RN is aware of Vital Signs taken by Jayshree [facility] at 1255p today
--- NOTE | 2023-10-23 14:45 | CASEMGMT ---
Addendum entered by Lupe Shine 10/23/23 15:47: Pts preferred HHC provider is [facility], no order of preference for the remaining. Lupe STONE, RN, CCM Addendum entered by Lupe Shine 10/23/23 15:32: [facility] Patient made aware. Patient was provided a list of HHC providers including quality and resource use data and consistent with the patient?s preferred geographic region, medical needs, and insurance network were provided from the [facility] Guide. Patient has selected the following and [facility], [facility], [facility], and [facility]. Awaiting response. Lupe STONE, RN, CCM Original Note: RN CM into pt room to discuss DC planning. Pt reports that his goal is to DC home. Pt reports that he feels comfortable administering his own abx and completing his own wound care. Pt reports that he has done the WOC before and feels comfortable doing so. Pt reports that he has had to modify how he goes up and down the stairs before and feels comfortable doing so again. Pt is not interested in going to SNF at this time but does plan to discuss with his son and daughter this weekend. Pt reports his does have some support from both his daughter and son. He reports his son can have his groceries delivered and he has transportation resources provided by . Pt agreeable to starting a HHC/HIP referral. Verbally discussed HHC with pt, he reports he has had [facility] in the past and would like to use them again. Pt reports no preference for HIP and declined a choice list. Discussed with pt possible home going oxygen needs. Discussed with pt verbally local DME providers and pt would like to use [employer]. Lupe STONE, RN, CCM
--- NOTE | 2023-10-23 15:17 | PN.SURG_ITS ---
Subjective Subjective Mr. Weldon is a 58-year-old diabetic male status post excision of tibia and talus. Date of surgery was 10/22/2023. Patient is postoperative day 1. He admits there is some pain to the right lower extremity. He denies any overnight events. He has kept his postoperative dressing clean dry and intact. He denies trauma. Denies constitutional symptoms. Other complaints at this time. Objective Data Objective Data Vital Signs: Vital Signs Temp Pulse Resp BP Pulse Ox O2 Del Method O2 Flow Rate 98.0 F 94 18 122/74 H 94 Nasal Cannula 4 10/23/23 12:55 10/23/23 13:50 10/23/23 13:50 10/23/23 12:55 10/23/23 13:26 10/23/23 14:55 10/23/23 14:55 FiO2 28 10/22/23 07:30 Oxygen Flow Rate (L/min) 4 Oxygen Delivery Method Nasal Cannula Weight: 89.1 kg Body Mass Index (BMI) 30.7 Intake & Output: Intake and Output for Last 24 Hours 10/21/23 10/22/23 10/23/23 23:59 23:59 23:59 Intake Total 3255.87 / 3605.87 2445.9 / 2445.9 576.1 / 576.1 Output Total 800 / 1300 2000 / 2125 425 / 425 Balance 2455.87 / 2305.87 445.9 / 320.9 151.1 / 151.1 Lab / Micro Data 10/23/23 06:00 10/23/23 06:00 Labs: Laboratory Results - last 24 hr 10/22/23 15:23: POC Glucose 314 H 10/22/23 17:15: Vancomycin Trough 19.9 H 10/22/23 18:20: POC Glucose 306 H 10/22/23 21:45: POC Glucose 188 H 10/23/23 06:00: WBC 11.8 H, RBC 2.80 L, Hgb 7.2 L, Hct 23.7 L, MCV 84.6, MCH 25.7 L, MCHC 30.4 L, RDW Std Deviation 50.2 H, RDW Coeff of Cl 16.1 H, Plt Co unt 319, MPV 10.7, Immature Gran % (Auto) 1.300 H, Neut % (Auto) 90.1 H, Lymph % (Auto) 3.7 L, [place] % (Auto) 4.8, Eos % (Auto) 0.0, Baso % (Auto) 0.1, Absolute Neuts (auto) 10.6 H, Absolute Lymphs (auto) 0.44 L, Nucleated RBC % 0.5, Retic Count 0.52, Immature Retic Fraction 4.00, Retic Hgb Equivalent 21.7 L, APTT 43.6 H, Sodium 136, Potassium 4.9, Chloride 108 H, Carbon Dioxide 22.0, Anion Gap 6, BUN 37 H, Creatinine 1.40 H, Estim Creat Clear Calc 59.76, Est GFR (MDRD) Af Amer 66, Est GFR (MDRD) Non-Af 55 L, BUN/Creatinine Ratio 26.4 H, Glucose 182 H, Calcium 8.8, Iron 196 H, TIBC 214 L, Iron Saturation 91.6 H, Ferritin 263 10/23/23 06:23: POC Glucose 156 H 10/23/23 11:48: POC Glucose 272 H Micro: Microbiology 10/22/23 16:52 Biopsy - Bone Gram Stain - Final 10/22/23 16:52 Biopsy - Bone Wound Culture - Preliminary GNR lactose inspector and sorter 10/22/23 16:48 Bone - Other Gram Stain - Final 10/22/23 16:48 Bone - Other Wound Culture - Preliminary Gram positive organism Gram negative organism 10/21/23 16:15 Sputum, Expectorated/Coughed Gram Stain - Final 10/21/23 16:15 Sputum, Expectorated/Coughed Respiratory Culture - Preliminary 10/20/23 15:30 Blood Culture (Wb) - Anticubital Right Blood Culture - Preliminary No growth in 48 hours. 10/21/23 17:13 Urine, Clean Catch Streptococcus pneumoniae Antigen (M - Final 10/21/23 17:13 Urine, Clean Catch Legionella Antigen - Final 10/21/23 11:00 Mucosa - Nose SARS-CoV-2, Influenza & RSV (PCR) - Final 10/19/23 13:00 Blood Culture (Wb) - Anticubital Left Blood Culture - Preliminary No growth in 48 hours. 10/19/23 13:10 Blood Culture (Wb) - Anticubital Right Blood Culture - Preliminary No growth in 48 hours. Radiography Diagnostic Testing: Radiology Impression Ankle X-Ray 10/22/23 15:30 IMPRESSION: Fluoroscopic guided study of the right ankle. Electronically Signed: Doug Dyer MD at 17:45 EST Reading Location ID and State: [facility] / [place] Tel , Service support , Physical Exam Narrative Neurovascular is unchanged. Nonpitting edema appreciated to the distal and proximal aspect of the postop dressing. Patient has active or passive range of motion to all digits without pain. No pain with palpation over the dressing to the incisions. No pain with calf compression. Assessment & Plan Assessment/Plan (1) Osteomyelitis, ankle and foot: PLAN: Patient was examined and evaluated. All findings were discussed with the patient. All questions were answered to the patient satisfaction. Patient is postoperative day 1, status post partial excision of tibia and talus to the right lower extremity. Keep postop dressing clean dry intact. Weightbearing: Patient can be weightbearing as tolerated in [place] walker boot to the right lower extremity. Full weightbearing to left lower extremity. Sx Cx (Bone): gram pos and gram neg Infectious disease: On board, IV antibiotics vancomycin, meropenem. Plan for 6 weeks antibiotics at discharge. Medicine: On board, medical management Podiatry will continue to follow while the patient is in house. Please reach out to Dr. Cabrales with any questions or concerns. (2) Cellulitis of right lower extremity: (3) Diabetes mellitus with neuropathy:
[2023-10-23 17:11] LABS: Bedside Glucose 320 mg/dL (74-106)
--- NOTE | 2023-10-23 17:14 | NURSING ---
This Rn verified student nurse documentation in EMR HTT. Glenda Davidson MSN, RN 10/23 [id number]
[2023-10-23] MEDS: Vancomycin HCl 1,250 MG in 0.9% Normal Saline (250mL Bag) 250 ML 167 MG IV (18:48)
[2023-10-23] MEDS: Atorvastatin Calcium 80 MG Tablet PO (21:26)
[2023-10-23] MEDS: Tamsulosin HCl 0.4 MG Capsule PO (21:27)
[2023-10-23] MEDS: traZODone 50 MG Tablet PO (21:27)
[2023-10-23] MEDS: Insulin Glargine-YFGN 100 UNIT/ML Pen 40 UNIT SC (21:29)
[2023-10-23 22:03] LABS: Bedside Glucose 301 mg/dL (74-106)
[2023-10-24] VITALS (9 sets, daily range): BP systolic 112–152; BP diastolic 61–78; PULSE 85–109; RESP 16–18; TEMP 36.5–36.6; O2SAT 94–97
--- NOTE | 2023-10-24 00:42 | NURSING ---
Addendum entered by Linda Sanchez 10/24/23 00:53: Pt states to this RN that the doctor didn't say or order this RN or anyone to have to assist pt w/ getting out of bed. Original Note: 0040- pt set off bed alarm, this RN to bedside. Pt sitting on bedside stating he was attempting to get up and use the urinal. This RN reminded pt that he needs to use his call light and have assistance as he is a fall risk and has a post op foot. Pt states to this RN Dr. Cabrales said I can get up. This RN agreed w/ patient that he can get up but educated pt that he needs to wear his [place] boot and that due to his fall risk status, he needs to have assistance by one staff member. Pt states well I want some privacy while I pee. This RN states to pt that she is able to give him privacy but would like to be bedside to assist w/ multiple cords and post op foot to ensure pt can tolerate standing/ weight on his right foot. Pt then referred to this RN as a Nazi and states that he cant get up whenever he wants and doesn't need staff bedside because Dr. Cabrales said he can get up whenever. Pt requesting this RN to leave room so he can urinate. This RN attempted to educate pt one last time on postop and fall risk status, reminded that pt must wear boot when up. Pt refused and insisting he will get up by himself. This RN left bedside at this time.
[2023-10-24] MEDS: ALPRAZolam 0.25 MG Tablet PO (01:46)
[2023-10-24] MEDS: Meropenem 1 GM in 0.9% Normal Saline (100mL MB+) 100 ML IV ×3 (04:54→21:55)
[2023-10-24] MEDS: Gabapentin 800 MG Tablet PO ×3 (04:54→21:56)
[2023-10-24 06:44] LABS: Absolute Lymphocyte Count 1.32 X10^3/uL (0.83-4.51); Basophil# 0.02 X10^3/uL; Basophil% 0.2 % (0-1); Hematocrit 24.1 % (40-54); Hemoglobin 7.3 g/dL (13.0-16.5); Lymphocyte # 1.32 X10^3/ul (0.83-4.51); Mean Corp Hgb Conc 30.3 g/dL (32-36); Mean Corpuscular Hgb 25.9 pg (27.0-32.0); Mean Corpuscular Volume 85.5 fL (80-94); Mean Platelet Vol. 10.7 fl (6.2-12.0); Monocyte# 1.34 X10^3/uL; Monocyte% 11.1 % (0-10); Neutrophil # 9.01 X10^3/uL (2.7-7.7); Neutrophil % 74.7 % (47-70); Platelet Count 354 K/mm3 (150-450); RBC Distribution Width CV 16.3 % (11.6-14.6); RBC Distribution Width SD 51.2 fl (35.1-43.9); Red Blood Count 2.82 M/mm3 (4.6-6.2); White Blood Count 12.1 K/mm3 (4.4-11.0)
[2023-10-24] MEDS: Budesonide Respules 0.5 MG/2 ML AMPUL.NEB. INHALATION ×2 (06:56→20:19)
[2023-10-24] MEDS: Ipratropium/Albuterol Sulfate 3 ML AMPUL.NEB INHALATION ×3 (06:56→20:19)
[2023-10-24 07:06] LABS: Anion Gap 4 (5-15); BUN 53 mg/dL (7-18); BUN/Creat Ratio 36.3 RATIO (10-20); Calcium,Total 8.6 mg/dL (8.5-10.1); Chloride 110 mmol/L (98-107); Creatinine, Serum 1.46 mg/dL (0.70-1.30); EST Glomerular Filtration Rate 52 mL/min (>60); Est Glom Filt Rate - Afr Amer 63 mL/min (>60); Estimated Creatinine Clearance 57.31 ml/min; Glucose 170 mg/dL (74-106); Potassium 4.1 mmol/L (3.5-5.1); Sodium Level 138 mmol/L (136-145)
[2023-10-24] MEDS: predniSONE 20 MG Tablet 40 MG PO (07:48)
[2023-10-24] MEDS: Acetaminophen 500 MG Tablet 1000 MG PO ×2 (07:48→16:30)
[2023-10-24 08:09] LABS: Bedside Glucose 132 mg/dL (74-106)
[2023-10-24] MEDS: Insulin Glargine-YFGN 100 UNIT/ML Pen 20 UNIT SC (09:44)
[2023-10-24] MEDS: guaiFENesin/D-Methorphan TAB.SR.12H 1 TABLET PO ×2 (09:45→21:56)
[2023-10-24] MEDS: Pantoprazole Sodium 40 MG Tablet PO ×2 (09:45→21:55)
[2023-10-24] MEDS: APIXABAN 5 MG TABLET PO ×2 (09:45→21:55)
[2023-10-24 11:48] LABS: Bedside Glucose 175 mg/dL (74-106)
[2023-10-24] MEDS: Insulin Lispro 100 UNIT/ML INSULN.PEN 15 UNIT SC ×2 (13:00→17:17)
[2023-10-24] MEDS: Insulin Lispro 100 UNIT/ML INSULN.PEN SC ×3 (13:00→22:07)
[2023-10-24] MEDS: oxyCODONE 5 MG Tablet PO (13:54)
--- NOTE | 2023-10-24 15:15 | PN.HOSP_ITS ---
Reason for Visit Reason for Visit: Diagnoses Type 1 diabetes mellitus with diabetic polyneuropathy (10/19/23) Type 2 diabetes mellitus with diabetic neuropathy, unspecified (10/19/23) Atherosclerosis of coronary artery bypass graft(s) without angina pectoris (10/19/23) Gastro-esophageal reflux disease without esophagitis (10/19/23) Cellulitis of right lower limb (10/19/23) Charcot's joint, right ankle and foot (10/19/23) Osteomyelitis, unspecified (10/19/23) Acute kidney failure, unspecified (10/19/23) Hyperglycemia, unspecified (10/19/23) Objective Data Objective Data Vital Signs: Vital Signs Temp Pulse Resp BP Pulse Ox O2 Del Method O2 Flow Rate 97.9 F 103 H 18 127/61 H 95 Nasal Cannula 4 10/24/23 13:50 10/24/23 13:50 10/24/23 13:50 10/24/23 13:50 10/24/23 13:50 10/24/23 14:02 10/24/23 14:02 FiO2 28 10/22/23 07:30 Oxygen Flow Rate (L/min) 4 Oxygen Delivery Method Nasal Cannula Weight: 196 lb 6.91 oz Body Mass Index (BMI) 30.7 Intake & Output: Intake and Output for Last 24 Hours 10/22/23 10/23/23 10/24/23 23:59 23:59 23:59 Intake Total 2445.9 / 2445.9 1471.1 / 1471.1 240 / 240 Output Total 1999 / 2124 825 / 825 1250 / 1250 Balance 445.9 / 320.9 646.1 / 646.1 -1010 / -1010 Lab / Micro Data 10/24/23 05:32 10/24/23 05:32 Labs: Laboratory Results - last 24 hr 10/23/23 16:48: POC Glucose 320 H 10/23/23 21:25: POC Glucose 301 H 10/24/23 05:32: WBC 12.1 H, RBC 2.82 L, Hgb 7.3 L, Hct 24.1 L, MCV 85.5, MCH 25.9 L, MCHC 30.3 L, RDW Std Deviation 51.2 H, RDW Coeff of Cl 16.3 H, Plt Count 354, MPV 10.7, Immature Gran % (Auto) 3.000 H, Neut % (Auto) 74.7 H, Lymph % (Auto) 11.0 L, [place] % (Auto) 11.1 H, Eos % (Auto) 0.0, Baso % (Auto) 0.2, Absolute Neuts (auto) 9.0 H, Absolute Lymphs (auto) 1.32, Nucleated RBC % 1.0, Sodium 138, Potassium 4.1, Chloride 110 H, Carbon Dioxide 24.0, Anion Gap 4 L, BUN 53 H, Creatinine 1.46 H, Estim Creat Clear Calc 57.31, Est GFR (MDRD) Af Amer 63, Est GFR (MDRD) Non-Af 52 L, BUN/Creatinine Ratio 36.3 H, Glucose 170 H, Calcium 8.6 10/24/23 07:43: POC Glucose 132 H 10/24/23 11:28: POC Glucose 175 H Micro: Microbiology 10/19/23 13:00 Blood Culture (Wb) - Anticubital Left Blood Culture - Final No growth in 5 days. 10/19/23 13:10 Blood Culture (Wb) - Anticubital Right Blood Culture - Final No growth in 5 days. 10/22/23 16:52 Biopsy - Bone Gram Stain - Final 10/22/23 16:52 Biopsy - Bone Wound Culture - Preliminary Klebsiella pneumoniae sp pneum 10/22/23 16:48 Bone - Other Gram Stain - Final 10/22/23 16:48 Bone - Other Wound Culture - Preliminary Gram negative simeon GNR Poss Pseudomonas sp 10/21/23 16:15 Sputum, Expectorated/Coughed Gram Stain - Final 10/21/23 16:15 Sputum, Expectorated/Coughed Respiratory Culture - Final 10/20/23 15:30 Blood Culture (Wb) - Anticubital Right Blood Culture - Preliminary No growth in 48 hours. 10/21/23 17:13 Urine, Clean Catch Streptococcus pneumoniae Antigen (M - Final 10/21/23 17:13 Urine, Clean Catch Legionella Antigen - Final 10/21/23 11:00 Mucosa - Nose SARS-CoV-2, Influenza & RSV (PCR) - Final Physical Exam Narrative Seen and examined. Patient was afebrile in the last 3 days. On 3-4 L of oxygen. Shortness of breath wheezing better. Ex-smoker. Physical exam General: Alert, Oriented x3, Cooperative HEENT: Atraumatic, PERRLA, EOMI, Normocephalic Oral: No Gingival or Mucosal Lesions/ Ulcerations Neck: Supple, No JVD, Negative Carotid Bruits Chest wall/Lungs: Air entry diminished in bilateral lung bases. Bilateral coarse crepitations.No dyspnea at rest. Cardiovascular: Regular rate, Regular Rhythm, Normal S1, Normal S2, No M/G/R Abdomen: Bowel Sounds Present, Soft, Non Tender, Non-Distended : No dysuria. No renal angle tenderness. No suprapubic tenderness. Extremities: No edema, Capillary Refill Less than 3 Seconds Skin: Mild redness on the medial aspect. Musculoskeletal: Tenderness around right ankle and foot has improved. Patient stated he can put weight on it. Right ankle and right foot is deformed from previous surgery and Charcot's joint. Neurological: Cranial nerves II-XII grossly intact, DTR 2+/4. No acute focal neurological deficit. Psych/Mental Status: Flat affect. Assessment & Plan Assessment/Plan (1) Charcot's joint of right ankle: (2) Cellulitis of foot, right: (3) CAD (coronary artery disease): QUALIFIERS: Coronary Disease-Associated Artery/Lesion type: bypass graft [place] vs. transplanted heart: [place] heart Associated angina: without angina Qualified Code(s): I25.810 - Atherosclerosis of coronary artery bypass graft(s) without angina pectoris (4) MK (acute kidney injury): (5) Acute hyperglycemia: (6) GERD (gastroesophageal reflux disease): (7) Diabetes mellitus type 1: QUALIFIERS: Diabetes mellitus complication status: with neurologic complications Diabetes mellitus complication detail: with polyneuropathy Qualified Code(s): E10.42 - Type 1 diabetes mellitus with diabetic polyneuropathy PLAN: Plan 58-year-old gentleman is admitted with right foot and ankle pain that started 3 days ago without any obvious injury. Has history of Charcot right foot and wears a brace and had surgery and antibiotics in the past for sepsis secondary to acute right ankle medial malleolus abscess cellulitis and septic arthritis in December 2020. This time, no fever or chills. 1. R ankle pain in setting of diabetes and charcot foot with concern for deep infection/osteomyelitis -WBC slightly elevated at 11.6 w/ left shift, repeat 1 in normal but patient still having fever and chills. -CRP 257 with ESR 75. Repeat CRP also high. -Foot XR Charcot deformity of tarsal bones with evidence of postop changes and severe OA of hindfoot with soft tissue swelling -Blood culture from admission is pending. Repeat blood culture ordered -Cont IV antibiotics, vancomycin and Zosyn. Podiatry was consulted. ID consulted as patient is still having fever on IV vancomycin and Zosyn. -Pain control w/ scheduled tylenol and prn medications -PT/OT 10/21: On 10/20, I discussed with Dr. Gandara the antibiotic was changed from IV Zosyn to meropenem. afebrile in the morning since 9 AM. Heart rate also 88/min most tachycardia last night. Patient was evaluated by ID. Prior wound culture showed Pseudomonas. Plan for or tomorrow with Dr. Webster. 10/22: Patient responding well to IV antibiotics, and fluid. Plan for bone biopsy today. 10/23: Patient had open bone biopsy of tibia, talus on 10/23 in OR. Cultures are pending. Afebrile for 48 hours. 10/24: Prelim culture from bone biopsy shows gram-negative simeon, very rare GNR possible Pseudomonas. Other bone biopsy culture shows Klebsiella pneumoniae, ESBL negative. Will wait for final culture. 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 Patient baseline estimated creatinine 79 mm/min. -Cr 1.64 in ED with variable baseline, last value 0.94 10/31/2210/20: BUNs/creatinine better 19/1.41. -May have MK w/ underlying infection though cannot r/o component of CKD especially given last check was a year ago and pt has diabetes -Continue IV fluid -Hold home losartan 10/21: Creatinine is elevated 1.59. BUN 22. Anion gap 9 10/22: Improvement in BUN/creatinine 28/1.41.Serum sodium 133 since patient baseline sodium is stays around 134-136 10/23: Creatinine similar 1.40 from yesterday. Electrolytes in normal range. 10/24:Creatinine 1.46, similar. BUN increased. #Hx CAD -s/p 5 vessel cabg around 10 years ago -Continue home medications #Type 1 diabetes mellitus -Glucose checks and sliding scale insulin -Continue long acting insulin- advises he uses 50u long acting at bedtime and SSI 10/22: Glucoses are high because of IV Solu-Medrol. Lantus insulin and Humalog insulin doses increased accordingly 10/23 glucose is controlled. IV Solu-Medrol discontinued. 10/24: Glucose is better 170 after discontinuation of Solu-Medrol. #Chronic BPH with obstruction -Continue home medications #Chronic normocytic anemia -Likely 2/2 chronic disease -Appears to be at baseline -Continue to monitor 10/23: Acute anemia on anemia of chronic disease, gradual decline most likely from antithrombotics: Baseline hemoglobin runs around 9 to 10 g. Hemoglobin dropped to 7.2. Hemoglobin was dropping even before the procedure it was 7.6 therefore unlikely postprocedure blood loss anemia and it was bone biopsy. Platelet count normal. On Eliquis 5 mg twice daily. Reticulocyte count shows 0.52% and immature reticulocyte fraction 4% normal. Serum iron low, iron saturation hide 91.6%. Ferritin 263 therefore it is anemia of chronic disease. Patient had iron infusion yesterday therefore it is not ind icated because not iron versus anemia #GERD -Continue PPI Recent pulmonary embolism, subacute/chronic pulmonary embolism: Eliquis was filled on 10/08. Patient on IV heparin drip. 10/23: Confirmed with the pharmacy. Patient filled up Eliquis on October [address] [facility] which he stated 6 more days of Eliquis 10 mg twice daily and then 5 mg twice daily therefore patient has completed 10 mg twice daily dose and started on 5 mg twice daily from yesterday night. Heparin drip was stopped before the procedure yesterday. Most likely COPD with COPD exacerbation, probably due to pneumonia:Patient is s tated that he was smoking a pack per day since teenage quit in 2009. About 30 pack years of smoking. Started on DuoNeb. Add IV Solu-Medrol. Chest x-ray initially reviewed and shows patchy infiltrate on right middle and lower lobe suggestive of pneumonia. Chest x-ray officially reported large right lower lung consolidation with layering effusion and I agree with that. Pneumonia workup ordered. SARS-CoV-2, influenza and RSV negative. 10/23: IV Solu-Medrol discontinued. On prednisone. Scheduled DuoNeb. Continue incentive spirometry and Pep 10/24: Patient's daughter present in the room. Advised to follow-up in pulmonary clinic. For now continue the above treatment. #DVT ppx: SCDs Microbiology Past 72 Hours 10/19/23 13:00 Blood Culture (Wb) - Anticubital Left Blood Culture - Final No growth in 5 days. 10/19/23 13:10 Blood Culture (Wb) - Anticubital Right Blood Culture - Final No growth in 5 days. 10/22/23 16:52 Biopsy - Bone Gram Stain - Final 10/22/23 16:52 Biopsy - Bone Wound Culture - Preliminary Klebsiella pneumoniae sp pneum 10/22/23 16:48 Bone - Other Gram Stain - Final 10/22/23 16:48 Bone - Other Wound Culture - Preliminary Gram negative simeon GNR Poss Pseudomonas sp 10/21/23 16:15 Sputum, Expectorated/Coughed Gram Stain - Final 10/21/23 16:15 Sputum, Expectorated/Coughed Respiratory Culture - Final 10/20/23 15:30 Blood Culture (Wb) - Anticubital Right Blood Culture - Preliminary No growth in 48 hours. 10/21/23 17:13 Urine, Clean Catch Streptococcus pneumoniae Antigen (M - Final 10/21/23 17:13 Urine, Clean Catch Legionella Antigen - Final 10/21/23 11:00 Mucosa - Nose SARS-CoV-2, Influenza & RSV (PCR) - Final Laboratory Results 10/23/23 16:48: POC Glucose 320 H 10/23/23 21:25: POC Glucose 301 H 10/24/23 05:32: WBC 12.1 H, RBC 2.82 L, Hgb 7.3 L, Hct 24.1 L, MCV 85.5, MCH 25.9 L, MCHC 30.3 L, RDW Std Deviation 51.2 H, RDW Coeff of Cl 16.3 H, Plt Count 354, MPV 10.7, Immature Gran % (Auto) 3.000 H, Neut % (Auto) 74.7 H, Lymph % (Auto) 11.0 L, [place] % (Auto) 11.1 H, Eos % (Auto) 0.0, Baso % (Auto) 0.2, Absolute Neuts (auto) 9.0 H, Absolute Lymphs (auto) 1.32, Nucleated RBC % 1.0, Sodium 138, Potassium 4.1, Chloride 110 H, Carbon Dioxide 24.0, Anion Gap 4 L, BUN 53 H, Creatinine 1.46 H, Estim Creat Clear Calc 57.31, Est GFR (MDRD) Af Amer 63, Est GFR (MDRD) Non-Af 52 L, BUN/Creatinine Ratio 36.3 H, Glucose 170 H, Calcium 8.6 10/24/23 07:43: POC Glucose 132 H 10/24/23 11:28: POC Glucose 175 H Clinical Impression(s) from Imaging Studies Foot X-Ray 10/19/23 13:18 IMPRESSION: Charcot deformity of the tarsal bones with evidence of postoperative changes and severe osteoarthritis of the hindfoot. Soft tissue swelling. Lower Extremity CT 10/20/23 07:40 IMPRESSION: Charcot foot as described with findings suggestive of possible osteomyelitis as described Chest X-Ray 10/21/23 05:55 IMPRESSION: Large right lower lung consolidation with layering effusion concerning for pneumonia. Mild diffuse interstitial edema. Trace left effusion. Officially reported as Microbiology Past 72 Hours 10/21/23 11:00 Mucosa - Nose SARS-CoV-2, Influenza & RSV (PCR) - Final 10/19/23 13:00 Blood Culture (Wb) - Anticubital Left Blood Culture - Preliminary No growth in 48 hours. 10/19/23 13:10 Blood Culture (Wb) - Anticubital Right Blood Culture - Preliminary No growth in 48 hours. Laboratory Results 10/20/23 15:30: APTT 68.0 H 10/20/23 15:33: POC Glucose 225 H 10/20/23 21:29: POC Glucose 103 10/20/23 22:29: APTT 135.4 H* 10/21/23 04:32: WBC 8.8, RBC 3.11 L, Hgb 8.1 L, Hct 27.1 L, MCV 87.1, MCH 26.0 L , MCHC 29.9 L D, RDW Std Deviation 50.6 H, RDW Coeff of Cl 15.9 H, Plt Count 268, MPV 10.3, Immature Gran % (Auto) 0.600, Neut % (Auto) 82.8 H, Lymph % (Auto) 6.9 L, [place] % (Auto) 8.8, Eos % (Auto) 0.3, Baso % (Auto) 0.6, Absolute Neuts (auto) 7.3, Absolute Lymphs (auto) 0.61 L, Nucleated RBC % 0, Differential Comment SCANNED, Sodium 131 L, Potassium 4.7, Chloride 103, Carbon Dioxide 19.0 L, Anion Gap 9, BUN 22 H, Creatinine 1.59 H, Estim Creat Clear Calc 52.62, Est GFR (MDRD) Af Amer 57 L, Est GFR (MDRD) Non-Af 47 L, BUN/Creatinine Ratio 13.8, Glucose 351 H, Calcium 7.7 L, Vancomycin Trough 15.0 10/21/23 04:46: POC Glucose 347 H 10/21/23 06:48: POC Glucose 341 H 10/21/23 08:02: APTT 56.8 H 10/21/23 11:50: POC Glucose 431 H Charges/Coding Visit Charges Inpatient E&M: 37436 Subs Hosp L2
[2023-10-24] MEDS: Senna/Docusate Sodium 1 Tablet 2 TABLET PO (17:17)
[2023-10-24 18:56] LABS: Vancomycin, Trough Level 20.9 ug/mL (5.0-15.0)
[2023-10-24] MEDS: Vancomycin IV 1,000 MG/200 ML BAG 200 MG IV (19:33)
[2023-10-24 21:26] LABS: Bedside Glucose 281 mg/dL (74-106)
[2023-10-24] MEDS: traZODone 50 MG Tablet PO (21:55)
[2023-10-24] MEDS: Atorvastatin Calcium 80 MG Tablet PO (21:56)
[2023-10-24] MEDS: Tamsulosin HCl 0.4 MG Capsule PO (21:56)
[2023-10-24] MEDS: Insulin Glargine-YFGN 100 UNIT/ML Pen 40 UNIT SC (22:06)
--- NOTE | 2023-10-24 22:10 | PCM.RX.CS ---
Consult Antibiotic Management Pharmacy has been consulted to manage selected antibiotic: Vancomycin Type of Intervention Type of Consult: Follow-up Labs Labs: Sodium 138 mmol/L (136-145) 10/24/23 05:32 Potassium 4.1 mmol/L (3.5-5.1) 10/24/23 05:32 Chloride 110 mmol/L (98-107) H 10/24/23 05:32 Carbon Dioxide 24.0 mmol/L (21.0-32.0) 10/24/23 05:32 Anion Gap 4 (5-15) L 10/24/23 05:32 BUN 53 mg/dL (7-18) H 10/24/23 05:32 Creatinine 1.46 mg/dL (0.70-1.30) H 10/24/23 05:32 Est GFR (MDRD) Af Amer 63 mL/min (>60) 10/24/23 05:32 Est GFR (MDRD) Non-Af 52 mL/min (>60) L 10/24/23 05:32 BUN/Creatinine Ratio 36.3 RATIO (10-20) H 10/24/23 05:32 Glucose 170 mg/dL (74-106) H 10/24/23 05:32 Vancomycin Trough 20.9 ug/mL (5.0-15.0) H 10/24/23 18:10 Microbiology Microbiology: Microbiology 10/19/23 13:00 Blood Culture (Wb) - Anticubital Left Blood Culture - Final No growth in 5 days. 10/19/23 13:10 Blood Culture (Wb) - Anticubital Right Blood Culture - Final No growth in 5 days. 10/22/23 16:52 Biopsy - Bone Gram Stain - Final 10/22/23 16:52 Biopsy - Bone Wound Culture - Preliminary Klebsiella pneumoniae sp pneum 10/22/23 16:48 Bone - Other Gram Stain - Final 10/22/23 16:48 Bone - Other Wound Culture - Preliminary Gram negative simeon GNR Poss Pseudomonas sp 10/21/23 16:15 Sputum, Expectorated/Coughed Gram Stain - Final 10/21/23 16:15 Sputum, Expectorated/Coughed Respiratory Culture - Final 10/20/23 15:30 Blood Culture (Wb) - Anticubital Right Blood Culture - Preliminary No growth in 48 hours. 10/21/23 17:13 Urine, Clean Catch Streptococcus pneumoniae Antigen (M - Final 10/21/23 17:13 Urine, Clean Catch Legionella Antigen - Final 10/21/23 11:00 Mucosa - Nose SARS-CoV-2, Influenza & RSV (PCR) - Final Goal Trough Goal Trough: 15-20 mcg/mL Pharmacy Plan for Drug Dosing Pharmacy Plan for Drug Dosing: Pharmacy Service will continue to monitor and adjust dosing as required. TROUGH 20.9 @ 23.5 HOURS. STOP CURRENT DOSE AND START 1GM Q24H NOW AND DRAW TROUGH PRIOR TO 3RD DOSE Follow-Up Labs Follow-Up Labs: Trough: Vancomycin Date/Time Labs Ordered Labs to be done on [date and time ordered]: 10/26 @ 1930
[2023-10-24 22:56] LABS: Bedside Glucose 246 mg/dL (74-106)
[2023-10-25] VITALS (7 sets, daily range): BP systolic 130–158; BP diastolic 73–81; PULSE 87–102; RESP 16–18; TEMP 36.3–36.7; O2SAT 95–98
[2023-10-25] MEDS: Acetaminophen 500 MG Tablet 1000 MG PO ×3 (00:16→15:54)
[2023-10-25] MEDS: Senna/Docusate Sodium 1 Tablet 2 TABLET PO ×2 (00:16→22:45)
[2023-10-25 04:10] LABS: Absolute Lymphocyte Count 1.35 X10^3/uL (0.83-4.51); Absolute Neutrophil Count 6.9 X10^3/uL (2.0-7.7); Basophil# 0.03 X10^3/uL; Basophil% 0.3 % (0-1); Eosinophil# 0.01 X10^3/uL; Eosinophils% 0.1 % (0-5); Hematocrit 24.8 % (40-54); Hemoglobin 7.8 g/dL (13.0-16.5); Lymphocyte # 1.35 X10^3/ul (0.83-4.51); Mean Corp Hgb Conc 31.5 g/dL (32-36); Mean Corpuscular Hgb 26.6 pg (27.0-32.0); Mean Corpuscular Volume 84.6 fL (80-94); Monocyte# 1.19 X10^3/uL; Monocyte% 11.5 % (0-10); NRBC Flagged by Analyzer 1.3 % (0-5); Neutrophil # 6.91 X10^3/uL (2.7-7.7); Neutrophil % 66.8 % (47-70); POSITIVE COUNT YES; POSITIVE MORPHOLOGY YES; Platelet Count 405 K/mm3 (150-450); RBC Distribution Width CV 16.4 % (11.6-14.6); RBC Distribution Width SD 51.5 fl (35.1-43.9); Red Blood Count 2.93 M/mm3 (4.6-6.2); White Blood Count 10.4 K/mm3 (4.4-11.0)
[2023-10-25 04:12] LABS: Differential Indicated SCAN CRITERIA MET
[2023-10-25 04:26] LABS: Anion Gap 3 (5-15); BUN 51 mg/dL (7-18); BUN/Creat Ratio 42.9 RATIO (10-20); Calcium,Total 8.7 mg/dL (8.5-10.1); Chloride 109 mmol/L (98-107); Creatinine, Serum 1.19 mg/dL (0.70-1.30); EST Glomerular Filtration Rate 66 mL/min (>60); Est Glom Filt Rate - Afr Amer 80 mL/min (>60); Estimated Creatinine Clearance 70.31 ml/min; Glucose 172 mg/dL (74-106); Potassium 4.4 mmol/L (3.5-5.1); Sodium Level 139 mmol/L (136-145)
[2023-10-25 04:36] LABS: Differential Comment SCANNED
[2023-10-25] MEDS: Meropenem 1 GM in 0.9% Normal Saline (100mL MB+) 100 ML IV ×3 (05:07→22:41)
[2023-10-25] MEDS: Gabapentin 800 MG Tablet PO ×3 (05:07→22:41)
[2023-10-25] MEDS: Ipratropium/Albuterol Sulfate 3 ML AMPUL.NEB INHALATION ×2 (08:21→19:34)
[2023-10-25] MEDS: Budesonide Respules 0.5 MG/2 ML AMPUL.NEB. INHALATION ×2 (08:25→19:35)
[2023-10-25] MEDS: APIXABAN 5 MG TABLET PO ×2 (08:40→22:41)
[2023-10-25] MEDS: predniSONE 20 MG Tablet 40 MG PO (08:40)
[2023-10-25] MEDS: guaiFENesin/D-Methorphan TAB.SR.12H 1 TABLET PO ×2 (08:40→22:42)
[2023-10-25] MEDS: Pantoprazole Sodium 40 MG Tablet PO ×2 (08:40→22:42)
--- NOTE | 2023-10-25 10:51 | PN.SURG_ITS ---
Subjective Subjective Mr. George is a 58-year-old diabetic male status post partial excision of tibia and talus. Date of surgery was 10/22/2023. Patient is postoperative day 3. Patient is recovering well. No acute events overnight. Denies pain. Denies trauma. Denies constitutional symptoms. Other pedal complaints at this time. Objective Data Objective Data Vital Signs: Vital Signs Temp Pulse Resp BP Pulse Ox O2 Del Method O2 Flow Rate 97.4 F L 87 18 130/73 H 95 Nasal Cannula 3 10/25/23 08:36 10/25/23 08:36 10/25/23 08:36 10/25/23 08:36 10/25/23 09:45 10/25/23 09:45 10/25/23 09:45 FiO2 28 10/22/23 07:30 Oxygen Flow Rate (L/min) 3 Oxygen Delivery Method Nasal Cannula Weight: 89.1 kg Body Mass Index (BMI) 30.7 Intake & Output: Intake and Output for Last 24 Hours 10/23/23 10/24/23 10/25/23 23:59 23:59 23:59 Intake Total 1471.1 / 1471.1 560 / 910 940 / 940 Output Total 825 / 825 2050 / 2850 1600 / 1600 Balance 646.1 / 646.1 -1490 / -1940 -660 / -660 Lab / Micro Data 10/25/23 03:49 10/25/23 03:49 Labs: Laboratory Results - last 24 hr 10/24/23 11:28: POC Glucose 175 H 10/24/23 16:29: POC Glucose 281 H 10/24/23 18:10: Vancomycin Trough 20.9 H 10/24/23 22:04: POC Glucose 246 H 10/25/23 03:49: WBC 10.4, RBC 2.93 L, Hgb 7.8 L, Hct 24.8 L, MCV 84.6, MCH 26.6 L, MCHC 31.5 L, RDW Std Deviation 51.5 H, RDW Coeff of Cl 16.4 H, Plt Count 405, MPV 10.0, Immature Gran % (Auto) 8.300 H, Neut % (Auto) 66.8, Lymph % (Au to) 13.0 L, But[place] % (Auto) 11.5 H, Eos % (Auto) 0.1, Baso % (Auto) 0.3, Absolute Neuts (auto) 6.9, Absolute Lymphs (auto) 1.35, Nucleated RBC % 1.3, Differential Comment SCANNED, Diff Path Review December, Sodium 139, Potassium 4.4, Chloride 109 H, Carbon Dioxide 27.0, Anion Gap 3 L, BUN 51 H, Creatinine 1.19, Estim Creat Clear Calc 70.31, Est GFR (MDRD) Af Amer 80, Est GFR (MDRD) Non-Af 66, BUN/Creatinine Ratio 42.9 H, Glucose 172 H, Calcium 8.7 Micro: Microbiology 10/22/23 16:48 Bone - Other Gram Stain - Final 10/22/23 16:48 Bone - Other Wound Culture - Final Klebsiella pneumoniae sp pneum Pseudomonas aeruginosa 10/22/23 16:48 Bone - Other Anaerobic Culture - Preliminary No growth in 48 hours. 10/22/23 16:52 Biopsy - Bone Gram Stain - Final 10/22/23 16:52 Biopsy - Bone Wound Culture - Preliminary Klebsiella pneumoniae sp pneum 10/22/23 16:52 Biopsy - Bone Anaerobic Culture - Preliminary No growth in 48 hours. 10/19/23 13:00 Blood Culture (Wb) - Anticubital Left Blood Culture - Final No growth in 5 days. 10/19/23 13:10 Blood Culture (Wb) - Anticubital Right Blood Culture - Final No growth in 5 days. 10/21/23 16:15 Sputum, Expectorated/Coughed Gram Stain - Final 10/21/23 16:15 Sputum, Expectorated/Coughed Respiratory Culture - Final 10/20/23 15:30 Blood Culture (Wb) - Anticubital Right Blood Culture - Preliminary No growth in 48 hours. 10/21/23 17:13 Urine, Clean Catch Streptococcus pneumoniae Antigen (M - Final 10/21/23 17:13 Urine, Clean Catch Legionella Antigen - Final 10/21/23 11:00 Mucosa - Nose SARS-CoV-2, Influenza & RSV (PCR) - Final Physical Exam Narrative Neurovascular is unchanged. Nonpitting edema appreciated to the distal and proximal aspect of the postop dressing. Patient has active or passive range of motion to all digits without pain. No pain with palpation over the dressing to the incisions. No pain with calf compression. Assessment & Plan Assessment/Plan (1) Osteomyelitis, ankle and foot: PLAN: Patient was examined and evaluated. All findings were discussed with the patient. All questions were answered to the patient satisfaction. Patient is postoperative day 3, status post partial excision of tibia and talus to the right lower extremity. Wound care orders in. Weightbearing: Patient can be weightbearing as tolerated in [place] walker boot to the right lower extremity. Full weightbearing to left lower extremity. Sx Cx (Bone): K pneumoniae, P aeruginosa WBC: 11.8 -> 12.1 -> 10.4 Glu: 172 Infectious disease: On board, IV antibiotics vancomycin, meropenem. Plan for 6 weeks antibiotics at discharge. Medicine: On board, medical management Patient is cleared from a podiatry perspective to discharge once cleared by medicine and infectious disease team. Please reach out to Dr. Cabrales with any questions or concerns. (2) Cellulitis of foot, right: (3) Charcot's joint of right ankle:
[2023-10-25 11:06] LABS: Bedside Glucose 107 mg/dL (74-106)
--- NOTE | 2023-10-25 12:44 | PN.HOSP_ITS ---
Reason for Visit Reason for Visit: Diagnoses Type 1 diabetes mellitus with diabetic polyneuropathy (10/19/23) Type 2 diabetes mellitus with diabetic neuropathy, unspecified (10/19/23) Atherosclerosis of coronary artery bypass graft(s) without angina pectoris (10/19/23) Gastro-esophageal reflux disease without esophagitis (10/19/23) Cellulitis of right lower limb (10/19/23) Charcot's joint, right ankle and foot (10/19/23) Osteomyelitis, unspecified (10/19/23) Acute kidney failure, unspecified (10/19/23) Hyperglycemia, unspecified (10/19/23) Objective Data Objective Data Vital Signs: Vital Signs Temp Pulse Resp BP Pulse Ox O2 Del Method O2 Flow Rate 97.4 F L 87 18 130/73 H 95 Nasal Cannula 3 10/25/23 08:36 10/25/23 08:36 10/25/23 08:36 10/25/23 08:36 10/25/23 09:45 10/25/23 09:45 10/25/23 10:38 FiO2 28 10/22/23 07:30 Oxygen Flow Rate (L/min) 3 Oxygen Delivery Method Nasal Cannula Weight: 196 lb 6.91 oz Body Mass Index (BMI) 30.7 Intake & Output: Intake and Output for Last 24 Hours 10/23/23 10/24/23 10/25/23 23:59 23:59 23:59 Intake Total 1471.1 / 1471.1 560 / 910 940 / 940 Output Total 825 / 825 2050 / 2850 1600 / 1600 Balance 646.1 / 646.1 -1490 / -1940 -660 / -660 Lab / Micro Data 10/25/23 03:49 10/25/23 03:49 Labs: Laboratory Results - last 24 hr 10/24/23 16:29: POC Glucose 281 H 10/24/23 18:10: Vancomycin Trough 20.9 H 10/24/23 22:04: POC Glucose 246 H 10/25/23 03:49: WBC 10.4, RBC 2.93 L, Hgb 7.8 L, Hct 24.8 L, MCV 84.6, MCH 26.6 L, MCHC 31.5 L, RDW Std Deviation 51.5 H, RDW Coeff of Cl 16.4 H, Plt Count 405, MPV 10.0, Immature Gran % (Auto) 8.300 H, Neut % (Auto) 66.8, Lymph % (Auto) 13.0 L, [place] % (Auto) 11.5 H, Eos % (Auto) 0.1, Baso % (Auto) 0.3, Absolute Neuts (auto) 6.9, Absolute Lymphs (auto) 1.35, Nucleated RBC % 1.3, Differential Comment SCANNED, Diff Path Review December, Sodium 139, Potassium 4.4, Chloride 109 H, Carbon Dioxide 27.0, Anion Gap 3 L, BUN 51 H, Creatinine 1.19, Estim Creat Clear Calc 70.31, Est GFR (MDRD) Af Amer 80, Est GFR (MDRD) Non-Af 66, BUN/Creatinine Ratio 42.9 H, Glucose 172 H, Calcium 8.7 10/25/23 10:48: POC Glucose 107 H Micro: Microbiology 10/22/23 16:48 Bone - Other Gram Stain - Final 10/22/23 16:48 Bone - Other Wound Culture - Final Klebsiella pneumoniae sp pneum Pseudomonas aeruginosa 10/22/23 16:48 Bone - Other Anaerobic Culture - Preliminary No growth in 48 hours. 10/22/23 16:52 Biopsy - Bone Gram Stain - Final 10/22/23 16:52 Biopsy - Bone Wound Culture - Preliminary Klebsiella pneumoniae sp pneum 10/22/23 16:52 Biopsy - Bone Anaerobic Culture - Preliminary No growth in 48 hours. 10/19/23 13:00 Blood Culture (Wb) - Anticubital Left Blood Culture - Final No growth in 5 days. 10/19/23 13:10 Blood Culture (Wb) - Anticubital Right Blood Culture - Final No growth in 5 days. 10/21/23 16:15 Sputum, Expectorated/Coughed Gram Stain - Final 10/21/23 16:15 Sputum, Expectorated/Coughed Respiratory Culture - Final 10/20/23 15:30 Blood Culture (Wb) - Anticubital Right Blood Culture - Preliminary No growth in 48 hours. 10/21/23 17:13 Urine, Clean Catch Streptococcus pneumoniae Antigen (M - Final 10/21/23 17:13 Urine, Clean Catch Legionella Antigen - Final 10/21/23 11:00 Mucosa - Nose SARS-CoV-2, Influenza & RSV (PCR) - Final Physical Exam Narrative Seen and examined. Patient was afebrile in the last 3 days. On 3 L of oxygen. Shortness of breath wheezing better. Ex-smoker. Physical exam General: Alert, Oriented x3, Cooperative HEENT: Atraumatic, PERRLA, EOMI, Normocephalic Oral: No Gingival or Mucosal Lesions/ Ulcerations Neck: Supple, No JVD, Negative Carotid Bruits Chest wall/Lungs: Air entry diminished in bilateral lung bases. Crepitations better no dyspnea at rest. Cardiovascular: Regular rate, Regular Rhythm, Normal S1, Normal S2, No M/G/R Abdomen: Bowel Sounds Present, Soft, Non Tender, Non-Distended : No dysuria. No renal angle tenderness. No suprapubic tenderness. Extremities: No edema, Capillary Refill Less than 3 Seconds Skin: Mild redness on the medial aspect. Musculoskeletal: Tenderness around right ankle and foot has improved. Patient stated he can put weight on it. Right ankle and right foot is deformed from pr evious surgery and Charcot's joint. Neurological: Cranial nerves II-XII grossly intact, DTR 2+/4. No acute focal neurological deficit. Psych/Mental Status: Flat affect. Assessment & Plan Assessment/Plan (1) Charcot's joint of right ankle: (2) Cellulitis of foot, right: (3) CAD (coronary artery disease): QUALIFIERS: Coronary Disease-Associated Artery/Lesion type: bypass graft [place] vs. transplanted heart: [place] heart Associated angina: without angina Qualified Code(s): I25.810 - Atherosclerosis of coronary artery bypass graft(s) without angina pectoris (4) MK (acute kidney injury): (5) Acute hyperglycemia: (6) GERD (gastroesophageal reflux disease): (7) Diabetes mellitus type 1: QUALIFIERS: Diabetes mellitus complication status: with neurologic complications Diabetes mellitus complication detail: with polyneuropathy Qualified Code(s): E10.42 - Type 1 diabetes mellitus with diabetic polyneuropathy PLAN: Plan 58-year-old gentleman is admitted with right foot and ankle pain that started 3 days ago without any obvious injury. Has history of Charcot right foot and wears a brace and had surgery and antibiotics in the past for sepsis secondary to acute right ankle medial malleolus abscess cellulitis and septic arthritis in December 2020. This time, no fever or chills. 1. R ankle pain in setting of diabetes and charcot foot with concern for deep infection/osteomyelitis -WBC slightly elevated at 11.6 w/ left shift, repeat 1 in normal but patient still having fever and chills. -CRP 257 with ESR 75. Repeat CRP also high. -Foot XR Charcot deformity of tarsal bones with evidence of postop changes and severe OA of hindfoot with soft tissue swelling -Blood culture from admission is pending. Repeat blood culture ordered -Cont IV antibiotics, vancomycin and Zosyn. Podiatry was consulted. ID consulted as patient is still having fever on IV vancomycin and Zosyn. -Pain control w/ scheduled tylenol and prn medications -PT/OT 10/21: On 10/20, I discussed with Dr. Gandara the antibiotic was changed from IV Zosyn to meropenem. afebrile in the morning since 9 AM. Heart rate also 88/min most tachycardia last night. Patient was evaluated by ID. Prior wound culture showed Pseudomonas. Plan for or tomorrow with Dr. Webster. 10/22: Patient responding well to IV antibiotics, and fluid. Plan for bone biopsy today. 10/23: Patient had open bone biopsy of tibia, talus on 10/23 in OR. Cultures are pending. Afebrile for 48 hours. 10/24: Prelim culture from bone biopsy shows gram-negative simeon, very rare GNR possible Pseudomonas. Other bone biopsy culture shows Klebsiella pneumoniae, ESBL negative. Will wait for final culture. 10/25: Wound culture shows Klebsiella pneumonia and Pseudomonas aeruginosa. I will discontinue vancomycin. Further recommendation from ID. Discharge planning tomorrow with discussion w [facility] case monitor and social work nurse. 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 Patient baseline estimated creatinine 79 mm/min. -Cr 1.64 in ED with variable baseline, last value 0.94 10/31/2210/20: BUNs/creatinine better 19/1.41. -May have MK w/ underlying infection though cannot r/o component of CKD especially given last check was a year ago and pt has diabetes -Continue IV fluid -Hold home losartan 10/21: Creatinine is elevated 1.59. BUN 22. Anion gap 9 10/22: Improvement in BUN/creatinine 28/1.41.Serum sodium 133 since patient baseline sodium is stays around 134-136 10/23: Creatinine similar 1.40 from yesterday. Electrolytes in normal range. 10/24:Creatinine 1.46, similar. BUN increased. 10/25: Creatinine normal 1.19. Estimated creatinine clearance 70 mL/min. #Hx CAD -s/p 5 vessel cabg around 10 years ago -Continue home medications #Type 1 diabetes mellitus -Glucose checks and sliding scale insulin -Continue long acting insulin- advises he uses 50u long acting at bedtime and SSI 10/22: Glucoses are high because of IV Solu-Medrol. Lantus insulin and Humalog insulin doses increased accordingly 10/23 glucose is controlled. IV Solu-Medrol discontinued. 10/24: Glucose is better 170 after discontinuation of Solu-Medrol. #Chronic BPH with obstruction -Continue home medications #Chronic normocytic anemia -Likely 2/2 chronic disease -Appears to be at baseline -Continue to monitor 10/23: Acute anemia on anemia of chronic disease, gradual decline most likely from antithrombotics: Baseline hemoglobin runs around 9 to 10 g. Hemoglobin dropped to 7.2. Hemoglobin was dropping even before the procedure it was 7.6 therefore unlikely postprocedure blood loss anemia and it was bone biopsy. Platelet count normal. On Eliquis 5 mg twice daily. Reticulocyte count shows 0.52% and immature reticulocyte fraction 4% normal. Serum iron low, iron saturation hide 91.6%. Ferritin 263 therefore it is anemia of chronic disease. Patient had iron infusion yesterday therefore it is not indicated because not iron versus anemia #GERD -Continue PPI Recent pulmonary embolism, subacute/chronic pulmonary embolism: Eliquis was filled on 10/08. Patient on IV heparin drip. 10/23: Confirmed with the pharmacy. Patient filled up Eliquis on October 08 from [facility] which he stated 6 more days of Eliquis 10 mg twice daily and then 5 mg twice daily therefore patient has completed 10 mg twice daily dose and started on 5 mg twice daily from yesterday night. Heparin drip was stopped before the procedure yesterday. Most likely COPD with COPD exacerbation, probably due to pneumonia:Patient is stated that he was smoking a pack per day since teenage quit in 2009. About 30 pack years of smoking. Started on DuoNeb. Add IV Solu-Medrol. Chest x-ray initially reviewed and shows patchy infiltrate on right middle and lower lobe suggestive of pneumonia. Chest x-ray officially reported large right lower lung consolidation with layering effusion and I agree with that. Pneumonia workup ordered. SARS-CoV-2, influenza and RSV negative. 10/23: IV Solu-Medrol discontinued. On prednisone. Scheduled DuoNeb. Continue incentive spirometry and Pep 10/24: Patient's daughter present in the room. Advised to follow-up in pulmonary clinic. For now continue the above treatment. #DVT ppx: SCDs Microbiology Past 72 Hours 10/19/23 13:00 Blood Culture (Wb) - Anticubital Left Blood Culture - Final No growth in 5 days. 10/19/23 13:10 Blood Culture (Wb) - Anticubital Right Blood Culture - Final No growth in 5 days. 10/22/23 16:52 Biopsy - Bone Gram Stain - Final 10/22/23 16:52 Biopsy - Bone Wound Culture - Preliminary Klebsiella pneumoniae sp pneum 10/22/23 16:48 Bone - Other Gram Stain - Final 10/22/23 16:48 Bone - Other Wound Culture - Preliminary Gram negative simeon GNR Poss Pseudomonas sp 10/21/23 16:15 Sputum, Expectorated/Coughed Gram Stain - Final 10/21/23 16:15 Sputum, Expectorated/Coughed Respiratory Culture - Final 10/20/23 15:30 Blood Culture (Wb) - Anticubital Right Blood Culture - Preliminary No growth in 48 hours. 10/21/23 17:13 Urine, Clean Catch Streptococcus pneumoniae Antigen (M - Final 10/21/23 17:13 Urine, Clean Catch Legionella Antigen - Final 10/21/23 11:00 Mucosa - Nose SARS-CoV-2, Influenza & RSV (PCR) - Final Laboratory Results 10/23/23 16:48: POC Glucose 320 H 10/23/23 21:25: POC Glucose 301 H 10/24/23 05:32: WBC 12.1 H, RBC 2.82 L, Hgb 7.3 L, Hct 24.1 L, MCV 85.5, MCH 25.9 L, MCHC 30.3 L, RDW Std Deviation 51.2 H, RDW Coeff of Cl 16.3 H, Plt Count 354, MPV 10.7, Immature Gran % (Auto) 3.000 H, Neut % (Auto) 74.7 H, Lymph % (Auto) 11.0 L, [place] % (Auto) 11.1 H, Eos % (Auto) 0.0, Baso % (Auto) 0.2, Absolute Neuts (auto) 9.0 H, Absolute Lymphs (auto) 1.32, Nucleated RBC % 1.0, Sodium 138, Potassium 4.1, Chloride 110 H, Carbon Dioxide 24.0, Anion Gap 4 L, BUN 53 H, Creatinine 1.46 H, Estim Creat Clear Calc 57.31, Est GFR (MDRD) Af Amer 63, Est GFR (MDRD) Non-Af 52 L, BUN/Creatinine Ratio 36.3 H, Glucose 170 H, Calcium 8.6 10/24/23 07:43: POC Glucose 132 H 10/24/23 11:28: POC Glucose 175 H Clinical Impression(s) from Imaging Studies Foot X-Ray 10/19/23 13:18 IMPRESSION: Charcot deformity of the tarsal bones with evidence of postoperative changes and severe osteoarthritis of the hindfoot. Soft tissue swelling. Lower Extremity CT 10/20/23 07:40 IMPRESSION: Charcot foot as described with findings suggestive of possible osteomyelitis as described Chest X-Ray 10/21/23 05:55 IMPRESSION: Large right lower lung consolidation with layering effusion concerning for pneumonia. Mild diffuse interstitial edema. Trace left effusion. Officially reported as Microbiology Past 72 Hours 10/21/23 11:00 Mucosa - Nose SARS-CoV-2, Influenza & RSV (PCR) - Final 10/19/23 13:00 Blood Culture (Wb) - Anticubital Left Blood Culture - Preliminary No growth in 48 hours. 10/19/23 13:10 Blood Culture (Wb) - Anticubital Right Blood Culture - Preliminary No growth in 48 hours. Laboratory Results 10/20/23 15:30: APTT 68.0 H 10/20/23 15:33: POC Glucose 225 H 10/20/23 21:29: POC Glucose 103 10/20/23 22:29: APTT 135.4 H* 10/21/23 04:32: WBC 8.8, RBC 3.11 L, Hgb 8.1 L, Hct 27.1 L, MCV 87.1, MCH 26.0 L , MCHC 29.9 L D, RDW Std Deviation 50.6 H, RDW Coeff of Cl 15.9 H, Plt Count 268, MPV 10.3, Immature Gran % (Auto) 0.600, Neut % (Auto) 82.8 H, Lymph % (Auto) 6.9 L, [place] % (Auto) 8.8, Eos % (Auto) 0.3, Baso % (Auto) 0.6, Absolute Neuts (auto) 7.3, Absolute Lymphs (auto) 0.61 L, Nucleated RBC % 0, Differential Comment SCANNED, Sodium 131 L, Potassium 4.7, Chloride 103, Carbon Dioxide 19.0 L, Anion Gap 9, BUN 22 H, Creatinine 1.59 H, Estim Creat Clear Calc 52.62, Est GFR (MDRD) Af Amer 57 L, Est GFR (MDRD) Non-Af 47 L, BUN/Creatinine Ratio 13.8, Glucose 351 H, Calcium 7.7 L, Vancomycin Trough 15.0 10/21/23 04:46: POC Glucose 347 H 10/21/23 06:48: POC Glucose 341 H 10/21/23 08:02: APTT 56.8 H 10/21/23 11:50: POC Glucose 431 H Charges/Coding Visit Charges Inpatient E&M: 09322 Subs Hosp L2
[2023-10-25 14:15] LABS: Bedside Glucose 112 mg/dL (74-106)
[2023-10-25] MEDS: oxyCODONE 5 MG Tablet PO ×2 (14:25→22:45)
[2023-10-25 16:24] LABS: Bedside Glucose 331 mg/dL (74-106)
[2023-10-25] MEDS: Insulin Lispro 100 UNIT/ML INSULN.PEN SC ×2 (17:11→22:51)
[2023-10-25] MEDS: Insulin Lispro 100 UNIT/ML INSULN.PEN 15 UNIT SC (17:11)
[2023-10-25] MEDS: Vancomycin IV 1,000 MG/200 ML BAG 200 MG IV (20:22)
[2023-10-25] MEDS: traZODone 50 MG Tablet PO (22:42)
[2023-10-25] MEDS: Tamsulosin HCl 0.4 MG Capsule PO (22:42)
[2023-10-25] MEDS: Atorvastatin Calcium 80 MG Tablet PO (22:42)
[2023-10-25] MEDS: Insulin Glargine-YFGN 100 UNIT/ML Pen 40 UNIT SC (22:51)
[2023-10-25 23:14] LABS: Bedside Glucose 214 mg/dL (74-106)
[2023-10-26] VITALS (7 sets, daily range): BP systolic 128–157; BP diastolic 65–70; PULSE 72–95; RESP 18; TEMP 36.6–36.7; O2SAT 85–95
[2023-10-26 05:32] LABS: Absolute Lymphocyte Count 2.19 X10^3/uL (0.83-4.51); Absolute Neutrophil Count 7.2 X10^3/uL (2.0-7.7); Basophil% 0.8 % (0-1); Eosinophil# 0.08 X10^3/uL; Eosinophils% 0.6 % (0-5); Hematocrit 24.5 % (40-54); Hemoglobin 7.6 g/dL (13.0-16.5); Lymphocyte # 2.19 X10^3/ul (0.83-4.51); Lymphocyte % 17.3 % (19-41); Mean Corpuscular Hgb 25.8 pg (27.0-32.0); Mean Corpuscular Volume 83.1 fL (80-94); Mean Platelet Vol. 10.2 fl (6.2-12.0); Monocyte# 1.47 X10^3/uL; Monocyte% 11.6 % (0-10); NRBC Flagged by Analyzer 1.2 % (0-5); Neutrophil # 7.24 X10^3/uL (2.7-7.7); Neutrophil % 57.4 % (47-70); POSITIVE COUNT YES; POSITIVE MORPHOLOGY YES; Platelet Count 456 K/mm3 (150-450); RBC Distribution Width CV 16.5 % (11.6-14.6); RBC Distribution Width SD 49.6 fl (35.1-43.9); Red Blood Count 2.95 M/mm3 (4.6-6.2); White Blood Count 12.6 K/mm3 (4.4-11.0)
[2023-10-26 05:35] LABS: Differential Indicated SCAN CRITERIA MET
[2023-10-26 05:54] LABS: Anion Gap 3 (5-15); BUN 41 mg/dL (7-18); BUN/Creat Ratio 37.6 RATIO (10-20); Calcium,Total 8.4 mg/dL (8.5-10.1); Chloride 108 mmol/L (98-107); Creatinine, Serum 1.09 mg/dL (0.70-1.30); EST Glomerular Filtration Rate 73 mL/min (>60); Est Glom Filt Rate - Afr Amer 89 mL/min (>60); Estimated Creatinine Clearance 76.76 ml/min; Glucose 105 mg/dL (74-106); Potassium 3.8 mmol/L (3.5-5.1); Sodium Level 140 mmol/L (136-145)
[2023-10-26] MEDS: Gabapentin 800 MG Tablet PO ×2 (05:54→15:36)
[2023-10-26] MEDS: Meropenem 1 GM in 0.9% Normal Saline (100mL MB+) 100 ML IV (05:55)
[2023-10-26] MEDS: 0.9% Normal Saline (250mL Bag) 250 ML 15 ML IV (05:55)
[2023-10-26] MEDS: Budesonide Respules 0.5 MG/2 ML AMPUL.NEB. INHALATION (06:46)
[2023-10-26] MEDS: Ipratropium/Albuterol Sulfate 3 ML AMPUL.NEB INHALATION ×2 (06:46→12:58)
[2023-10-26] MEDS: APIXABAN 5 MG TABLET PO (08:07)
[2023-10-26] MEDS: guaiFENesin/D-Methorphan TAB.SR.12H 1 TABLET PO (08:08)
[2023-10-26] MEDS: Acetaminophen 500 MG Tablet 1000 MG PO ×2 (08:08→17:32)
[2023-10-26] MEDS: Pantoprazole Sodium 40 MG Tablet PO (08:08)
[2023-10-26] MEDS: predniSONE 20 MG Tablet 40 MG PO (08:09)
[2023-10-26] MEDS: oxyCODONE 5 MG Tablet PO (08:17)
[2023-10-26 08:32] LABS: Bedside Glucose 83 mg/dL (74-106)
--- NOTE | 2023-10-26 09:47 | PCM.PN.ID ---
Physical Exam Narrative Feeling better, no fever, no n/v/d. Const alert and no apparent distress General Appearance: cooperative Resp normal air movement and clear to auscultation bilaterally Cardio regular rate and regular rhythm GI soft to palpation, non-tender and non-distended Skin no rashes or lesions noted ID ID: Route of nutrition/ use of supplements: [] Nutritional Intake: [] IV Site: [] Chiang Catheter: [] Assessment & Plan Assessment/Plan (1) Osteomyelitis, ankle and foot: PLAN: Taken to OR 10/22/[address] Cabrales for osteo; had partial excision of tibia. Prior wound cxs with pseudomonas. Fever resolved. Surg cx with PsA and klebs. Will order picc and 6 weeks iv cefepime, stop date 12/03/23 with weekly labs, ID followup in 2 weeks. D/w ramp manager Will follow (2) Diabetes mellitus with neuropathy:
--- NOTE | 2023-10-26 09:56 | CASEMGMT ---
Dr. Judge states the pt is medically ready and can DC today if we can get HH and a home infusion company to accept. [facility] states their system is down and they are unable to run the pt insurance but they state they should be able to accept the pt. Will follow. ATB Rx and pt insurance card sent to [facility] via [employer] at this time. [facility] is the accepting HH agency and Update sent to [facility] via [facility] with ATB Rx.
--- NOTE | 2023-10-26 10:51 | CASEMGMT ---
Addendum entered by Berhane Marrero 10/26/23 16:31: [facility] responds and states We don't have an official number unfortunately, due to the system outage, but we are able to confirm the claims are payable through the plan. We will contact him directly as soon as the system is back up. [facility] called and this RN canceled the pt SOC for Thursday d/t pt being able to DC today with [facility] SOC tomorrow. Addendum entered by Berhane Marrero 10/26/23 16:20: [facility] states they can officially accept and can deliver the medication tonight. This RN CM asked how much the pt co-pay will be, awaiting for return response. Pt RN updated (Michelle). Pt updated and pt states that he feels safe and comfortable driving himself home from the hospital. We are now waiting on [facility] to deliver the pt home O2. Michelle is aware. Addendum entered by Berhane Marrero 10/26/23 15:42: [facility] returns call and this RN CM gave [facility] the insurance information they were requesting ([facility] Part D Plan). [facility] states they will communicate back with this RN CM with further information once obtained. Addendum entered by Berhane Marrero 10/26/23 15:18: TC to [facility] and they have the part D info on file and they shared the information to this RN CM. TC to [facility] for update, VM Message left with return number. Addendum entered by Berhane Marrero 10/26/23 14:56: [facility] states via [employer] that they can accept for pt for SN with the SOC tomorrow morning (10/27). [facility] updated and [facility] states there system is still down. TC to [facility] at this time and they state they require further insurance information regarding the pt and they cannot access this due to their system being down. [facility] is requesting us to send them the part D of the pt current insurance plan. We do not currently have this on file. Pt is currently getting a PICC line, will follow once completed. Addendum entered by Berhane Marrero 10/26/23 14:25: All agencies have declined the pt due to the pt insurance change on 10/30/23. TC to [facility] per this RN CM. [facility] state they can accept the pt but cannot start care until Thursday the due to the pt switching insurances on the . Message sent to Dr. Judge via [employer] with update. This RN CM to pt room at this time for pt update. Pt is about to get a PICC inserted. This RN CM discussed options with pt and the pt denied wanting to go to any skilled facility in the meantime, including the TCU. This RN CM awaiting return message from Dr. Judge regarding the next step in the pt POC. Addendum entered by Berhane Marrero 10/26/23 13:42: [facility] states that they cannot accept the pt d/t the pt insurance changing on Thursday. Addendum entered by Berhane Marrero 10/26/23 12:29: [facility], [facility], [facility] agencies have declined the pt. Dr. Gandara and the pt state they are OK with the pt missing the 2200 dose tonight if we can get the pt DC today. Addendum entered by Berhane Marrero 10/26/23 11:11: [facility] notified that [facility] was unable to accept and that we are working on getting a new HH agency set up. Original Note: [facility] state they are now unable to accept the pt. [facility] state that the pt is switching to [employer] insurance on 10/29 so they are unable to accept. TC to [facility] and they state they cannot service the pt. [facility] also declines d/t location. RN CM to pt room and pt updated on status. Pt states that he does not care what company accepts as long as I can go home today. ANIKA Dorsey purchasing assistant notified and will send new referrals to agencies.
--- NOTE | 2023-10-26 10:55 | PCM.DC ---
Discharge Instructions Diet Discharge Diet: 1800 Calorie Control Diet and 2000 mg Sodium Diet Activity Discharge Activity: Return to Normal Activity Weight Bearing Status: Weight bearing as tolerated Dressing / Incision Call your doctor if you observe: Fever of 101 or Higher, Coldness, Increased Pain, Numbness or Tingling, Change in Color, Inability to urinate, Inability to have a bowel movement, Shortness of breath, Dizziness, Fainting spells, Swelling in the ankles, Chest pain, Prolonged hiccupping, Increased palpitations (irregular heartbeat) and Calf discomfort Follow Up Care When: IN 2 WEEKS Test Results: Test results from this visit will be discussed in further detail at your follow-up appointment, if applicable. Discharge Plan Admission Admit Date/Time: 10/19/23 15:12 Primary Reason for Your Visit: Osteomyelitis of right ankle and foot, pneumonia, COPD exacerbation Attending Provider: Tod Judge Primary Care Provider: Aaliyah Russ Consulting Providers: Sharmin Baker; Festus Gandara; Silvino Cabrales Instructions Additional Instructions / Restrictions: Advised incentive spirometry and Pep for 1 week Discharge Orders/Prescriptions Prescriptions: New cefepime 2 gram Recon Soln 2 g IV Q8 38 Days Qty: 114 0RF Rx Instructions: stop date 12/03/23. Dx: osteomyelitis weekly bmp, cbc, and esr. Fax to [phone] routine picc care per protocol acetaminophen 500 mg Tablet 1,000 mg PO Q8H PRNQty: 0 0RF Rx Instructions: Xfmo-cwi-jwvjlug. prednisone 20 mg Tablet 40 mg PO BREAKFAST 2 Days Qty: 4 0RF sennosides-docusate sodium [Stool Softener-Stimulant Laxat] 8.6-50 mg Tablet 2 tab PO BID PRN PRN (Reason: Constipation) Qty: 0 0RF Rx Instructions: Hcfn-het-tuirghx. Levemir Mucinex DM 30-600 mg Tablet Extended Release 12 Hr 1 tab PO BID 7 Days Qty: 14 0RF albuterol sulfate 90 mcg/actuation aerosol powdr breath activated 2 inh inhalation Q4H PRN (Reason: shortness of breath or wheezing) Qty: 1 0RF Continued nitroglycerin 0.4 mg tablet, sublingual 0.4 mg sublingual PRN PRN (Reason: Chest Pain) Patient Comments: DISSOLVE ONE TABLET UNDER THE TONGUE EVERY 5 MINUTES NEEDED FOR CHEST PAIN. insulin aspart U-100 [Novolog FlexPen U-100 Insulin] 100 unit/mL (3 mL) insulin pen See Rx Instructions .ROUTE .COMPLEX Rx Instructions: Sliding scale rosuvastatin 40 mg tablet 40 mg PO QHS Patient Comments: TAKE 1 TABLET BY MOUTH ONCE DAILY tamsulosin 0.4 mg capsule 0.4 mg PO QHS Patient Comments: TAKE 1 CAPSULE BY MOUTH ONCE DAILY AT BEDTIME losartan 25 mg tablet 25 mg PO QHS Hold Instructions: Resume on 11/12/22. Your losartan has been held due to your blood pressures being on the low side and you order somewhat dehydrated on admission. This will likely be restarted but would defer to your outpatient provider after monitoring your blood pressure Patient Comments: TAKE 1 TABLET BY MOUTH ONCE DAILY Levemir FlexTouch U100 Insulin 100 unit/mL (3 mL) insulin pen See Rx Instructions .ROUTE .COMPLEX Rx Instructions: Hold if glucose less than 130 mg/dl gabapentin 800 mg tablet 800 mg PO TID Patient Comments: TAKE 1 TABLET BY MOUTH THREE TIMES DAILY famotidine 20 mg tablet 20 mg PO BID Patient Comments: TAKE 2 TABLETS BY MOUTH ONCE DAILY pantoprazole 40 mg tablet,delayed release (DR/EC) 20 mg PO BID hydrocodone-acetaminophen 5-325 mg tablet 1 tab PO TID trazodone 50 mg tablet 50 mg PO QHS Patient Comments: TAKE 1 TABLET BY MOUTH AT BEDTIME Eliquis 5 mg tablet 5 mg PO BID 30 Days Qty: 60 2RF Changed alprazolam 0.5 mg tablet 0.25 mg PO TID PRN (Reason: Anxiety) 3 Days Qty: 0 0RF Patient Comments: TAKE 1 TABLET BY MOUTH THREE TIMES DAILY NEEDED FOR UP TO 30 DAYS Referrals / Follow Up: Aaliyah Russ MD [Primary Care Provider] - Hugh Lazaro DO [Med Staff - Active Staff] - Within 1 Month (Suspected COPD. Never had PFT. History of smoking in the past.) Silvino Cabrales DPM [Med Staff - Active Staff] - Within 1 Week Disposition Disposition (needs filled in before D/C Order can be placed): Home Health Service
--- NOTE | 2023-10-26 11:27 | PCM.DC.SUM ---
Providers Date of Admission: 10/19/23 Date of Discharge: 10/26/23 Primary Care Physician: Dr. Aaliyah Russ MD Consultations 10/19/23 15:51 Consult: Podiatry Routine Consulting Provider: Silvino Cabrales Reason for Consult: R ankle pain and concern for infxn EMERGENT Consult: No Notified: Yes Date Notified: 10/19/23 Time Notified: 15:20 Method of Notification: ED Physician Initiated 10/20/23 15:59 Consult: Infectious Disease Routine Consulting Provider: Festus Gandara Reason for Consult: high fever with right ankle supecte OSTEOMYELITIS EMERGENT Consult: No Notified: Yes Date Notified: 10/20/23 Time Notified: 16:00 Method of Notification: Text 10/26/23 08:46 Consult: Onc/Wound/gallery assistant Routine Comment: Reason for Consult:: right leg Reason For Visit: CELLULITIS, FOOT PAIN, DIABETES, MK Diagnosis Discharge Diagnosis (1) Osteomyelitis, ankle and foot: Status: Acute Code(s): M86.9 - Osteomyelitis, unspecified (2) Diabetes mellitus with neuropathy: Status: Acute Code(s): E11.40 - Type 2 diabetes mellitus with diabetic neuropathy, unspecified Plan 58-year-old gentleman is admitted with right foot and ankle pain that started 3 days ago without any obvious injury. Has history of Charcot right foot and wears a brace and had surgery and antibiotics in the past for sepsis secondary to acute right ankle medial malleolus abscess cellulitis and septic arthritis in December 2020. This time, no fever or chills. 1. R ankle pain in setting of diabetes and charcot foot with concern for deep infection/osteomyelitis -WBC slightly elevated at 11.6 w/ left shift, repeat 1 in normal but patient still having fever and chills. -CRP 257 with ESR 75. Repeat CRP also high. -Foot XR Charcot deformity of tarsal bones with evidence of postop changes and severe OA of hindfoot with soft tissue swelling -Blood culture from admission is pending. Repeat blood culture ordered -Cont IV antibiotics, vancomycin and Zosyn. Podiatry was consulted. ID consulted as patient is still having fever on IV vancomycin and Zosyn. -Pain control w/ scheduled tylenol and prn medications -PT/OT 10/21: On 10/20, I discussed with Dr. Gandara the antibiotic was changed from IV Zosyn to meropenem. afebrile in the morning since 9 AM. Heart rate also 88/min most tachycardia last night. Patient was evaluated by ID. Prior wound culture showed Pseudomonas. Plan for or tomorrow with Dr. Webster. 10/22: Patient responding well to IV antibiotics, and fluid. Plan for bone biopsy today. 10/23: Patient had open bone biopsy of tibia, talus on 10/23 in OR. Cultures are pending. Afebrile for 48 hours. 10/24: Prelim culture from bone biopsy shows gram-negative simeon, very rare GNR possible Pseudomonas. Other bone biopsy culture shows Klebsiella pneumoniae, ESBL negative. Will wait for final culture. 10/25: Wound culture shows Klebsiella pneumonia and Pseudomonas aeruginosa. I will discontinue vancomycin. Further recommendation from ID. Discharge planning tomorrow with discussion with telehealth case manager and administrator social welfare. 10/24: Wound culture shows Pseudomonas and Klebsiella. Past wound culture showed Pseudomonas. PICC line ordered by ID for 6 weeks of cefepime, stop date 12/03/2023 with weekly labs. ID follow-up in 2 weeks. 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 Patient baseline estimated creatinine 79 mm/min. -Cr 1.64 in ED with variable baseline, last value 0.94 10/31/2210/20: BUNs/creatinine better 19/1.41. -May have MK w/ underlying infection though cannot r/o component of CKD especially given last check was a year ago and pt has diabetes -Continue IV fluid -Hold home losartan 10/21: Creatinine is elevated 1.59. BUN 22. Anion gap 9 10/22: Improvement in BUN/creatinine 28/1.41.Serum sodium 133 since patient baseline sodium is stays around 134-136 10/23: Creatinine similar 1.40 from yesterday. Electrolytes in normal range. 10/24:Creatinine 1.46, similar. BUN increased. 10/25: Creatinine normal 1.19. Estimated creatinine clearance 70 mL/min. 10/26: MK resolved. #Hx CAD -s/p 5 vessel cabg around 10 years ago -Continue home medications #Type 1 diabetes mellitus -Glucose checks and sliding scale insulin -Continue long acting insulin- advises he uses 50u long acting at bedtime and SSI 10/22: Glucoses are high because of IV Solu-Medrol. Lantus insulin and Humalog insulin doses increased accordingly 10/23 glucose is controlled. IV Solu-Medrol discontinued. 10/24: Glucose is better 170 after discontinuation of Solu-Medrol. 10/25: Patient on home dose of insulin. Compliance reinforced. #Chronic BPH with obstruction -Continue home medications #Chronic normocytic anemia -Likely 2/2 chronic disease -Appears to be at baseline -Continue to monitor 10/23: Acute anemia on anemia of chronic disease, gradual decline most likely from antithrombotics: Baseline hemoglobin runs around 9 to 10 g. Hemoglobin dropped to 7.2. Hemoglobin was dropping even before the procedure it was 7.6 therefore unlikely postprocedure blood loss anemia and it was bone biopsy. Platelet count normal. On Eliquis 5 mg twice daily. Reticulocyte count shows 0.52% and immature reticulocyte fraction 4% normal. Serum iron low, iron saturation hiGH 91.6%. Ferritin 263 therefore it is anemia of chronic disease. Patient had iron infusion yesterday therefore it is not indicated because not iron versus anemia 10/24: Hemoglobin 7.6. Follow-up in hematology clinic #GERD -Continue PPI Recent pulmonary embolism, subacute/chronic pulmonary embolism: Eliquis was filled on 10/08. Patient on IV heparin drip. 10/23: Confirmed with the pharmacy. Patient filled up Eliquis on October 08 from [facility] which he stated 6 more days of Eliquis 10 mg twice daily and then 5 mg twice daily therefore patient has completed 10 mg twice daily dose and started on 5 mg twice daily from yesterday night. Heparin drip was stopped before the procedure yesterday. Most likely COPD with COPD exacerbation, probably due to RML and RLL pneumonia:Patient is stated that he was smoking a pack per day since teenage quit in 2009. About 30 pack years of smoking. Started on DuoNeb. Add IV Solu-Medrol. Chest x-ray initially reviewed and shows patchy infiltrate on right middle and lower lobe suggestive of pneumonia. Chest x-ray officially reported large right lower lung consolidation with layering effusion and I agree with that. Pneumonia workup ordered. SARS-CoV-2, influenza and RSV negative. 10/23: IV Solu-Medrol discontinued. On prednisone. Scheduled DuoNeb. Continue incentive spirometry and Pep 10/24: Patient's daughter present in the room. Advised to follow-up in pulmonary clinic. For now continue the above treatment. 10/26: Follow-up with Dr. Lazaro. Prescription given for albuterol and 2 more days of prednisone 40 mg to total completed 5 days. #DVT ppx: On Eliquis SCDs Discharge medication reconciliation done. Discharge follow-up instructions completed. Discharge process discussed with the patient and all questions were answered to patient's satisfaction. Follow with PCP in 1 to 2 weeks Total time spent, exact 35 minutes on discharge meds reconciliation, examination, coordination of care with nurses and ancillary staff, review of imaging and blood test and discussion with the patient on follow-up instructions. Microbiology Past 72 Hours 10/22/23 16:52 Biopsy - Bone Gram Stain - Final 10/22/23 16:52 Biopsy - Bone Wound Culture - Final Klebsiella pneumoniae sp pneum Pseudomonas aeruginosa 10/22/23 16:52 Biopsy - Bone Anaerobic Culture - Preliminary No growth in 48 hours. 10/20/23 15:30 Blood Culture (Wb) - Anticubital Right Blood Culture - Final No growth in 5 days. 10/22/23 16:48 Bone - Other Gram Stain - Final 10/22/23 16:48 Bone - Other Wound Culture - Final Klebsiella pneumoniae sp pneum Pseudomonas aeruginosa 10/22/23 16:48 Bone - Other Anaerobic Culture - Preliminary No growth in 48 hours. 10/19/23 13:00 Blood Culture (Wb) - Anticubital Left Blood Culture - Final No growth in 5 days. 10/19/23 13:10 Blood Culture (Wb) - Anticubital Right Blood Culture - Final No growth in 5 days. 10/21/23 16:15 Sputum, Expectorated/Coughed Gram Stain - Final 10/21/23 16:15 Sputum, Expectorated/Coughed Respiratory Culture - Final Laboratory Results 10/25/23 08:16: POC Glucose 112 H 10/25/23 15:56: POC Glucose 331 H 10/25/23 22:49: POC Glucose 214 H 10/26/23 05:10: WBC 12.6 H, RBC 2.95 L, Hgb 7.6 L, Hct 24.5 L, MCV 83.1, MCH 25.8 L, MCHC 31.0 L, RDW Std Deviation 49.6 H, RDW Coeff of Cl 16.5 H, Plt Count 456 H, MPV 10.2, Immature Gran % (Auto) 12.300 H, Neut % (Auto) 57.4, Lymph % (Auto) 17.3 L, [place] % (Auto) 11.6 H, Eos % (Auto) 0.6, Baso % (Auto) 0.8, Absolute Neuts (auto) 7.2, Absolute Lymphs (auto) 2.19, Nucleated RBC % 1.2, Diff Path Review December, Sodium 140, Potassium 3.8, Chloride 108 H, Carbon Dioxide 29.0, Anion Gap 3 L, BUN 41 H, Creatinine 1.09, Estim Creat Clear Calc 76.76, Est GFR (MDRD) Af Amer 89, Est GFR (MDRD) Non-Af 73, BUN/Creatinine Ratio 37.6 H, Glucose 105, Calcium 8.4 L 10/26/23 08:02: POC Glucose 83 Clinical Impression(s) from Imaging Studies Foot X-Ray 10/19/23 13:18 IMPRESSION: Charcot deformity of the tarsal bones with evidence of postoperative changes and severe osteoarthritis of the hindfoot. Soft tissue swelling. Lower Extremity CT 10/20/23 07:40 IMPRESSION: Charcot foot as described with findings suggestive of possible osteomyelitis as described Chest X-Ray 10/21/23 05:55 IMPRESSION: Large right lower lung consolidation with layering effusion concerning for pneumonia. Mild diffuse interstitial edema. Trace left effusion. Officially reported as Microbiology Past 72 Hours 10/21/23 11:00 Mucosa - Nose SARS-CoV-2, Influenza & RSV (PCR) - Final 10/19/23 13:00 Blood Culture (Wb) - Anticubital Left Blood Culture - Preliminary No growth in 48 hours. 10/19/23 13:10 Blood Culture (Wb) - Anticubital Right Blood Culture - Preliminary No growth in 48 hours. Laboratory Results 10/20/23 15:30: APTT 68.0 H 10/20/23 15:33: POC Glucose 225 H 10/20/23 21:29: POC Glucose 103 10/20/23 22:29: APTT 135.4 H* 10/21/23 04:32: WBC 8.8, RBC 3.11 L, Hgb 8.1 L, Hct 27.1 L, MCV 87.1, MCH 26.0 L, MCHC 29.9 L D, RDW Std Deviation 50.6 H, RDW Coeff of Cl 15.9 H, Plt Count 268, MPV 10.3, Immature Gran % (Auto) 0.600, Neut % (Auto) 82.8 H, Lymph % (Auto) 6.9 L, [place] % (Auto) 8.8, Eos % (Auto) 0.3, Baso % (Auto) 0.6, Absolute Neuts (auto) 7.3, Absolute Lymphs (auto) 0.61 L, Nucleated RBC % 0, Differential Comment SCANNED, Sodium 131 L, Potassium 4.7, Chloride 103, Carbon Dioxide 19.0 L, Anion Gap 9, BUN 22 H, Creatinine 1.59 H, Estim Creat Clear Calc 52.62, Est GFR (MDRD) Af Amer 57 L, Est GFR (MDRD) Non-Af 47 L, BUN/Creatinine Ratio 13.8, Glucose 351 H, Calcium 7.7 L, Vancomycin Trough 15.0 10/21/23 04:46: POC Glucose 347 H 10/21/23 06:48: POC Glucose 341 H 10/21/23 08:02: APTT 56.8 H 10/21/23 11:50: POC Glucose 431 H Medications at Discharge Home Medications insulin aspart U-100 100 unit/mL (3 mL) subcutaneous pen (Novolog FlexPen U-100 Insulin aspart) See Rx Instructions .Route .COMPLEX diabetes 01/17/21 nitroglycerin 0.4 mg sublingual tablet 0.4 mg sublingual PRN PRN Chest Pain 01/17/21 rosuvastatin 40 mg tablet 40 mg PO QHS cholesterol 01/17/21 tamsulosin 0.4 mg capsule 0.4 mg PO QHS urine flow 01/17/21 insulin detemir U-100 100 unit/mL (3 mL) subcutaneous pen (Levemir FlexTouch U-100 Insulin) See Rx Instructions .Route .COMPLEX diabetes 10/29/22 losartan 25 mg tablet 25 mg PO QHS blood pressure 10/29/22 famotidine 20 mg tablet 20 mg PO BID GERD 10/19/23 gabapentin 800 mg tablet 800 mg PO TID nerve pain 10/19/23 hydrocodone-acetaminophen 5-325mg 5mg-325mg 1 tab PO TID pain 10/19/23 pantoprazole 40 mg tablet,delayed release 20 mg PO BID gerd 10/19/23 trazodone 50 mg tablet 50 mg PO QHS sleep 10/19/23 acetaminophen 500 mg tablet 1,000 mg (2 x 500 mg) PO Q8H PRN #0 tabs 10/26/23 albuterol sulfate 90 mcg/actuation breath activated powder inhaler 2 inh inhalation Q4H PRN shortness of breath or wheezing #1 ea 10/26/23 alprazolam 0.5 mg tablet 0.25 mg (1/2 x 0.5 mg) PO TID PRN Anxiety 3 days #0 tabs 10/26/23 apixaban 5 mg tablet (Eliquis) 5 mg PO BID blood thinn 30 days #60 tabs 10/26/23 cefepime 2 gram solution for injection 2 g IV Q8 38 days #114 ea 10/26/23 dextromethorphan-guaifenesin 30 mg-600 mg tablet extended hr (Mucinex DM) 1 tab PO BID 7 days #14 tabs 10/26/23 prednisone 20 mg tablet 40 mg (2 x 20 mg) PO BREAKFAST 2 days #4 tabs 10/26/23 sennosides 8.6 mg-docusate sodium 50 mg tablet (Stool Softener-Stimulant Laxative) 2 tab PO BID PRN PRN Constipation #0 tabs 10/26/23 Physical Exam Narrative Seen and examined. Patient remained afebrile. On 2 L of oxygen. Shortness of breath wheezing better. Ex-smoker. Physical exam General: Alert, Oriented x3, Cooperative HEENT: Atraumatic, PERRLA, EOMI, Normocephalic Oral: No Gingival or Mucosal Lesions/ Ulcerations Neck: Supple, No JVD, Negative Carotid Bruits Chest wall/Lungs: Air entry diminished in bilateral lung bases. Crepitations better no dyspnea at rest. Cardiovascular: Regular rate, Regular Rhythm, Normal S1, Normal S2, No M/G/R Abdomen: Bowel Sounds Present, Soft, Non Tender, Non-Distended : No dysuria. No renal angle tenderness. No suprapubic tenderness. Extremities: No edema, Capillary Refill Less than 3 Seconds Skin: Redness on the medial aspect has resolved. Musculoskeletal: No tenderness around right ankle and foot improved/resolved. Patient stated he can put weight on it. Right ankle and right foot is deformed from previous surgery and Charcot's joint. Neurological: Cranial nerves II-XII grossly intact, DTR 2+/4. No acute focal neurological deficit. Psych/Mental Status: Flat affect. Weight / BMI Weight Weight: 196 lb 6.91 oz Body Mass Index (BMI) 30.7 ABG / Lab / Microbiology Data 10/26/23 05:10 10/26/23 05:10 Laboratory: Laboratory Results - last 24 hr 10/25/23 08:16: POC Glucose 112 H 10/25/23 15:56: POC Glucose 331 H 10/25/23 22:49: POC Glucose 214 H 10/26/23 05:10: WBC 12.6 H, RBC 2.95 L, Hgb 7.6 L, Hct 24.5 L, MCV 83.1, MCH 25.8 L, MCHC 31.0 L, RDW Std Deviation 49.6 H, RDW Coeff of Cl 16.5 H, Plt Count 456 H, MPV 10.2, Immature Gran % (Auto) 12.300 H, Neut % (Auto) 57.4, Lymph % (Auto) 17.3 L, [place] % (Auto) 11.6 H, Eos % (Auto) 0.6, Baso % (Auto) 0.8, Absolute Neuts (auto) 7.2, Absolute Lymphs (auto) 2.19, Nucleated RBC % 1.2, Diff Path Review December, Sodium 140, Potassium 3.8, Chloride 108 H, Carbon Dioxide 29.0, Anion Gap 3 L, BUN 41 H, Creatinine 1.09, Estim Creat Clear Calc 76.76, Est GFR (MDRD) Af Amer 89, Est GFR (MDRD) Non-Af 73, BUN/Creatinine Ratio 37.6 H, Glucose 105, Calcium 8.4 L 10/26/23 08:02: POC Glucose 83 Microbiology: Microbiology 10/22/23 16:52 Biopsy - Bone Gram Stain - Final 10/22/23 16:52 Biopsy - Bone Wound Culture - Final Klebsiella pneumoniae sp pneum Pseudomonas aeruginosa 10/22/23 16:52 Biopsy - Bone Anaerobic Culture - Preliminary No growth in 48 hours. 10/20/23 15:30 Blood Culture (Wb) - Anticubital Right Blood Culture - Final No growth in 5 days. 10/22/23 16:48 Bone - Other Gram Stain - Final 10/22/23 16:48 Bone - Other Wound Culture - Final Klebsiella pneumoniae sp pneum Pseudomonas aeruginosa 10/22/23 16:48 Bone - Other Anaerobic Culture - Preliminary No growth in 48 hours. 10/19/23 13:00 Blood Culture (Wb) - Anticubital Left Blood Culture - Final No growth in 5 days. 10/19/23 13:10 Blood Culture (Wb) - Anticubital Right Blood Culture - Final No growth in 5 days. 10/21/23 16:15 Sputum, Expectorated/Coughed Gram Stain - Final 10/21/23 16:15 Sputum, Expectorated/Coughed Respiratory Culture - Final 10/21/23 17:13 Urine, Clean Catch Streptococcus pneumoniae Antigen (M - Final 10/21/23 17:13 Urine, Clean Catch Legionella Antigen - Final 10/21/23 11:00 Mucosa - Nose SARS-CoV-2, Influenza & RSV (PCR) - Final D/C Instructions Discharge Diet: 1800 Calorie Control Diet and 2000 mg Sodium Diet Weight Bearing Status: Weight bearing as tolerated Call your doctor if you observe: Fever of 101 or Higher, Coldness, Increased Pain, Numbness or Tingling, Change in Color, Inability to urinate, Inability to have a bowel movement, Shortness of breath, Dizziness, Fainting spells, Swelling in the ankles, Chest pain, Prolonged hiccupping, Increased palpitations (irregular heartbeat) and Calf discomfort When: IN 2 WEEKS Meaningful Use Info Meaningful Use Diagnoses (Choose all that apply): None applicable Discharge Plan Admission Admit Date/Time: 10/19/23 15:12 Primary Reason for Your Visit: Osteomyelitis of right ankle and foot, pneumonia, COPD exacerbation Attending Provider: Tod Judge Primary Care Provider: Aaliyah Russ Consulting Providers: Sharmin Baker; Festus Gandara; Silvino Cabrales Instructions Additional Instructions / Restrictions: Advised incentive spirometry and Pep for 1 week Discharge Orders/Prescriptions Prescriptions: New cefepime 2 gram Recon Soln 2 g IV Q8 38 Days Qty: 114 0RF Rx Instructions: stop date 12/03/23. Dx: osteomyelitis weekly bmp, cbc, and esr. Fax to [phone] routine picc care per protocol acetaminophen 500 mg Tablet 1,000 mg PO Q8H PRNQty: 0 0RF Rx Instructions: Youe-wmu-kajbajp. prednisone 20 mg Tablet 40 mg PO BREAKFAST 2 Days Qty: 4 0RF sennosides-docusate sodium [Stool Softener-Stimulant Laxat] 8.6-50 mg Tablet 2 tab PO BID PRN PRN (Reason: Constipation) Qty: 0 0RF Rx Instructions: Ayiq-rvf-givlaem. Levemir Mucinex DM 30-600 mg Tablet Extended Release 12 Hr 1 tab PO BID 7 Days Qty: 14 0RF albuterol sulfate 90 mcg/actuation aerosol powdr breath activated 2 inh inhalation Q4H PRN (Reason: shortness of breath or wheezing) Qty: 1 0RF Continued nitroglycerin 0.4 mg tablet, sublingual 0.4 mg sublingual PRN PRN (Reason: Chest Pain) Patient Comments: DISSOLVE ONE TABLET UNDER THE TONGUE EVERY 5 MINUTES NEEDED FOR CHEST PAIN. insulin aspart U-100 [Novolog FlexPen U-100 Insulin] 100 unit/mL (3 mL) insulin pen See Rx Instructions .ROUTE .COMPLEX Rx Instructions: Sliding scale rosuvastatin 40 mg tablet 40 mg PO QHS Patient Comments: TAKE 1 TABLET BY MOUTH ONCE DAILY tamsulosin 0.4 mg capsule 0.4 mg PO QHS Patient Comments: TAKE 1 CAPSULE BY MOUTH ONCE DAILY AT BEDTIME losartan 25 mg tablet 25 mg PO QHS Hold Instructions: Resume on 11/12/22. Your losartan has been held due to your blood pressures being on the low side and you order somewhat dehydrated on admission. This will likely be restarted but would defer to your outpatient provider after monitoring your blood pressure Patient Comments: TAKE 1 TABLET BY MOUTH ONCE DAILY Levemir FlexTouch U100 Insulin 100 unit/mL (3 mL) insulin pen See Rx Instructions .ROUTE .COMPLEX Rx Instructions: Hold if glucose less than 130 mg/dl gabapentin 800 mg tablet 800 mg PO TID Patient Comments: TAKE 1 TABLET BY MOUTH THREE TIMES DAILY famotidine 20 mg tablet 20 mg PO BID Patient Comments: TAKE 2 TABLETS BY MOUTH ONCE DAILY pantoprazole 40 mg tablet,delayed release (DR/EC) 20 mg PO BID hydrocodone-acetaminophen 5-325 mg tablet 1 tab PO TID trazodone 50 mg tablet 50 mg PO QHS Patient Comments: TAKE 1 TABLET BY MOUTH AT BEDTIME Eliquis 5 mg tablet 5 mg PO BID 30 Days Qty: 60 2RF Changed alprazolam 0.5 mg tablet 0.25 mg PO TID PRN (Reason: Anxiety) 3 Days Qty: 0 0RF Patient Comments: TAKE 1 TABLET BY MOUTH THREE TIMES DAILY NEEDED FOR UP TO 30 DAYS Referrals / Follow Up: Aaliyah Russ MD [Primary Care Provider] - Hugh Lazaro DO [Med Staff - Active Staff] - Within 1 Month (Suspected COPD. Never had PFT. History of smoking in the past.) Silvino Cabrales DPM [Med Staff - Active Staff] - Within 1 Week Jackson Ruggiero MD [Med Staff - Active Staff] - Within 2 Weeks (Severe anemia, seems anemia of chronic disease) Festus Gandara MD [Med Staff - Active Staff] - Within 2 Weeks (Weekly CBC and CMP) Disposition Disposition (needs filled in before D/C Order can be placed): Home Health Service Charges/Coding Visit Charges Inpatient E&M: 63250 Disch Hosp >30min
[2023-10-26 11:51] LABS: Bedside Glucose 202 mg/dL (74-106)
--- NOTE | 2023-10-26 11:52 | CASEMGMT ---
Discharge Planning HH referral sent via [facility] to [facility], [facility], [facility] Sher[facility], and [facility]. Sunita Brewster, Discharge Planning Asst.
[2023-10-26] MEDS: Insulin Lispro 100 UNIT/ML INSULN.PEN 15 UNIT SC ×2 (11:59→17:33)
[2023-10-26] MEDS: Insulin Lispro 100 UNIT/ML INSULN.PEN SC ×2 (11:59→17:32)
[2023-10-26 14:30] LABS: Pathologist Review Reviewed
[2023-10-26 14:33] LABS: Pathologist Review Reviewed
[2023-10-26] MEDS: Cefepime HCl 2 GM in 0.9% Normal Saline (100mL MB+) 100 ML IV (15:28)
--- NOTE | 2023-10-26 15:33 | PRO.PCM_ITS ---
Procedure Report Date of Procedure: 10/26/23 Assessment & Plan Assessment/Plan (1) Osteomyelitis, ankle and foot: Procedures Radiology Radiology Access Procedures: PICC Procedure Time Out Time Out Informed consent given: Yes Consent signed: Yes Time out checklist: patient, procedure, site marked/identified, positioning of patient, supplies available and allergies confirmed Time out verified: Yes Time out date: 10/26/23 Time out time: 14:10 PICC Line Consent Screening tool completed:: Yes Consent obtained:: Yes Consent given by (patient or responsible constitution party):: patient Line successful (if no, document why in comments):: Yes Insertion Date of Insertion: 10/26/23 Ok to use: Yes Type of PICC inserted: Single Power PICC PICC Lot #: [id number] PICC Reference #: [id number] Microintroducer Used: Yes (in kit) Ultrasound/Equipment Used: Probe Cover Kit Trimmed Length (cm): 46 Insertion Length (cm): 44 Exposed Length (cm): 2 Tip Placement: Caval Atrial Junction Placement Confirmation: 3CG Insertion Vein: Right Basilic Insertion Attempts: 1 Local Anesthesia Used: Lidocaine 1% (in kit) Dressing Applied: Statlock and Tegaderm CHG Arm Measurement above site (in cm): 32 Patient Tolerated Procedure: Well Threading Difficulties: No Comments Comment: Patient identity was verified with two patient identifiers. Informed consent was obtained and time-out was completed. Hands were sanitized. The patient was positioned supine with right arm at 90 degrees. The patient's upper arm vasculature was assessed using ultrasound, and the right basilic vein was externally marked. An external measurement was obtained of 46 cm. External leads were applied to the patient's right upper chest and laterally and inferior of the umbilicus on the mid axillary line. Cap, mask, and prep gloves were donned. The underdrape was placed under the patient's arm. The site was prepped with chlorhexidine, and tourniquet was loosely applied. Prep gloves were discarded, and hands were sanitized. The sterile kit was opened with additional supplies dropped in. Sterile gown and gloves were donned, and the patient was draped. The sterile kit was assembled with all needle, introducer, connector, and catheter flushed with sterile normal saline. The marked site of insertion was anesthetized with 1% lidocaine. Patient tolerated well. The right basilic vein was then accessed using ultrasound guidance and guidewire was inserted to safety amrik. The tourniquet was released. The access needle was removed while securing the guidewire in place. The site was again anesthetized with 1% lidocaine, prior to insertion of introducer sheath and dilator. Patient tolerated well. The catheter was trimmed to a length of 46 cm. Using 3C guidance, the catheter was then inserted through the introducer sheath, slowly. There was no resistance on insertion. Maximal p-wave, without deflection, was obtained at an insertion length of 44 cm, leaving 2 cm external. The introducer sheath was retracted and peeled away, incrementally, while keeping the catheter secured. The stylet was removed. A flushed needleless connector was attached to the single-lumen. Blood return was verified and the lumen was flushed with sterile normal saline in a pulsatile fashion. Total sterile flushes used for the insertion was 4 10 ml syringes. Finally, the insertion site was cleaned with chlorhexidine, and the catheter was secured using a StatLock. The site was covered with a Tegaderm CHG Dressing. Baseline arm circumference was obtained at the insertion site and measured 32 cm. The patient was provided with a patient education handout on PICC line care and verbalized understanding of infection prevention, heavy lifting restriction, maintaining mobility, and watching for any signs of infection. Charge and primary nurse are aware that the PICC line is ready for use.
[2023-10-26] MEDS: Lactated Ringers 1,000 ML 15 ML IV (15:35)
--- NOTE | 2023-10-26 15:53 | CASEMGMT ---
Addendum entered by Berhane Marrero 10/26/23 16:37: Dr. Judge added the saying/ blurb for pt home O2 in the DC summary. Jessica from [facility] delivered the O2 tank to the pt room at this time. Pt states that he has cared for his wound before in the past per himself. Pt states that he can do this again. Pt educated that the SN from the [facility] agency can help with this as well. Pt denies further needs and is happy he is getting DC today. Original Note: Pt qualified for 4L of O2 on exertion. Referral sent to [facility] via [facility] at this time.
[2023-10-26 17:59] LABS: Bedside Glucose 288 mg/dL (74-106)
== END 2023-10-26 18:16 | disposition home health service (06) | DRG 628 ==
LOC: ED 14:29 → MS3 15:32
PROVIDERS: Anesthesiology; Internal Medicine Infectious Disease; Podiatrist Foot & Ankle Surgery; Admitting Provider Internal Medicine; Emergency Provider Emergency Medicine; PCP Internal Medicine; Visit Provider Internal Medicine
PROC: 0QBG0ZX Excision of Right Tibia, Open Approach, Diagnostic (ICD-10-PCS; principal; 2023-10-22 15:15)
DX: E10.69 Type 1 diabetes mellitus with other specified complication (principal); J18.9 Pneumonia, unspecified organism; I13.0 Hypertensive heart and chronic kidney disease with heart failure and stage 1 through stage 4 chronic kidney disease, or unspecified chronic kidney disease; J44.1 Chronic obstructive pulmonary disease with (acute) exacerbation; I27.82 Chronic pulmonary embolism; J44.0 Chronic obstructive pulmonary disease with (acute) lower respiratory infection; M86.8X7 Other osteomyelitis, ankle and foot; L02.415 Cutaneous abscess of right lower limb; N13.8 Other obstructive and reflux uropathy; L03.115 Cellulitis of right lower limb; E10.21 Type 1 diabetes mellitus with diabetic nephropathy; E10.42 Type 1 diabetes mellitus with diabetic polyneuropathy; E10.610 Type 1 diabetes mellitus with diabetic neuropathic arthropathy; D63.8 Anemia in other chronic diseases classified elsewhere; E10.628 Type 1 diabetes mellitus with other skin complications; N17.9 Acute kidney failure, unspecified; I50.9 Heart failure, unspecified; E10.65 Type 1 diabetes mellitus with hyperglycemia; Z79.4 Long term (current) use of insulin; E78.00 Pure hypercholesterolemia, unspecified; I25.10 Atherosclerotic heart disease of native coronary artery without angina pectoris; M19.079 Primary osteoarthritis, unspecified ankle and foot; K21.9 Gastro-esophageal reflux disease without esophagitis; N18.2 Chronic kidney disease, stage 2 (mild); F17.210 Nicotine dependence, cigarettes, uncomplicated; I25.2 Old myocardial infarction; Z79.82 Long term (current) use of aspirin; G89.29 Other chronic pain; N40.1 Benign prostatic hyperplasia with lower urinary tract symptoms; Z86.73 Personal history of transient ischemic attack (TIA), and cerebral infarction without residual deficits; Z95.1 Presence of aortocoronary bypass graft
CPT/HCPCS: 36415; 36569; 71046; 73600; 73630; 73700; 76000; 80048; 80053; 80202; 82728; 82962; 83036; 83540; 83550; 83605; 85025; 85045; 85610; 85652; 85730; 86140; 87040; 87070; 87075; 87077; 87102; 87184; 87186; 87205; 87206; 87449; 87631; 88304; 88307; 88311; 93005; 94640; 94660; 94668; 97110; 97116; 97162; 97166; 97530; 97535; 97802; 99283; J2185; J7030; J7040; J7050; J7120; A4216; J2405; J2916

== ENCOUNTER 2023-12-22 05:57 | Day surgery (SDC) | payer MEDICARE, MEDICAID, SELFPAY ==
--- NOTE | 2023-12-21 | BON_PTH ---
PATIENT: CARLOS EDUARDO JULES LOC: [facility] [place] U#:[id number] AGE/SX: 58/M ROOM: RE12/22/[address]: Dr. Silvino Cabrales DPM : 1965 BED: DIS: 12/22/2023 SPEC #: [id number] RECD: 12/22/23 10:56 STATUS: ELISE REQ #: [id number] JOEL: 12/21/23 00:[address]: iSlvino Cabrales DEPT: SURGICAL PATHOLOGY RECD BY: Rufino Silva ENTERED: 12/22/23 10:57 SP TYPE: Bone OTHR DR: Dr. Aaliyah Russ MD Tissues: A - Bone of ankle, NOS B - Bone of foot, NOS Procedures: Decalcification bone/plaque Surgery Specimen Level III HEADER OPERATION: ERAS, Incision of bone cortex of right foot and ankle PRE-OP DIAGNOSIS: Charot foot due to diabetes mellitus TISSUE SUBMITTED: A- Bone cortex of right ankle, B- Bone cortex of right foot MICROSCOPIC DIAGNOSIS A. Right ankle bone cortex, core biopsy: Pieces of bone with reactive changes. Negative for osteomyelitis. B. Right foot bone cortex, core biopsy: A piece of bone with reactive changes, negative for acute osteomyelitis. [facility] 12/25/23 MICROSCOPIC DESCRIPTION Slides are reviewed. GROSS DESCRIPTION A. Received in fixative is one container labeled with the patient's name and designated Bone cortex of right ankle. The specimen consists of two elongated pieces of bone each measuring 0.9cm. in length and 0.1cm. The specimen is totally submitted in one cassette after decalcification. B. Received in fixative is one container labeled with the patient's name and designated Bone cortex of right foot. The specimen consists of an elongated piece of bone measuring 1.5cm in length and 0.1cm in diameter. The entire specimen is submitted in one cassette after decalcification. [facility] 12/22/2023 TC:5 CPT:92121j2, 99957m5
[2023-12-22 06:41] VITALS: BP 110/65; PULSE 92; RESP 16; TEMP 36.6; O2SAT 100; BMI 32.1
[2023-12-22 06:53] LABS: Bedside Glucose 449 mg/dL (74-106)
[2023-12-22] MEDS: Insulin Lispro 100 UNIT/ML INSULN.PEN SC (07:00)
--- NOTE | 2023-12-22 07:02 | OP.PCM_ITS ---
Problems Associated Problem List Diagnoses (1) Other acute osteomyelitis, right ankle and foot: (2) Charcot's joint, right ankle and foot: (3) Chronic painful diabetic polyneuropathy: Report of Operation Date of Procedure: 12/22/23 Pre-Operative Diagnosis: 1. Osteomyelitis, right foot and ankle 2. Charcot, left right foot and ankle 3. Diabetes mellitus type 2 peripheral neuropathy Post-Operative Diagnosis: 1. Osteomyelitis, right foot and ankle 2. Charcot, left right foot and ankle 3. Diabetes mellitus type 2 peripheral neuropathy Surgery/Procedure Performed:: 1. Incision bone cortex, right foot and ankle Description of Surgical Findings:: 1. Hard cortex when obtaining incision of bone cortex to the right ankle at the level of the tibia. 2. Hard cortex when obtaining incision of bone cortex to the right foot at the level of the midfoot. Surgeon: Silvino Cabrales steelscope operator: None Type of Anesthesia: Local Special Medications: None Specimen's removed: 1. Incision of bone cortex, left ankle, half sent to pathology half sent to microbiology for culture and sensitivity 2. Incision of bone cortex, left foot, half sent to pathology half sent to microbiology for culture and sensitivity Drains: None Estimated Blood Loss (mL): 5 MLS Fluids Replaced: None Description of Procedure: Indications For Operation: Mr. George is a 58-year-old diabetic male who was admitted to [facility] for incision of bone cortex to rule out deep bone infection after completing 6 weeks of PICC line and IV antibiotics. Patient is well-known to my office and was originally seen for Charcot foot deformity of the right lower extremity. Patient was seen in the office for surgical consultation prior to surgery today with chart review and consent signed. All risk and benefits discussed with the patient great detail. Due to right foot deformity secondary to Charcot neuropathy had deemed necessary at this time to take the patient to the operating room to perform incision of bone cortex of the right foot and ankle to rule out any residual osteomyelitis infection after undergoing 6 weeks of PICC line IV antibiotics through infectious disease here at the hospital. If the patient shows clear margins during follow-up we will move forward with reconstruction with hexapod external fixation followed by infix intramedullary nail fixation and a two-stage procedure following path and culture results with infectious disease recommendation. The nature of the problem, anticipated procedures, postop recovery/convalences and risk/complications include but not limited to infection, wound healing complications, digital amputation, hypertrophic scarring, numbness, tingling, chronic pain, CRPS, over and under correction, recurrence of deformity, DVT and or PE and the need for further surgery have been discussed in great detail with the patient. All questions have been answered to the patient's satisfaction. There are no guarantees given as to the outcome of the procedure. Description of Procedure: The patient was brought in the operating room placed on the operating table in supine position. This was a local case and no general anesthesia or intubation was used. The right lower extremity was blocked using a one-to-one mixture of 20 cc 1% Xylocaine plain with 0.5% Marcaine plain to the right lower extremity. No tourniquet was used for this case. Next, the right lower extremity was prepped and draped in normal aseptic manner. Next, a timeout was then undertaken verifying the correct patient, extremity, visibility of preoperative markings, availability of the equipment. Procedure #1: Incision of bone cortex, right foot and ankle Next, attention was directed to the right ankle where there was concerns for osteomyelitis. Incision of bone cortex was made using a Jamshidi needle at the level of the right tibia. Bone samples removed from the respective location and passed to the back table to be sent for half pathology and half microbiology culture and sensitivity. Let it be noted that the tibia cortex was hard in nature prior to obtaining the bone samples. The area of incision of bone cortex was wiped clean and patted dry, the incision sites were closed with 2-0 nylon in simple interrupted suture technique. Next, attention was directed to the right midfoot where there was concerns for osteomyelitis. Incision of bone cortex was made using a Jamshidi needle at the level of the midfoot of the right foot. Bone samples removed from there respective location and passed to the back table to be sent for half pathology and half microbiology culture and sensitivity. Let it be noted that the midfoot cortex was hard in nature prior to obtaining the bone samples. The area of incision of bone cortex was wiped clean and patted dry, the incision sites were closed with 2-0 nylon in simple interrupted suture technique. The right lower extremities were cleaned and patted dry. The incisions were dressed with Betadine soaked Adaptic, dry sterile dressing and a single layer Zhang compression bandage was donned to the right lower extremity. The patient tolerated the procedure and anesthesia well and apparent satisfactory condition and was transported to the PACU for further monitoring prior to discharge home. Vital signs stable and vascular status intact to all digits bilateral. Post Operative Plan: Weightbearing: Full weightbearing to right lower extremity with [place] walking boot. Full weightbearing to left lower extremity. Antibiotics: None needed or indicated for this case DVT Prophylaxis: Ambulation Chiang: None Dressing: Betadine soaked Adaptic, dry sterile dressing single-layer Zhang compression bandage X-Rays: Post-operative films taken on the operating room. Pain Medication: Percocet 5/325 Follow-up: Follow-up with Dr. Cabrales in private office 1 week postop. Grafts/Implants Used: None Complications None Admit VTE Documentation VTE Present on Admission: No VTE Mechan Device Prophylaxis: SCD's VTE Pharm Prophylaxis ordered?: No Reason prophylaxis not ordered:: Procedure Not Indicated
[2023-12-22 07:14] VITALS: BP 125/60; O2SAT 94; O2SAT 97
[2023-12-22] MEDS: Bupivacaine Mpf 0.5% 30 ML VIAL (07:26)
[2023-12-22] MEDS: Lidocaine 1% (30 ml sdv) 30 ML Vial (07:26)
[2023-12-22 07:29] VITALS: BP 125/60; BP 133/70; BP 135/68; O2SAT 89; O2SAT 96
--- NOTE | 2023-12-22 07:31 | RAD_ITS ---
STUDY: X-RAY - RIGHT FOOT CLINICAL: Male, 58 years old. ORIF TECHNIQUE: 3 intraoperative view(s) of the foot. COMPARISON: None. FINDINGS: 3 limited intraoperative studies were performed as the patient has undergone placement of another threaded screw within the calcaneus. No intraoperative complications. RAD/Foot 2 Views IMPRESSION: No intraoperative complications noted during intraoperative studies of hardware placement into the calcaneus Electronically Signed: Jose Montero MD at 10:31 EDT ,
[2023-12-22 07:42] VITALS: BP 122/62; BP 125/60; BP 130/60; O2SAT 94; O2SAT 96
[2023-12-22 08:12] VITALS: BP 118/62; PULSE 81; RESP 16; TEMP 37.1; O2SAT 94
== END 2023-12-22 08:44 | disposition home or self-care (01) ==
LOC: SDC 05:58 → AC 06:00
PROVIDERS: PCP Internal Medicine; Referring Provider Podiatrist Foot & Ankle Surgery; Visit Provider Podiatrist Foot & Ankle Surgery
PROC: (CPT 28005; principal; 2023-12-22 07:30)
DX: E11.69 Type 2 diabetes mellitus with other specified complication (principal); M86.171 Other acute osteomyelitis, right ankle and foot; E11.42 Type 2 diabetes mellitus with diabetic polyneuropathy; Z79.4 Long term (current) use of insulin; E11.610 Type 2 diabetes mellitus with diabetic neuropathic arthropathy; I25.2 Old myocardial infarction; Z95.5 Presence of coronary angioplasty implant and graft; Z86.73 Personal history of transient ischemic attack (TIA), and cerebral infarction without residual deficits; E55.9 Vitamin D deficiency, unspecified; I25.119 Atherosclerotic heart disease of native coronary artery with unspecified angina pectoris
CPT/HCPCS: 28005; J7120; 73620; 76000; 82962; 87015; 87070; 87075; 87077; 87102; 87116; 87186; 87205; 87206; 88304; 88311

== ENCOUNTER 2024-02-12 11:01 | Day surgery (SDC) | payer MEDICARE, MEDICAID, SELFPAY ==
[2024-02-12] VITALS (9 sets, daily range): BP systolic 115–144; BP diastolic 52–67; PULSE 86–95; RESP 16–18; TEMP 36.2–37.3; O2SAT 94–99; BMI 31.0
--- NOTE | 2024-02-12 11:10 | PRE.ANES_ITS ---
ASA Classification* ASA Classification ASA Classification: 3 (cads, s/p cabg) Assessment & Plan Anesthesia* Anesthesia Assessment Anesthesia Assessment: Discussed sedation and/or anesthesia options, risks, benefits, and alternatives with patient/parents/legal guardian/POA. Questions invited. The patient/parents/legal guardian/POA seems to understand and agrees to proceed with anesthesia plan. Reviewed the physical assessment, medical history, allergy history and patient home medications list prior to surgery/procedure/anesthetic and documented any changes. Performed airway and anesthesia risk assessments. Anesthesia Type Anesthesia Type: General Pre-Assessment Diagnosis/Proposed Procedure Planned Operative Procedure(s): (R) Partial tibial and fibula osteotomy with hardware removal, tendo-achilles lengthening, application of antibiotic beads and external fixator Anesthesia History Anesthesia History - field service representative: Anesthesia History - field service representative Hx Hospitalization Yes: 10/202302/02/24 11:10 Any Problems With Anesthesia No 02/02/24 11:10 Cholinesterase deficiency No 02/02/24 11:10 You/Your Family Experience No 02/02/24 11:10 fever (hyperthermia) with Relationship Recent Exposure to Contagious No 12/22/23 06:41 Disease Does patient have nerve No 02/02/24 11:10 stimulator Patient instructed to have device shut off --Does patient have Pacemaker or ICD? When Was Last Pacemaker Check QUESTION #4 FULL TEXT: You/Your Family Experience fever (hyperthermia) with Anesthesia Last Oral Intake Last Oral intake: Last Oral Intake NPO since Meds taken in AM with sips of water? Meds patient instructed to take am of surgery PONV PONV - field service representative: PONV - field service representative Female No 02/02/24 11:10 HX of Motion Sickness No 02/02/24 11:10 HX of N/V After Surgery No 02/02/24 11:10 Non-Smoker Yes 02/02/24 11:10 Duration of Surgery greater Yes 02/02/24 11:10 than 60 minutes Number of Risk Factors 2 02/02/24 11:10 PONV Score Moderate Risk 02/02/24 11:10 Height & Weight Height & Weight: Anesthesia: Height & Weight Height 5 ft 7 in 12/22/23 06:41 Respiratory Assessment Respiratory Assessment - field service representative: Respiratory Tract Infection Hx - field service representative Hx Respiratory Tract Infection No 02/02/24 11:10 STOP Sleep Apnea STOP Sleep Apnea - field service representative: STOP Sleep Apnea - field service representative Hx Hypertension No 02/02/24 11:10 Hx Sleep Apnea Yes 02/02/24 11:10 CPAP Yes: NONCOMPLIANT 02/02/24 11:10 BIPAP No 02/02/24 11:10 Do you snore loudly (louder than talking or can be heard Do you often feel tired/ fatigued/ sleepy during daytime? Has anyone observed you stop breathing during sleep? STOP Results Positive 02/02/24 11:10 QUESTION #5 FULL TEXT : Do you snore loudly (louder than talking or can be heard through closed doors)? 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 Specify any problems Hx of Preganancy in last 3 N/A 02/02/24 11:10 Months Nurse Filling Out Transfusion VCHRISTIN 02/02/24 11:10 & Questions: Date: 02/02/24 02/02/24 11:10 Time: 11:11 02/02/24 11:10 Patient unable to answer at this time (ie. confused, unrespo /Reproduction History /Reproductive History - field service representative: /Reproductive Hx- field service representative Hx Now Gestational Age (in weeks): EDC: Hx Hx Para Hx Section SAB No 02/02/24 11:10 Active Medications Active Medications: Current Medications Generic Name Dose Route Start Last Admin Trade Name Freq PRN Reason Stop Dose Admin Cefazolin Sodium 2 gm/ Sodium 110 mls @ 150 mls/hr 02/12/24 12:30 Chloride IV 02/12/24 13:13 PREOP ONE Lactated Ringer's 1,000 mls @ 15 mls/hr 02/12/24 11:15 IV .Q48H [facility] Anesthesia Focused Assessment* Airway Assessment Mouth opens: >3 cm Mallampati Score: II Focused Labs Anesthesia Preop lab: CBC WBC 12.6 K/mm3 (4.4-11.0) H 10/26/23 05:10 RBC 2.95 M/mm3 (4.6-6.2) L 10/26/23 05:10 Hgb 7.6 g/dL (13.0-16.5) L 10/26/23 05:10 Hct 24.5 % (40-54) L 10/26/23 05:10 Plt Count 456 K/mm3 (150-450) H 10/26/23 05:10 CHEMISTRY Potassium 3.8 mmol/L (3.5-5.1) 10/26/23 05:10 Sodium 140 mmol/L (136-145) 10/26/23 05:10 Magnesium 2.1 mg/dL (1.6-2.6) 10/31/22 04:12 Phosphorus 4.0 mg/dL (2.5-4.9) 07/01/17 06:17 BUN 41 mg/dL (7-18) H 10/26/23 05:10 Creatinine 1.09 mg/dL (0.70-1.30) 10/26/23 05:10 Glucose 105 mg/dL (74-106) 10/26/23 05:10 COAG PT 14.7 SECONDS (11.7-14.9) 10/19/23 18:12 Review of Systems (Anesthesia) ROS Narrative System reviewed and no additional complaints, except as documented. [facility] Medical History History of echocardiogram Wears glasses Marijuana use Alcohol use Insulin dependent diabetes mellitus Prostate disease Dietary restriction Gastric reflux CPAP (continuous positive airway pressure) dependence History of pain when walking Neuropathic pain of both feet History of edema Cardiology follow-up encounter Hx of fracture of right hip Pulmonary embolism Anxiety Depression COPD (chronic obstructive pulmonary disease) High cholesterol History of stress test Anemia Chronic pain Osteoarthritis GERD (gastroesophageal reflux disease) Former smoker Myocardial infarct Coronary artery disease Home Medications ?Medication ?Instructions ?Recorded ?Last Taken ?Type insulin aspart U-100 100 unit/mL 1 sliding scale dose subcut ACHS 01/17/21 12/22/23 03:00 History (3 mL) subcutaneous pen (Novolog diabetes 31 units FlexPen U-100 Insulin aspart) nitroglycerin 0.4 mg sublingual 0.4 mg sublingual PRN PRN Chest 01/17/21 Unknown History tablet Pain rosuvastatin 40 mg tablet 40 mg PO QHS cholesterol 01/17/21 12/21/23 History tamsulosin 0.4 mg capsule 0.4 mg PO QHS urine flow 01/17/21 12/21/23 History insulin detemir U-100 100 unit/mL 50 unit subcut QHS diabetes 10/29/22 12/21/23 History (3 mL) subcutaneous pen (Levemir 25 unit FlexTouch U-100 Insulin) losartan 25 mg tablet 25 mg PO QHS blood pressure 10/29/22 12/21/23 History famotidine 20 mg tablet 20 mg PO BID GERD 10/19/23 12/21/23 History gabapentin 800 mg tablet 800 mg PO TID nerve pain 10/19/23 12/21/23 History pantoprazole 40 mg tablet,delayed 20 mg PO BID gerd 10/19/23 12/21/23 History release trazodone 50 mg tablet 50 mg PO QHS sleep 10/19/23 12/21/23 History albuterol sulfate 90 mcg/actuation 2 inh inhalation Q4H PRN shortness 10/26/23 Unknown Rx breath activated powder inhaler of breath or wheezing #1 ea alprazolam 0.5 mg tablet 0.25 mg (1/2 x 0.5 mg) PO TID PRN 10/26/23 12/21/23 Rx Anxiety 3 days #0 tabs acetaminophen 500 mg tablet 1,000 mg PO Q6H PRN PRN pain 12/16/23 Unknown History aspirin 81 mg tablet,delayed 81 mg PO DAILY PRN when remembers 12/16/23 Unknown History release cholecalciferol (vitamin D3) 1,250 1,250 mcg PO MO 12/16/23 12/21/23 History mcg (50,000 unit) capsule metoprolol succinate 50 mg 50 mg PO DAILY 12/16/23 12/21/23 History tablet,extended release 24 hr ranolazine 500 mg tablet,extended 500 mg PO BID 12/16/23 12/21/23 History release,12 hr sucralfate 100 mg/mL oral 10 ml PO 4X/DAY 12/16/23 12/22/23 History suspension buprenorphine HCl 150 mcg buccal 150 mcg buccal Q12H PRN PRN pain 02/02/24 Unknown History film ([place]) Allergy/AdvReac Type Severity Reaction Status Date / Time No Known Allergies Allergy Verified 02/02/24 11:01 Family History Mother Cancer Mother w/ Lung CA, tobacco use concurrent history. Father Heart disease Surgical History Hx of surgical procedure History of ankle surgery Hx of colonoscopy Hx of esophagogastroduodenoscopy Hx of foot surgery H/O cardiac catheterization Hx of CABG (~2013) Social History household members: none Smoking Status: Former smoker alcohol intake: never
[2024-02-12] MEDS: Lactated Ringers 1,000 ML 15 ML IV (11:39)
[2024-02-12 11:52] LABS: Bedside Glucose 277 mg/dL (74-106)
--- NOTE | 2024-02-12 12:30 | BON_PTH ---
PATIENT: CARLOS EDUARDO JULES LOC: [facility] [place] U#:[id number] AGE/SX: 59/M ROOM: RE02/12/[address]: Dr. Silvino Cabrales DPM : 1965 BED: DIS: 02/12/2024 SPEC #: [id number] RECD: 02/15/24 08:53 STATUS: ELISE REQ #: [id number] JOEL: 02/12/24 12:[address]: Silvino Cabrales DEPT: SURGICAL PATHOLOGY RECD BY: Jan Arcos ENTERED: 02/15/24 11:20 SP TYPE: Bone OTHR DR: Dr. Aaliyah Russ MD Tissues: Bone of foot, NOS Procedures: Decalcification bone/plaque Surgery Specimen Level III Surgery Specimen Level IV HEADER OPERATION: Partial tibial and fibula osteotomy with hardware removal PRE-OP DIAGNOSIS: Charcot's joint right ankle and foot, acute osteomyelitis right ankle and foot TISSUE SUBMITTED: Bone- right foot MICROSCOPIC DIAGNOSIS Bone of right foot, excision: Degenerative, reparative and reactive changes of bone. / 02/18/2024 MICROSCOPIC DESCRIPTION Slides are reviewed. GROSS DESCRIPTION Received in fixative is one container labeled with the patient's name and designated Bone of right foot. The specimen consists of an irregular fragment of bone measuring 6.5 x 5.5 x 3.5cm. The presumed articular surface is irregular and shows bone erosion, eburnation, and osteophyte formation. [place] sections are submitted in two cassettes after decalcification. / 02/15/2024 TC:5 CPT:80339,79343
[2024-02-12] MEDS: Cefazolin 2 GM in 0.9% Normal Saline (100mL Bag) 100 ML IV (14:10)
[2024-02-12] MEDS: Bupivacaine Mpf 0.5% 30 ML VIAL (14:38)
--- NOTE | 2024-02-12 14:40 | RAD_ITS ---
INDICATION: PAIN EXAMINATION/TECHNIQUE: X-RAY - RIGHT XR Ankle 2 Views 5 images. Total fluoroscopic time 220.1 seconds. Fluoroscopic dose 8.72 mGy. COMPARISON: Prior study dated: 10/19/2023 FINDINGS: The distal fibula is absent. There is placement of a nail through the hindfoot and into the distal tibia. External fixation hardware noted. There were 2 cannulated screws on the radiograph which are no longer seen. Overall appropriate alignment. RAD/Ankle 2 Views IMPRESSION: Fluoroscopic guidance at the right ankle. External hardware placed. Please refer to operative report for further information. Electronically Signed: Reginaldo Ortiz MD at 23:57 EDT ,
[2024-02-12] MEDS: Vancomycin IV 1,000 MG/20 ML Vial 1000 MG OPERA.SITE (16:30)
[2024-02-12] MEDS: Thrombin 5,000 IU Kit (PSA) 5,000 IU Vial 5000 IU TOPICAL (16:45)
--- NOTE | 2024-02-12 18:27 | OP.PCM_ITS ---
Problems Associated Problem List Diagnoses (1) Charcot's joint of right ankle: (2) Other acute osteomyelitis, right ankle and foot: (3) Acute painful diabetic polyneuropathy: (4) Achilles tendinitis, right leg: (5) Displacement of internal fixation device of bone of right lower leg: (6) Displacement of internal fixation device of bones of foot and toes, initial encounter: Report of Operation Date of Procedure: 02/12/24 Pre-Operative Diagnosis: 1. Charcot joint, right ankle 2. Osteomyelitis, right foot and ankle 3. Diabetes mellitus type 2 peripheral neuropathy 4. Achilles tendinitis, right lower extremity 5. Displacement of internal fixation, right lower leg 6. Displacement of internal fixation, right foot Post-Operative Diagnosis: 1. Charcot joint, right ankle 2. Osteomyelitis, right foot and ankle 3. Diabetes mellitus type 2 peripheral neuropathy 4. Achilles tendinitis, right lower extremity 5. Displacement of internal fixation, right lower leg 6. Displacement of internal fixation, right foot Surgery/Procedure Performed:: 1. Tendo Achilles lengthening versus Achilles tenotomy, right lower extremity 2. Fibular osteotomy, partial, right lower extremity 3. Tibial osteotomy, partial, right lower extremity 4. Capay of tibial and fibular autograft, right lower extremity 5. Hardware removal, right lower extremity 6. Application of antibiotic beads, right foot 7. Application of external fixation, right lower extremity Description of Surgical Findings:: 1. Evidence of Charcot joint, right ankle 2. Complete removal of the distal third fibula with removal of talar body 3. Complete reduction of the valgus deformity to a rectus foot with application of external fixator 4. Successful application of tibial and fibular autograft with application of antibiotic beads. Surgeon: Silvino Cabrales plaster machine operator: Maco Martins Type of Anesthesia: General Anesthesiologist: Greg Palacios Special Medications: Per anesthesia Specimen's removed: 1. Talar body, sent to pathology Drains: None Estimated Blood Loss (mL): 275 mL Fluids Replaced: Per anesthesia Description of Procedure: Indications For Operation: Mr. Weldon is a 59-year-old diabetic male who was admitted to [facility] for right lower extremity deformity correction secondary to Charcot foot. Patient was seen in the office for formal surgical consultation with chart review and consent signed. Prior, the patient had undergone incision bone cortex that showed evidence of bone infection and underwent 6 weeks of PICC line antibiotics. Prior to the surgery the patient did undergo additional bone biopsies that showed evidence of rare growth of Pseudomonas aeruginosa. After discussion with infectious disease the infectious disease gave the all clear to move forward with surgical intervention as we we will treat this with PICC line antibiotics as an outpatient or with oral antibiotics. All this was discussed with the patient in great detail. The patient did elect to move forward with surgical intervention at this time. There is also long discussion with the patient prior to surgery regarding below-knee amputation secondary to his chronic bone infection, the patient declined and would like to move forward with surgical intervention with Dr. Cabrales for last effort for surgical Charcot deformity correction to the right lower extremity. This will be a two-stage planned surgical procedure with today's surgical procedure as stage I consisting of multiple osteotomies to the right lower extremity with application of external fixator. Stage II will consist of application of infix T2 nail by [place] with removal of the external fixator with incision of bone cortex and delayed primary closure in approximately 6 to 12 weeks. Due to nature of the patient's Charcot deformity at the level of the ankle it has been deemed necessary at this time to take the patient to the operating room to perform the above procedure to help allow the patient to ambulate more comfortably and help decrease the further breakdown of his right lower extremity bone, as well as to relieve him of his constant pain.during surgical interview patient chart review and consent was updated with no change in medical history per the patient. The nature of the problem, anticipated procedures, postop recovery/convalences and risk/complications include but not limited to infection, wound healing complications, digital amputation, hypertrophic scarring, numbness, tingling, chronic pain, CRPS, over and under correction, recurrence of deformity, DVT and or PE and the need for further surgery have been discussed in great detail with the patient. All questions have been answered to the patient's satisfaction. There are no guarantees given as to the outcome of the procedure. Description of Procedure: Under mild sedation, the patient was brought into the operating room and placed on the operating table in supine position. Once the patient was under monitored anesthesia care anesthesia with laryngeal mask airway, the right lower extremity was not blocked due to peripheral neuropathy. Next, a well-padded thigh tourniquet was applied to the right lower extremity. Next, the right lower extremity was prepped and draped in normal aseptic manner. Next, a timeout was then undertaken verifying the correct patient, extremity, visibility of preoperative markings, availability of the equipment. Next, attention was directed to the right lower extremity. Using a 6 Esmarch, right lower extremity was exsanguinated and elevated to 60 degrees for 1 minute. Procedure #1: Tendo Achilles lengthening versus Achilles tenotomy, right lower extremity (CPT: 48152) Next, attention was directed to the posterior aspect at the level of the Achilles tendon right lower extremity. Using a #11 blade, tendo Achilles lengthening was attempted with failed reduction of the contracture of the right lower extremity. We thus decided to move forward with a Achilles tenotomy, using the #11 blade a full Achilles tenotomy was made proximal to the insertion of the Achilles tendon to the right lower extremity. Complete release was identified clinically as well as audibly on the operating table. This showed evidence of increase in range of motion at the level of the ankle, right lower extremity. The Achilles area was flushed with Amounts normal saline. The incision was closed with abril. Procedure #2: Fibular osteotomy, partial, right lower extremity (CPT: 04072) Next, attention was directed to the right lower extremity. Using a sterile skin marker, the lateral incision to the distal fibula was marked out in a hockey- stick fashion. The medial incision over the medial malleolus was marked out in a linear fashion to encompass the deformity at the level of the ankle. Using a #15 blade, a full-thickness incision down to bone was made. All neurovascular structures were retracted and ligated as necessary. There showed evidence of increase in periosteal reaction to the far distal aspect of the fibula as well as the talus. There was concern for chronic osteomyelitis even though the patient had undergone 6 weeks of PICC line antibiotics with additional bone biopsies. The osteotomy, using series 9 Ugenie power with blade, to the fibula was made approximately in a proximal lateral to distal medial fashion. Continue sharp and blunt dissection was carried down through the syndesmosis and lateral collateral ligaments. Eventually, the distal fibula was removed. All healthy bone was removed and passed the back table to be used for autograft. The bone that showed evidence of periosteal reaction was sent for pathology for diagnosis. Procedure #3: Tibial osteotomy, partial, right lower extremity (CPT: 02892) Next, attention was directed to the medial malleolus incision. A full-thickness vision down to bone was carried out with a #15 blade. Continued blunt dissection was carried down to bone. All neurovascular structures were ligated or retracted as necessary. Next, using series 9 Ugenie power with sawblade a through and through osteotomy from lateral to medial in a tabletop fashion to the distal tibia was made. The tibia was removed and passed the back table to be used for autograft. Procedure #4: Capay of tibial and fibular autograft, right lower extremity (CPT: 89533) Next, the large autograft harvest of the fibula and tibia was made and passed the back table to be bone milled down via a bone mill with antibiotic beads to be packed later during the case. Procedure #5: Hardware removal, right lower extremity (CPT: 74333) Next, attention was directed to the disruption of internal fixation/hardware to the distal tibia and calcaneus. Using a rongeur the hardware was removed from the tibia without incident. The hardware was passed the back table to be discarded. Next the calcaneal screw was identified and removed and passed the back table to be discarded. There still showed evidence of internal fixation at the level of the TN joint which showed no evidence of displacement or failure. Right lower extremity tourniquet was deflated and reperfusion was noted to the right lower extremity instantly. All additional bleeders were ligated and cauterized as necessary. Application of Gelfoam with thrombin was applied to the medial and lateral incisions for hemostasis. Procedure #6: Application of antibiotic beads, right foot Next, using a 3-0 Steinmann pin, the foot was repositioned in a rectus fashion below the tibia with the anterior tibial crest and the second ray to be aligned. Multiple large C arm fluoroscopy views were taken and the foot showed to be in a well repositioned location. Next, the bone milled autograft the tibia and fibula were reconstituted. Application of antibiotic vancomycin beads were placed in the level of the midfoot. The autograft was packed in the level of the removed talar body and bone void. Placement of the antibiotic beads and autograft were confirmed with large C arm fluoroscopy. Both medial and lateral incisions were flushed with copious lisbet of normal saline. The medial incision was closed in layers using 3-0 Monocryl for deep and subcutaneous closure. The skin was reapproximated and closed with abril. The lateral incision was closed in layers using 3-0 Monocryl for deep and subcutaneous shawnee sure. The skin was reapproximated and closed with abril. Procedure #7: Application of external fixation, right lower extremity (CPT: 34002) Next, once the right lower extremity was reconstructed and fixated with a 3-0 Steinmann pin. A Ugenie hexapod with 2 proximal rings and footplate was applied to the right lower extremity. 2 half pins were placed perpendicular to the tibial surface at the level of the 2 proximal rings. The placement was checked laterally on the large C arm fluoroscopy. Next, the hexapod and right lower extremity was repositioned in a more rectus fashion using the external fixator. A combination of olive wires were placed through the calcaneus as well as through the level of the midfoot. The olive wires were tensioned to the cathode ray tube assembler's recommendation at a tension level of 50kg. Next, attention was returned back to the 2 proximal rings were additional wires were placed at the level of the 2 proximal rings. The wires were tensioned per the cathode ray tube assembler's recommendation to a tension level of 130kg. All excess wires were removed without incident and passed the back table to be discarded. The right lower extremity and external fixator were washed with hydroperoxide followed by sterile saline. Medial lateral incisions were dressed with Betadine soaked Adaptic, all pin sites were dressed with Betadine soaked 2 x 2's, 4 x 4's, dry sterile dressing and to 3 inch David wrap's. The patient tolerated the procedure and anesthesia well and apparent satisfactory condition and was transported to the PACU for further monitoring prior to discharge home. Vital signs stable and vascular status intact to all digits bilateral. Need for skilled faculty research assistant: Maco Martins DPM was critical to the outcome of the case. During the course of the procedure the faculty research assistant physician played a vital role. His intimate knowledge of my steps in the procedure aided in safe and expedient completion of the procedure. The faculty research assistant surgeon played a vital role in positioning particularly in obtaining the appropriate positioning. The faculty research assistant surgeon was also vital in the retraction of soft tissues during the exposure and protecting vital structures when needed. The surgeon was also vital and obtaining reduction and assisting with hardware placement throughout the case. Post Operative Plan: Weightbearing: Nonweightbearing to the right lower extremity. Full weightbearing to left lower extremity. Nonweightbearing to right lower extremity will be assistance of walker, crutches and/or knee scooter Antibiotics: 3 g Ancef through the IV DVT Prophylaxis: Aspirin 81 mg Chiang: None Dressing: Betadine soaked 2 x 2's, 4 x 4's, Uriel, David bandage X-Rays: Post-operative films taken on the operating room. Pain Medication: Percocet 5/325 Follow-up: Patient will follow-up in [address] Cabrales in private office. Patient was given pin care instructions, apply peroxide every other day and not remove outer dressing. Again, this will be a two-stage planned surgical procedure with today's surgical procedure as stage I consisting of multiple osteotomies to the right lower extremity with application of external fixator. Stage II will consist of application of infix T2 nail by [place] with removal of the external fixator with incision of bone cortex and delayed primary closure in approximately 6 to 12 weeks. Grafts/Implants Used: 1. Fibular and tibial autograft 2. Vancomycin antibiotic beads Complications None Admit VTE Documentation VTE Present on Admission: No VTE Mechan Device Prophylaxis: SCD's VTE Pharm Prophylaxis ordered?: Yes
--- NOTE | 2024-02-12 18:54 | EKG12_ITS ---
Test Reason : cardiac history Blood Pressure : / mmHG Vent. Rate : 089 BPM Atrial Rate : 089 BPM P-R Int : 174 ms QRS Dur : 100 ms QT Int : 402 ms P-R-T Axes : 051 -17 051 degrees QTc Int : 489 ms Normal sinus rhythm Inferior infarct (cited on or before 17-JAN-2021) Abnormal ECG When compared with ECG of 20-OCT-2023 08:40, No significant change was found Confirmed by ADAN JACQUES, PAULA ([id number]), script editor ANABELA VALDES ([id number]) on 02/16/2024 9:31:09 AM Referred By: Silvino Cabrales Confirmed By:PAULA ARELLANO MD
[2024-02-12 19:04] LABS: Bedside Glucose 298 mg/dL (74-106)
[2024-02-12] MEDS: Acetaminophen 325 MG Tablet PO (20:04)
[2024-02-12] MEDS: oxyCODONE 5 MG Tablet PO (20:05)
[2024-02-12 20:09] LABS: Troponin-I HS 447 pg/mL (3.0-78.0)
--- NOTE | 2024-02-12 20:29 | PCM.HP.STD ---
HPI - General HPI Narrative CARLOS EDUARDO JULES, is a 59 M who presents [facility] Medical History History of echocardiogram Wears glasses Marijuana use Alcohol use Insulin dependent diabetes mellitus Prostate disease Dietary restriction Gastric reflux CPAP (continuous positive airway pressure) dependence History of pain when walking Neuropathic pain of both feet History of edema Cardiology follow-up encounter Hx of fracture of right hip Pulmonary embolism Anxiety Depression COPD (chronic obstructive pulmonary disease) High cholesterol History of stress test Anemia Chronic pain Osteoarthritis GERD (gastroesophageal reflux disease) Former smoker Myocardial infarct Coronary artery disease Home Medications ?Medication ?Instructions ?Recorded ?Last Taken ?Type insulin aspart U-100 100 unit/mL 1 sliding scale dose subcut ACHS 01/17/21 12/22/23 03:00 History (3 mL) subcutaneous pen (Novolog diabetes 31 units FlexPen U-100 Insulin aspart) nitroglycerin 0.4 mg sublingual 0.4 mg sublingual PRN PRN Chest 01/17/21 Unknown History tablet Pain rosuvastatin 40 mg tablet 40 mg PO QHS cholesterol 01/17/21 12/21/23 History tamsulosin 0.4 mg capsule 0.4 mg PO QHS urine flow 01/17/21 12/21/23 History insulin detemir U-100 100 unit/mL 50 unit subcut QHS diabetes 10/29/22 02/11/24 History (3 mL) subcutaneous pen (Levemir FlexTouch U-100 Insulin) losartan 25 mg tablet 25 mg PO QHS blood pressure 10/29/22 02/11/24 History famotidine 20 mg tablet 20 mg PO BID GERD 10/19/23 12/21/23 History gabapentin 800 mg tablet 800 mg PO TID nerve pain 10/19/23 12/21/23 History pantoprazole 40 mg tablet,delayed 20 mg PO BID gerd 10/19/23 12/21/23 History release trazodone 50 mg tablet 50 mg PO QHS sleep 10/19/23 12/21/23 History albuterol sulfate 90 mcg/actuation 2 inh inhalation Q4H PRN shortness 10/26/23 Unknown Rx breath activated powder inhaler of breath or wheezing #1 ea alprazolam 0.5 mg tablet 0.25 mg (1/2 x 0.5 mg) PO TID PRN 10/26/23 12/21/23 Rx Anxiety 3 days #0 tabs acetaminophen 500 mg tablet 1,000 mg PO Q6H PRN PRN pain 12/16/23 Unknown History aspirin 81 mg tablet,delayed 81 mg PO DAILY PRN when remembers 12/16/23 Unknown History release cholecalciferol (vitamin D3) 1,250 1,250 mcg PO MO 12/16/23 12/21/23 History mcg (50,000 unit) capsule metoprolol succinate 50 mg 50 mg PO DAILY 12/16/23 02/11/24 History tablet,extended release 24 hr ranolazine 500 mg tablet,extended 500 mg PO BID 12/16/23 12/21/23 History release,12 hr sucralfate 100 mg/mL oral 10 ml PO 4X/DAY 12/16/23 12/22/23 History suspension buprenorphine HCl 150 mcg buccal 150 mcg buccal Q12H PRN PRN pain 02/02/24 Unknown History film (Belbuca) ascorbic acid (vitamin C) 1,000 mg 1 g PO DAILY 90 days #90 tabs 02/12/24 Unknown Rx tablet (Vitamin C) aspirin 81 mg tablet,delayed 81 mg PO DAILY 30 days #30 tabs 02/12/24 Unknown Rx release calcium carbonate 500 mg-vitamin 1 tab PO DAILY 90 days #90 tabs 02/12/24 Unknown Rx D3 15 mcg (600 unit) tablet (Os-Ruiz 500 + D3) cyclobenzaprine 10 mg tablet 10 mg PO TID muscle spasm 7 days 02/12/24 Unknown Rx #21 tabs docusate sodium 100 mg capsule 100 mg PO DAILY 10 days #10 caps 02/12/24 Unknown Rx (Colace) oxycodone-acetaminophen 5 mg-325 1 tab PO Q6H pain 7 days #28 tabs 02/12/24 Unknown Rx mg tablet (Endocet) Allergy/AdvReac Type Severity Reaction Status Date / Time No Known Allergies Allergy Verified 02/12/24 11:18 Family History Mother Cancer Mother w/ Lung CA, tobacco use concurrent history. Father Heart disease Surgical History Hx of surgical procedure History of ankle surgery Hx of colonoscopy Hx of esophagogastroduodenoscopy Hx of foot surgery H/O cardiac catheterization Hx of CABG (~2013) Social History household members: none Smoking Status: Former smoker alcohol intake: never Vital Signs Vital Signs Vital Signs: 02/12/24 11:31 02/12/24 11:31 02/12/24 18:23 Temperature 99.1 F 97.4 F L Temperature Source Temporal Temporal Pulse Rate 95 86 Respiratory Rate 18 16 Respiratory Pattern Normal Normal Blood Pressure 126/65 H 120/53 L Blood Pressure Mean 85 75 Blood Pressure Source Monitor Monitor Blood Pressure Position Semi-Fowlers Semi-Fowlers Blood Pressure Location Right Arm Right Arm Baseline BP 126/65 Pulse Ox 99 94 Oxygen Delivery Method Room Air Room Air Oxygen Flow Rate (L/min) 02/12/24 18:30 02/12/24 18:35 02/12/24 18:40 Temperature Temperature Source Pulse Rate 89 88 89 Respiratory Rate 16 16 16 Respiratory Pattern Blood Pressure 123/52 H 129/55 H 115/56 L Blood Pressure Mean 75 79 75 Blood Pressure Source Monitor Monitor Monitor Blood Pressure Position Semi-Fowlers Semi-Fowlers Semi-Fowlers Blood Pressure Location Right Arm Right Arm Right Arm Baseline BP 126/65 126/65 126/65 Pulse Ox 99 98 99 Oxygen Delivery Method Nasal Cannula Room Air Nasal Cannula Oxygen Flow Rate (L/min) 2 2 02/12/24 18:45 02/12/24 19:00 02/12/24 19:15 Temperature 97.2 F L Temperature Source Temporal Pulse Rate 89 89 89 Respiratory Rate 16 16 16 Respiratory Pattern Blood Pressure 132/59 H 120/58 L 144/67 H Blood Pressure Mean 83 78 92 Blood Pressure Source Monitor Monitor Monitor Blood Pressure Position Semi-Fowlers Semi-Fowlers Semi-Fowlers Blood Pressure Location Right Arm Right Arm Right Arm Baseline BP 126/65 126/65 126/65 Pulse Ox 99 99 95 Oxygen Delivery Method Nasal Cannula Nasal Cannula Room Air Oxygen Flow Rate (L/min) 2 2 02/12/24 19:23 Temperature Temperature Source Pulse Rate Respiratory Rate Respiratory Pattern Normal Blood Pressure Blood Pressure Mean Blood Pressure Source Blood Pressure Position Blood Pressure Location Baseline BP Pulse Ox Oxygen Delivery Method Oxygen Flow Rate (L/min) Weight Weight: 89.9 kg Body Mass Index (BMI) 31.0 Results Lab / Micro Data Labs: Laboratory Results - last 24 hr 06/14/24 11:21: POC Glucose 277 H 02/12/24 18:46: POC Glucose 298 H 02/12/24 19:00: Troponin I High Sens 447 H*
--- NOTE | 2024-02-12 21:20 | SUR.PHASEII ---
pt with elevated troponin. dr muñoz spoke with hospitalist. pt reports having heart cath last week. dr. renee and dr muñoz made aware of this. also informed dr. nino. pt is declining admission to hosp. enc pt to wait to speak with hospitalist. pt denies chest pain. denies shortness of breath. vss.
[2024-02-12 21:42] LABS: Anion Gap 10 (5-15); BUN 26 mg/dL (7-18); BUN/Creat Ratio 20.5 RATIO (10-20); Calcium,Total 8.7 mg/dL (8.5-10.1); Chloride 103 mmol/L (98-107); Creatinine, Serum 1.27 mg/dL (0.70-1.30); EST Glomerular Filtration Rate 61 mL/min (>60); Est Glom Filt Rate - Afr Amer 74 mL/min (>60); Estimated Creatinine Clearance 65.33 ml/min; Glucose 354 mg/dL (74-106); Potassium 4.8 mmol/L (3.5-5.1); Sodium Level 136 mmol/L (136-145); Troponin-I HS 426 pg/mL (3.0-78.0)
--- NOTE | 2024-02-12 22:11 | SUR.PHASEII ---
notified of troponin level. dr nino okayed for pt to go home.
--- NOTE | 2024-02-12 22:19 | PCM.HOSP.N ---
Hospitalist Note Received call from Dr. Palacios with anesthesia early this evening about patient. Patient was here today for scheduled podiatry procedure. Per Dr. Palacios, had no intraoperative complications. Patient was doing well postoperatively, hemodynamically stable and reporting no pain or discomfort. Postoperative labs were obtained and he was found to have a troponin of 447. Dr. Palacios noted that patient has a history of CAD with CABG in the past, so I was called to admit the patient for further cardiac workup. Saw patient at bedside in the PACU, daughter present. Patient was sitting up comfortably in bed, conversing normally, no acute distress. He was hemodynamically stable and denied any chest pain or discomfort. His right leg was wrapped with brace in place and he reported no leg pain. Patient stated that he follows with cardiology in [place] and actually had a left heart cath done last for preoperative clearance. I was able to find the cath report in [facility]. The summary of the report is as follows: SUMMARY: 1. Left ventricle: Systolic function is at the lower limits of normal. The estimated ejection fraction is 50-55%. Hypokinesis of the anterior lateral and inferolateral myocardium. 2. LAD: Proximal vessel lesion: There is a 90% stenosis. 3. Left circumflex: Mid vessel lesion: There is a 100% chronic total occlusion. 4. First obtuse marginal: Lesion: There is a 100% chronic total occlusion. 5. Second obtuse marginal: Lesion: There is a 100% chronic total occlusion. 6. Right coronary: Proximal vessel lesion: There is a 90% stenosis. Mid vessel lesion: There is a 90% stenosis. Distal vessel lesion: There is a 100% chronic total occlusion. IMPRESSIONS: 1. Patent LANIER to LAD, SVG to first diagonal and SVG to RPDA. Previously known occluded sequential to OM1 and OM 2. 2. Severe three-vessel [place] CAD. 3. Overall low normal systolic function. RECOMMENDATIONS: 1. Medical treatment. 2. Cleared from cardiac standpoint for surgery. Had second troponin drawn 2 hours after first troponin and it was 426, negative delta. I suspect that the troponins are elevated secondary to mild intraoperative hypotension. Given that the patient is asymptomatic and hemodynamically stable, patient is okay for discharge home and does not need to be admitted for further management. 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
--- NOTE | 2024-02-13 11:08 | PCM.POST.ANE ---
Anesthesia: Postop Eval I Current Vital Signs Temperature: 97.5 F Pulse Rate: 88 Blood Pressure: 122/64 Respiratory Rate: 18 Pulse Ox: 94 Oxygen Delivery Method: Room Air Assessment Airway patent: Yes Spontaneous unlabored respirations: Yes Mental status: Awake nausea: No Vomiting: No Anesthesia Complication: Yes Anesthesia Complication Comment:: patient with elevated troponin post op check, hospitalist notified by Dr. Palacios and Dr. Cabrales Fluid Hydration Crystalloid volume administer (ml): 1,000 Total IV fluid infused: 1,000 Progress Note Post-operative progress note: elevated troponins, surgeon and Hospitalest notified of need to assess for intra op possibility of [place] by Dr. Palacios who assumed car as of 1630 02/12/24. Anesthesia document: Postop Eval 1 completed: Yes
[2024-02-13 11:12] VITALS: BP 122/64; PULSE 88; RESP 18; TEMP 36.4; O2SAT 94
--- NOTE | 2024-02-13 11:13 | PCM.POSTANE2 ---
Anesthesia Postop Eval I Sum Postop Eval Completion status Anesthesia document: Postop Eval 1 completed: Yes Anesthesia Postop Eval I Summary Anesthesia Postop Eval I Summary: Anesthesia Postop Eval I: Assessment Summary Airway patent Yes 02/13/24 11:12 Spontaneous unlabored Yes 02/13/24 11:12 respirations Mental status Awake 02/13/24 11:12 nausea No 02/13/24 11:12 Vomiting No 02/13/24 11:12 Anesthesia Postop Eval I: Fluid Summary Crystalloid volume administer 1,000 02/13/24 11:12 (ml) Colloids volume administered ( ml) Blood Product volume administered (ml) Total IV fluid infused 1,000 02/13/24 11:12 Anesthesia Postop Eval I: Summary Notes Anesthesia Complication Yes 02/13/24 11:12 Anesthesia Complication patient with 02/13/24 11:12 Comment: elevated troponin post op check, hospitalist notified by Dr. Palacios and Dr. Cabrales Post-operative progress note elevated troponins 02/13/24 11:12 , surgeon and Hospitalest notified of need to assess for intra op possibility of [place] by Dr. Palacios who assumed car as of 1630 02/12/24. Anesthesia: Postop Eval II Evaluation Mental status: Awake Pain Level: 2 nausea: No Vomiting: No Progress Note Post-operative progress note: improving from surgery, being followed/evaluated by Hospitalaist for possible intra op [place] Complications Anesthesia Complication: Yes Anesthesia Complication Comment:: post op elevated tropnins noted. all vitals stable, assymptomatic currently
== END 2024-02-12 22:12 | disposition home or self-care (01) ==
LOC: SDC 11:01 → AC 11:03
PROVIDERS: Anesthesiology; Hospitalist; PCP Internal Medicine; Referring Provider Podiatrist Foot & Ankle Surgery; Visit Provider Podiatrist Foot & Ankle Surgery
PROC: (CPT 27814; principal; 2024-02-12 12:15)
DX: E11.610 Type 2 diabetes mellitus with diabetic neuropathic arthropathy (principal); M86.171 Other acute osteomyelitis, right ankle and foot; J44.9 Chronic obstructive pulmonary disease, unspecified; E11.69 Type 2 diabetes mellitus with other specified complication; E11.42 Type 2 diabetes mellitus with diabetic polyneuropathy; E11.51 Type 2 diabetes mellitus with diabetic peripheral angiopathy without gangrene; E11.22 Type 2 diabetes mellitus with diabetic chronic kidney disease; Z79.4 Long term (current) use of insulin; R79.89 Other specified abnormal findings of blood chemistry; T84.223A Displacement of internal fixation device of bones of foot and toes, initial encounter; Y79.2 Prosthetic and other implants, materials and accessory orthopedic devices associated with adverse incidents; M76.61 Achilles tendinitis, right leg; I12.9 Hypertensive chronic kidney disease with stage 1 through stage 4 chronic kidney disease, or unspecified chronic kidney disease; N18.9 Chronic kidney disease, unspecified; I25.10 Atherosclerotic heart disease of native coronary artery without angina pectoris; E78.00 Pure hypercholesterolemia, unspecified; G47.33 Obstructive sleep apnea (adult) (pediatric); I95.89 Other hypotension; Z79.82 Long term (current) use of aspirin; Z79.899 Other long term (current) drug therapy; I25.2 Old myocardial infarction; Z87.891 Personal history of nicotine dependence; Z95.1 Presence of aortocoronary bypass graft; Z95.5 Presence of coronary angioplasty implant and graft
CPT/HCPCS: 27640; 27641; 27606; 20700; 20680; 20692; 01482; 73600; 76000; 80048; 82962; 84484; 88304; 88305; 88311; 93005; C1713; J2405

== ENCOUNTER → 2024-03-24 | Outpatient (CLI) | payer MEDICARE, MEDICAID, SELFPAY | END | disposition home or self-care (01) | PROVIDERS: Referring Provider Podiatrist Foot & Ankle Surgery; Visit Provider Podiatrist Foot & Ankle Surgery | DX: L89.899 Pressure ulcer of other site, unspecified stage (principal) | CPT/HCPCS: 87070; 87075; 87077; 87101; 87186; 87205 ==

== ENCOUNTER → 2024-05-24 | Outpatient (CLI) | payer MEDICARE, MEDICAID, SELFPAY | END | disposition home or self-care (01) | PROVIDERS: Visit Provider Podiatrist Foot & Ankle Surgery | DX: S91.301A Unspecified open wound, right foot, initial encounter (principal) | CPT/HCPCS: 87070; 87075; 87077; 87101; 87186; 87205 ==

== ENCOUNTER → 2024-06-15 | Outpatient (CLI) | payer MEDICARE, MEDICAID, SELFPAY ==
--- NOTE | 2024-06-15 18:01 | CT_ITS ---
CT RIGHT LOWER EXTREMITY WITH 3-D IMAGING CLINICAL INDICATION: OSTEOARTHRITIS, IMPLANT SCANNING -- RIGHT, CHARCOT FOOT. TECHNIQUE: Axial CT images of the right lower extremity was performed without IV contrast material. Coronal and sagittal reformats were provided. The protocol utilizes one or more of the following dose reduction techniques: automated exposure control, adjustment of mA and/or kV according to patient size, and/or use of iterative reconstruction technique. RADIATION DOSAGE (If Supplied By Facility): CTDIvol = ( 15.35 ) mGy, DLP = ( 514.95 ) mGycm COMPARISON: Fluoroscopic spot films of the right ankle dated 02/12/2024. FINDINGS: Bones: There is surgical absence of the distal fibula. 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 There is a staple across the talonavicular joint which appears fused. There is generalized degenerative arthrosis of the midfoot joints. There is osseous fusion across the bases of the third and fourth metatarsals. There is chronic deformity of the distal fifth metatarsal. Soft Tissues: There is ulceration along the medial and lateral aspects of the ankle. There is moderate subcutaneous soft tissue edema and skin thickening along the medial, posterior, and lateral aspects of the ankle, compatible with cellulitis. CT/Extremity Lower without Contra IMPRESSION: Ulceration along the medial lateral aspects of the ankle with moderate cellulitis around the medial, posterior, and lateral aspects of the ankle. 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 If there is clinical concern for acute osteomyelitis, MRI would be the modality of choice for further evaluation. Electronically Signed: Alberto Seals MD at 15:37 EDT ,
--- NOTE | 2024-06-15 18:03 | CT_ITS ---
EXAM: CT LEFT LOWER EXTREMITY WITHOUT INTRAVENOUS CONTRAST CLINICAL INDICATION: OSTEOARTHITIS- SURGICAL PLANNING -- LEFT TECHNIQUE: Helically acquired images were obtained of the left lower extremity without intravenous contrast. 2-D reformats were performed by the technologist. CTDIvol = ( 15.35 ) mGy, DLP = ( 422.84 ) mGycm This CT exam was performed using one or more of the following dose reduction techniques: automated exposure control, adjustment of the mA and/or kV according to patient size, and/or use of iterative reconstruction technique. COMPARISON: No relevant prior studies available. FINDINGS: BONES/JOINTS: Evidence of previous surgery/trauma involving the medial malleolus with widening of the lateral mortise. Small plantar calcaneal enthesophyte. Mild to moderate osteoarthrosis of the first metatarsophalangeal joint without hallux valgus deformity. No sclerotic or destructive changes. No acute or healing fracture. SOFT TISSUES: Soft tissue thickening and/or edema along the medial malleolus. No radiopaque foreign body. VASCULATURE: Multivessel peripheral vascular calcifications. CT/Extremity Lower without Contra IMPRESSION: Evidence of previous surgery/trauma involving the medial malleolus with widening of the lateral mortise. Correlate for any ankle instability. Electronically Signed: Braulio Moy MD at 22:20 EDT ,
== END | disposition home or self-care (01) ==
LOC: CT 17:58
PROVIDERS: Referring Provider Podiatrist Foot & Ankle Surgery; Visit Provider Podiatrist Foot & Ankle Surgery
DX: M19.90 Unspecified osteoarthritis, unspecified site (principal)
CPT/HCPCS: 73700

== ENCOUNTER → 2024-11-15 | Outpatient (CLI) | payer MEDICARE, MEDICAID, SELFPAY | END | disposition home or self-care (01) | LOC: LABSPEC 17:18 | PROVIDERS: PCP Podiatrist Foot & Ankle Surgery; Visit Provider Podiatrist Foot & Ankle Surgery | DX: S91.001A Unspecified open wound, right ankle, initial encounter (principal) | CPT/HCPCS: 87070; 87205 ==

== ENCOUNTER 2025-03-31 08:36 | Day surgery (SDC) | payer MEDICARE, MEDICAID, SELFPAY ==
--- NOTE | 2025-03-17 19:42 | PAT.ANESEVAL ---
Pre-Assessment Diagnosis/Proposed Procedure Planned Operative Procedure(s): RIGHT FOOT DEEP HARDWARE REMOVAL Anesthesia History Anesthesia History - youth care specialist: Anesthesia History - youth care specialist Hx Hospitalization No 03/17/25 13:07 Any Problems With Anesthesia No 03/17/25 13:07 Cholinesterase deficiency No 03/17/25 13:07 You/Your Family Experience No 03/17/25 13:07 fever (hyperthermia) with Relationship Recent Exposure to Contagious No 02/12/24 11:31 Disease Does patient have nerve No 03/17/25 13:07 stimulator Patient instructed to have device shut off --Does patient have Pacemaker or ICD? When Was Last Pacemaker Check QUESTION #4 FULL TEXT: You/Your Family Experience fever (hyperthermia) with Anesthesia Last Oral Intake Last Oral intake: Last Oral Intake NPO since Meds taken in AM with sips of water? Meds patient instructed to take am of surgery PONV PONV - youth care specialist: PONV - youth care specialist Female No 03/17/25 13:07 HX of Motion Sickness No 03/17/25 13:07 HX of N/V After Surgery No 03/17/25 13:07 Non-Smoker No 03/17/25 13:07 Duration of Surgery greater Yes 03/17/25 13:07 than 60 minutes Number of Risk Factors 1 03/17/25 13:07 PONV Score Low Risk 03/17/25 13:07 Height & Weight Height & Weight: Anesthesia: Height & Weight Height 5 ft 7 in 02/12/24 11:31 Respiratory Assessment Respiratory Assessment - youth care specialist: Respiratory Tract Infection Hx - youth care specialist Hx Respiratory Tract Infection No 03/17/25 13:07 STOP Sleep Apnea STOP Sleep Apnea - youth care specialist: STOP Sleep Apnea - youth care specialist Hx Hypertension Yes: CONTROLLED WITH MED 03/17/25 13:07 Hx Sleep Apnea Yes 03/17/25 13:07 CPAP Yes: NO LONGER HAS MACHINE 03/17/25 13:07 BIPAP No 03/17/25 13:07 Do you snore loudly (louder than talking or can be heard Do you often feel tired/ fatigued/ sleepy during daytime? Has anyone observed you stop breathing during sleep? STOP Results Positive 03/17/25 13:07 QUESTION #5 FULL TEXT : Do you snore loudly (louder than talking or can be heard through closed doors)? Tobacco Use History Tobacco Use History - youth care specialist: Tobacco Use History - youth care specialist Tobacco Use Cigarettes 01/17/21 19:50 Smoking Status Former smoker 03/17/25 13:07 Hx Tobacco Use No 03/17/25 13:07 Years Smoking Packs Smoked per Day Smoking Cessation Date was No - quit smoking greater 03/17/25 13:07 within the last 15 years than 15 years ago Hx Smoking Cessation Date 08/31/00 03/17/25 13:07 Hx Smoking Cessation No 03/17/25 13:07 Counseling Hematologic Medial History Hematologic Hx - youth care specialist: Hematologic Medical Hx - technical clerk Hx of Blood Transfusion Yes 03/17/25 13:07 Hx of Transfusion in last 3 No 03/17/25 13:07 Months Date of Last Transfusion (if within last 3 months) Ever experience any problems No 03/17/25 13:07 with transfusion(s)? Specify any problems Hx of Preganancy in last 3 N/A 03/17/25 13:07 Months Nurse Filling Out Transfusion DSCHRIBER 03/17/25 13:07 & Questions: Date: 03/17/25 03/17/25 13:07 Time: 13:09 03/17/25 13:07 Patient unable to answer at this time (ie. confused, unrespo /Reproduction History /Reproductive History - youth care specialist: /Reproductive Hx- youth care specialist Hx Now No 03/17/25 13:07 Gestational Age (in weeks): EDC: Hx Hx Para Hx Section SAB No 03/17/25 13:07 PFSH Medical History (Updated 03/17/25 @ 13:13 by Carina Hernandez) Other acute osteomyelitis, right ankle and foot History of echocardiogram Wears glasses Marijuana use Alcohol use Insulin dependent diabetes mellitus Prostate disease Dietary restriction Gastric reflux CPAP (continuous positive airway pressure) dependence History of pain when walking Neuropathic pain of both feet History of edema Cardiology follow-up encounter Hx of fracture of right hip Pulmonary embolism Anxiety Depression COPD (chronic obstructive pulmonary disease) High cholesterol History of stress test Anemia Chronic pain Osteoarthritis Former smoker Myocardial infarct Coronary artery disease Home Medications ?Medication ?Instructions ?Recorded ?Last Taken ?Type insulin aspart U-100 100 unit/mL 1 sliding scale dose subcut ACHS 01/17/21 12/22/23 03:00 History (3 mL) subcutaneous pen (Novolog diabetes 31 units FlexPen U-100 Insulin aspart) nitroglycerin 0.4 mg sublingual 0.4 mg sublingual PRN PRN Chest 01/17/21 Unknown History tablet Pain rosuvastatin 40 mg tablet 40 mg PO QHS cholesterol 01/17/21 12/21/23 History tamsulosin 0.4 mg capsule 0.4 mg PO QHS urine flow 01/17/21 12/21/23 History losartan 25 mg tablet 25 mg PO QHS blood pressure 10/29/22 02/11/24 History gabapentin 800 mg tablet 800 mg PO TID nerve pain 10/19/23 12/21/23 History trazodone 50 mg tablet 50 mg PO QHS sleep 10/19/23 12/21/23 History albuterol sulfate 90 mcg/actuation 2 inh inhalation Q4H PRN shortness 10/26/23 Unknown Rx breath activated powder inhaler of breath or wheezing #1 ea alprazolam 0.5 mg tablet 0.25 mg (1/2 x 0.5 mg) PO TID PRN 10/26/23 12/21/23 Rx Anxiety 3 days #0 tabs acetaminophen 500 mg tablet 1,000 mg PO Q6H PRN PRN pain 12/16/23 Unknown History cholecalciferol (vitamin D3) 1,250 1,250 mcg PO MO 12/16/23 12/21/23 History mcg (50,000 unit) capsule metoprolol succinate 50 mg 50 mg PO DAILY 12/16/23 02/11/24 History tablet,extended release 24 hr ranolazine 500 mg tablet,extended 500 mg PO BID 12/16/23 12/21/23 History release,12 hr aspirin 81 mg tablet,delayed 81 mg PO DAILY 30 days #30 tabs 02/12/24 Unknown Rx release cyclobenzaprine 10 mg tablet 10 mg PO TID muscle spasm 7 days 02/12/24 Unknown Rx #21 tabs famotidine 20 mg tablet 20 mg PO BID GERD #60 tabs 09/13/24 Unknown Rx pantoprazole 20 mg tablet,delayed 20 mg PO QDAY #30 tabs 09/13/24 Unknown Rx release sucralfate 100 mg/mL oral 10 ml PO 4X/DAY #1,000 mL 09/13/24 Unknown Rx suspension hydrocodone-acetaminophen 5-325mg 1 tab PO Q12H PRN PRN severe pain 11/16/24 Unknown History 5mg-325mg insulin glargine 100 unit/mL (3 45 unit subcut QHS 11/16/24 Unknown History mL) subcutaneous pen (Lantus Solostar U-100 Insulin) Allergy/AdvReac Type Severity Reaction Status Date / Time No Known Allergies Allergy Verified 03/17/25 13:02 Family History Mother Cancer Mother w/ Lung CA, tobacco use concurrent history. Father Heart disease Surgical History (Updated 03/17/25 @ 13:11 by Carina Hernandez) History of open reduction and internal fixation (ORIF) procedure Hx of surgical procedure History of ankle surgery Hx of colonoscopy Hx of esophagogastroduodenoscopy Hx of foot surgery H/O cardiac catheterization Hx of CABG (~2013) Social History household members: none Smoking Status: Former smoker alcohol intake: never Audit: Pertinent Findings Pertinent Findings EKG Perinent findings: March 08, 2025. Normal sinus rhythm. Stress test pertinent findings: 07/02/2024. No ischemia noted by EKG. EF 45%. Moderate sized fixed defect within the mid inferolateral wall. Small fixed defect in the distal anterior wall. Echo (EF%) pertinent findings: 07/02/2024. EF of 50 to 55%. No regional wall motion abnormalities. Heart catheterization pertinent findings: February 04, 2024. EF of 50 to 55%. Patent LANIER to LAD, SVG to first diagonal and SVG to the RPDA. Previously known occluded sequential to the OM1 and OM 2. Severe three-vessel [place] coronary artery disease. Consult pertinent findings: March 08, 2025. Dr. Campbell. 1. Preoperative cardiovascular exam-stress test as above. Patient may proceed with right ankle surgery from cardiology standpoint. 2. Coronary artery disease-patient denies any anginal symptoms. Patient had coronary artery bypass graft x 5 in 2013. 3. Hypertension-blood pressure is 152/86 today. Continue current therapy. Recommendation Anesthesia Recommendation Anesthesia recommendation: OPTIMIZED for anesthesia
--- NOTE | 2025-03-22 17:46 | PAT.ANESEVAL ---
Pre-Assessment Diagnosis/Proposed Procedure Planned Operative Procedure(s): RIGHT FOOT DEEP HARDWARE REMOVAL Anesthesia History Anesthesia History - docketing specialist: Anesthesia History - docketing specialist Hx Hospitalization No 03/17/25 13:07 Any Problems With Anesthesia No 03/17/25 13:07 Cholinesterase deficiency No 03/17/25 13:07 You/Your Family Experience No 03/17/25 13:07 fever (hyperthermia) with Relationship Recent Exposure to Contagious No 02/12/24 11:31 Disease Does patient have nerve No 03/17/25 13:07 stimulator Patient instructed to have device shut off --Does patient have Pacemaker or ICD? When Was Last Pacemaker Check QUESTION #4 FULL TEXT: You/Your Family Experience fever (hyperthermia) with Anesthesia Last Oral Intake Last Oral intake: Last Oral Intake NPO since Meds taken in AM with sips of water? Meds patient instructed to take am of surgery PONV PONV - docketing specialist: PONV - docketing specialist Female No 03/17/25 13:07 HX of Motion Sickness No 03/17/25 13:07 HX of N/V After Surgery No 03/17/25 13:07 Non-Smoker No 03/17/25 13:07 Duration of Surgery greater Yes 03/17/25 13:07 than 60 minutes Number of Risk Factors 1 03/17/25 13:07 PONV Score Low Risk 03/17/25 13:07 Height & Weight Height & Weight: Anesthesia: Height & Weight Height 5 ft 7 in 02/12/24 11:31 Respiratory Assessment Respiratory Assessment - docketing specialist: Respiratory Tract Infection Hx - docketing specialist Hx Respiratory Tract Infection No 03/17/25 13:07 STOP Sleep Apnea STOP Sleep Apnea - docketing specialist: STOP Sleep Apnea - docketing specialist Hx Hypertension Yes: CONTROLLED WITH MED 03/17/25 13:07 Hx Sleep Apnea Yes 03/17/25 13:07 CPAP Yes: NO LONGER HAS MACHINE 03/17/25 13:07 BIPAP No 03/17/25 13:07 Do you snore loudly (louder than talking or can be heard Do you often feel tired/ fatigued/ sleepy during daytime? Has anyone observed you stop breathing during sleep? STOP Results Positive 03/17/25 13:07 QUESTION #5 FULL TEXT : Do you snore loudly (louder than talking or can be heard through closed doors)? Tobacco Use History Tobacco Use History - docketing specialist: Tobacco Use History - docketing specialist Tobacco Use Cigarettes 01/17/21 19:50 Smoking Status Former smoker 03/17/25 13:07 Hx Tobacco Use No 03/17/25 13:07 Years Smoking Packs Smoked per Day Smoking Cessation Date was No - quit smoking greater 03/17/25 13:07 within the last 15 years than 15 years ago Hx Smoking Cessation Date 08/31/00 03/17/25 13:07 Hx Smoking Cessation No 03/17/25 13:07 Counseling Hematologic Medial History Hematologic Hx - docketing specialist: Hematologic Medical Hx - rn documentation Hx of Blood Transfusion Yes 03/17/25 13:07 Hx of Transfusion in last 3 No 03/17/25 13:07 Months Date of Last Transfusion (if within last 3 months) Ever experience any problems No 03/17/25 13:07 with transfusion(s)? Specify any problems Hx of Preganancy in last 3 N/A 03/17/25 13:07 Months Nurse Filling Out Transfusion DSCHRIBER 03/17/25 13:07 & Questions: Date: 03/17/25 03/17/25 13:07 Time: 13:09 03/17/25 13:07 Patient unable to answer at this time (ie. confused, unrespo /Reproduction History /Reproductive History - docketing specialist: /Reproductive Hx- docketing specialist Hx Now No 03/17/25 13:07 Gestational Age (in weeks): EDC: Hx Hx Para Hx Section SAB No 03/17/25 13:07 PFSH Medical History (Updated 03/17/25 @ 13:13 by Carina Hernandez) Other acute osteomyelitis, right ankle and foot History of echocardiogram Wears glasses Marijuana use Alcohol use Insulin dependent diabetes mellitus Prostate disease Dietary restriction Gastric reflux CPAP (continuous positive airway pressure) dependence History of pain when walking Neuropathic pain of both feet History of edema Cardiology follow-up encounter Hx of fracture of right hip Pulmonary embolism Anxiety Depression COPD (chronic obstructive pulmonary disease) High cholesterol History of stress test Anemia Chronic pain Osteoarthritis Former smoker Myocardial infarct Coronary artery disease Home Medications ?Medication ?Instructions ?Recorded ?Last Taken ?Type insulin aspart U-100 100 unit/mL 1 sliding scale dose subcut ACHS 01/17/21 12/22/23 03:00 History (3 mL) subcutaneous pen (Novolog diabetes 31 units FlexPen U-100 Insulin aspart) nitroglycerin 0.4 mg sublingual 0.4 mg sublingual PRN PRN Chest 01/17/21 Unknown History tablet Pain rosuvastatin 40 mg tablet 40 mg PO QHS cholesterol 01/17/21 12/21/23 History tamsulosin 0.4 mg capsule 0.4 mg PO QHS urine flow 01/17/21 12/21/23 History losartan 25 mg tablet 25 mg PO QHS blood pressure 10/29/22 02/11/24 History gabapentin 800 mg tablet 800 mg PO TID nerve pain 10/19/23 12/21/23 History trazodone 50 mg tablet 50 mg PO QHS sleep 10/19/23 12/21/23 History albuterol sulfate 90 mcg/actuation 2 inh inhalation Q4H PRN shortness 10/26/23 Unknown Rx breath activated powder inhaler of breath or wheezing #1 ea alprazolam 0.5 mg tablet 0.25 mg (1/2 x 0.5 mg) PO TID PRN 10/26/23 12/21/23 Rx Anxiety 3 days #0 tabs acetaminophen 500 mg tablet 1,000 mg PO Q6H PRN PRN pain 12/16/23 Unknown History cholecalciferol (vitamin D3) 1,250 1,250 mcg PO MO 12/16/23 12/21/23 History mcg (50,000 unit) capsule metoprolol succinate 50 mg 50 mg PO DAILY 12/16/23 02/11/24 History tablet,extended release 24 hr ranolazine 500 mg tablet,extended 500 mg PO BID 12/16/23 12/21/23 History release,12 hr aspirin 81 mg tablet,delayed 81 mg PO DAILY 30 days #30 tabs 02/12/24 Unknown Rx release cyclobenzaprine 10 mg tablet 10 mg PO TID muscle spasm 7 days 02/12/24 Unknown Rx #21 tabs famotidine 20 mg tablet 20 mg PO BID GERD #60 tabs 09/13/24 Unknown Rx pantoprazole 20 mg tablet,delayed 20 mg PO QDAY #30 tabs 09/13/24 Unknown Rx release sucralfate 100 mg/mL oral 10 ml PO 4X/DAY #1,000 mL 09/13/24 Unknown Rx suspension hydrocodone-acetaminophen 5-325mg 1 tab PO Q12H PRN PRN severe pain 11/16/24 Unknown History 5mg-325mg insulin glargine 100 unit/mL (3 45 unit subcut QHS 11/16/24 Unknown History mL) subcutaneous pen (Lantus Solostar U-100 Insulin) Allergy/AdvReac Type Severity Reaction Status Date / Time No Known Allergies Allergy Verified 03/17/25 13:02 Family History Mother Cancer Mother w/ Lung CA, tobacco use concurrent history. Father Heart disease Surgical History (Updated 03/17/25 @ 13:11 by Carina Hernandez) History of open reduction and internal fixation (ORIF) procedure Hx of surgical procedure History of ankle surgery Hx of colonoscopy Hx of esophagogastroduodenoscopy Hx of foot surgery H/O cardiac catheterization Hx of CABG (~2013) Social History household members: none Smoking Status: Former smoker alcohol intake: never Audit: Pertinent Findings HISTORY of Pertinent Findings History of Pertinent Findings: EKG Pertinent Findings EKG Perinent findings March 08, 2025. Normal sinus 03/17/25 19:52 rhythm. Stress Test Pertinent Findings Stress test pertinent findings 07/02/2024. No ischemia 03/17/25 20:00 noted by EKG. EF 45%. Moderate sized fixed defect within the mid inferolateral wall. Small fixed defect in the distal anterior wall. Echo Pertinent Findings Echo (EF%) pertinent findings 07/02/2024. EF of 50 to 55%. 03/17/25 20:00 No regional wall motion abnormalities. Heart Catheterization Pertinent Findings Heart catheterization February 04, 2024. EF of 50 to 03/17/25 20:00 pertinent findings 55%. Patent LANIER to LAD, SVG to first diagonal and SVG to the RPDA. Previously known occluded sequential to the OM1 and OM 2. Severe three-vessel [place] coronary artery disease. Consult Pertinent Findings Consult pertinent findings March 08, 2025. Dr. Campbell. 1. 03/17/25 19:55 Preoperative cardiovascular exam-stress test as above. Patient may proceed with right ankle surgery from cardiology standpoint. 2. Coronary artery disease- patient denies any anginal symptoms. Patient had coronary artery bypass graft x 5 in 2013. 3. Hypertension-blood pressure is 152/86 today. Continue current therapy. Pertinent Findings Additional pertinent findings: Latest hemoglobin A1c is 8.2. Looking back the patient's records, patient has always been above 8. Patient is of course high risk for postop infection and poor wound healing. Recommendation Anesthesia Recommendation Anesthesia recommendation: OPTIMIZED for anesthesia (Please alert the surgeon that the patient's latest hemoglobin A1c is 8.2. Looking back the patient's records, patient has always been above 8. Patient is of course high risk for postop infection and poor wound healing.)
--- NOTE | 2025-03-24 18:09 | PAT.ANESEVAL ---
Pre-Assessment Diagnosis/Proposed Procedure Planned Operative Procedure(s): RIGHT FOOT DEEP HARDWARE REMOVAL Anesthesia History Anesthesia History - mosaic floor layer: Anesthesia History - mosaic floor layer Hx Hospitalization No 03/17/25 13:07 Any Problems With Anesthesia No 03/17/25 13:07 Cholinesterase deficiency No 03/17/25 13:07 You/Your Family Experience No 03/17/25 13:07 fever (hyperthermia) with Relationship Recent Exposure to Contagious No 02/12/24 11:31 Disease Does patient have nerve No 03/17/25 13:07 stimulator Patient instructed to have device shut off --Does patient have Pacemaker or ICD? When Was Last Pacemaker Check QUESTION #4 FULL TEXT: You/Your Family Experience fever (hyperthermia) with Anesthesia Last Oral Intake Last Oral intake: Last Oral Intake NPO since Meds taken in AM with sips of water? Meds patient instructed to take am of surgery PONV PONV - mosaic floor layer: PONV - mosaic floor layer Female No 03/17/25 13:07 HX of Motion Sickness No 03/17/25 13:07 HX of N/V After Surgery No 03/17/25 13:07 Non-Smoker No 03/17/25 13:07 Duration of Surgery greater Yes 03/17/25 13:07 than 60 minutes Number of Risk Factors 1 03/17/25 13:07 PONV Score Low Risk 03/17/25 13:07 Height & Weight Height & Weight: Anesthesia: Height & Weight Height 5 ft 7 in 02/12/24 11:31 Respiratory Assessment Respiratory Assessment - mosaic floor layer: Respiratory Tract Infection Hx - mosaic floor layer Hx Respiratory Tract Infection No 03/17/25 13:07 STOP Sleep Apnea STOP Sleep Apnea - mosaic floor layer: STOP Sleep Apnea - mosaic floor layer Hx Hypertension Yes: CONTROLLED WITH MED 03/17/25 13:07 Hx Sleep Apnea Yes 03/17/25 13:07 CPAP Yes: NO LONGER HAS MACHINE 03/17/25 13:07 BIPAP No 03/17/25 13:07 Do you snore loudly (louder than talking or can be heard Do you often feel tired/ fatigued/ sleepy during daytime? Has anyone observed you stop breathing during sleep? STOP Results Positive 03/17/25 13:07 QUESTION #5 FULL TEXT : Do you snore loudly (louder than talking or can be heard through closed doors)? 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 Specify any problems Hx of Preganancy in last 3 N/A 03/17/25 13:07 Months Nurse Filling Out Transfusion DSCHRIBER 03/17/25 13:07 & Questions: Date: 03/17/25 03/17/25 13:07 Time: 13:09 03/17/25 13:07 Patient unable to answer at this time (ie. confused, unrespo /Reproduction History /Reproductive History - mosaic floor layer: /Reproductive Hx- mosaic floor layer Hx Now No 03/17/25 13:07 Gestational Age (in weeks): EDC: Hx Hx Para Hx Section SAB No 03/17/25 13:07 PFSH Medical History (Updated 03/17/25 @ 13:13 by Carina Hernandez) Other acute osteomyelitis, right ankle and foot History of echocardiogram Wears glasses Marijuana use Alcohol use Insulin dependent diabetes mellitus Prostate disease Dietary restriction Gastric reflux CPAP (continuous positive airway pressure) dependence History of pain when walking Neuropathic pain of both feet History of edema Cardiology follow-up encounter Hx of fracture of right hip Pulmonary embolism Anxiety Depression COPD (chronic obstructive pulmonary disease) High cholesterol History of stress test Anemia Chronic pain Osteoarthritis Former smoker Myocardial infarct Coronary artery disease Home Medications ?Medication ?Instructions ?Recorded ?Last Taken ?Type insulin aspart U-100 100 unit/mL 1 sliding scale dose subcut ACHS 01/17/21 12/22/23 03:00 History (3 mL) subcutaneous pen (Novolog diabetes 31 units FlexPen U-100 Insulin aspart) nitroglycerin 0.4 mg sublingual 0.4 mg sublingual PRN PRN Chest 01/17/21 Unknown History tablet Pain rosuvastatin 40 mg tablet 40 mg PO QHS cholesterol 01/17/21 12/21/23 History tamsulosin 0.4 mg capsule 0.4 mg PO QHS urine flow 01/17/21 12/21/23 History losartan 25 mg tablet 25 mg PO QHS blood pressure 10/29/22 02/11/24 History gabapentin 800 mg tablet 800 mg PO TID nerve pain 10/19/23 12/21/23 History trazodone 50 mg tablet 50 mg PO QHS sleep 10/19/23 12/21/23 History albuterol sulfate 90 mcg/actuation 2 inh inhalation Q4H PRN shortness 10/26/23 Unknown Rx breath activated powder inhaler of breath or wheezing #1 ea alprazolam 0.5 mg tablet 0.25 mg (1/2 x 0.5 mg) PO TID PRN 10/26/23 12/21/23 Rx Anxiety 3 days #0 tabs acetaminophen 500 mg tablet 1,000 mg PO Q6H PRN PRN pain 12/16/23 Unknown History cholecalciferol (vitamin D3) 1,250 1,250 mcg PO MO 12/16/23 12/21/23 History mcg (50,000 unit) capsule metoprolol succinate 50 mg 50 mg PO DAILY 12/16/23 02/11/24 History tablet,extended release 24 hr ranolazine 500 mg tablet,extended 500 mg PO BID 12/16/23 12/21/23 History release,12 hr aspirin 81 mg tablet,delayed 81 mg PO DAILY 30 days #30 tabs 02/12/24 Unknown Rx release cyclobenzaprine 10 mg tablet 10 mg PO TID muscle spasm 7 days 02/12/24 Unknown Rx #21 tabs famotidine 20 mg tablet 20 mg PO BID GERD #60 tabs 09/13/24 Unknown Rx pantoprazole 20 mg tablet,delayed 20 mg PO QDAY #30 tabs 09/13/24 Unknown Rx release sucralfate 100 mg/mL oral 10 ml PO 4X/DAY #1,000 mL 09/13/24 Unknown Rx suspension hydrocodone-acetaminophen 5-325mg 1 tab PO Q12H PRN PRN severe pain 11/16/24 Unknown History 5mg-325mg insulin glargine 100 unit/mL (3 45 unit subcut QHS 11/16/24 Unknown History mL) subcutaneous pen (Lantus Solostar U-100 Insulin) Allergy/AdvReac Type Severity Reaction Status Date / Time No Known Allergies Allergy Verified 03/17/25 13:02 Family History Mother Cancer Mother w/ Lung CA, tobacco use concurrent history. Father Heart disease Surgical History (Updated 03/17/25 @ 13:11 by Carina Hernandez) History of open reduction and internal fixation (ORIF) procedure Hx of surgical procedure History of ankle surgery Hx of colonoscopy Hx of esophagogastroduodenoscopy Hx of foot surgery H/O cardiac catheterization Hx of CABG (~2013) Social History household members: none Smoking Status: Former smoker alcohol intake: never Audit: Pertinent Findings HISTORY of Pertinent Findings History of Pertinent Findings: EKG Pertinent Findings EKG Perinent findings March 08, 2025. Normal sinus 03/17/25 19:52 rhythm. Stress Test Pertinent Findings Stress test pertinent findings 07/02/2024. No ischemia 03/17/25 20:00 noted by EKG. EF 45%. Moderate sized fixed defect within the mid inferolateral wall. Small fixed defect in the distal anterior wall. Echo Pertinent Findings Echo (EF%) pertinent findings 07/02/2024. EF of 50 to 55%. 03/17/25 20:00 No regional wall motion abnormalities. Heart Catheterization Pertinent Findings Heart catheterization February 04, 2024. EF of 50 to 03/17/25 20:00 pertinent findings 55%. Patent LANIER to LAD, SVG to first diagonal and SVG to the RPDA. Previously known occluded sequential to the OM1 and OM 2. Severe three-vessel [place] coronary artery disease. Consult Pertinent Findings Consult pertinent findings March 08, 2025. Dr. Campbell. 1. 03/17/25 19:55 Preoperative cardiovascular exam-stress test as above. Patient may proceed with right ankle surgery from cardiology standpoint. 2. Coronary artery disease- patient denies any anginal symptoms. Patient had coronary artery bypass graft x 5 in 2013. 3. Hypertension-blood pressure is 152/86 today. Continue current therapy. Additional Pertinent Findings Additional pertinent findings Latest hemoglobin A1c is 8.2 03/22/25 17:55 . Looking back the patient' s records, patient has always been above 8. Patient is of course high risk for postop infection and poor wound healing. Recommendation Anesthesia Recommendation Anesthesia recommendation: OPTIMIZED for anesthesia
[2025-03-31] VITALS (9 sets, daily range): BP systolic 102–135; BP diastolic 43–69; PULSE 72–74; RESP 14–20; TEMP 36.1–36.9; O2SAT 94–96; BMI 33.1
[2025-03-31] MEDS: Lactated Ringers 1,000 ML 15 ML IV (09:29)
--- NOTE | 2025-03-31 09:42 | PCM.OPRPT ---
Problems Associated Problem List Diagnoses (1) Charcot's joint, right ankle and foot: (2) Pain in right ankle and joints of right foot: (3) Primary osteoarthritis, right ankle and foot: (4) Non-pressure chronic ulcer of other part of right lower leg with fat layer exposed: (5) Chronic painful diabetic polyneuropathy: Operative Report (Standard) Operative Information Date of Procedure: 03/31/25 Pre-Operative Diagnosis: 1. Charcot foot, right lower extremity 2. Diabetes type 2 peripheral neuropathy 3. Osteoarthritis, right lower extremity 4. Pain, right lower extremity 5. Full-thickness wound subcutaneous tissue, right ankle Post-Operative Diagnosis: 1. Charcot foot, right lower extremity 2. Diabetes type 2 peripheral neuropathy 3. Osteoarthritis, right lower extremity 4. Pain, right lower extremity 5. Full-thickness wound subcutaneous tissue, right ankle Surgery/Procedure Performed: Procedure #1: Achilles tenotomy, right lower extremity Procedure #2: Colectomy, right lower extremity Procedure #3: Partial resection of fibula, right lower extremity Procedure #4: Partial resection of tibia, right lower extremity Procedure #5: Ankle fusion, right lower extremity Procedure #6: Subtalar joint fusion, right lower extremity Procedure #7: Surgical skin graft site prep, right lower extremity Procedure #8: Application of skin graft substitute, right lower extremity Procedure #9: Application of posterior splint, right lower extremity tag marker: Yes [employer] Instructor: Kalyan Varma PGY2 Tasks completed by electrician station assistant: Closing, Implanting device and Retracting Additional food and nutrition services assistant?: Yes Additional Specialized Developer #2: Aspen Hyman PGY2 Tasks completed by food and nutrition services assistant #2: Closing, Implanting device and Retracting Additional food and nutrition services assistant?: No Type of Anesthesia: General/Regional RN Documented Start/Stop Times: Operation Date: 03/31/25 10:30 Case Time Into Pre-Op 03/31/25 09:13 Into Room 03/31/25 11:26 Procedure Start 03/31/25 12:08 Anesthesia Start 03/31/25 12:26 Procedure End 03/31/25 15:45 Anesthesia End 03/31/25 15:49 Out of Room 03/31/25 15:49 Into Recovery 03/31/25 15:51 Out of Recovery 03/31/25 16:38 Into Phase II Recovery 03/31/25 16:40 Out of Phase II 03/31/25 17:30 Procedure Start Time: 12:08 Procedure Stop Time: 15:45 Select all DRAINS/GRAFTS/IMPLANTS that apply: Graft Graft details: BioSkin 4 x 4 cm, 1 cc via flow and Implanted device Implanted device details: Prefabricated TRUSS, 38 mm. Intramedullary nail, valor nail [place] Special Medications: Per anesthesia Estimated Blood Loss: 100 mL Fluids Replaced: Per anesthesia Specimen collected: Yes Description of specimen(s) removed: Right lower extremity ankle fluid, sent for microbiology Description of surgery: Indications For Operation: Mr. Weldon is a 60-year-old diabetic male who was admitted to [facility] for elective surgery to the right lower extremity consisting of Charcot reconstruction to the right lower extremity. Patient is well-known to my service and has been treated as an outpatient over the past 2 years. Approximately 9 months ago the patient underwent removal of part of the patient's talus due to osteomyelitis with application of antibiotic beads and external fixator. During the patient's treatment process he unfortunately was unable to obtain transportation to the office and was treated by home health care. Patient did develop an infection to the external fixator which was eventually removed in the office without incident. Along outpatient treatment consistent with wound care was performed in the office with all areas of infection being healed. The patient did undergo multiple rounds of oral antibiotics which was successful. During that time the patient did fall fracturing his tibia proximally. The patient refused to follow-up with orthopedics as he was concern for below-knee amputation. We treated the patient conservatively as an outpatient being nonweightbearing with assistance of a walker and a cam boot. The patient was followed until bony union of the proximal fracture was seen on plain film radiographs. Once the patient showed good healing potential as well as good blood sugar control we move forward with authorization through his insurance for the reconstruction of the Charcot foot. Prior to moving forward with surgery I did discuss with the patient the options for below-knee amputation which she refused. I did discuss with the patient that even though we are moving forward with a titanium implant as well as intramedullary nail he is still high risk for the below-knee amputation which she is greatly understanding of. All risk and benefits were discussed with the patient in great detail. Chart reviewed consent signed. Due to deformity to the right lower extremity it was deemed necessary at this time to take the patient to operating room to perform the above procedure and allow the patient to have a rectus foot so that he may weight-bear comfortably in a [place] walker as well as diabetic shoes. The nature of the problem, anticipated procedures, postop recovery/convalences and risk/complications include but not limited to infection, wound healing complications, digital amputation, hypertrophic scarring, numbness, tingling, chronic pain, CRPS, over and under correction, recurrence of deformity, DVT and or PE and the need for further surgery have been discussed in great detail with the patient. All questions have been answered to the patient's satisfaction. There are no guarantees given as to the outcome of the procedure. Description of Procedure: Under mild sedation, the patient was brought into the operating room and placed on the operating table in supine position. Once the patient was under general anesthesia with laryngeal mask airway, the right lower extremity was blocked prior to the case in the PACU per anesthesia with a popliteal and adductor block. Please see their notes for further detail. Next, nursing applied a Chiang catheter that will be removed at the end of the procedure. The removal of the catheter order has already been given. Next, a well-padded thigh tourniquet was applied to the right lower extremity. Next, the right lower extremity was prepped and draped in normal aseptic manner. Next, a timeout was then undertaken verifying the correct patient, extremity, visibility of preoperative markings, availability of the equipment. Next, attention was directed to the right lower extremity. Using a foreign Esmarch, right lower extremity was exsanguinated and elevated to 60 degrees for 1 minute. Procedure #1: Achilles tenotomy, right lower extremity (CPT code: 20145) Next, attention was directed to the posterior aspect of the level of the Achilles tendon. Using a 11 blade, Achilles tenotomy was performed and a audible snap was heard when forcing the foot in a dorsiflexor he motion. The small incision was flushed with cold pronounce normal saline. And 1 single staple was applied. Procedure #2: Talectomy, right lower extremity (CPT code: 98323), Procedure #3: Partial resection of fibula (CPT code: 61947), Procedure #4: Partial resection of tibia, right lower extremity (CPT code: 13245) Next, large arm fluoroscopy was used to amrik out the anterior tibial crest and lateral tibia. Once all landmarks were confirmed. A skin marker was placed on the lateral aspect of the right lower extremity at the level of the subtalar, ankle joints and proximal tibia. Using a #10 blade, a full-thickness incision down to bone was performed. Continued sharp dissection was carried down and around the distal fibula as well as to the level of the ankle joint and subtalar joint. Upon entering the ankle joint with the #10 blade, there showed evidence of joint fluid which was clear in nature with no malodor or sign of infection however a soft tissue culture was taken and passed the back table to be sent off for microbiology culture and sensitivity. It was noted at this time that there was evidence of Charcot-like soft tissue as well as scar tissue from the previous surgery. There showed evidence of some bone formation due to trying to heal the already removed posterior aspect of the talus. Using a large rongeur, all unnecessary bone and soft tissue was removed and passed the back table to be discarded. The incision was here was flushed with cold amounts normal saline. Next attention was directed to the level of the fibula, tibia and talus. Using a acetabular reamer a 36 mm reamer head was attached and the talectomy, partial resection of the tibia as well as partial resection of fibula were performed without incident. Resection of the tibia and talus was confirmed on multiple views using large C-arm fluoroscopy and visually through the large lateral incision. Once the ideal depth was noted. A 38 mm sizer was placed to the deficit which showed to be a good fit as well as with good apposition between the tibia and calcaneus. Next, sizing for the intramedullary nail was also performed. This was also confirmed with large cam fluoroscopy, which was decided to move forward with a 11.5 x 200 mm nail. Procedure #5: Ankle fusion, right lower extremity (CPT code: 24081), Procedure #6: Subtalar joint fusion, right lower extremity (CPT code: 02722) Next, the superior border of the calcaneus was prepped with a large osteotome and also fenestrated to allow for bony ingrowth into the 38 mm spherical implant. Once prep was satisfied the incision was flushed with copious normal saline. At this time the thigh tourniquet the right lower extremity was deflated reperfusion was noted instantly and all bleeders were ligated and cauterized as necessary. Next, the guidewire for the intramedullary nail was placed through the calcaneus along the landmark of where the lateral talar process should be with good centralization through the tibia. The guidewire was checked with multiple views of large C arm fluoroscopy. Next, the commercial airplane pilot hole for the intramedullary narrow was performed without incident. Next, the guidewire was swapped out for the ball-tipped guidewire. Next, reaming was performed using various size of the reaming bit until the satisfactory size was obtained to allow for a 11.5 mm nail. Once reaming was completed the 38 mm implant was gently packed with augment mixed with DBM. Next, the implant was placed into the reamed out section on the lateral aspect of the absent talus. Next, the 11.5 x 200 mm nail was set up on its jig and placed through the foot, through the implant and up the tibial canal without incident. The desired depth was checked using large C arm fluoroscopy and a large mallet for depth control. Once the depth was satisfied, the jig was used to place all proximal and inferior screws per the psychiatric mental health nurse's recommendation with the rep in the room. The most proximal hole in the intramedullary nail was placed through perfect [place] technique without incident. At this time after 25 minutes of the tourniquet being down the tourniquet was reinflated to 300 mmHg without incident. Procedure #7: Surgical skin graft site prep, right lower extremity (CPT code: 52866) Next, surgical skin graft site prep of the healthy full-thickness wound was performed with a large curette down to subcutaneous tissue without incident. The area was flushed with copious normal saline. Procedure #8: Application of skin graft substitute, right lower extremity (CPT code: 36899) Next, a 4 x 4 centimeter BioSkin graft was placed over the healthy full-thickness wound. Procedure #9: Application of posterior splint, right lower extremity (CPT code: 10027) Next, the right lower extremity was wiped clean and patted dry. The medial stab incisions were closed using abril. The plantar heel incision was closed using abril. The P to A screw stab incision was closed using abril. The lateral incision was flushed with copious normal saline. Prior to closure there was excellent apposition between the implant and the tibia and calcaneus. Attempt to move the ankle and dorsiflexion plantarflexion as well as inversion and eversion was unsuccessful due to tight fit using the implant and intramedullary nail. The deep layer was reapproximated and closed with 2-0 Vicryl in running locking suture technique. At this time the right thigh tourniquet was deflated with reperfusion noted instantly to the right lower extremity. All bleeders were cauterized and ligated as necessary. The subcutaneous layer was reapproximated closed with 2-0 Vicryl in running locking suture technique. The skin was reapproximated and closed using abril. I 1 cc of via flow was injected throughout the lateral incision to aid in healing and to decrease scar tissue. Again, the right lower extremity was wiped clean and patted dry. The graft was dressed with Adaptic and Steri-Strips followed by bolster dressing, all incisions were dressed with Betadine soaked Adaptic, dry sterile dressing and a double layer Zhang AO splint was donned at 90 degrees to right lower extremity. The patient tolerated the procedure and anesthesia well and apparent satisfactory condition and was transported to the PACU for further monitoring prior to discharge home. Vital signs stable and vascular status intact to all digits bilateral. Post Operative Plan: Weightbearing: Patient will be nonweightbearing to the right lower extremity with assistive knee scooter and walker. Full weightbearing left lower extremity. Nursing: Chiang catheter placed with orders given to remove at the end of procedure. Antibiotics: 2 g Ancef through the IV DVT Prophylaxis: 81 mg aspirin twice daily Chiang: None Dressing: BioSkin 4 x 4 centimeters, Adaptic, Betadine soaked Adaptic to all incisions, dry sterile dressing and double layer Zhang AO splint at 90 degrees right lower extremity. X-Rays: Post-operative films taken on the operating room. Pain Medication: Percocet 5/325 Follow-up: Patient will follow-up with Dr. Cabrales in private office in 1 week to 10 days following the procedure. Surgical Findings: 1. Patient showed evidence of Charcot foot deformity with a large valgus of formerly. 2. Evidence of joint fluid that was cultured sent off for microbiology for culture and sensitivity. 2. After correction with intramedullary nail and implant patient has rectus foot. Complications Complications: No Admit VTE Documentation VTE Present on Admission: No VTE Mechan Device Prophylaxis: SCD's VTE Pharm Prophylaxis ordered?: Yes
--- NOTE | 2025-03-31 09:58 | RAD_ITS ---
EXAM: XR Right Foot, 2 Views CLINICAL INDICATION: RT FOOT DEEP HARDWARE REMOVAL TECHNIQUE: Frontal and lateral views of the right foot. COMPARISON: No relevant prior studies available. FINDINGS: BONES/JOINTS: Unremarkable. No acute fracture. No dislocation. SOFT TISSUES: Unremarkable. OTHER FINDINGS: Total fluoroscopic image 5. Total fluoroscopy time 438.7 seconds. Total radiation dose 11.9 mGy. RAD/Foot 2 Views IMPRESSION: Fluoroscopic guidance was used intraoperatively. Please refer to the operative note for further details. Reading Location: [id number]
--- NOTE | 2025-03-31 10:03 | PRE.ANES_ITS ---
ASA Classification* ASA Classification ASA Classification: 3 Assessment & Plan Anesthesia* Anesthesia Assessment Anesthesia Assessment: Discussed sedation and/or anesthesia options, risks, benefits, and alternatives with patient/parents/legal guardian/POA. Questions invited. The patient/parents/legal guardian/POA seems to understand and agrees to proceed with anesthesia plan. Reviewed the physical assessment, medical history, allergy history and patient home medications list prior to surgery/procedure/anesthetic and documented any changes. Performed airway and anesthesia risk assessments. Anesthesia Type Anesthesia Type: General and Block (Adductor Canal and Popliteal) Anesthesia Focused Assessment* Temperature: 98.5 F Pulse Rate: 72 Blood Pressure: 135/69 Respiratory Rate: 14 Pulse Ox: 96 Airway Assessment Mouth opens: 2 cm Mallampati Score: III Labs Anesthesia Preop lab: CBC WBC 12.6 K/mm3 (4.4-11.0) H 10/26/23 05:10 4 RBC 2.95 M/mm3 (4.6-6.2) L 10/26/23 05:10 10/26/23 Hgb 7.6 g/dL (13.0-16.5) L 10/26/23 05:10 10/26/23 Hct 24.5 % (40-54) L 10/26/23 05:10 10/26/23 Plt Count 456 K/mm3 (150-450) H 10/26/23 05:10 10/26/23 CHEMISTRY Potassium 4.8 mmol/L (3.5-5.1) 02/12/24 21:13 02/12/24 Sodium 136 mmol/L (136-145) 02/12/24 21:13 02/12/24 Magnesium 2.1 mg/dL (1.6-2.6) 10/31/22 04:12 10/31/22 Phosphorus 4.0 mg/dL (2.5-4.9) 07/01/17 06:17 07/01/17 BUN 26 mg/dL (7-18) H 02/12/24 21:13 02/12/24 Creatinine 1.27 mg/dL (0.70-1.30) 02/12/24 21:13 02/12/24 Glucose 354 mg/dL (74-106) H 02/12/24 21:02/12/24 POC Glucose 298 mg/dL (74-106) H 02/12/24 18:46 02/12/24 COAG PT 14.7 SECONDS (11.7-14.9) 10/19/23 18:12 Pre-Assessment Diagnosis/Proposed Procedure Planned Operative Procedure(s): RIGHT FOOT DEEP HARDWARE REMOVAL Anesthesia History Anesthesia History - composing room supervisor: Anesthesia History - composing room supervisor Hx Hospitalization No 03/17/25 13:07 Any Problems With Anesthesia No 03/17/25 13:07 Cholinesterase deficiency No 03/17/25 13:07 You/Your Family Experience No 03/17/25 13:07 fever (hyperthermia) with Relationship Recent Exposure to Contagious No 03/31/25 09:18 Disease Does patient have nerve No 03/17/25 13:07 stimulator Patient instructed to have device shut off --Does patient have Pacemaker No 03/31/25 09:18 or ICD? When Was Last Pacemaker Check QUESTION #4 FULL TEXT: You/Your Family Experience fever (hyperthermia) with Anesthesia Last Oral Intake Last Oral intake: Last Oral Intake NPO since 00:00 03/31/25 09:18 Meds taken in AM with sips of No 03/31/25 09:18 water? Meds patient instructed to take am of surgery PONV PONV - composing room supervisor: PONV - composing room supervisor Female No 03/17/25 13:07 HX of Motion Sickness No 03/17/25 13:07 HX of N/V After Surgery No 03/17/25 13:07 Non-Smoker No 03/17/25 13:07 Duration of Surgery greater Yes 03/17/25 13:07 than 60 minutes Number of Risk Factors 1 03/17/25 13:07 PONV Score Low Risk 03/17/25 13:07 Height & Weight Height & Weight: Anesthesia: Height & Weight Height 5 ft 7 in 03/31/25 09:18 Weight: 96.1 kg 03/31/25 09:18 Body Mass Index (BMI) 33.1 03/31/25 09:18 Respiratory Assessment Respiratory Assessment - composing room supervisor: Respiratory Tract Infection Hx - composing room supervisor Hx Respiratory Tract Infection No 03/17/25 13:07 STOP Sleep Apnea STOP Sleep Apnea - composing room supervisor: STOP Sleep Apnea - composing room supervisor Hx Hypertension Yes: CONTROLLED WITH MED 03/17/25 13:07 Hx Sleep Apnea Yes 03/17/25 13:07 CPAP Yes: NO LONGER HAS MACHINE 03/17/25 13:07 BIPAP No 03/17/25 13:07 Do you snore loudly (louder than talking or can be heard Do you often feel tired/ fatigued/ sleepy during daytime? Has anyone observed you stop breathing during sleep? STOP Results Positive 03/17/25 13:07 QUESTION #5 FULL TEXT : Do you snore loudly (louder than talking or can be heard through closed doors)? 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 Specify any problems Hx of Preganancy in last 3 N/A 03/17/25 13:07 Months Nurse Filling Out Transfusion [email or web address] 03/17/25 13:07 & Questions: Date: 03/17/25 03/17/25 13:07 Time: 13:09 03/17/25 13:07 Patient unable to answer at this time (ie. confused, unrespo /Reproduction History /Reproductive History - composing room supervisor: /Reproductive Hx- composing room supervisor Hx Now No 03/17/25 13:07 Gestational Age (in weeks): EDC: Hx Hx Para Hx Section SAB No 03/17/25 13:07 Active Medications Active Medications: Current Medications Generic Name Dose Route Start Last Admin Trade Name Freq PRN Reason Stop Dose Admin Cefazolin Sodium 2 gm/ Sodium 110 mls @ 200 mls/hr 03/31/25 11:30 Chloride IV 03/31/25 12:02 INTRAOP ONE Lactated Ringer's 1,000 mls @ 15 mls/hr 03/31/25 09:15 03/31/25 09:29 IV 15 mls/hr .Q48H KEYSHA Administration PFSH Medical History (Updated 03/17/25 @ 13:13 by Carina Hernandez) Other acute osteomyelitis, right ankle and foot History of echocardiogram Wears glasses Marijuana use Alcohol use Insulin dependent diabetes mellitus Prostate disease Dietary restriction Gastric reflux CPAP (continuous positive airway pressure) dependence History of pain when walking Neuropathic pain of both feet History of edema Cardiology follow-up encounter Hx of fracture of right hip Pulmonary embolism Anxiety Depression COPD (chronic obstructive pulmonary disease) High cholesterol History of stress test Anemia Chronic pain Osteoarthritis Former smoker Myocardial infarct Coronary artery disease Home Medications ?Medication ?Instructions ?Recorded ?Last Taken ?Type insulin aspart U-100 100 unit/mL 1 sliding scale dose subcut ACHS 01/17/21 03/31/25 06:00 History (3 mL) subcutaneous pen (Novolog diabetes 2 u FlexPen U-100 Insulin aspart) nitroglycerin 0.4 mg sublingual 0.4 mg sublingual PRN PRN Chest 01/17/21 Unknown History tablet Pain rosuvastatin 40 mg tablet 40 mg PO QHS cholesterol 12/21/23 History tamsulosin 0.4 mg capsule 0.4 mg PO QHS urine flow 12/21/23 History losartan 25 mg tablet 25 mg PO QHS blood pressure 10/29/22 02/11/24 History gabapentin 800 mg tablet 800 mg PO TID nerve pain 12/21/23 History trazodone 50 mg tablet 50 mg PO QHS sleep 10/19/23 12/21/23 History albuterol sulfate 90 mcg/actuation 2 inh inhalation Q4 H PRN shortness 10/26/23 Unknown Rx breath activated powder inhaler of breath or wheezing #1 ea alprazolam 0.5 mg tablet 0.25 mg (1/2 x 0.5 mg) PO TI D PRN 10/26/23 12/21/23 Rx Anxiety 3 days #0 tabs acetaminophen 500 mg tablet 1,000 mg PO Q6H PRN PRN pa in 12/16/23 Unknown History cholecalciferol (vitamin D3) 1,250 1,250 mcg PO MO 12/21/23 History mcg (50,000 unit) capsule metoprolol succinate 50 mg 50 mg PO DAILY 12/16/23 History tablet,extended release 24 hr ranolazine 500 mg tablet,extended 500 mg PO BID 12/21/23 History release,12 hr aspirin 81 mg tablet,delayed 81 mg PO DAILY 30 days #3 0 tabs 02/12/24 02/28/25 Rx release cyclobenzaprine 10 mg tablet 10 mg PO TID muscle spasm 7 days 02/12/24 Unknown Rx #21 tabs famotidine 20 mg tablet 20 mg PO BID GERD #60 tabs 0 09/13/24 Unknown Rx pantoprazole 20 mg tablet,delayed 20 mg PO QDAY #30 ta bs 09/13/24 Unknown Rx release sucralfate 100 mg/mL oral 10 ml PO 4X/DAY #1,000 mL Unknown Rx suspension hydrocodone-acetaminophen 5-325mg 1 tab PO Q12H PRN NV N severe pain 11/16/24 Unknown History 5mg-325mg insulin glargine 100 unit/mL (3 45 unit subcut QHS 03/30/25 History mL) subcutaneous pen (Lantus 20 unit Solostar U-100 Insulin) Allergy/AdvReac Type Severity Reaction Status Date / Time No Known Allergies Allergy Verified 03/31/25 09:15 Family History Mother Cancer Mother w/ Lung CA, tobacco use concurrent history. Father Heart disease Surgical History (Updated 03/17/25 @ 13:11 by Carina Hernandez) History of open reduction and internal fixation (ORIF) procedure Hx of surgical procedure History of ankle surgery Hx of colonoscopy Hx of esophagogastroduodenoscopy Hx of foot surgery H/O cardiac catheterization Hx of CABG (~2013) Social History household members: none Smoking Status: Former smoker alcohol intake: never Review of Systems (Anesthesia) ROS Narrative System reviewed and no additional complaints, except as documented.
--- NOTE | 2025-03-31 15:56 | PCM.POST.ANE ---
Anesthesia: Postop Eval I Current Vital Signs Temperature: 97.2 F Pulse Rate: 74 Blood Pressure: 102/43 Respiratory Rate: 20 Pulse Ox: 95 Oxygen Delivery Method: Room Air Assessment Airway patent: Yes Spontaneous unlabored respirations: Yes Mental status: Awake and Calm nausea: No Vomiting: No Anesthesia Complication: No Fluid Hydration Crystalloid volume administer (ml): 1,800 Total IV fluid infused: 1,800 Progress Note Anesthesia document: Postop Eval 1 completed: Yes
--- NOTE | 2025-03-31 17:43 | SUR.PHASEII ---
PATIENT CALLED OUT STATING HE IS READY TO LEAVE. THIS RN CAME INTO ROOM WITH WHEELCHAIR AND HE STATES RIDE WILL BE 30 MORE MIN. EXPLAINED TO HIM HE CAN WAIT IN ROOM HOWEVER HE WOULD RATHER WAIT BY ENTRANCE. WHEELED OUT TO ENTRANCE, FAMILY WITH PATIENT HOWEVER A DIFFERENT RIDE IS COMING TO PICK HIM UP
--- NOTE | 2025-03-31 20:05 | POSTOPAN2_ITS ---
Anesthesia Postop Eval I Sum Postop Eval Completion status Anesthesia document: Postop Eval 1 completed: Yes Anesthesia Postop Eval I Summary Anesthesia Postop Eval I Summary: Anesthesia Postop Eval I: Assessment Summary Airway patent Yes 03/31/25 15:56 [email or web address] Spontaneous unlabored Yes 03/31/25 15:56 [email or web address] respirations Mental status Awake,Calm 03/31/25 15:56 [email or web address] nausea No 03/31/25 15:56 [email or web address] [email or web address] Vomiting No 03/31/25 15:56 [email or web address] Anesthesia Postop Eval I: Fluid Summary Crystalloid volume administer 1,800 03/31/25 15:56 [email or web address] [email or web address] (ml) Colloids volume administered ( ml) Blood Product volume administered (ml) Total IV fluid infused 1,800 03/31/25 15:56 SWAT [email or web address] Anesthesia Postop Eval I: Summary Notes Anesthesia Complication No 03/31/25 15:56 [email or web address] [email or web address] Anesthesia Complication Comment: Post-operative progress note Anesthesia: Postop Eval II Evaluation Mental status: Awake and Calm Pain Level: 1 nausea: No Vomiting: No Complications Anesthesia Complication: No
--- NOTE | 2025-03-31 20:05 | PCM.POSTANE2 ---
Anesthesia Postop Eval I Sum Postop Eval Completion status Anesthesia document: Postop Eval 1 completed: Yes Anesthesia Postop Eval I Summary Anesthesia Postop Eval I Summary: Anesthesia Postop Eval I: Assessment Summary Airway patent Yes 03/31/25 15:56 [email or web address] Spontaneous unlabored Yes 03/31/25 15:56 MANGLE [email or web address] respirations Mental status Awake,Calm 03/31/25 15:56 [email or web address] nausea No 03/31/25 15:56 MANGLE [email or web address] Vomiting No 03/31/25 15:56 [email or web address] Anesthesia Postop Eval I: Fluid Summary Crystalloid volume administer 1,800 03/31/25 15:56 [email or web address] (ml) Colloids volume administered ( ml) Blood Product volume administered (ml) Total IV fluid infused 1,800 03/31/25 15:56 [email or web address] Anesthesia Postop Eval I: Summary Notes Anesthesia Complication No 03/31/25 15:56 [email or web address] Anesthesia Complication Comment: Post-operative progress note Anesthesia: Postop Eval II Evaluation Mental status: Awake and Calm Pain Level: 1 nausea: No Vomiting: No Complications Anesthesia Complication: No
== END 2025-03-31 17:30 | disposition home or self-care (01) ==
LOC: SDC 08:40 → AC 08:41
PROVIDERS: PCP Internal Medicine; Visit Provider Podiatrist Foot & Ankle Surgery
PROC: (CPT 28725; principal; 2025-03-31 10:15)
DX: E11.610 Type 2 diabetes mellitus with diabetic neuropathic arthropathy (principal); E11.622 Type 2 diabetes mellitus with other skin ulcer; L97.912 Non-pressure chronic ulcer of unspecified part of right lower leg with fat layer exposed; E11.42 Type 2 diabetes mellitus with diabetic polyneuropathy; Z79.4 Long term (current) use of insulin; I10 Essential (primary) hypertension; E66.811 Obesity, class 1; M19.071 Primary osteoarthritis, right ankle and foot; G89.29 Other chronic pain; Z68.32 Body mass index [BMI] 32.0-32.9, adult; Z79.82 Long term (current) use of aspirin; Z79.899 Other long term (current) drug therapy; Z87.891 Personal history of nicotine dependence
CPT/HCPCS: 28725; 15271; 28130; 27641; 27640; 27606; 27870; 15002; 01480; 64450; 73620; 76000; 82962; 87070; 87075; 87205; C1713; C9399; J2405